=== PATIENT | male | born 1945 | race Caucasian/White ===

== ENCOUNTER 2021-03-08 17:53 | Inpatient (IN) ==
--- NOTE | 2021-03-08 18:20 | Emergency Department Note ---
Impression & Plan Hyponatremia, Alcoholic intoxication, Falling, Unsteady ED Provider Note Provider: Jeovany Zuluaga MD DATE OF SERVICE: 03/08/2021 CHIEF COMPLAINT: Balance issues HISTORY OF PRESENT ILLNESS: Patient is a 75-year-old gentleman presenting via ambulance from home today after falling from his truck to the ground. Reports over the past several months only 3-4 has been having balance issues. States that he does not feel dizzy or have any chest pain or palpitations. Denies shortness of breath or fever. Denies any new numbness or focal weakness. Patient states that he feels okay at the moment but when he gets to stand or move around he loses his balance. Denies any visual changes or feeling like things are moving. Patient states he has had a couple beers today. Patient states he does not really like the doctor and has not been evaluated recently for his complaints or for general medical preventative health reasons. Patient states he has no wounds or injuries from today or denies pain. Patient states he did not strike his head today. Patient does reports that he suffered a brush burn scratch along his right forearm while mowing several weeks ago. Patient's later arrives and confirms that over the past several months the patient's had a decline in his balance in the time she states she is noted some tremors and speech being a little bit off. She states he occasionally has some alcohol but is a very heavy smoker. REVIEW OF SYSTEMS: A total of 10 review of systems was obtained and negative except as stated above in the HPI. PAST MEDICAL HISTORY: As noted above MEDICATIONS: Denies daily home medications SOCIAL HISTORY: Lives at home with , smoker, regular alcohol PHYSICAL EXAM: GENERAL: alert and oriented in no acute distress on stretcher with faint smell of alcohol present Head: normocephalic and atraumatic EYES: No injection, discharge or icterus. PERRL NECK: Trachea midline. Supple. ENT: Mucous membranes pink and moist. LUNGS: Airway patent. No retractions. Breath sounds clear with good air entry bilaterally. HEART: Regular mildly tachycardic rate and rhythm. No chest wall tenderness ABDOMEN: Soft and non-tender, without guarding or rebound. SKIN: Acyanotic, warm, dry EXTREMITIES: Without swelling, tenderness or deformity except for an approximately 3 x 5 cm healing abrasion on the right forearm as well as a few small healed abrasions on the left hand and left wrist. Has a small healing skin tear on the left elbow. NEUROLOGICAL: No focal deficits. No aphasia. No facial droop with a very minimal slurred speech. Normal strength and tone in the extremities. Sensation to gross touch normal. Some slight tremor noted in the hands. EKs for and sinus tachycardia. No PVC or PAC. No acute ST segment elevation or depression. QTC 451. CONTINUOUS CARDIAC MONITORING: was ordered and showed a heart rate of 100s bpm in sinus tachycardia GCS 15. Patient's laboratory studies and imaging reviewed. Differential includes Benign positional vertigo, dehydration, hypovolemia, anemia, tumor, infection, hypoglycemia, electrolyte abnormalities, cardiac sources, intracerebral event, toxicologic, neurologic, as well as other pathologies. IMPRESSION/MEDICAL DECISION MAKING: Patient presents complaining of several months of unsteadiness and balance issues. He denies any fever or hearing issues or visual changes. Patient is hypertensive here. CT of his complete exclude acute intracranial bleed. Not having significant focal deficits concerning for stroke at this point. Basic labs were obtained although again does not report significant infectious symptoms. EKG was obtained as well as cardiac monitoring for possible arrhythmia. Thyroid function was checked. Patient states he does not like doctors and wonder if he has some component of uncontrolled hypertension given the elevated blood pressure here today. Letter without significant anemia or leukocytosis. Platelet count is normal. Blood work does show significant hyponatremia of 124 today may explain some of his symptoms. Serum osmole and urine awesome's were added on. Patient evidently urgently had to urinate and before his could get staff to assist him he got up to the end of the bed he urinated himself and fell to the ground leading in his buttock. No seizure activity or loss of conscious reported. Staff assisted him back to bed. Do not see any obvious evidence of significant trauma from this. Did complete CT scans after this. Alcohol level is significantly evaded to 24 today. Question if this is component of his symptoms and also prompting some of his hyponatremia. CT imaging of the head and cervical spine per radiology show no acute abnormalities or signs of stroke. Last drink was around 2:30 PM but does not appear to be in jodi withdrawal at this time. Denies a history of significant withdrawal. Will need to be monitored for this. Given his significant hyponatremia today believe he needs further inpatient monitoring and he and his are in agreement. Give a small amount IV fluid. Thiamine and folate ordered. I do not believe acute Warnicke's encephalopathy is occurring. DIAGNOSIS: Unsteady, hyponatremia, alcohol intoxication, falling, hypertension DISPOSITION: Hospitalist will evaluate Patient was agreeable with this plan. Past Med/Surg History Social History Smoking Status: Current every day smoker Tobacco Type: Cigarettes Preferred Language: Iraqi Feels Safe at Home: Yes Assistive Devices: Glasses Allergies Allergies Allergy/AdvReac Type Severity Reaction Status Date / Time No Known Allergies Allergy Verified 03/08/21 18:52 Home Meds Home Medications Medication Instructions Recorded Confirmed No Known Home Medications 03/08/21 03/08/21 Results & Data (ED) Vital Signs Vital Signs - 24 hr 03/08/21 18:02 03/08/21 18:03 03/08/21 18:04 Temperature 36.8 C Temperature Source Oral Pulse Rate 107 H 111 H 111 H Pulse Rate from SpO2 Sensor 107 H Pulse Rhythm Regular Pulse Strength Normal Respiratory Rate 23 20 Respiratory Effort / Characteristics Non-Labored Respiratory Depth Normal Respiratory Pattern Regular Blood Pressure 195/119 H 195/119 H Blood Pressure Mean 144 144 Blood Pressure Position Lying Pulse Oximetry 96 97 96 Oxygen Delivery Method Room Air Room Air Sepsis Recent Fever Within 48 Hours No Sepsis New/Unexplained Change in Mental Status N/A Sepsis Action Taken by Nursing No Action Required 03/08/21 18:36 03/08/21 19:01 03/08/21 19:18 Temperature Temperature Source Pulse Rate 105 H 105 H 103 H Pulse Rate from SpO2 Sensor 105 H 105 H Pulse Rhythm Pulse Strength Respiratory Rate 18 22 20 Respiratory Effort / Characteristics Respiratory Depth Respiratory Pattern Blood Pressure 180/88 H Blood Pressure Mean 118 Blood Pressure Position Pulse Oximetry 97 98 Oxygen Delivery Method Sepsis Recent Fever Within 48 Hours Sepsis New/Unexplained Change in Mental Status Sepsis Action Taken by Nursing 03/08/21 19:20 03/08/21 19:30 03/08/21 20:00 Temperature Temperature Source Pulse Rate 104 H 106 H 107 H Pulse Rate from SpO2 Sensor 104 H 105 H 108 H Pulse Rhythm Pulse Strength Respiratory Rate 18 17 15 Respiratory Effort / Characteristics Respiratory Depth Respiratory Pattern Blood Pressure 163/107 H Blood Pressure Mean 125 Blood Pressure Position Pulse Oximetry 97 98 98 Oxygen Delivery Method Sepsis Recent Fever Within 48 Hours Sepsis New/Unexplained Change in Mental Status Sepsis Action Taken by Nursing 03/08/21 20:32 03/08/21 20:40 03/08/21 20:50 Temperature Temperature Source Pulse Rate 111 H 102 H 104 H Pulse Rate from SpO2 Sensor 102 H 104 H Pulse Rhythm Pulse Strength Respiratory Rate 31 H 16 23 Respiratory Effort / Characteristics Respiratory Depth Respiratory Pattern Blood Pressure Blood Pressure Mean Blood Pressure Position Pulse Oximetry 99 95 Oxygen Delivery Method Sepsis Recent Fever Within 48 Hours Sepsis New/Unexplained Change in Mental Status Sepsis Action Taken by Nursing 03/08/21 21:00 03/08/21 21:31 Temperature Temperature Source Pulse Rate 102 H Pulse Rate from SpO2 Sensor Pulse Rhythm Pulse Strength Respiratory Rate 29 H Respiratory Effort / Characteristics Respiratory Depth Respiratory Pattern Blood Pressure 153/89 H 133/104 H Blood Pressure Mean 110 113 Blood Pressure Position Pulse Oximetry Oxygen Delivery Method Sepsis Recent Fever Within 48 Hours Sepsis New/Unexplained Change in Mental Status Sepsis Action Taken by Nursing Laboratory Data Result diagrams: 03/08/21 18:31 03/08/21 22:51 Lab Results 03/08/21 03/08/21 03/08/21 Range/Units 18:31 18:31 18:31 WBC 6.22 (4.8-10.8) K/uL RBC 4.60 L (4.7-6.1) M/uL Hgb 15.7 (14.0-18.0) g/dL Hct 42.6 (42-52) % MCV 92.6 (80-100) fL MCH 34.1 H (25-34) pg MCHC 36.9 H (32-36) g/dL RDW Std Deviation 42.3 (36.4-46.3) fL RDW Coeff of Marjan 12.5 (11.5-14.5) % Plt Count 240 (130-400) K/uL MPV 9.3 (7.4-10.4) fL Immature Gran % (Auto) 0.2 % Neut % (Auto) 69.4 % Lymph % (Auto) 18.2 % Tarrant % (Auto) 10.9 % Eos % (Auto) 0.3 % Baso % (Auto) 1.0 % Neut # (Auto) 4.32 (1.4-6.5) K/uL Lymph # (Auto) 1.13 L (1.2-3.4) K/uL Tarrant # (Auto) 0.68 H (0.11-0.59) K/uL Eos # (Auto) 0.02 (0-0.5) K/uL Baso # (Auto) 0.06 (0-0.2) K/uL Immature Gran # (Auto) 0.01 (0.00-0.02) K/uL Sodium 124 L (136-145) mmol/L Potassium 4.2 (3.5-5.1) mmol/L Chloride 90 L (98-107) mmol/L Carbon Dioxide 23 (21-32) mmol/L Anion Gap 10.0 (3-11) BUN 6 L (7-18) mg/dl Creatinine 0.60 (0.6-1.4) mg/dl Est Cr Clr Drug Dosing 97.5 ml/min Est GFR ( Amer) 114.8 ml/min Est GFR (Non-Af Amer) 99.1 ml/min BUN/Creatinine Ratio 10.1 (10-20) Glucose 78 (70-99) mg/dl Osmolality (280-300) mOsm/kg Calcium 9.1 (8.5-10.1) mg/dl Magnesium 1.5 L (1.8-2.4) mg/dl Total Bilirubin 0.9 (0.2-1) mg/dl AST 39 H (15-37) U/L ALT 53 (12-78) U/L Alkaline Phosphatase 71 (45-117) U/L Troponin I < 0.015 (0-0.045) ng/ml Total Protein 7.9 (6.4-8.2) gm/dl Albumin 4.1 (3.4-5.0) gm/dl Globulin 3.8 (2.5-4.0) gm/dl Albumin/Globulin Ratio 1.1 (0.9-2) TSH 2.180 (0.300-4.500) uIu/ml Ethyl Alcohol mg/dL 224.2 H (0-3) mg/dl COVID-19 Eval Order SARS-CoV-2 (PCR) (Negative) 03/08/21 03/08/21 03/08/21 Range/Units 18:31 20:00 20:00 WBC (4.8-10.8) K/uL RBC (4.7-6.1) M/uL Hgb (14.0-18.0) g/dL Hct (42-52) % MCV (80-100) fL MCH (25-34) pg MCHC (32-36) g/dL RDW Std Deviation (36.4-46.3) fL RDW Coeff of Marjan (11.5-14.5) % Plt Count (130-400) K/uL MPV (7.4-10.4) fL Immature Gran % (Auto) % Neut % (Auto) % Lymph % (Auto) % Tarrant % (Auto) % Eos % (Auto) % Baso % (Auto) % Neut # (Auto) (1.4-6.5) K/uL Lymph # (Auto) (1.2-3.4) K/uL Tarrant # (Auto) (0.11-0.59) K/uL Eos # (Auto) (0-0.5) K/uL Baso # (Auto) (0-0.2) K/uL Immature Gran # (Auto) (0.00-0.02) K/uL Sodium (136-145) mmol/L Potassium (3.5-5.1) mmol/L Chloride (98-107) mmol/L Carbon Dioxide (21-32) mmol/L Anion Gap (3-11) BUN (7-18) mg/dl Creatinine (0.6-1.4) mg/dl Est Cr Clr Drug Dosing ml/min Est GFR ( Amer) ml/min Est GFR (Non-Af Amer) ml/min BUN/Creatinine Ratio (10-20) Glucose (70-99) mg/dl Osmolality 314 H (280-300) mOsm/kg Calcium (8.5-10.1) mg/dl Magnesium (1.8-2.4) mg/dl Total Bilirubin (0.2-1) mg/dl AST (15-37) U/L ALT (12-78) U/L Alkaline Phosphatase (45-117) U/L Troponin I (0-0.045) ng/ml Total Protein (6.4-8.2) gm/dl Albumin (3.4-5.0) gm/dl Globulin (2.5-4.0) gm/dl Albumin/Globulin Ratio (0.9-2) TSH (0.300-4.500) uIu/ml Ethyl Alcohol mg/dL (0-3) mg/dl COVID-19 Eval Order Covid19 at [facility] SARS-CoV-2 (PCR) NEGATIVE (Negative) Administered Medications Discontinued Medications Clonidine HCl (Clonidine Hcl 0.1 Mg Tab) 0.1 mg PO NOW ONE Stop: 03/08/21 20:05 Last Admin: 03/08/21 20:56 Dose: 0.1 mg Documented by: [id number] Folic Acid (Folic Acid 1 Mg Tab) 1 mg PO ONCE ONE Stop: 03/08/21 20:03 Last Admin: 03/08/21 22:03 Dose: 1 mg Documented by: [id number] Gabapentin (Gabapentin 600 Mg Tab) 1,200 mg PO NOW STA Stop: 03/08/21 20:39 Last Admin: 03/08/21 20:55 Dose: 1,200 mg Documented by: [id number] Gabapentin (Gabapentin 1200mg Alcohol Withdrawal Load) 1 ea PO NOW STA; Haily col Stop: 03/08/21 21:53 Last Admin: 03/09/21 00:27 Dose: Not Given Documented by: [id number] Sodium Chloride (Nss) 250 mls @ 999 mls/hr IV .Q16M ONE Stop: 03/08/21 19:39 Last Infusion: 03/08/21 20:16 Dose: 999 mls/hr Documented by: [id number] Admin: 03/08/21 20:00 Dose: 999 mls/hr Documented by: [id number] Multivitamins 10 ml/ Thiamine HCl 100 mg/ Folic Acid 1 mg/Sodium Chloride 1,011.2 mls @ 1,011.2 mls/hr IV .Q1H ONE Stop: 03/08/21 21:01 Last Infusion: 03/08/21 22:38 Dose: 1,011.2 mls/hr Documented by: [id number] Admin: 03/08/21 21:38 Dose: 1,011.2 mls/hr Documented by: [id number] Thiamine HCl 100 mg/ Syringe 10 mls @ 2 mls/min IV NOW STA Stop: 03/08/21 20:08 Last Admin: 03/08/21 21:00 Dose: 2 mls/min Documented by: [id number] Lorazepam (Ativan) 0.5 mg in 1 mls @ 1 mls/min IV NOW STA Stop: 03/08/21 20:39 Last Admin: 03/08/21 20:56 Dose: 1 mls/min Documented by: [id number] Magnesium Sulfate/Dextrose (Magnesium Sulfate / D5w) 1 gm in 100 mls @ 50 mls/ hr IV Q2H [place] Stop: 03/09/21 00:59 Last Admin: 03/09/21 00:57 Dose: 50 mls/hr Documented by: [id number] Infusion: 03/08/21 23:54 Dose: 50 mls/hr Documented by: [id number] Admin: 03/08/21 21:54 Dose: 50 mls/hr Documented by: [id number] Thiamine HCl (Thiamine Hcl 100 Mg Tab) 100 mg PO ONCE ONE Stop: 03/08/21 20:03 Last Admin: 03/08/21 21:13 Dose: Not Given Documented by: [id number] Imaging Data Radiologist's Impression: Chest X-Ray 03/08/21 18:04 SINGLE VIEW CHEST CLINICAL HISTORY: Loss of balance. Disequilibrium. FINDINGS: An AP, portable, upright chest radiograph is obtained. No prior studies are available for comparison at the time of dictation. The cardiomediastinal silhouette is unremarkable. There is mild bibasilar atelec tasis. The lungs and pleural spaces are otherwise clear. No pneumothorax is seen. The skeletal structures are osteopenic. The bony thorax is grossly intact. IMPRESSION: No active disease in the chest. ACT 112: Negative or not required by law. Electronically signed by: Saleem Koo M.D. 03/08/2021 6:[address] 03/08/21 18:04 CT SCAN OF THE BRAIN WITHOUT IV CONTRAST CLINICAL HISTORY: Disequilibrium. Loss of balance. COMPARISON STUDY: No priors. TECHNIQUE: Unenhanced axial CT scan of the brain is performed from the vertex to the skull base. A dose lowering technique was utilized adhering to the principles of ALARA. FINDINGS: Brain parenchyma: There are age-related involutional changes noting mild subcortical and periventricular microangiopathic change. There is no hemorrhage, mass effect, or evidence of acute territorial ischemia by CT criteria. A chronic lacunar infarct is noted in the right aspect of the naveen. Huston-white matter differentiation is preserved. No extra-axial fluid collection is seen. Ventricles, sulci, cisterns: Prominent secondary to involutional change. Intracranial vasculature: There is atherosclerotic calcification of the cavernous carotid arteries. Calvarium: Unremarkable. Sinuses and mastoids: There is mild mucosal thickening within the maxillary antra. Thickening and sclerosis of the sinus barton indicates chronicity. Mild mucosal thickening is also seen within the frontal and ethmoid sinuses. The mastoid air cells are well pneumatized. Orbits: The bony orbits are grossly intact. IMPRESSION: There is no hemorrhage, mass effect, or evidence of acute te rritorial ischemia by CT criteria. ACT 112: Negative or not required by law. Electronically signed by: Saleem Koo M.D. 03/08/2021 7:[address] 03/08/21 18:44 CT SCAN OF THE CERVICAL SPINE CLINICAL HISTORY: Fall. COMPARISON STUDY: No priors. TECHNIQUE: CT scan of the cervical spine is performed from the skull base to the upper thoracic spine. Images are reviewed in the axial, sagittal, and coronal planes. IV contrast was not administered for this examination. A dose lowering technique was utilized adhering to the principles of ALARA. CT DOSE: 1035.09 mGy.cm FINDINGS: Skeletal structures: The skeletal structures are osteopenic. There is no evidence of fracture or subluxation involving the cervical spine. Vertebral body height and alignment are maintained. Anterior osteophytes are seen throughout. The odontoid process and lateral masses are intact. The atlantoaxial articulation is preserved. The spinous processes appear intact. A large hemangi myke is noted in the body of C6. There is mild multilevel cervical spondylosis. Uncovertebral and facet arthropathy are seen at several levels. Intervertebral discs: There is mild disc space narrowing, greatest at C3-C4. Central canal: Grossly patent. Soft tissues: The prevertebral and paraspinous soft tissues are within normal limits. There is atherosclerotic calcification of the carotid bulbs. Calvarium: The visualized calvarium at the skull base appears intact. Brain parenchyma: Partially visualized brain parenchyma at the skull base is within normal limits noting age-related involutional change. Sinuses and mastoids: There is mild mucosal thickening within the maxillary antra in the right sphenoid sinus. There is thickening and sclerosis of the maxillary sinus barton. The mastoid air cells are well pneumatized. Lung apices: Emphysematous change is noted at the apices. IMPRESSION: There is no evidence of fracture or subluxation involving the cervical spine ACT 112: Negative or not required by law. Electronically signed by: Saleem Koo M.D. 03/08/2021 7:43 PM Discharge Plan Visit Data Chief Complaint: Alcohol Intoxication ED Provider: Jeovany Zuluaga Discharge Problem: Hyponatremia, Alcoholic intoxication, Falling, Unsteady Patient Disposition: Admitted As Inpatient Discharge Instructions Interventions: ED Discharge Assessment Last Done: 03/08/21 23:40 Discharge Problem: Alcoholic intoxication Qualifiers: Complication of substance-induced condition: uncomplicated Qualified Code(s): F10.920 - Alcohol use, unspecified with intoxication, uncomplicated
--- NOTE | 2021-03-08 18:33 | XRay Report ---
SINGLE VIEW CHEST CLINICAL HISTORY: Loss of balance. Disequilibrium. FINDINGS: An AP, portable, upright chest radiograph is obtained. No prior studies are available for c omparison at the time of dictation. The cardiomediastinal silhouette is unremarkable. There is mild bibasilar atelectasis. The lungs and pleural spaces are otherwise clear. No pneumothorax is seen. The skeletal structures are osteopenic. The bony thorax is grossly intact. IMPRESSION: No active disease in the chest. ACT 112: Negative or not required by law. Electronically signed by: Saleem Koo M.D. 03/08/2021 6:31 PM
[2021-03-08 18:41] LABS: Basophils # (auto) 0.06 K/uL (0-0.2); Eosinophils # (auto) 0.02 K/uL (0-0.5); Eosinophils % (auto) 0.3 %; Hematocrit (blood only) 42.6 % (42-52); Hemoglobin 15.7 g/dL (14.0-18.0); Immature Granulocytes # (auto) 0.01 K/uL (0.00-0.02); Immature Granulocytes % (auto) 0.2 %; Lymphocytes # (auto) 1.13 K/uL (1.2-3.4); Lymphocytes % (auto) 18.2 %; Mean Corpuscular Hemoglobin 34.1 pg (25-34); Mean Corpuscular Hgb Conc 36.9 g/dL (32-36); Mean Corpuscular Volume 92.6 fL (80-100); Mean Platelet Volume 9.3 fL (7.4-10.4); Monocytes # (auto) 0.68 K/uL (0.11-0.59); Monocytes % (auto) 10.9 %; Neutrophils # (auto) 4.32 K/uL (1.4-6.5); Neutrophils % (auto) 69.4 %; Platelet Count 240 K/uL (130-400); RDW Coefficient of Variation 12.5 % (11.5-14.5); RDW Standard Deviation 42.3 fL (36.4-46.3); White Blood Count 6.22 K/uL (4.8-10.8)
[2021-03-08 19:03] LABS: Albumin Level 4.1 gm/dl (3.4-5.0); BUN Creatinine Ratio 10.1 (10-20); Blood Urea Nitrogen 6 mg/dl (7-18); Calcium 9.1 mg/dl (8.5-10.1); Carbon Dioxide 23 mmol/L (21-32); Chloride 90 mmol/L (98-107); Creatinine Clr Calc Pharmacy 97.5 ml/min; Est GFR (African American) 114.8 ml/min; Est GFR (Non-African American) 99.1 ml/min; Glucose 78 mg/dl (70-99); Potassium 4.2 mmol/L (3.5-5.1); Sodium 124 mmol/L (136-145)
[2021-03-08 19:14] LABS: Alanine Aminotransferase 53 U/L (12-78); Albumin Globulin Ratio 1.1 (0.9-2); Alkaline Phosphatase 71 U/L (45-117); Aspartate Aminotransferase 39 U/L (15-37); Bilirubin,Total 0.9 mg/dl (0.2-1); Globulin 3.8 gm/dl (2.5-4.0); Total Protein 7.9 gm/dl (6.4-8.2); Troponin I < 0.015 ng/ml (0-0.045)
[2021-03-08] MEDS ORDERED: SODIUM CHLORIDE 0.9% 250 ML IV ONE (19:24)
--- NOTE | 2021-03-08 19:25 | CT Scan Report ---
CT SCAN OF THE BRAIN WITHOUT IV CONTRAST CLINICAL HISTORY: Disequilibrium. Loss of balance. COMPARISON STUDY: No priors. TECHNIQUE: Unenhanced axial CT scan of the brain is performed from the vertex to the skull base. A do se lowering technique was utilized adhering to the principles of ALARA. FINDINGS: Brain parenchyma: There are age-related involutional changes noting mild subcortical and periventric ular microangiopathic change. There is no hemorrhage, mass effect, or evidence of acute territorial i schemia by CT criteria. A chronic lacunar infarct is noted in the right aspect of the naveen. Huston-whit e matter differentiation is preserved. No extra-axial fluid collection is seen. Ventricles, sulci, cisterns: Prominent secondary to involutional change. Intracranial vasculature: There is atherosclerotic calcification of the cavernous carotid arteries. Calvarium: Unremarkable. Sinuses and mastoids: There is mild mucosal thickening within the maxillary antra. Thickening and scl erosis of the sinus barton indicates chronicity. Mild mucosal thickening is also seen within the front al and ethmoid sinuses. The mastoid air cells are well pneumatized. Orbits: The bony orbits are grossly intact. IMPRESSION: There is no hemorrhage, mass effect, or evidence of acute territorial ischemia by CT crit tahira. ACT 112: Negative or not required by law. Electronically signed by: Saleem Koo M.D. 03/08/2021 7:24 PM
--- NOTE | 2021-03-08 19:44 | CT Scan Report ---
CT SCAN OF THE CERVICAL SPINE CLINICAL HISTORY: Fall. COMPARISON STUDY: No priors. TECHNIQUE: CT scan of the cervical spine is performed from the skull base to the upper thoracic spine . Images are reviewed in the axial, sagittal, and coronal planes. IV contrast was not administered fo r this examination. A dose lowering technique was utilized adhering to the principles of ALARA. CT DOSE: 1035.09 mGy.cm FINDINGS: Skeletal structures: The skeletal structures are osteopenic. There is no evidence of fracture or subl uxation involving the cervical spine. Vertebral body height and alignment are maintained. Anterior os teophytes are seen throughout. The odontoid process and lateral masses are intact. The atlantoaxial a rticulation is preserved. The spinous processes appear intact. A large hemangioma is noted in the bod y of C6. There is mild multilevel cervical spondylosis. Uncovertebral and facet arthropathy are seen at several levels. Intervertebral discs: There is mild disc space narrowing, greatest at C3-C4. Central canal: Grossly patent. Soft tissues: The prevertebral and paraspinous soft tissues are within normal limits. There is athero sclerotic calcification of the carotid bulbs. Calvarium: The visualized calvarium at the skull base appears intact. Brain parenchyma: Partially visualized brain parenchyma at the skull base is within normal limits not ing age-related involutional change. Sinuses and mastoids: There is mild mucosal thickening within the maxillary antra in the right spheno id sinus. There is thickening and sclerosis of the maxillary sinus barton. The mastoid air cells are w ell pneumatized. Lung apices: Emphysematous change is noted at the apices. IMPRESSION: There is no evidence of fracture or subluxation involving the cervical spine ACT 112: Negative or not required by law. Electronically signed by: Saleem Koo M.D. 03/08/2021 7:43 PM
[2021-03-08] MEDS ORDERED: FOLIC ACID 1 MG TAB PO ONE (20:02)
[2021-03-08] MEDS ORDERED: MULTI-VITAMIN INFUSION 10 ML, THIAMINE HCL 100 MG, FOLIC ACID 1 MG in SODIUM CHLORIDE 0... IV ONE (20:02)
[2021-03-08] MEDS ORDERED: THIAMINE HCL 100 MG TAB PO ONE (20:02)
[2021-03-08] MEDS ORDERED: cloNIDine HCL 0.1 MG TAB PO ONE (20:04)
[2021-03-08] MEDS ORDERED: THIAMINE HCL 100 MG in SYRINGE 9 ML IV STA (20:04)
[2021-03-08 20:14] LABS: Magnesium 1.5 mg/dl (1.8-2.4)
[2021-03-08] MEDS ORDERED: GABAPENTIN 600 MG TAB PO STA (20:38)
[2021-03-08] MEDS ORDERED: LORazepam 0.5 MG/1 ML VIAL IV STA (20:38)
--- NOTE | 2021-03-08 21:39 | History & Physical Report ---
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 Lovenox subcu Full code Patient requesting updates from providers. Ms. Desiree Lion, contact #[phone]. Text document was generated using Therio voice recognition software. It may contain grammatical or spelling errors. Kindly contact undersigned for clarification of any documentation item in question. History of Present Illness Chief Complaint: Falling, unsteadiness, balance issues Primary Care Provider: NO PCP History obtained from patient, family, and records. Medical history significant for RUE acanthoma, ongoing tobacco/alcohol abuse. Patient has had worsening gait instability/balance issues/slurred speech the last few months as per . Admits to alcohol abuse. Increase tremors at home. Falls at home from gait instability as per . Patient denies headache, chest pain, S OB. No prior history of alcohol withdrawal seizures. Patient brought to the ER for evaluation. 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 unable to verbalize due to condition upon arrival Stick Puller Required: No Beliefs That Will Affect Care: None marital status: Current Living Situation: Spouse Feels Safe at Home: Yes Assistive Devices: Glasses Assistive Devices Comment: Pt. arrived on unit with glasses Review of Systems Review of Systems: As per HPI, all 10 systems reviewed, all other ROS negative Physical Exam Physical Exam: GENERAL: uncomfortable, restless, tremulous, somewhat dysarthric, no respiratory distress SKIN: Normal color, warm HEENT: [place] palpebral conjunctivae, no ptosis, lid asymmetry (unknown duration), dry buccal mucosa NECK : Supple, no tenderness CHEST : CTA, no tenderness HEART : Tachycardic, no obvious murmurs ABDOMEN: Some distention, nontender EXTREMITIES : No LE swelling/tenderness, no other conspicuous deformities noted NEUROLOGIC : Coherent, lip asymmetry of unknown duration, mild dysarthria, tremulous, no other gross focality Results & Data Results & Data ([facility]) Vital Signs (Past 12 Hours) Vital Signs Temp Pulse Resp BP Pulse Ox 03/08/21 19:01 105 H 22 98 03/08/21 18:36 105 H 18 180/88 H 97 03/08/21 18:04 36.8 C 111 H 20 195/119 H 96 03/08/21 18:03 111 H 97 03/08/21 18:02 107 H 23 195/119 H 96 Laboratory Results Laboratory Results WBC 6.22 K/uL (4.8-10.8) 03/08/21 18:31 RBC 4.60 M/uL (4.7-6.1) L 03/08/21 18:31 Hgb 15.7 g/dL (14.0-18.0) 03/08/21 18:31 Hct 42.6 % (42-52) 03/08/21 18:31 MCV 92.6 fL (80-100) 03/08/21 18:31 MCH 34.1 pg (25-34) H 03/08/21 18:31 MCHC 36.9 g/dL (32-36) H 03/08/21 18:31 RDW Std Deviation 42.3 fL (36.4-46.3) 03/08/21 18:31 RDW Coeff of Marjan 12.5 % (11.5-14.5) 03/08/21 18:31 Plt Count 240 K/uL (130-400) 03/08/21 18:31 MPV 9.3 fL (7.4-10.4) 03/08/21 18:31 Immature Gran % (Auto) 0.2 % 03/08/21 18:31 Neut % (Auto) 69.4 % 03/08/21 18:31 Lymph % (Auto) 18.2 % 03/08/21 18:31 [place] % (Auto) 10.9 % 03/08/21 18:31 Eos % (Auto) 0.3 % 03/08/21 18:31 Baso % (Auto) 1.0 % 03/08/21 18:31 Neut # (Auto) 4.32 K/uL (1.4-6.5) 03/08/21 18:31 Lymph # (Auto) 1.13 K/uL (1.2-3.4) L 03/08/21 18:31 [place] # (Auto) 0.68 K/uL (0.11-0.59) H 03/08/21 18:31 Eos # (Auto) 0.02 K/uL (0-0.5) 03/08/21 18:31 Baso # (Auto) 0.06 K/uL (0-0.2) 03/08/21 18:31 Immature Gran # (Auto) 0.01 K/uL (0.00-0.02) 03/08/21 18:31 Sodium 124 mmol/L (136-145) L 03/08/21 18:31 Potassium 4.2 mmol/L (3.5-5.1) 03/08/21 18:31 Chloride 90 mmol/L (98-107) L 03/08/21 18:31 Carbon Dioxide 23 mmol/L (21-32) 03/08/21 18:31 Anion Gap 10.0 (3-11) 03/08/21 18:31 BUN 6 mg/dl (7-18) L 03/08/21 18:31 Creatinine 0.60 mg/dl (0.6-1.4) 03/08/21 18: Est Cr Clr Drug Dosing 97.5 ml/min 03/08/21 18:31 Est GFR ( Amer) 114.8 ml/min 03/08/21 18:31 Est GFR (Non-Af Amer) 99.1 ml/min 03/08/21 18:31 BUN/Creatinine Ratio 10.1 (10-20) 03/08/21 18:31 Glucose 78 mg/dl (70-99) 03/08/21 18:31 Osmolality 314 mOsm/kg (280-300) H 03/08/21 18:31 Calcium 9.1 mg/dl (8.5-10.1) 03/08/21 18:31 Magnesium 1.5 mg/dl (1.8-2.4) L 03/08/21 18:31 Total Bilirubin 0.9 mg/dl (0.2-1) 03/08/21 18:31 AST 39 U/L (15-37) H 03/08/21 18:31 ALT 53 U/L (12-78) 03/08/21 18:31 Alkaline Phosphatase 71 U/L (45-117) 03/08/21 18:31 Troponin I < 0.015 ng/ml (0-0.045) 03/08/21 18:31 Total Protein 7.9 gm/dl (6.4-8.2) 03/08/21 18:31 Albumin 4.1 gm/dl (3.4-5.0) 03/08/21 18:31 Globulin 3.8 gm/dl (2.5-4.0) 03/08/21 18:31 Albumin/Globulin Ratio 1.1 (0.9-2) 03/08/21 18:31 TSH 2.180 uIu/ml (0.300-4.500) 03/08/21 18:31 Ethyl Alcohol mg/dL 224.2 mg/dl (0-3) H 03/08/21 18:31 COVID-19 Eval Order Covid19 at [facility] 03/08/21 20:00 Impressions Chest X-Ray 03/08/21 18:04 SINGLE VIEW CHEST CLINICAL HISTORY: Loss of balance. Disequilibrium. FINDINGS: An AP, portable, upright chest radiograph is obtained. No prior studies are available for comparison at the time of dictation. The cardiomediastinal silhouette is unremarkable. There is mild bibasilar atelectasis. The lungs and pleural spaces are otherwise clear. No pneumothorax is seen. The skeletal structures are osteopenic. The bony thorax is grossly intact. IMPRESSION: No active disease in the chest. ACT 112: Negative or not required by law. Electronically signed by: Saleem Koo M.D. 03/08/2021 6:[address] 03/08/21 18:04 CT SCAN OF THE BRAIN WITHOUT IV CONTRAST CLINICAL HISTORY: Disequilibrium. Loss of balance. COMPARISON STUDY: No priors. TECHNIQUE: Unenhanced axial CT scan of the brain is performed from the vertex to the skull base. A dose lowering technique was utilized adhering to the principles of ALARA. FINDINGS: Brain parenchyma: There are age-related involutional changes noting mild subcortical and periventricular microangiopathic change. There is no hemorrhage, mass effect, or evidence of acute territorial ischemia by CT criteria. A chronic lacunar infarct is noted in the right aspect of the naveen. [place]-white matter differentiation is preserved. No extra-axial fluid collection is seen. Ventricles, sulci, cisterns: Prominent secondary to involutional change. Intracranial vasculature: There is atherosclerotic calcification of the cavernous carotid arteries. Calvarium: Unremarkable. Sinuses and mastoids: There is mild mucosal thickening within the maxillary antra. Thickening and sclerosis of the sinus barton indicates chronicity. Mild mucosal thickening is also seen within the frontal and ethmoid sinuses. The mastoid air cells are well pneumatized. Orbits: The bony orbits are grossly intact. IMPRESSION: There is no hemorrhage, mass effect, or evidence of acute territorial ischemia by CT criteria. ACT 112: Negative or not required by law. Electronically signed by: Saleem Koo M.D. 03/08/2021 7:[address] 03/08/21 18:44 CT SCAN OF THE CERVICAL SPINE CLINICAL HISTORY: Fall. COMPARISON STUDY: No priors. TECHNIQUE: CT scan of the cervical spine is performed from the skull base to the upper thoracic spine. Images are reviewed in the axial, sagittal, and coronal planes. IV contrast was not administered for this examination. A dose lowering technique was utilized adhering to the principles of ALARA. CT DOSE: 1035.09 mGy.cm FINDINGS: Skeletal structures: The skeletal structures are osteopenic. There is no evidence of fracture or subluxation involving the cervical spine. Vertebral body height and alignment are maintained. Anterior osteophytes are seen throughout. The odontoid process and lateral masses are intact. The atlantoaxial articulation is preserved. The spinous processes appear intact. A large hemangioma is noted in the body of C6. There is mild multilevel cervical spondylosis. Uncovertebral and facet arthropathy are seen at several levels. Intervertebral discs: There is mild disc space narrowing, greatest at C3-C4. Central canal: Grossly patent. Soft tissues: The prevertebral and paraspinous soft tissues are within normal limits. There is atherosclerotic calcification of the carotid bulbs. Calvarium: The visualized calvarium at the skull base appears intact. Brain parenchyma: Partially visualized brain parenchyma at the skull base is within normal limits noting age-related involutional change. Sinuses and mastoids: There is mild mucosal thickening within the maxillary antra in the right sphenoid sinus. There is thickening and sclerosis of the maxillary sinus barton. The mastoid air cells are well pneumatized. Lung apices: Emphysematous change is noted at the apices. IMPRESSION: There is no evidence of fracture or subluxation involving the cervical spine ACT 112: Negative or not required by law. Electronically signed by: Saleem Koo M.D. 03/08/2021 7:43 PM Diagnostic Findings EKG as per my interpretation rate 105, sinus tachycardia, normal axis, no ischemia
[2021-03-08] MEDS ORDERED: GABAPENTIN 1200MG ALCOHOL WITHDRAWAL LOAD PO STA (21:52)
[2021-03-08] MEDS: MAGNESIUM SULFATE / D5W 1 GM/100 ML BAG IV SCH (21:54)
[2021-03-08 23:17] LABS: Prothrombin Time 10.4 Seconds (9.0-12.0)
[2021-03-09] MEDS ORDERED: LORazepam 0.25 MG/0.5 ML VIAL IV PRN (00:17)
[2021-03-09] MEDS ORDERED: LORazepam 2 MG/4 ML VIAL IV PRN (00:17)
[2021-03-09] MEDS ORDERED: ACETAMINOPHEN 325 MG TAB PO PRN (00:17)
[2021-03-09] MEDS ORDERED: LORazepam 3 MG/6 ML VIAL IV PRN (00:17)
[2021-03-09] MEDS ORDERED: ATIVAN IV ALCOHOL WITHDRAWL IV PRN (00:17)
[2021-03-09] MEDS ORDERED: PROMETHAZINE HCL 12.5 MG in SODIUM CHLORIDE 0.9% 50 ML IV PRN (00:17)
[2021-03-09] MEDS ORDERED: oxyCODONE HCL IR 5 MG TAB (IMMEDIATE RELEASE) PO PRN (00:17)
[2021-03-09] MEDS ORDERED: LORazepam 1 MG/2 ML VIAL IV PRN ×2 (00:17)
[2021-03-09 00:32] LABS: Appearance Urine Clear (Clear); Bilirubin Urine Negative (Negative); Blood Urine Negative (Negative); Color Urine Yellow; Glucose Urine UA Negative (Negative); Ketones Urine Negative (Negative); Leukocyte Esterase Urine Negative (Negative); Nitrite Urine Negative (Negative); Protein Urine Negative (Negative); Specific Gravity Urine 1.002 (1.000-1.030); Urobilinogen Urine Negative (Negative)
[2021-03-09] MEDS: MAGNESIUM SULFATE / D5W 1 GM/100 ML BAG IV SCH (00:57)
[2021-03-09] MEDS: GABAPENTIN 600 MG TAB PO SCH ×3 (04:15→18:24)
[2021-03-09 05:52] LABS: Basophils # (auto) 0.04 K/uL (0-0.2); Basophils % (auto) 0.6 %; Eosinophils # (auto) 0.08 K/uL (0-0.5); Eosinophils % (auto) 1.3 %; Hematocrit (blood only) 36.7 % (42-52); Hemoglobin 13.1 g/dL (14.0-18.0); Immature Granulocytes # (auto) 0.01 K/uL (0.00-0.02); Immature Granulocytes % (auto) 0.2 %; Lymphocytes # (auto) 1.79 K/uL (1.2-3.4); Lymphocytes % (auto) 28.3 %; Mean Corpuscular Hemoglobin 32.8 pg (25-34); Mean Corpuscular Hgb Conc 35.7 g/dL (32-36); Mean Platelet Volume 9.9 fL (7.4-10.4); Monocytes # (auto) 1.04 K/uL (0.11-0.59); Monocytes % (auto) 16.4 %; Neutrophils # (auto) 3.37 K/uL (1.4-6.5); Neutrophils % (auto) 53.2 %; Platelet Count 210 K/uL (130-400); RDW Coefficient of Variation 12.6 % (11.5-14.5); RDW Standard Deviation 42.6 fL (36.4-46.3); Red Blood Count 3.99 M/uL (4.7-6.1); White Blood Count 6.33 K/uL (4.8-10.8)
[2021-03-09 06:24] LABS: Albumin Level 3.2 gm/dl (3.4-5.0); Calcium 8.2 mg/dl (8.5-10.1); Creatinine Clr Calc Pharmacy 143.2 ml/min; Est GFR (African American) 135.6 ml/min; Magnesium 2.3 mg/dl (1.8-2.4); Potassium 3.9 mmol/L (3.5-5.1)
[2021-03-09 06:29] LABS: Albumin Globulin Ratio 1.1 (0.9-2); Bilirubin,Total 0.9 mg/dl (0.2-1); Globulin 2.8 gm/dl (2.5-4.0)
[2021-03-09] MEDS ORDERED: DEXTROSE 5% 1,000 ML IV ONE (07:36)
[2021-03-09] MEDS: FOLIC ACID 1 MG TAB PO SCH (08:39)
[2021-03-09] MEDS: ENOXAPARIN INJ 30 MG/0.3 ML SYR SQ SCH (08:39)
[2021-03-09] MEDS: THIAMINE HCL 100 MG TAB PO SCH (08:39)
[2021-03-09] MEDS: MULTIVITAMIN TAB PO SCH (08:39)
--- NOTE | 2021-03-09 12:21 | Hospitalist Progress Note ---
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 He is awake, alert and oriented x3. Hemodynamically doing fine. We will continue with the CIWA protocol. Clonidine as needed. CT head is negative. MRI is pending. Hyponatremia is resolved. Will discontinue IV fluids. Continue to work with PT/OT. DVT prophylaxis. Lovenox subcu Full code Patient requesting updates from providers. Ms. Desiree Lion, contact #[phone]. Admission and Anticipated Discharge Date Admission Date: March 08, 2021 Subjective Doing okay this morning. Patient is awake, alert and oriented x3. Currently denies any chest pain, shortness of breath, headache, dizziness, nausea or any vomiting. Rest of the review of system is negative. Review of Systems Review of Systems: All systems reviewed & are unremarkable except as noted in HPI & below Physical Exam Physical Exam: General: A&Ox3 HENT: NCAT, MMM, EOMI Eyes: PERRLA Neck: Supple, normal range of motion CVS: normal rate and rhythm Resp: b/l good breath sounds Abdomen: Soft, ND/NT, +BS Extremities: No c/c/e Neuro: face symmetric, no focal deficit, bilateral resting hands tremor noted Skin: no rashes/lesions/errythema MSK: no joint swelling/erythema Results & Data Results & Data ([facility]) Vital Signs (Past 12 Hours) Vital Signs Temp Pulse Pulse Resp BP Pulse Ox 03/09/21 11:13 36.8 C 79 18 108/66 93 03/09/21 07:46 36.5 C 71 18 132/74 92 03/09/21 07:31 73 03/09/21 03:30 36.5 C 78 20 132/76 92
--- NOTE | 2021-03-09 13:56 | Magnetic Resonance Report ---
MR brain wo con HISTORY: 75 years-old Male lip asymmetry acute head injury status post fall. Acute strokelike sympto ms COMPARISON: Head CT 03/08/2021 CT maxillofacial 08/09/2007. TECHNIQUE: Multiplanar multisequence MRI of the brain was obtained without the use of IV contrast FINDINGS: No restricted diffusion. No pathologic blooming artifact. Study is mildly motion degraded. No acute i ntracranial hemorrhage, midline shift, abnormal extra axial collection, or intracranial mass. Age-rel ated involutional changes with ventriculomegaly, progressed from 2007. Moderate T2/FLAIR hyperintensi ties throughout the white matter are suggestive of chronic microvascular ischemic disease. Cerebral v enous sinuses and major arterial flow voids are patent. Skull, orbits and soft tissues are unremarkab le. Mild mucosal thickening of the paranasal sinuses. IMPRESSION: 1. No acute intracranial abnormality, specifically there is no evidence of acute or subacute infarct. 2. Age-related involutional changes with ventriculomegaly, likely on an ex vacuo basis. Normal pressu re hydrocephalus could appear similarly in the appropriate clinical setting. 3. Chronic microvascular ischemic disease. ACT 112: Negative or not required by law. The above report was generated using voice recognition software. It may contain grammatical, syntax o r spelling errors. Electronically signed by: Octavio Sterling M.D. 03/09/2021 1:55 PM
[2021-03-10] MEDS: GABAPENTIN 600 MG TAB PO SCH ×2 (02:07→11:05)
[2021-03-10] MEDS: ENOXAPARIN INJ 30 MG/0.3 ML SYR SQ SCH (09:45)
[2021-03-10] MEDS: MULTIVITAMIN TAB PO SCH (09:48)
[2021-03-10] MEDS: THIAMINE HCL 100 MG TAB PO SCH (09:48)
[2021-03-10] MEDS: FOLIC ACID 1 MG TAB PO SCH (09:48)
[2021-03-10] MEDS ORDERED: amLODIPine BESYLATE 5 MG TAB PO ONE (10:15)
[2021-03-10 10:49] LABS: BUN Creatinine Ratio 12.8 (10-20); Calcium 8.6 mg/dl (8.5-10.1); Creatinine Clr Calc Pharmacy 97.7 ml/min; Est GFR (African American) 116.4 ml/min; Est GFR (Non-African American) 100.4 ml/min; Potassium 4.2 mmol/L (3.5-5.1)
--- NOTE | 2021-03-10 20:16 | Discharge Summary ---
Date of Service March 10, 2021 Admission HPI Per Admitting Provider History obtained from patient, family, and records. Medical history significant for RUE acanthoma, ongoing tobacco/alcohol abuse. Patient has had worsening gait instability/balance issues/slurred speech the last few months as per . Admits to alcohol abuse. Increase tremors at home. Falls at home from gait instability as per . Patient denies headache, chest pain, S OB. No prior history of alcohol withdrawal seizures. Patient brought to the ER for evaluation. 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 Admission Exam Per Admitting Provider GENERAL: uncomfortable, restless, tremulous, somewhat dysarthric, no respiratory distress SKIN: Normal color, warm HEENT: [place] palpebral conjunctivae, no ptosis, lid asymmetry (unknown duration), dry buccal mucosa NECK : Supple, no tenderness CHEST : CTA, no tenderness HEART : Tachycardic, no obvious murmurs ABDOMEN: Some distention, nontender EXTREMITIES : No LE swelling/tenderness, no other conspicuous deformities noted NEUROLOGIC : Coherent, lip asymmetry of unknown duration, mild dysarthria, tremulous, no other gross focality Principal Diagnosis Alcohol withdrawal Hypertensive urgency Hyponatremia Discharge Exam Constitutional + well hydrated; no acute distress Elderly man Eyes PERRL, conjunctivae normal, anicteric sclerae ENMT external ear and nose normal, oropharynx normal Respiratory normal respiratory effort, lungs clear to auscultation Cardiovascular Rate/Rhythm: regular rate and regular rhythm S1-S2 No pedal edema Gastrointestinal (Abdomen) normal bowel sounds, soft, nontender, no hepatosplenomegaly Musculoskeletal no cyanosis or clubbing, extremities motor strength 5/5 Neurologic PERRL, EOMI, accommodation nl, no face palsy, no dysarthria Psychiatric A+Ox3, euthymic affect Genitourinary no CVA tenderness Discharge Data Allergies Allergy/AdvReac Type Severity Reaction Status Date / Time No Known Allergies Allergy Verified 03/08/21 18:52 Consultations 03/08/21 19:56 ED Decision to Admit Stat Ordered Studies 03/08/21 18:04 CT head/brain wo con Stat Brain parenchyma: There are age-related involutional changes noting mild subcortical and periventricular microangiopathic change. There is no hemorrhage, mass effect, or evidence of acute territorial ischemia by CT criteria. A chronic lacunar infarct is noted in the right aspect of the naveen. [place]-white matter differentiation is preserved. No extra-axial fluid collection is seen. Ventricles, sulci, cisterns: Prominent secondary to involutional change. Intracranial vasculature: There is atherosclerotic calcification of the cavernous carotid arteries. Calvarium: Unremarkable. Sinuses and mastoids: There is mild mucosal thickening within the maxillary antra. Thickening and sclerosis of the sinus barton indicates chronicity. Mild mucosal thickening is also seen within the frontal and ethmoid sinuses. The mastoid air cells are well pneumatized. Orbits: The bony orbits are grossly intact. IMPRESSION: There is no hemorrhage, mass effect, or evidence of acute territorial ischemia by CT criteria. 03/08/21 18:44 CT cervical spine wo con Stat Skeletal structures: The skeletal structures are osteopenic. There is no evidence of fracture or subluxation involving the cervical spine. Vertebral body height and alignment are maintained. Anterior osteophytes are seen throughout. The odontoid process and lateral masses are intact. The atlantoaxial articulation is preserved. The spinous processes appear intact. A large hemangioma is noted in the body of C6. There is mild multilevel cervical spondylosis. Uncovertebral and facet arthropathy are seen at several levels. Intervertebral discs: There is mild disc space narrowing, greatest at C3-C4. Central canal: Grossly patent. Soft tissues: The prevertebral and paraspinous soft tissues are within normal limits. There is atherosclerotic calcification of the carotid bulbs. Calvarium: The visualized calvarium at the skull base appears intact. Brain parenchyma: Partially visualized brain parenchyma at the skull base is within normal limits noting age-related involutional change. Sinuses and mastoids: There is mild mucosal thickening within the maxillary antra in the right sphenoid sinus. There is thickening and sclerosis of the maxillary sinus barton. The mastoid air cells are well pneumatized. Lung apices: Emphysematous change is noted at the apices. IMPRESSION: There is no evidence of fracture or subluxation involving the cervical spine 03/09/21 00:17 MR brain wo con Routine No restricted diffusion. No pathologic blooming artifact. Study is mildly motion degraded. No acute intracranial hemorrhage, midline shift, abnormal extra axial collection, or intracranial mass. Age-related involutional changes with ventriculomegaly, progressed from 2007. Moderate T2/FLAIR hyperintensities throughout the white matter are suggestive of chronic microvascular ischemic disease. Cerebral venous sinuses and major arterial flow voids are patent. Skull, orbits and soft tissues are unremarkable. Mild mucosal thickening of the paranasal sinuses. IMPRESSION: 1. No acute intracranial abnormality, specifically there is no evidence of acute or subacute infarct. 2. Age-related involutional changes with ventriculomegaly, likely on an ex vacuo basis. Normal pressure hydrocephalus could appear similarly in the appropriate clinical setting. 3. Chronic microvascular ischemic disease. Hospital Course (1) Alcohol withdrawal: Alcohol level was 224.2 mg/dl on admission. Patient was managed for alcohol withdrawal per [facility] protocol Patient slurred speech resolved. CT head and MRI brain did not show any acute infarct. HTN urgency on admission - resolved Blood pressure was 195/119 on admission. Part of this could be related to alcohol withdrawal. However, patient reports that he has been told he is hypertensive but not on any medication. Blood pressure improved with management of alcohol withdrawal. Started on amlodipine 5 mg daily for blood pressure management Hyponatremia secondary to alcohol Improving. Sodium was 124 on admission. Improved to 133 today. Patient counseled extensively on need for alcohol cessation Gait instability likely secondary to alcoholic neuropathy Patient was evaluated by physical therapist. Recommended to use cane with ambulation and support as well. Recommended home physical therapy which patient declined. Called and updated on plans. Patient is to follow-up with PCP Total Time Total Time Spent Total Time Spent (In Minutes): 50 Total Time Includes: Examination of the Patient, Discharge Planning, Medication Reconciliation and Other Discharge Plan Discharge Items Patient Disposition: Home - Home Health Services Reason For Visit: Unsteadiness, balance issues Discharge Diagnosis: Alcohol withdrawal Hyponatremia Hypertension Activity: Per Instructions section Activity Comment: Ambulate using cane and per PT recommendations Non-emergency contact: Primary Care Provider Call non-emergency contact if: you have any medication questions and your symptoms worsen Follow-up/Referrals: PCP,NO [Primary Care Provider] - Diet: Heart Healthy Fluids: 1800ml (7 cups) Addtl Attending Provider Instructions: Mr Lion You were brought to the hospital due to unsteadiness and balance issues. You were evaluated and found to have significantly elevated alcohol level. You were managed for this. You were also noted to have hypertension which you acknowledged you have been told in the past. You were started on blood pressure medication for this. It is very important that you quit drinking as we discussed. Please take the gabapentin as prescribed. You are also being discharged on folic acid and thiamine. Your sodium level is low. It is very important you quit drinking alcohol and follow up with your Primary Doctor who will continue to monitor this and manage as needed. It is very important that you follow up with Primary Doctor. It was a pleasure taking care of you. Pending Studies at Discharge: No Stand-Alone Forms: My [facility], Smoking Cessation Medications and DC Order Prescriptions: New gabapentin 600 mg Tablet 600 mg PO Q12H Qty: 3 RF: 0 thiamine HCl (vitamin B1) [Vitamin B-1] 100 mg Tablet 100 mg PO QAM Qty: 30 RF: 0 amlodipine [Norvasc] 5 mg Tablet 5 mg PO QAM Qty: 30 RF: 0 folic acid 1 mg Tablet 1 mg PO QAM Qty: 30 RF: 0 Discharge Orders: Discharge Order (Routine); Ordered 03/10/21 Ordered By: Lori Jarrett Admission Data Admit Date/Time: 03/08/21 21:47 Attending Provider: Lori Jarrett I. Admit Provider: Law Garsia Primary Care Provider: PCP,NO Other Providers: Law Garsia ; Christian Ventura Other Interventions: Discharge Summary Assessment (RN) Last Done: 03/10/21 13:00
[2021-03-10] MEDS ORDERED: GABAPENTIN 600 MG TAB PO SCH (23:00)
--- NOTE | 2021-03-11 05:45 | Electrocardiogram Report ---
Test Reason : Blood Pressure : / mmHG Vent. Rate : 107 BPM Atrial Rate : 107 BPM P-R Int : 208 ms QRS Dur : 080 ms QT Int : 338 ms P-R-T Axes : 069 066 090 degrees QTc Int : 451 ms Poor data quality, interpretation may be adversely affected Sinus tachycardia with 1st degree A-V block When compared with ECG of 16-AUG-2007 12:58, ND interval has increased Confirmed by Ernesto Mantilla ([id number]) on 03/11/2021 5:44:29 AM Referred By: REFERRED SELF Confirmed By:Ernesto Mantilla
[2021-03-11] MEDS ORDERED: amLODIPine BESYLATE 5 MG TAB PO SCH (09:00)
[2021-03-12] MEDS ORDERED: GABAPENTIN 600 MG TAB PO SCH (11:00)
== END 2021-03-10 14:37 | disposition home or self-care (01) | DRG 897 ==
LOC: ED 17:53 → 2N 21:47 → SUATTDRO 21:47 → 2N 23:40

== ENCOUNTER 2023-08-12 12:22 | Inpatient (IN) ==
--- OUTSIDE RECORDS SUMMARY | 2023-08-12 12:26 | External Medical Summary | Summary of Care ---
Author Name Unknown Organization [facility] Address [address] [place] [address] Phone [phone] Care Team Providers Care Application Services Manager Name Role Phone Jaime MAYS MD, Cole Terrell Primary Care Provider [phone] Reason for Visit * Reason Onset Date Comments Advice 07/20/2023 Encounter Details Date Type Department Care Team (Late st Contact Info) Description 07/20/2023 Telephone Neurology [facility] [address] [place] [address] Services, Scheduling [address] [place] [address] Advice Allergies Active Allergy Reactions Criticality Noted Date Comments Amlodipine Rash 09/01/2021 documented as of this encounter (statuses as of 07/24/2023) Medications Medication Sig Dispensed Refills Start Date End Date Status Carvedilol 6.25 MG Oral Tablet (Coreg) Take 1 Tablet by mouth in the morning and 1 Tablet before bedtime. with food. 90 Tablet 11 08/19/2022 Active Cyanocobalamin 1000 MCG Oral Tablet (Cyanocobalamin) Take 1 Tablet by mouth in the morning. 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 documented as of this encounter (statuses as of 07/24/2023) Immunizations Name Administration Dates Next Due COVID-19 mRNA, LNP-s, No Pre serve, 2-Dose Series (Moderna) 10/09/2020 COVID-19, mRNA, LNP-s, PF, B ooster, 100mcg/0.5mg (Moderna) 09/11/2020 Pneumococcal Conjugate Vaccine, 20-valent (Prevn ar20) 02/14/2022 documented as of this encounter Social History Tobacco Use Types Packs/Day Years Used Date Smoking Tobacco: Every Day Cigarettes 0.5 35 Smokeless Tobacco: Never Alcohol Use Standard Drinks/Week Comments Yes 0 (1 standard drink = 0.6 oz pur e alcohol) on occassion PHQ-2 Answer Date Recorded PHQ Adult Total Score 5 06/21/2022 Hunger Vital Sign Answer Date Recorded Within the past 12 months, y ou worried that your food would run out before you got the money to buy more. Never true 06/21/20 22 Within the past 12 months, t he food you bought just didn't last and you didn't have money to get more. Never true 06/21/2022 Sex and Gender Information Value Date Recorded Sex Assigned at Male 06/21/2022 10:09 AM EST Gender Identity Male 06/21/2022 10:09 AM EST Sexual Orientation Straight 06/21/2022 10 :09 AM EST Job Start Date Occupation Industry Not on file Not on file Not on file documented as of this encounter Miscellaneous Notes * Telephone Encounter - Malka Henry OSA - 07/24/2023 1:55 PM EST Sent letter to call and get EMG an swallow test scheduled * Addendum Note - Cole Jay MD - 07/21/2023 8:32 AM ESTAddended by: COLE JAY on: 07/21/2023 08:32 AM Modules accepted: Orders * Addendum Note - Marilyn Reynaga, MED ASSIST - 07/20/2023 1:27 PM EST Addended by: MARILYN REYNAGA on: 07/20/2023 01:27 PM Modules accepted: Orders * Telephone Encounter - Marilyn Reynaga MED ASSIST - 07/20/2023 1:24 PM EST Marilyn baxter does not have a diagnosis yet needs the video swallowing to be done and we need a ck andthe emg but certainly we could call [facility] and see if they would take him his pcp may actually have to do this so please put a ck order in and be sure we got the correct code for the video swallowstudy and it will be done and you veneer trimmer use the diagnosis of progressive gait diosturbance with dysphagia dn dysarthria and 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 PCP- please see Dr Jay's above documentation. * Telephone Encounter - Charo Tomlinson OSA - 07/20/2023 9:21 AM EST Pt calling in to see if Dr. Jay would know of any in patient rehab's for the pt She states that he has had a bought of diarrhea and is eating and drinking the best he can to fix this and fix himself. Pt is determined to get better Plz contact pt and advise [phone] Thank you documented in this encounter Plan of Treatment Upcoming Encounters Date Type Department Care Team (Late st Contact Info) Description 08/22/2023 1:00 PM EST NeuroDiagnostic Study Neurophysiology [facility] [place] [address] [place] [address] Cherrie Marino MD 200 [facility] [place] [address] 08/24/2023 9:40 AM EST Office Visit Family Practice [facility] [address] [facility] [place] [address] Cole Sandoval III, MD [address] [facility] [place] [address] 10/23/2023 8:40 AM EDT Office Visit Neurology [facility] [address] [facility] [place] [address] Cole Jay MD [address] [facility] [place] [address] 10/26/2023 3:00 PM EDT Office Visit Neurology [facility] [address] [facility] [place] [address] Thiago Banda MD [address] [place] [address] Scheduled Orders Name Type Priority Associated Diagnoses Orde r Schedule CK Lab Routine Gait abnormality Dysphasia Expected: 07/28/2023, Expires: 07/21/2024 Health Maintenance Due Date Last Done Comments Hepatitis C Screening 1963 DTaP,Tdap,and Td Vaccines (1 - Tdap) 1965 Zoster Vaccines (1 of 2) 1996 COVID-19 Vaccine (4 - 2022-2 4 season) 2023 10/09/2020, 10/03/2020, 09/11/2020 Influenza Vaccine (FLU shot) (#1) 2023 Depression Screening 06/21/2023 06/21/2022 Pneumococcal Vaccine: 65+ Years Completed 02/14/2022 GARDASIL-HPV IMMUNIZATION SERIES Aged Out No longer eligible b ased on patient's age to complete this topic Hepatitis B Aged Out No longer eligi ble based on patient's age to complete this topic MENINGOCOCCAL (MENACTRA/MENVEO) Aged Out No longer eligible b ased on patient's age to complete this topic documented as of this encounter Medical Devices Not on filedocumented as of this encounter Visit Diagnoses Diagnosis Gait abnormality- Primary Abnormality of gait Dysphasia Other speech disturbance documented in this encounter Care Teams Application Services Manager Relationship Specialty Start Date End Date Cole Sandoval III, MD [address] [place] [address] PCP - General Family Medicine 04/15/22 documented as of this encounter
--- OUTSIDE RECORDS SUMMARY | 2023-08-12 12:27 | External Medical Summary | Summary of Care ---
Author Name Unknown Organization [facility] Address [address] [place] [address] Phone [phone] Care Team Providers Care Supervisor Functional Testing Name Role Phone Jaime MAYS MD, Guero Terrell Primary Care Provider [phone] Reason for Referral * Evaluate & Treat - Unlimited Visits (Within 30 days (routine)) - Pending Review Specialty Diagnoses / Procedures Referred By Tori horowitz Referred To Contact Physical Therapy / Physical Medicine And Rehab Diagnoses Dysphasia Balance problems Guero Elizalde MD [address] [place] [address] Referral ID Status Reason Start Date Expiration Date Visits Requested Visits Authorized [id number] Pending Review Specialty Services Required 3 [phone] Question Answer Referral Priority Within 30 days (routine) Where should this appointment be scheduled? Irasema Comments Accelerating gait deterioration for several months with more insidious progression over several years prior * Evaluate & Treat - Unlimited Visits (Within 30 days (routine)) - Pending Review Specialty Diagnoses / Procedures Referred By Tori horowitz Referred To Contact Neurology Diagnoses Dysphasia Balance problems Guero Elizalde MD [address] [place] [address] Thiago Banda MD [address] [place] [address] Referral ID Status Reason Start Date Expiration Date Visits Requested Visits Authorized [id number] Pending Review Specialty Services Required 3 [phone] Question Answer Referral Priority Within 30 days (routine) [facility] CAD NEUROLOGY REFERRAL QUESTIONS Movement Does the patient's condition allow them to wait to be seen by a specialist or should they be seen by first available provider? Or is this a follow up with established provider? Specialist Where should this appointment be scheduled? Irasema Comments Several years of progressive gait disturbance and apraxia with mri showing atrophy and hydrocephalus also dysarthria but little urinary loss and minimal memory issues and poor hearing please assess for nph issue suspect mixed vascular and degenerative issue Reason for Visit * Reason Comments Return Neuro * Evaluate & Treat - Unlimited Visits (Within 10 days (routine)) - Closed Specialty Diagnoses / Procedures Referred By Contac t Referred To Contact Neurology Diagnoses Dysphasia Guero Sandoval III, MD [address] [facility] [place] [address] Referral ID Status Reason Start Date Expiration Date V isits Requested Visits Authorized [id number] Closed Specialty Services Required 08/19/[phone] Encounter Details Date Type Department Care Team (Late st Contact Info) Description 07/03/2023 9:20 AM EST Office Visit Neurology [facility] [place] [facility] [place] [address] Guero Elizalde MD [address] [facility] [place] [address] Dysphasia*; Balance problems Allergies Active Allergy Reactions Criticality Noted Date Comments Amlodipine Rash 09/01/2021 documented as of this encounter (statuses as of 07/03/2023) Medications Medication Sig Dispensed Refills Start Date [...] as needed 60 g 2 04/06/2023 Active Hospital, Clinic, or Other Facility Administered Medication Ordered Dose Route Frequency Start Date End Date Status vitamin b-12 (Cyanocobalamin) inj 1,000 mcgIndications:Vitamin B 12 deficiency 1000 mcg IM [id number] 03/14/2023 07/03/2023 Active documented as of this encounter (statuses as of 07/03/2023) Active Problems Problem Noted Date Diagnosed Date Hx of actinic keratosis 02/04/2016 Personal history of malignant neoplasm of skin 0 04/20/2011 Overview: 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 documented as of this encounter (statuses as of 07/03/2023) Immunizations Name Administration Dates Next Due COVID-19 [...] on file documented as of this encounter Last Filed Vital Signs Vital Sign Reading Time Taken Comments Blood Pressure 124/66 07/03/2023 9:17 AM EST Pulse 82 07/03/2023 9:17 AM EST Temperature 36 C (96.8 F) 07/03/2023 9:17 AM EST Respiratory Rate 18 07/03/2023 9:17 AM EST Oxygen Saturation - - Inhaled Oxygen Concentration - - Weight 50.2 kg (110 lb 11.2 oz) 07/03/2023 9:17 AM EST Height - - Body Mass Index 19.18 02/17/2023 9:02 AM EDT documented in this encounter Progress Notes * Guero Elizalde MD - 07/03/2023 9:55 AM EST CLINIC NOTES Neurology [facility] [place] [address] [facility] [place] [address] Talon Lion [id number] 1945 NEUROLOGY OUTPATIENT NOTE 07/03/2023 HISTORY: Talon is 78 years old and was last seen here in Neurology by Cherrie JOHN about 3 months ago and presented with dysarthria dysphagia and a gait disturbance which had been developing over several years but with the acceleration over the past 6 months and now an even more increasedacceleration over the past several months since last being seen He is a cigarette smoker a former consumer of ethanol and is currently being followed by Dr. Jack part of family practice he does take some B12 and antihypertensives in his convinced that the antihypertensives has somehow caused all of his problems He is also very hearing impaired but prior to several months ago was independent a tinnitus own physician's appointments but now has become increasingly dependent on his has had more falls starting to use a cane. He is not been referred to physical therapy or speech therapy An MRI was done that shows some white matter changes but more impressively a lot of volume loss andwhat appears to be hydrocephalus. Radiology course is mentioning the possibility of normal pressurehydrocephalus and in that clinical context the patient does have a broad-based somewhat magnetic gait but little or no bladder dysfunction and is cognitive santizo do not seem to be that impaired beyond his hearing loss and dysarthria and dysphagia would be an unusual manifestation His denies any acute vascular events although she wonders if he has not had a series of mini strokes to explain his problem Social History Socioeconomic History Marital status: Spouse name: Not on file Number of children: Not on file Years of education: Not on file Highest education level: Not on file Occupational History Not on file Tobacco Use Smoking status: Every Day Packs/day: 0.50 Years: 35.00 Additional pack years: 0.00 Total pack years: 17.50 Types: Cigarettes Smokeless tobacco: Never Vaping Use Vaping Use: Never used Substance and Sexual Activity Alcohol use: Yes Comment: on occassion Drug use: Never Sexual activity: Not Currently Other Topics Concern Not on file Social History Narrative Not on file Social Determinants of Health Financial Resource Strain: Not on file Food Insecurity: No Food Insecurity (06/21/2022) Hunger Vital Sign Worried About Running Out of Food in the Last Year: Never true Ran Out of Food in the Last Year: Never true Transportation Needs: Not on file Physical Activity: Not on file Stress: Not on file Social Connections: Not on file Intimate Partner Violence: Not on file Housing Stability: Not on file Family History Problem Relation Age of Onset Cervical Cancer Mother Other (balance) Father Esophageal cancer Brother Current Outpatient Medications Medication Sig Dispense Refill Carvedilol 6.25 MG Oral Tablet (Coreg) Take 1 Tablet by mouth in the morning and 1 Tablet before bedtime. with food. 90 Tablet 11 Cyanocobalamin 1000 MCG Oral Tablet (Cyanocobalamin) Take 1 Tablet by mouth in the morning. 100 Tablet 3 Fluocinonide 0.05 % External Cream Apply to itchy rash on upper body nightly as needed 60 g 2 Current Facility-Administered Medications Medication Dose Route Frequency Provider Last Rate Last Admin vitamin b-12 (Cyanocobalamin) inj 1,000 mcg 1,000 mcg Intramuscular Q4 Weeks Guero Sandoval III, MD 1,000 mcg at 05/08/23 1102 Review of patient's allergies indicates: Allergen Reactions Amlodipine Rash REVIEW OF SYSTEMS: With the exception of historical items included in the history of present illness above, a 12-point systems review was normal. PHYSICAL EXAM: BP 124/66 | Pulse 82 | Temp 36 C (96.8 F) (Tympanic) | Resp 18 | Wt 50.2 kg (110lb 11.2 oz) | BMI 19.18 kg/m | BSA 1.5 m He is awake oriented moderately dysarthric has normal eye movements no supranuclear gaze disturbance has a slightly simian posture has difficulty arising from a seated position requires a cane for gait and has a very broad- based apractic type gait with hyporeflexia no abnormal involuntary movements, downgoing toes, reasonably good strength, not that much atrophy allowing for his age and nutritional status and grossly intact sensation with the exception of some vibratory loss and I think is age-appropriate LABORATORY: I am going to obtain an anti acetylcholine receptor antibody titer IMAGING: Imaging studies are described above ASSESSMENT AND PLAN: Progressive gait disturbance dysarthria and dysphagia in elderly man was vascular risk factors, a remote history of excessive ethanol use and active smoking and with the imaging study that shows an impressive degree of ventricular dilatation that I think is out of proportion todegree of cortical atrophy but with some white matter disease This may well be a vascular process but it seems to be accelerating lately and I am going to ask our movement disorder specialist Dr. Coleman to see if he thinks evaluation for normal pressure hydrocephalus might be justified realizing full well that there other atypical features clinically He is also going to need speech therapy and physical therapy We will review the acetylcholine receptor antibody titer see what the results of speech therapy areand might consider an EMG for lower motor neuron disease We will have him return after the above evaluations are complete I spent a total of 20-29 minutes (exact time 25 mins) on the date of service in preparation, delivery, and documentation of the care provided to Talon Lion excluding any time spent in the performance of separately billed services. The above note was generated utilizing voice recognition technology may have spelling errors punctuation errors pronoun usage errors and syntax errors Guero Elizalde MD documented in this encounter Nursing Notes * Hoa Jimenez MED ASSIST - 07/03/2023 9:16 AM EST Chief Complaint Patient presents with Return Neuro documented in this encounter Plan of Treatment Upcoming Encounters Date Type Department Care Team (Late st Contact Info) Description 07/03/2023 10:20 AM EST Laboratory [facility] [address] [place] [id number] [facility] [address] [place] [address] Arrived 07/07/2023 11:00 AM EST Telemedicine Dermatology [facility] [address] [facility] [address] Diane Arroyo MD [address] [facility] [place] [address] 08/24/2023 9:40 AM EST Office Visit Family Practice [facility] [address] [facility] [place] [address] Guero Sandoval III, MD [address] [place] [address] [place] [address] 09/26/2023 2:20 PM EST Office Visit Neurology [facility] [address] [facility] [place] [address] Guero Elizalde MD [address] [place] [address] [place] [address] 10/26/2023 3:00 PM EDT Office Visit Neurology [facility] [address] [facility] [place] [address] Thiago Banda MD [address] [place] [address] Pending Results Name Type Priority Associated Diagnoses Date /Time ACETYLCHOLINE RECEPTOR BINDING ANTIBODY Lab Routine Dysphasia Balance problems 07/03/2023 9:59 AM EST Scheduled Referrals Name Type Priority Associated Diagnoses Orde r Schedule NEUROLOGY REFERRAL OP Referral Within 30 days (routine) Dysphasia Balance problems Ordered: 07/03/2023 PHYSICAL THERAPY REFERRAL OP Referral Within 30 days (routine) Dysphasia Balance problems Ordered: 07/03/2023 Health Maintenance Due Date Last Done Comments [...] as of this encounter Visit Diagnoses Diagnosis Dysphasia- Primary Other speech disturbance Balance problems Other symptoms involving nervous and musculoskeletal systems documented in this encounter Care Teams Supervisor Functional Testing Relationship Specialty Start Date End Date Guero Sandoval III, MD [address] [place] [address] PCP - General Family Medicine 04/15/22 documented as of this encounter"
--- OUTSIDE RECORDS SUMMARY | 2023-08-12 12:27 | External Medical Summary | Summary of Care ---
Author Name Unknown Organization [facility] Address [address] [place] [address] Phone [phone] Care Team Providers Care Stereotyper Name Role Phone Jaime MAYS MD, Guero Terrell Primary Care Provider [phone] Encounter Details Date Type Department Care Team Description 03/09/2023 Telephone Family Practice [facility] [place] 200 [facility] [place] [id number] [facility]oval III, MD [facility] [address] Allergies Active Allergy Reactions Severity Noted Date Comments Amlodipine Rash 09/01/2021 documented as of this encounter (statuses as of 03/10/2023) Medications Medication Sig Dispensed Refills Start Date End Date Status Carvedilol 6.25 MG Oral Tablet (Coreg) Take 1 Tablet by mouth in the morning and 1 Tablet before bedtime. with food. 90 Tablet 11 08/19/2022 Active Cyanocobalamin 1000 MCG Oral Tablet (Cyanocobalamin) Take 1 Tablet by mouth in the morning. 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 documented as of this encounter (statuses as of 03/10/2023) Immunizations Name Administration Dates Next Due COVID-19 mRNA, LNP-s, No Pre serve, 2-Dose Series (Moderna) 10/09/2020 Covid-19 Mrna, Lnp-s, No Preserve, Booster (Mode rna) 09/11/2020 Pneumococcal Conjugate Vaccine, 20-valent (Prevn ar20) 02/14/2022 documented as of this encounter Social History Tobacco Use Types Packs/Day Years Used Date Smoking Tobacco: Every Day Cigarettes 0.5 35 Smokeless Tobacco: Never Alcohol Use Standard Drinks/Week Comments Yes 0 (1 standard drink = 0.6 oz pur e alcohol) on occassion Food Insecurity Answer Date Recorded Within the past 12 months, y ou worried that your food would run out before you got money to buy more. Never true 06/21/2022 Within the past 12 months, t he food you bought just didn't last and you didn't have money to get more. Never true 06/21/2022 Sex Assigned at Date Recorded Male 06/21/2022 10:09 AM EST Job Start Date Occupation Industry Not on file Not on file Not on file documented as of this encounter Miscellaneous Notes * Telephone Encounter - NABOR Laurent - 03/10/2023 9:23 AM EDT Pt is scheduled * Telephone Encounter - Lizzie White LPN - 03/09/2023 2:59 PM EDT Please call and assist patient in scheduling a nurse visit in 4 weeks for a b12 shot. * Telephone Encounter - Guero Sandoval III, MD - 03/09/2023 1:49 PM EDT Begin B12 injections and oral sent to pharmacy documented in this encounter Plan of Treatment Upcoming Encounters Date Type Specialty Care Team Description 03/29/2023 Imaging Radiology 04/06/2023 Office Visit Dermatology Diane Arroyo MD [address] [place] [facility] [place] [address] 04/07/2023 Nurse Only Ancillary Lizeth, Nurse Jairo [address] [facility] [place] [address] 06/14/2023 Office Visit Neurology Cherrie Pisano PA-C [address] [facility] [place] [address] 08/24/2023 Office Visit Family Medicine Guero Sandoval III, MD [address] [facility] [place] [address] Health Maintenance Due Date Last Done Comments Hepatitis C Screening 1963 DTaP,Tdap,and Td Vaccines (1 - Tdap) 1965 Zoster Vaccines (1 of 2) 1996 COVID-19 Vaccine (3 - Modern a series) 12/04/2020 10/09/2020, 10/03/2020, 09/11/2020 Influenza Vaccine (FLU shot) (#1) 2023 Depression Screening, Annual for Pts 12 and Over 06/21/2023 06/21/2022 Pneumococcal Vaccine: 65+ Years Completed [...] as of this encounter Visit Diagnoses Diagnosis Vitamin B 12 deficiency- Primary Other B-complex deficiencies documented in this encounter Care Teams Stereotyper Relationship Specialty Start Date End Date Guero Sandoval III, MD 200 [facility] [place] [address] PCP - General Family Medicine 04/15/22 documented as of this encounter
--- OUTSIDE RECORDS SUMMARY | 2023-08-12 12:27 | External Medical Summary | Summary of Care ---
Author Name Unknown Organization [facility] Address [address] [place] [address] Phone [phone] Care Team Providers Care Retail Sales Lead Name Role Phone Jaime MAYS MD, Guero Terrell Primary Care Provider [phone] Reason for Visit * Reason Onset Date Comments Health Maintenance 06/05/2023 Encounter Details Date Type Department Care Team (Late st Contact Info) Description 06/05/2023 Telephone Family Practice [facility] [address] [facility] [address] Guero Sandoval III, MD [address] [place] [address] Health Maintenance Allergies Active Allergy Reactions Criticality Noted Date Comments Amlodipine Rash 09/01/2021 documented as of this encounter (statuses as of 06/05/2023) Medications Medication Sig Dispensed Refills Start Date [...] mcgIndications:Vitamin B 12 deficiency 1000 mcg IM [id number] 03/14/2023 07/03/2023 Active documented as of this encounter (statuses as of 06/05/2023) Active Problems Problem Noted Date Diagnosed Date Hx of actinic keratosis 02/04/2016 Personal history of malignant neoplasm of skin 0 04/20/2011 Overview: 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 documented as of this encounter (statuses as of 06/05/2023) Immunizations Name Administration Dates Next Due COVID-19 [...] encounter Miscellaneous Notes * Telephone Encounter - Allison MendezGUERO - 06/05/2023 8:57 AM EDT Care Gaps Comprehensive Care Outreach Last Office/Telemedicine Visit: 02/17/2023 (in office), Visit date not found (telemedicine) Next Office Visit: 08/24/2023 Hemoglobin AIC Results: No results found for: "HEMOGLOBIN A1C" Reviewed Health Maintenance below: Health Maintenance Topic Date Due Hepatitis C Screening Never done DTaP,Tdap,and Td Vaccines (1 - Tdap) Never done Zoster Vaccines (1 of 2) Never done Influenza Vaccine (FLU shot) (1) Never done Care Gap Outreach Action Taken: Outreach not indicated documented in this encounter Plan of Treatment Upcoming Encounters Date Type Department Care Team (Late st Contact Info) Description 06/09/2023 11:45 AM EDT Office Visit Dermatology [address] [place] [address] Diane Arroyo MD [address] [place] [address] [place] [address] 08/24/2023 9:40 AM EST Office Visit Family Practice [facility] [address] [facility] [place] [address] Guero Sandoval III, MD [address] [place] [address] [place] [address] 09/25/2023 10:40 AM EST Office Visit Neurology [facility] [address] [facility] [place] [address] Cherrie Pisano PA-C [address] [place] [address] [place] [address] Health Maintenance Due Date Last Done Comments [...] Not on filedocumented as of this encounter Care Teams Retail Sales Lead Relationship Specialty Start Date End Date Guero Sandoval III, MD [address] [facility] [place] [address] PCP - General Family Medicine 04/15/22 documented as of this encounter
--- OUTSIDE RECORDS SUMMARY | 2023-08-12 12:27 | External Medical Summary ---
Author Name Unknown Address Unknown Organization : Laboratory Report Ordering Provider Test Date Status JONI FUENTES 03/08/2023 13:22:41 Final Observation Date Value Abnormality Reference (Units ) Status Thiamine [Moles/volume] in Blood 03/08/2023 13:22:41 78 78-185 (nmol/L) Final Vitamin supplementation with in 24 hours prior to
blood draw may affect the accuracy of the results.
This test was developed and its analytical performance
characteristics have been determined by [employer]
[place] It has
not been cleared or approved by the U.S. Food and Drug
Administration. This assay has been validated pursuant
to the CLIA regulations and is used for clinical
purposes.

Test Performed at:
[facility]
[address] [facility] [place] [address]
Doc Salmon M.D., Ph.D.,Director of Laboratories Performing Location
--- OUTSIDE RECORDS SUMMARY | 2023-08-12 12:27 | External Medical Summary | Summary of Care ---
Author Name Unknown Organization [facility] Address [address] [place] [address] Phone [phone] Care Team Providers Care Tubing Mill Setter Name Role Phone Jaime MAYS MD, Cole Terrell Primary Care Provider [phone] Reason for Visit * Reason Onset Date Comments Advice 07/20/2023 Encounter Details Date Type Department Care Team (Late st Contact Info) Description 07/20/2023 Telephone Neurology [facility] [address] [place] [address] Services, Scheduling [address] [place] [address] Advice Allergies Active Allergy Reactions Criticality Noted Date Comments Amlodipine Rash 09/01/2021 documented as of this encounter (statuses as of 07/21/2023) Medications Medication Sig Dispensed Refills Start Date [...] as of this encounter (statuses as of 07/21/2023) Active Problems Problem Noted Date Diagnosed Date Hx of actinic keratosis 02/04/2016 Personal history of malignant neoplasm of skin 0 04/20/2011 Overview: 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 documented as of this encounter (statuses as of 07/21/2023) Immunizations Name Administration Dates Next Due COVID-19 [...] as of this encounter Miscellaneous Notes * Addendum Note - Cole Jay MD - 07/21/2023 8:32 AM ESTAddended by: COLE JAY on: 07/21/2023 08:32 AM Modules accepted: Orders * Addendum Note - Marilyn Reynaga, MED ASSIST - 07/20/2023 1:27 PM EST Addended by: MARILYN REYNAGA on: 07/20/2023 01:27 PM Modules accepted: Orders * Telephone Encounter - Tony Marilyn Clarke, MED ASSIST - 07/20/2023 1:24 PM EST [...] and it will be done and you belly packer use the diagnosis of progressive gait diosturbance [...] get better Plz contact pt and advise [phone] Thank you documented in this encounter Plan of Treatment Upcoming Encounters Date Type Department Care Team (Late st Contact Info) Description 08/22/2023 1:00 PM EST [facility] [place] [address] [place] [address] Cherrie Marino MD [address] [place] [address] [address] 08/24/2023 9:40 AM EST Office [facility] [place] [address] [place] [address] [address] Cole Sandoval III, MD 200 [facility] [place] [address] 10/23/2023 8:40 AM EDT Office Visit Neurology [facility] [address] [facility] [place] [address] Cole Jay MD [address] [facility] [place] [address] 10/26/2023 3:00 PM EDT Office Visit Neurology [facility] [place] [address] [facility] [place] [address] Thiago Banda MD [address] [place] [address] Scheduled Orders Name Type Priority Associated Diagnoses Orde r Schedule CK Lab Routine Gait abnormality Dysphasia Expected: 07/28/2023, Expires: 07/21/2024 Health Maintenance Due Date Last Done Comments Hepatitis C Screening 1963 DTaP,Tdap,and Td Vaccines (1 - Tdap) 1965 Zoster Vaccines (1 of 2) 1996 COVID-19 Vaccine ( - 2022-2 4 season) 2023 10/09/2020, 10/03/2020, [...] disturbance documented in this encounter Care Teams Tubing Mill Setter Relationship Specialty Start Date End Date Cole Sandoval III, MD [address] [facility] [place] [address] PCP - General Family Medicine 04/15/22 documented as of this encounter
--- OUTSIDE RECORDS SUMMARY | 2023-08-12 12:27 | External Medical Summary | Summary of Care ---
Author Name Unknown Organization [facility] Address [address] [place] [address] Phone [phone] Care Team Providers Care Relay Shop Tester Name Role Phone Jaime MAYS MD, Guero Terrell Primary Care Provider [phone] Reason for Visit * Reason Comments Outpatient Testing Encounter Details Date Type Department Care Team (Late st Contact Info) Description 07/03/2023 10:20 AM EST Laboratory Laboratory [facility] [address] [place] [id number] [facility] [address] [place] [address] Arrived Allergies Active Allergy Reactions Criticality Noted Date [...] mcgIndications:Vitamin B 12 deficiency 1000 mcg IM [id number] 03/14/2023 07/03/2023 Active documented as of this [...] on file documented as of this encounter Plan of Treatment Upcoming Encounters Date Type Department Care Team (Late st Contact Info) Description 07/07/2023 11:00 AM EST Telemedicine Dermatology [facility] [place] [address] [place] [address] Diane Arroyo MD [address] [place] [address] 08/24/2023 9:40 AM EST Office Visit Family Practice [facility] [address] [place] [address] Guero Sandoval III, MD [address] [place] [address] [place] [address] 09/26/2023 2:20 PM EST Office Visit Neurology [facility] [address] [place] [address] Guero Elizalde MD [address] [place] [address] [place] [address] 10/26/2023 3:00 PM EDT Office Visit Neurology [facility] [address] [place] [address] Thiago Banda MD [address] [place], [place] [id number] Health Maintenance Due Date Last Done Comments [...] filedocumented as of this encounter Care Teams Relay Shop Tester Relationship Specialty Start Date End Date Guero Sandoval III, MD [address] [place] [address] PCP - General Family Medicine 04/15/22 documented as of this encounter
--- OUTSIDE RECORDS SUMMARY | 2023-08-12 12:27 | External Medical Summary | Summary of Care ---
Author Name Unknown Organization [facility] Address [address] [place] [address] Phone [phone] Care Team Providers Care Customer Solutions Representative Name Role Phone Jaime MAYS MD, Guero Terrell Primary Care Provider [phone] Reason for Visit * Reason Onset Date Comments Advice 07/13/2023 Encounter Details Date Type Department Care Team (Late st Contact Info) Description 07/13/2023 Telephone [facility], [place] [address] [facility] 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 documented as of this encounter (statuses as of 07/14/2023) Immunizations Name Administration Dates Next Due COVID-19 [...] encounter Miscellaneous Notes * Telephone Encounter - Hoa Jimenez, MED ASSIST - 07/14/2023 10:47 AM EST VALERIY Varela is requesting new referral with updated CPT codes. Pended order * Telephone Encounter - Charo Tomlinson NABOR - 07/13/2023 8:28 AM EST Suad from [facility] calling to tell Dr. Elizalde that she faxed a completed evaluation to Dr. Elizalde and that they left a note to request a video swallow on the cover of the fax they sent. They do need the diagnosis code fixed on his speech therapy referral to these provided codes: R47.02 and R13.12 Plz reach out to Suad from Speech Therapy in [facility] if you have any questions [phone] Plz fax over the new referral when done Thank you documented in this encounter Plan of Treatment Upcoming Encounters Date Type Department Care Team (Late st Contact Info) Description 08/24/2023 9:40 AM EST Office Visit Family Practice [facility] [address] [facility] [place] [address] Guero Sandoval III, MD [address] [facility] [place] [address] 09/26/2023 2:20 PM EST Office Visit Neurology [address] [place] [address] Guero Elizalde MD [address] [place] [address] [place] [address] 10/26/2023 3:00 PM EDT Office Visit Neurology [facility] [address] [facility] [place] [address] Thiago Banda MD [address] [place] [address] Health Maintenance Due Date Last Done Comments [...] Diagnoses Diagnosis Dysphasia- Primary Other speech disturbance Dysphagia, oropharyngeal phase documented in this encounter Care Teams Customer Solutions Representative Relationship Specialty Start Date End Date Guero Sandoval III, MD 200 [facility] [place] [address] PCP - General Family Medicine 04/15/22 documented as of this encounter
--- OUTSIDE RECORDS SUMMARY | 2023-08-12 12:27 | External Medical Summary ---
Author Name Unknown Address Unknown Organization : Laboratory Report Ordering Provider Test Date Status PIERRE GALVAN 07/03/2023 09:59:55 Final Observation Date Value Abnormality Reference (Units ) Status ACETYLCHOLINE REC BIND AB 07/03/2023 09:59:55 <0.30 (nmol/L) Final Reference Ranges for Acetylc holine Receptor
Binding Antibody:
Negative: < or =0.30 nmol/L
Equivocal: 0.31-0.49 nmol/L
Positive: > or =0.50 nmol/L
Test performed by [facility]
[address] [facility] [place] [address]

Cytologist: Ninfa Scott MD,PHD,YUE
Test Reported by [facility],
[employer],
[address] [place], [place]
Doc Salmon M.D., Ph.D., Director of Laboratories
, [facility] [id number] Performing Location
--- OUTSIDE RECORDS SUMMARY | 2023-08-12 12:27 | External Medical Summary | Summary of Care ---
Author Name Unknown Organization [facility] Address [address] [place] [address] Phone [phone] Care Team Providers Care Dado Operator Name Role Phone Jaime MAYS MD, Guero Terrell Primary Care Provider [phone] Reason for Visit * Reason Onset Date Comments Advice 07/20/2023 Encounter Details Date Type Department Care Team (Late st Contact Info) Description 07/20/2023 Telephone Neurology [facility] [address] [place] [address] Services, Scheduling [address] [place] [address] Advice Allergies Active Allergy Reactions Criticality Noted Date Comments Amlodipine Rash 09/01/2021 documented as of this encounter (statuses as of 07/20/2023) Medications Medication Sig Dispensed Refills Start Date [...] as of this encounter (statuses as of 07/20/2023) Active Problems Problem Noted Date Diagnosed Date Hx of actinic keratosis 02/04/2016 Personal history of malignant neoplasm of skin 0 04/20/2011 Overview: 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 PCP- please see Dr Elizalde's above documentation. * Telephone Encounter - Charo Tomlinson OSA - 07/20/2023 9:21 AM EST Pt calling in to see if Dr. Elizalde would know of any in patient rehab's for the pt She states that he has had a bought of diarrhea and is eating and drinking the best he can to fix this and fix himself. Pt is determined to get better Plz contact pt and advise [phone] Thank you documented in this encounter Plan of Treatment Upcoming Encounters Date Type Department Care Team (Late st Contact Info) Description 08/22/2023 1:00 PM EST NeuroDiagnostic Study Neurophysiology [facility] [address] [place] [address] Cherrie Marino MD 200 [facility] [place] [address] 08/24/2023 9:40 AM EST Office Visit Family Practice [facility] [place] [address] [place] [address] Guero Sandoval III, MD [facility] [place] [address] [address] 10/23/2023 8:40 AM EDT Office Visit Neurology [facility] [place] [address] [place] [address] [address] Guero Elizalde MD 200 [facility] [place] [address] 10/26/2023 3:00 PM EDT Office Visit Neurology [facility] [place] [address] [facility] [place] [address] Thiago Banda MD [address] [place] [address] Health Maintenance Due Date Last Done Comments [...] disturbance documented in this encounter Care Teams Dado Operator Relationship Specialty Start Date End Date Guero Sandoval III, MD 200 [facility] [place] [address] PCP - General Family Medicine 04/15/22 documented as of this encounter
--- OUTSIDE RECORDS SUMMARY | 2023-08-12 12:27 | External Medical Summary | Summary of Care ---
Author Name Unknown Organization [facility] Address [address] [place] [address] Phone [phone] Care Team Providers Care Auto Design Detailer Name Role Phone Jaime MAYS MD, Guero Terrell Primary Care Provider [phone] Reason for Visit * Reason Comments Medication Administration Encounter Details Date Type Department Care Team Description 04/07/2023 Nurse Only Ancillary [facility] [place]eth [place] [address] [place] [address] [place], Nurse Fam [facility] [address] [place] [phone] Medication Administration Allergies Active Allergy Reactions Severity Noted Date Comments Amlodipine Rash 09/01/2021 documented as of this encounter (statuses as of 04/07/2023) Medications Medication Sig Dispensed Refills Start Date [...] mcgIndications:Vitamin B 12 deficiency 1000 mcg IM [id number] 03/14/2023 07/03/2023 Active documented as of this encounter (statuses as of 04/07/2023) Active Problems Problem Noted Date Hx of actinic keratosis 02/04/2016 Personal history of malignant neoplasm o f skin 04/20/2011 Overview: 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 documented as of this encounter (statuses as of 04/07/2023) Immunizations Name Administration Dates Next Due COVID-19 [...] on file documented as of this encounter Progress Notes * Chatnel Oh LPN - 04/07/2023 11:18 AM EDT Pre-Administration Time Out Procedure Performed: Yes Patient Identified (Ask Name/Date of ): Yes Does the patient have a fever greater than 101 degrees today? No Patient allergic to latex? No Has the patient ever fainted after receiving an injection? No VFC Stock: No Injection(s) verified: Yes, Injection Name: B12 Verified Side and Site: Yes Verified Shot(s) with Parent(s)/Patient: Yes documented in this encounter Plan of Treatment Upcoming Encounters Date Type Specialty Care Team Description 05/08/2023 Nurse Only Ancillary Nurse Jairo [facility] [address] [facility] [place] [address] 06/09/2023 Office Visit Dermatology Diane Arroyo MD 200 [facility] [place] [address] 06/14/2023 Office Visit Neurology Cherrie Pisano PA-C 200 [facility] [place] [address] 08/24/2023 Office Visit Family Medicine HamiltonGuero menezes III, MD 200 [facility] [place] [address] Health Maintenance Due Date Last Done Comments [...] as of this encounter Visit Diagnoses Diagnosis B12 deficiency [E53.8 (ICD-10-CM)]- Primary Other B-complex deficiencies documented in this encounter Administered Medications Active Administered Medications - up to 3 most recent administrations Medication Order MAR Action Action Date Dose Rate Site vitamin b-12 (Cyanocobalamin) inj 1,000 mcg 1,000 mcg, Intramuscular, [id number], First dose on Mon03/14/23 at 0000, Last dose on Mon06/06/23 at 0000, For 4 doses Given 04/07/2023 11:07 AM EDT 1,000 mcg Deltoid Left Upper documented in this encounter Care Teams Auto Design Detailer Relationship Specialty Start Date End Date Hamilton III, Guero Terrell MD [address] [place] [phone] PCP - General Family Medicine 04/15/22 documented as of this encounter
--- OUTSIDE RECORDS SUMMARY | 2023-08-12 12:27 | External Medical Summary | Summary of Care ---
Author Name Unknown Organization [facility] Address [address] [place] [address] Phone [phone] Care Team Providers Care Mortgage Banker Name Role Phone Jaime MASY MD, Guero Terrell Primary Care Provider [phone] Reason for Visit * Reason Onset Date Comments Advice 07/13/2023 Encounter Details Date Type Department Care Team (Late st Contact Info) Description 07/13/2023 Telephone Access Center, [place] [address] [facility] [address] *DO NOT REMOVE THIS DEPARTMENT* [place], [place] [id number] Services, Scheduling [address] [place] [address] Advice Allergies Active Allergy Reactions Criticality Noted Date Comments Amlodipine Rash 09/01/2021 documented as of this encounter (statuses as of 07/19/2023) Medications Medication Sig Dispensed Refills Start Date [...] as of this encounter (statuses as of 07/19/2023) Active Problems Problem Noted Date Diagnosed Date Hx of actinic keratosis 02/04/2016 Personal history of malignant neoplasm of skin 0 04/20/2011 Overview: 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 documented as of this encounter (statuses as of 07/19/2023) Immunizations Name Administration Dates Next Due COVID-19 [...] Telephone Encounter - Malka Henry OSA - 07/19/2023 8:56 AM EST My error we are good * Telephone Encounter - Guero Elizalde MD - 07/18/2023 11:16 AM EST Flako I thought I had signed then and an order is in but Hoa was handling this for me so perhapsI missed signing something I can check today when I come back with the emgs Guero * Telephone Encounter - Malka Henry OSA - 07/18/2023 10:[address] Elizalde did you place new order with both Diagnosis codes? * Telephone Encounter - Hoa Jimenez, MED ASSIST - 07/14/2023 10:47 AM EST VALERIY Varela is requesting new referral with updated CPT codes. Pended order * Telephone Encounter - Charo Tomlinson OSA - 07/13/2023 8:28 AM EST Suad from [facility] calling to tell Dr. Elizalde that she faxed a completed evaluation to Dr. Elizalde and that they left a note to request a video swallow on the cover of the fax they sent. They do need the diagnosis code fixed on his speech therapy referral to these provided codes: R47.02 and R13.12 Plz reach out to Suad from Speech Therapy in [facility] if you have any questions [phone] Plz fax over the new referral when done Thank you documented in this encounter Plan of Treatment Upcoming Encounters Date Type Department Care Team (Late st Contact Info) Description 08/22/2023 1:00 PM EST NeuroDiagnostic Study Neurophysiology [facility] [address] [place] [address] Cherrie Marino MD [address] [facility] [place] [address] 08/24/2023 9:40 AM EST Office Visit Family Practice [facility] [address] [facility] [address] [place] [address] Guero Sandoval III, MD [address] [facility] [address] [facility] [address] 09/26/2023 2:20 PM EST Office Visit Neurology [facility] [place] [address] [facility] [place] [address] Guero Elizalde MD [address] [place] [address] [place] [address] 10/26/2023 3:00 PM EDT Office Visit Neurology [facility] [place] [address] [facility] [address] [place] [address] Thiago Banda MD [address] [place] [address] Health Maintenance Due Date Last [...] phase documented in this encounter Care Teams Mortgage Banker Relationship Specialty Start Date End Date Guero Sandoval III, MD [address] [facility] [place] [address] PCP - General Family Medicine 04/15/22 documented as of this encounter
--- OUTSIDE RECORDS SUMMARY | 2023-08-12 12:27 | External Medical Summary ---
Author Name Unknown Address Unknown Organization K01:[facility] [place] [address] [place] [address] Laboratory Report Ordering Provider Test Date Status JONI FUENTES 03/08/2023 13:22:41 Final Observation Date Value Abnormality Reference (Units ) Status Folic Acid 03/08/2023 13:22:41 13.0 >4.5 (ng/ mL) Final Performing Location [facility] - [address] [place] [address]
--- OUTSIDE RECORDS SUMMARY | 2023-08-12 12:27 | External Medical Summary | Summary of Care ---
Author Name Unknown Organization [facility] Address [address] [place] [address] Phone [phone] Care Team Providers Care Auction Clerk Name Role Phone Jaime MAYS MD, Guero Terrell Primary Care Provider [phone] Reason for Visit * Reason Comments Follow Up Patient here for F/U dermatitis Encounter Details Date Type Department Care Team (Late st Contact Info) Description 06/09/2023 11:45 AM EDT Office Visit Dermatology [facility] [address] [facility] [place] [address] Diane Arroyo MD 200 [place] [address] Dermatitis*; AK (actinic keratosis) Allergies Active Allergy Reactions Criticality Noted Date Comments Amlodipine Rash 09/01/2021 documented as of this encounter (statuses as of 06/09/2023) Medications Medication Sig Dispensed Refills Start Date [...] mcgIndications:Vitamin B 12 deficiency 1000 mcg IM [id number] 03/14/2023 07/03/2023 Active Triamcinolone Acetonide (Kenalog) 40 MG/ML inj 40 mgIndications:Dermatitis 40 mg IM ONCE 06/09/2023 06/09/2023 Ended documented as of this encounter (statuses as of 06/09/2023) Active Problems Problem Noted Date Diagnosed Date Hx of actinic keratosis 02/04/2016 Personal history of malignant neoplasm of skin 0 04/20/2011 Overview: 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 documented as of this encounter (statuses as of 06/09/2023) Immunizations Name Administration Dates Next Due COVID-19 [...] as of this encounter Progress Notes * Diane Arroyo MD - 06/09/2023 11:49 AM EDT SUBJECTIVE: History of Present Illness: Talon Lion is a 78 year old male seen today for follow up of rashes. Date Last Appointment: 04/06/2023 (in office), 10/28/2022 (telemedicine) Pt has declined full skin checks, upper body checks in the last year. Rash - occasionally still itchy on arms/hands, worsening in the past week or so. Bx 12/2021 atypical lymphoid infiltrate, DDx MF, drug T cell receptor gene rearrangement negative (Clinically since then, rash appears as nummular dermatitis in limited areas vs diffuse eruptions last year). Off of ARB, on carvedilol now Hx NMSC, AK, Efudex, declines gown Pt smokes REVIEW OF SYSTEMS: SKIN: No other new or changing moles. HEME/LYMPH: No new or enlarging lumps or bumps. Still has speech issues, worsening with time, see prior notes, follows with neuro MEDICA TIONS: Current Outpatient Medications Medication Sig Dispense Refill [...] 1,000 mcg 1,000 mcg Intramuscular Q4 Weeks Jaime MAYS, Guero Terrell MD 1,000 mcg at 05/08/23 1102 ALLERG IES: Amlodipine OBJECTIVE: GEN: LUE tremor, garbled speech, alert, no distress, appears oriented, pleasant, and cooperative. SKIN: Detailed exam of hair, face including lids and lips, neck, and bilateral upper ext. (arm, hand, fingers) completed and are normal except: 1. Dorsal hands - keratotic firm pink papules 2. Arms, by hx trunk and legs (defers gown) - few scaly pink thin plaques, some are excoriated ASSESS MENT/PLAN: 1. HAKs - After obtaining verbal informed consent and confirming lesions x 4 with patient, it was removed by curettage destruction. The wound was bandaged. Post op care discussed. 2. Polymorphic rashes - unclear etiology IMK helpful every 2-3 months, even at low dosages, pt *very much wants to have 1 more IMK before the end of the year to help with pruritus, defers bx, uses lidex cream as needed, emollients and mild soaps otherwise, oral antihistamines as needed. *IMK 30 mg today, pt aware of SEs *prefer bx again before any systemic steroids beyond today *will message neurology again about seeing pt sooner for worsening speech Discussed sun protection with patient including proper use of sunscreens and protective clothing. [place] explained. Follow-up: I will call pt 1 month There were no barriers tolearning and no other pain was related to today's visit. The patient and/or person accompanying patient demonstrates understanding of the visit and treatment. Diane Arroyo MD 06/09/2023 11:49 AM documented in this encounter Nursing Notes * Abby Nova MED ASSIST - 06/09/2023 11:43 AM EDT Chief Complaint Patient presents with Follow Up Patient here for F/U dermatitis 04/06/2023 documented in this encounter Plan of Treatment Upcoming Encounters Date Type Department Care Team (Late st Contact Info) Description 07/07/2023 11:00 AM EST Telemedicine Dermatology [facility] [place] [address] [place] [address] Diane Arroyo MD [address] [place] [address] 08/24/2023 9:40 AM EST Office Visit Family Practice [facility] [place] [address] [place] [address] [address] Guero Sandoval III, MD 200 [facility] [place] [address] 09/25/2023 10:40 AM EST Office Visit Neurology [facility] [employer] [address] [place] [address] [address] Cherrie Pisano PA-C [address] [facility] [place] [address] Health Maintenance Due Date Last Done Comments [...] as of this encounter Visit Diagnoses Diagnosis Dermatitis- Primary Contact dermatitis and other eczema, due to unspecified cause AK (actinic keratosis) Actinic keratosis documented in this encounter Administered Medications Inactive Administered Medications - up to 3 most recent administrations Medication Order MAR Action Action Date Dose Rate Site Triamcinolone Acetonide (Kenalog) 40 MG/ML inj 40 mg 40 mg, Intramuscular, ONCE, On Mon06/09/23 at 1245, For 1 dose Given 06/09/2023 12:28 PM EDT 40 mg Deltoid Left Upper documented in this encounter Care Teams Auction Clerk Relationship Specialty Start Date End Date Guero Sandoval III, MD [address] [facility] [place] [address] PCP - General Family Medicine 04/15/22 documented as of this encounter
--- OUTSIDE RECORDS SUMMARY | 2023-08-12 12:27 | External Medical Summary | Summary of Care ---
Author Name Unknown Organization [facility] Address [address] [place] [address] Phone [phone] Care Team Providers Care Earth Science Technical Officer Name Role Phone Jaime MAYS MD, Guero Terrell Primary Care Provider [phone] Reason for Referral * Precert (Within 10 days (routine)) - Pending Review Specialty Diagnoses / Procedures Referred By Tori horowitz Referred To Contact Radiology Diagnoses Dysphasia Procedures MRI BRAIN WITHOUT CONTRAST Cherrie Pisano PA-C [address] [facility] [place] [address] Referral ID Status Reason Start Date Expiration Date V isits Requested Visits Authorized [id number] Pending Review 03/15/2023 999 999 Reason for Visit * Reason Comments NEW PATIENT dysphagia * Evaluate & Treat - Unlimited Visits (Within 10 days (routine)) - Closed Specialty Diagnoses / Procedures Referred By Tori horowitz Referred To Contact Neurology Diagnoses Dysphasia Guero Sandoval III, MD [address] [place] [address] [address] Referral ID Status Reason Start Date Expiration Date V isits Requested Visits Authorized [id number] Closed Specialty Services Required 08/19/2022 999 999 Encounter Details Date Type Department Care Team Description 03/08/2023 Office Visit Neurology [facility] [address] [place] [address] [address] Cherrie Pisano PA-C [address] [facility] [place] [address] Dysphasia*; Balance problems; Gait abnormality Allergies Active Allergy Reactions Severity Noted Date Comments Amlodipine Rash 09/01/2021 documented as of this encounter (statuses as of 03/08/2023) Medications Medication Sig Dispensed Refills Start Date End Date Status Carvedilol 6.25 MG Oral Tablet (Coreg) Take 1 Tablet by mouth in the morning and 1 Tablet before bedtime. with food. 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 documented as of this encounter (statuses as of 03/08/2023) Immunizations Name Administration Dates Next Due COVID-19 [...] Sign Reading Time Taken Comments Blood Pressure 122/72 03/08/2023 12:37 PM EDT Pulse 92 03/08/2023 12:37 PM EDT Temperature 37.1 C (98.7 F) 03/08/2023 12:37 PM E DT Respiratory Rate 16 03/08/2023 12:37 PM EDT Oxygen Saturation - - Inhaled Oxygen Concentration - - Weight 55.9 kg (123 lb 4.8 oz) 03/08/2023 12:37 PM EDT Height - - Body Mass Index 21.36 02/17/2023 9:02 AM EDT documented in this encounter Nursing Notes * KIMBERLY Brunson - 03/08/2023 12:37 PM EDT Chief Complaint Patient presents with NEW PATIENT dysphagia documented in this encounter Plan of Treatment Upcoming Encounters Date Type Specialty Care Team Description 03/29/2023 Imaging Radiology 04/06/2023 Office Visit Dermatology Diane Arroyo MD [address] [facility] [place] [address] 06/14/2023 Office Visit Neurology Cherrie Pisano PA-C [address] [facility] [place] [address] 08/24/2023 Office Visit Family Medicine Guero Sandoval III, MD [address] [facility] [place] [address] Pending Results Name Type Priority Associated Diagnoses Date /Time VITAMIN B12 Lab Routine Dysphasia 03/08/2023 1:22 PM EDT FOLIC ACID Lab Routine Dysphasia 03/08/2023 1:22 PM EDT VITAMIN B1 (THIAMINE), BLOOD, LC/MS/MS Lab Routine Dysphasia 03/08/2023 1:22 PM EDT Scheduled Orders Name Type Priority Associated Diagnoses Orde r Schedule MRI BRAIN WITHOUT CONTRAST Medical Imaging Routine Dysphasia Expected: 03/15/2023, Expires: 04/08/2024 VITAMIN B1 (THIAMINE), BLOOD, LC/MS/MS Lab Routine Dysphasia Expected: 03/15/2023, Expires: 03/08/2024 Health Maintenance Due Date Last Done Comments [...] Other symptoms involving nervous and musculoskeletal systems Gait abnormality Abnormality of gait documented in this encounter Care Teams Earth Science Technical Officer Relationship Specialty Start Date End Date Guero Sandoval III, MD [address] [place] [address], [place] [address] PCP - General Family Medicine 04/15/22 documented as of this encounter
--- OUTSIDE RECORDS SUMMARY | 2023-08-12 12:27 | External Medical Summary | Summary of Care ---
Author Name Unknown Organization [facility] Address [address] [place] [address] Phone [phone] Care Team Providers Care Jukebox Checker Name Role Phone Jaime MAYS MD, Guero Terrell Primary Care Provider [phone] Reason for Visit * Reason Comments Follow Up Here for 3-4 mo f/u dermatitis. No new concerns. Encounter Details Date Type Department Care Team Description 04/06/2023 Office Visit Dermatology [facility] [place] [address] [place] [address] Diane Arroyo MD 200 [place] [address] Dermatitis*; Hx of actinic keratosis; Hx of nonmelanoma skin cancer; AK (actinic keratosis) Allergies Active Allergy Reactions Severity Noted Date Comments Amlodipine Rash 09/01/2021 documented as of this encounter (statuses as of 04/17/2023) Medications Medication Sig Dispensed Refills Start Date [...] mcgIndications:Vitamin B 12 deficiency 1000 mcg IM [id number] 03/14/2023 07/03/2023 Active Triamcinolone Acetonide (Kenalog) 10 MG/ML inj 10 mgIndications:Dermatitis 10 mg IJ ONCE 04/06/2023 04/06/2023 Ended documented as of this encounter (statuses as of 04/17/2023) Active Problems Problem Noted Date Hx of actinic keratosis 02/04/2016 Personal history of malignant neoplasm o f skin 04/20/2011 Overview: 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 documented as of this encounter (statuses as of 04/17/2023) Immunizations Name Administration Dates Next Due COVID-19 [...] Progress Notes * Diane Arroyo MD - 04/06/2023 1:57 PM EDT SUBJECTIVE: History of Present Illness: Talon Lion is a 77 year old male seen today for follow up of several issues. Date Last Appointment: 12/01/2022 (in office), 10/28/2022 (telemedicine) Declines gown. Dorsal hands still have scaly areas, would like cryo Body still itchy intermittently, fluocinonide cream and IMK helpful in past with several months pruritus improvement, last injection 11/2022 (40 mg) Bx 12/2021 atypical lymphoid infiltrate, DDx MF, drug T cell receptor gene rearrangement negative (Clinically since then, rash appears as nummular dermatitis in limited areas vs diffuse eruptions last year) Off of ARB, on carvedilol now Hx SCC L alar rim 05/2017, BCC L forehead 05/2009, R lateral eyelid 07/2009; L neck SCC 07/2009 Hx AK Hx Efudex use, brisk reactions in past Pt smokes REVIEW OF SYSTEMS: SKIN: No other new or changing moles. HEME/LYMPH: No new or enlarging lumps or bumps. Worsening dysphagia and slow and unsteady gait - neurology workup ongoing MEDICA TIONS: Current Outpatient Medications Medication Sig Dispense Refill Carvedilol 6.25 MG Oral Tablet (Coreg) Take 1 Tablet by mouth in the morning and 1 Tablet before bedtime. with food. 90 Tablet 11 Cyanocobalamin 1000 MCG Oral Tablet (Cyanocobalamin) Take 1 Tablet by mouth in the morning. 100 Tablet 3 Current Facility-Administered Medications Medication Dose Route Frequency Provider Last Rate Last Admin vitamin b-12 (Cyanocobalamin) inj 1,000 mcg 1,000 mcg Intramuscular Q4 Weeks Guero Sandoval III, MD ALLERG IES: Amlodipine OBJECTIVE: GEN: Healthy, alert, no distress, appears oriented, pleasant, and cooperative. SKIN: Detailed exam of face including lids and lips, neck, and bilateral upper ext. (arm, hand, fingers) completed and are normal except: 1. Dorsal hands - keratotic pink papules 2. UEs and neck have scaly pink patches, vague today ASSESS MENT/PLAN: 1. AKs - Cryosurgery explained to the patient, verbal consent obtained, patient, site and procedureverified, time-out called, and then cryotherapy was performed with Liquid Nitrogen via cryo spray unit to 2 lesions. Location noted in physical exam. Post op course explained. 2. Polymorphic rashes, unclear etiology, IMK helpful, will re-administer today but at lower dosage 30 mg, pt aware of SEs Emollients, mild soaps, Fluocinonide cream nightly as needed, gave samples of Aveeno itch balm *Will message neurology about pt's worsening speech and gait. Follow-up: 2 months There were no barriers tolearning and no other pain was related to today's visit. The patient and/or person accompanying patient demonstrates understanding of the visit and treatment. Diane Arroyo MD 04/06/2023 1:57 PM documented in this encounter Nursing Notes * Corina Saldivar LPN - 04/06/2023 1:55 PM EDT Patient identified by name and date of . Do you have any concerns about pain management for today's visit? No Living Will or Advance Directive for Health Care as noted on problem list. Multichanneler is a way you can talk to your provider online through e-mail. Would you like to sign up? I can activate it for you? DECLINES Chief Complaint Patient presents with Follow Up Here for 3-4 mo f/u dermatitis. No new concerns. documented in this encounter Plan of Treatment Upcoming Encounters Date Type Specialty Care Team Description 05/08/2023 Nurse Only Ancillary Nurse Jairo Stanley [facility] [address] [place] [address] 06/09/2023 Office Visit Dermatology Diane Arroyo MD [address] [facility] [place] [address] 06/14/2023 Office Visit Neurology Cherrie Pisano PA-C [address] [place] [address] 08/24/2023 Office Visit Family Medicine Guero Sandoval III, MD [address] [place] [address] Health Maintenance Due Date Last Done Comments [...] and other eczema, due to unspecified cause Hx of actinic keratosis Personal history of diseases of skin and subcutaneous tissue Hx of nonmelanoma skin cancer Personal history of other malignant neoplasm of skin AK (actinic keratosis) Actinic keratosis documented in this encounter Administered Medications Inactive Administered Medications - up to 3 most recent administrations Medication Order MAR Action Action Date Dose Rate Site Triamcinolone Acetonide (Kenalog) 10 MG/ML inj 10 mg 10 mg, Injection, ONCE, On Shaun[place] 04/06/23 at 1445, For 1 dose Given 04/06/2023 2:16 PM EDT 10 mg Deltoid Left Upper documented in this encounter Care Teams Jukebox Checker Relationship Specialty Start Date End Date Guero Sandoval III, MD [address] [place] [address] PCP - General Family Medicine 04/15/22 documented as of this encounter
--- OUTSIDE RECORDS SUMMARY | 2023-08-12 12:27 | External Medical Summary | Summary of Care ---
Author Name Unknown Organization [facility] Address [address] [place] [address] Phone [phone] Care Team Providers Care Marketing Analyst Name Role Phone Jaime MAYS MD, Guero Terrell Primary Care Provider [phone] Reason for Visit * Reason Comments Follow Up Here for 3-4 mo f/u dermatitis. No new concerns. Encounter Details Date Type Department Care Team Description 04/06/2023 Office Visit Dermatology [facility] [place] [address] [place] [address] Diane Arroyo MD [address] [place] [address] Dermatitis*; Hx of actinic keratosis; Hx of nonmelanoma skin cancer; AK (actinic keratosis) Allergies Active Allergy Reactions Severity Noted Date Comments Amlodipine Rash 09/01/2021 documented as of this encounter (statuses as of 04/06/2023) Medications Medication Sig Dispensed Refills Start Date [...] mcgIndications:Vitamin B 12 deficiency 1000 mcg IM [id number] 03/14/2023 07/03/2023 Active Triamcinolone Acetonide (Kenalog) 10 MG/ML inj 10 mgIndications:Dermatitis 10 mg IJ ONCE 04/06/2023 04/06/2023 Ended documented as of this encounter (statuses as of 04/06/2023) Active Problems Problem Noted Date Hx of actinic keratosis 02/04/2016 Personal history of malignant neoplasm o f skin 04/20/2011 Overview: 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 documented as of this encounter (statuses as of 04/06/2023) Immunizations Name Administration Dates Next Due COVID-19 [...] Health Care as noted on problem list. healthfincher is a way you can talk to your provider online through e-mail. Would you like to sign up? I can activate it for you? DECLINES Chief Complaint Patient presents with Follow Up Here for 3-4 mo f/u dermatitis. No new concerns. documented in this encounter Plan of Treatment Upcoming Encounters Date Type Specialty Care Team Description 04/07/2023 Nurse Only Ancillary Nurse Jairo Stanley [address] [place] [address] 06/09/2023 Office Visit Dermatology Diane Arroyo MD [address] [place] [address] 06/14/2023 Office Visit Neurology Cherrie Pisano PA-C [address] [place] [address] [address] 08/24/2023 Office Visit Family Medicine Jaime DAVON, Guero Terrell MD [address] [place] [address] Health Maintenance Due Date Last Done Comments [...] Upper documented in this encounter Care Teams Marketing Analyst Relationship Specialty Start Date End Date Guero Sandoval III, MD [address] [place] [address] PCP - General Family Medicine 04/15/22 documented as of this encounter
--- OUTSIDE RECORDS SUMMARY | 2023-08-12 12:27 | External Medical Summary | Summary of Care ---
Author Name Unknown Organization [facility] Address [address] [place] [address] Phone [phone] Care Team Providers Care Forestry Foreman Name Role Phone Jaime MAYS MD, Guero Terrell Primary Care Provider [phone] Reason for Visit * Reason Comments Outpatient Testing Encounter Details Date Type Department Care Team Description 03/08/2023 Laboratory Laboratory [facility] [place] [address] [place] [address] [place], [facility]en[facility] [address] [place] [id number] Dysphasia Allergies Active Allergy Reactions Severity Noted Date [...] Office Visit Dermatology Diane Arroyo MD 200 [facility] [place] [address] 06/14/2023 Office Visit Neurology Cherrie Pisano PA-C 200 [facility] [place] [address] 08/24/2023 Office Visit Family Medicine Jaime IIIGuero MD 200 [facility] [place] [address] Pending Results Name Type Priority Associated Diagnoses Date /Time VITAMIN B1 (THIAMINE), BLOOD, LC/MS/MS Lab Routine Dysphasia 03/08/2023 1:22 PM EDT Health Maintenance Due Date Last Done Comments [...] as of this encounter Visit Diagnoses Diagnosis Dysphasia Other speech disturbance documented in this encounter Care Teams Forestry Foreman Relationship Specialty Start Date End Date Guero Sandoval III, MD 200 [place] [address] PCP - General Family Medicine 04/15/22 documented as of this encounter
--- OUTSIDE RECORDS SUMMARY | 2023-08-12 12:27 | External Medical Summary | Summary of Care ---
Author Name Unknown Organization [facility] Address [address] [place] [address] Phone [phone] Care Team Providers Care Equipment Washer Name Role Phone Jaime MAYS MD, Guero Terrell Primary Care Provider [phone] Reason for Visit * Reason Onset Date Comments Advice 07/20/2023 Encounter Details Date Type Department Care Team (Late st Contact Info) Description 07/20/2023 Telephone Neurology [facility] [address] [place] [address] Services, Scheduling [address] [place] [address] Advice Allergies Active Allergy Reactions Criticality Noted [...] encounter Miscellaneous Notes * Telephone Encounter - Charo Tomlinson OSA [...] get better Plz contact pt and advise [phone] Thank you documented in this encounter Plan of Treatment Upcoming Encounters Date Type Department Care Team (Late st Contact Info) Description 08/22/2023 1:00 PM EST NeuroDiagnostic Study Neurophysiology [facility] 200 [facility] [place] [address] Cherrie Marino MD 200 [facility] [place] [address] 08/24/2023 9:40 AM EST Office Visit Family Practice [facility] 200 [facility] [place] [address] Guero Sandoval III, MD 200 [facility] [place] [address] 10/23/2023 8:40 AM EDT Office Visit Neurology [facility] 200 [facility] [place] [place] [address] Guero Elizalde MD 200 [facility] [place] [place] [address] 10/26/2023 3:00 PM EDT Office Visit Neurology [facility] 200 [facility] [place] [place] [address] Thiago Banda MD [address] [place] [address] Health Maintenance Due Date Last [...] filedocumented as of this encounter Care Teams Equipment Washer Relationship Specialty Start Date End Date Guero Sandoval III, MD [address] [place] [address] PCP - General Family Medicine 04/15/22 documented as of this encounter
--- OUTSIDE RECORDS SUMMARY | 2023-08-12 12:27 | External Medical Summary | Summary of Care ---
Author Name Unknown Organization [facility] Address [address] [place] [address] Phone [phone] Care Team Providers Care Lead Accountant Name Role Phone Jaime MAYS MD, Cole Terrell Primary Care Provider [phone] Reason for Visit * Reason Comments Follow Up Encounter Details Date Type Department Care Team (Late st Contact Info) Description 07/07/2023 11:00 AM EST Telemedicine Dermatology [facility] 200 [facility] [place] [address] Diane Arroyo MD 200 [place] [address] Dermatitis* Allergies Active Allergy Reactions Criticality Noted Date Comments Amlodipine Rash 09/01/2021 documented as of this encounter (statuses as of 07/10/2023) Medications Medication Sig Dispensed Refills Start Date [...] as of this encounter (statuses as of 07/10/2023) Active Problems Problem Noted Date Diagnosed Date Hx of actinic keratosis 02/04/2016 Personal history of malignant neoplasm of skin 0 04/20/2011 Overview: 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 documented as of this encounter (statuses as of 07/10/2023) Immunizations Name Administration Dates Next Due COVID-19 [...] Progress Notes * Diane Arroyo MD - 07/07/2023 10:46 AM EST After connecting to the patient via phone, the patient verified their identity with their date of and verbally consented to evaluation and management of their condition through telemedicine. This visit was performed through Telemedicine during the COVID-19 Health Crisis during a state of National Emergency. The patient is aware that we will bill their insurance for this visit following Medicare guidelines, but they may be responsible for some or all of the visit charges if their insurancedeems this "non-covered". If pt was a minor, N/A was present. Patient location: HOME. I was in a hospital or clinic location. After connecting through Envoimoinscher,patient was verified with two unique identifiers. 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 Methods to assure confidentiality were taken. Patient acknowledged consent and understanding of pr ivacy and security of the Telemedicine visit. The patient agreed to participate. This is an established patient evaluated in my specialty within the past three years yes Visit Disposition: Routine follow-up Total call duration was 13 minutes. SUBJECTIVE: History of Present Illness: Talon Lion is a 78 year old male seen today for follow up of itchy rash. Date Last Appointment: 06/09/2023 (in office), 10/28/2022 (telemedicine). Spoke with pt's for most of the call, brief conversation with pt (neuro as below) - pt not particularly itchy lately - low dosage IM Kenalog last visit, helpful, occasional use of OTC emollientsand anti-itch topicals. Bx 12/2021 atypical lymphoid infiltrate, DDx MF, drug T cell receptor gene rearrangement negative (Clinically since then, rash appears as nummular dermatitis in limited areas vs diffuse eruptions last year). Off of ARB, on carvedilol now. Rapidly worsening speech issues, pt following with neurology. REVIEW OF SYSTEMS: SKIN: No other new or changing moles. HEME/LYMPH: No new or enlarging lumps or bumps. MEDICA TIONS: Current Outpatient Medications Medication Sig [...] body nightly as needed 60 g 2 No current facility-administered medications for this visit. ALLERG IES: Amlodipine OBJECTIVE: GEN: Healthy, alert, no distress, appears oriented, pleasant, and cooperative. SKIN: no rashes today per pt and ASSESS MENT/PLAN: 1. Polymorphic rashes - unclear etiology, currently stable/improved. *defers bx, still has lidex cream as needed for new scaly plaques, emollients and mild soaps otherwise, oral antihistamines as needed. Follow-up: pt/ would prefer to call when current neurologic issues stabilize There were no barriers tolearning and no other pain was related to today's visit. The patient and/or person accompanying patient demonstrates understanding of the visit and treatment. Diane Arroyo MD 07/07/2023 10:46 AM Ref: SELF[[id number]] NO STREET ADDRESS AVAILABLE None (office) None (fax) PCP: COLE ALCALA III [address] [place], [place] [address] [address] [phone] documented in this encounter Plan of Treatment Upcoming Encounters Date Type Department Care Team (Late st Contact Info) Description 08/24/2023 9:40 AM EST Office Visit Family Practice [facility] [address] [place] [address] Cole Alcala III, MD [address] [place], [place] [address] [facility] [address] 09/26/2023 2:20 PM EST Office Visit Neurology [facility] [address] [place] [address] Cole Elizalde MD [address] [place], [place] [address] [address] 10/26/2023 3:00 PM EDT Office Visit Neurology [facility] [address] [place] [address] Thiago Banda MD [address] [place] [address] Health Maintenance Due Date Last Done Comments Hepatitis C Screening 1963 DTaP,Tdap,and Td Vaccines (1 - Tdap) 1965 Zoster Vaccines (1 of 2) 1996 COVID-19 Vaccine (2022-2 4 season) 2023 10/09/2020, 10/03/2020, 09/11/2020 Influenza [...] and other eczema, due to unspecified cause documented in this encounter Care Teams Lead Accountant Relationship Specialty Start Date End Date Cole Alcala III, MD 200 [facility] [place] [address] PCP - General Family Medicine 04/15/22 documented as of this encounter
--- OUTSIDE RECORDS SUMMARY | 2023-08-12 12:27 | External Medical Summary | Summary of Care ---
Author Name Unknown Organization [facility] Address [address] [place] [address] Phone [phone] Care Team Providers Care Residential Substance Abuse Counselor Name Role Phone Jaime MAYS MD, Guero Terrell Primary Care Provider [phone] Reason for Visit * Reason Comments Medication Administration Encounter Details Date Type Department Care Team Description 05/08/2023 Nurse Only Ancillary [facility] [place] [address] [place] [address] [place], Nurse [facility] [address] [place] [id number] Medication Administration (/) Allergies Active Allergy Reactions Severity Noted Date Comments Amlodipine Rash 09/01/2021 documented as of this encounter (statuses as of 05/08/2023) Medications Medication Sig Dispensed Refills Start Date [...] mcgIndications:Vitamin B 12 deficiency 1000 mcg IM [id number] 03/14/2023 07/03/2023 Active documented as of this encounter (statuses as of 05/08/2023) Active Problems Problem Noted Date Hx of actinic keratosis 02/04/2016 Personal history of malignant neoplasm o f skin 04/20/2011 Overview: 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 documented as of this encounter (statuses as of 05/08/2023) Immunizations Name Administration Dates Next Due COVID-19 [...] as of this encounter Progress Notes * Ysabel Shirley, GUERO - 05/08/2023 11:04 AM EDT Patient was identified by full name and date of . Administered per orders. Injection given without difficulty. The patient tolerated this well and left the clinic in stable condition. Pre-Administration Time Out Procedure Performed: Yes Patient Identified (Ask Name/Date of ): Yes Does the patient have a fever greater than 101 degrees today? No Patient allergic to latex? No Has the patient ever fainted after receiving an injection? No VFC Stock: No Injection(s) verified: Yes, Injection Name: Vitamin B12 Verified Side and Site: Yes Verified Shot(s) with Parent(s)/Patient: Yes documented in this encounter Plan of Treatment Upcoming Encounters Date Type Specialty Care Team Description 06/09/2023 Office Visit Dermatology Diane Arroyo MD 200 [facility] [place] [address] 07/18/2023 Office Visit Neurology Cherrie Pisano PA-C 200 [facility] [place] [address] 08/24/2023 Office Visit Family Medicine Guero Sandoval III, MD 200 [facility] [place] [address] Health Maintenance Due Date Last Done Comments [...] of this encounter Visit Diagnoses Diagnosis B12 deficiency- Primary Other B-complex deficiencies documented in this encounter Administered Medications Active Administered Medications - up to 3 most recent administrations Medication Order MAR Action Action Date Dose Rate Site vitamin b-12 (Cyanocobalamin) inj 1,000 mcg 1,000 mcg, Intramuscular, [id number], First dose on Mon03/14/23 at 0000, Last dose on Mon06/06/23 at 0000, For 4 doses Given 05/08/2023 11:02 AM EDT 1,000 mcg Deltoid Left Lower Given 04/07/2023 11:07 AM EDT 1,000 mcg D eltoid Left Upper documented in this encounter Care Teams Residential Substance Abuse Counselor Relationship Specialty Start Date End Date Jaime MAYS, Guero Terrell MD [address] [place] [address], [place] [address] PCP - General Family Medicine 04/15/22 documented as of this encounter
--- OUTSIDE RECORDS SUMMARY | 2023-08-12 12:27 | External Medical Summary | Summary of Care ---
Author Name Unknown Organization [facility] Address [address] [place] [address] Phone [phone] Care Team Providers Care Cnc Machine Setter Name Role Phone Jaime MAYS MD, Guero Terrell Primary Care Provider [phone] Reason for Visit * Reason Onset Date Comments Advice 07/13/2023 Encounter Details Date Type Department Care Team (Late st Contact Info) Description 07/13/2023 Telephone Access Center[facility] [place] [address] [facility] *DO NOT REMOVE THIS DEPARTMENT* [place], [place] [id number] Services, Scheduling [address] [place] [address] Advice Allergies Active Allergy Reactions Criticality Noted Date Comments Amlodipine Rash 09/01/2021 documented as of this encounter (statuses as of 07/18/2023) Medications Medication Sig Dispensed Refills Start Date [...] as of this encounter (statuses as of 07/18/2023) Active Problems Problem Noted Date Diagnosed Date Hx of actinic keratosis 02/04/2016 Personal history of malignant neoplasm of skin 0 04/20/2011 Overview: 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 documented as of this encounter (statuses as of 07/18/2023) Immunizations Name Administration Dates Next Due COVID-19 [...] - 07/13/2023 8:28 AM EST Suad from [facility] calling to tell Dr. Elizalde that she faxed a completed evaluation to Dr. Elizalde and that they left a note to request a video swallow on the cover of the fax they sent. They do need the diagnosis code fixed on his speech therapy referral to these provided codes: R47.02 and R13.12 Plz reach out to Suad from Speech Therapy in [facility] if you have any questions [phone] Plz fax over the new referral when done Thank you documented in this encounter Plan of Treatment Upcoming Encounters Date Type Department Care Team (Late st Contact Info) Description 08/22/2023 1:00 PM EST NeuroDiagnostic Study Neurophysiology [facility] [address] [place] [address] [address] Cherrie Marino MD [address] [place] [address] [address] 08/24/2023 9:40 AM EST Office Visit Family Practice [facility] [place] [address] [place] [address] [address] [address] Guero Sandoval III, MD [address] [place] [address] [address] 09/26/2023 2:20 PM EST Office Visit Neurology [facility] [place] [address] [place] [address] [address] Guero Elizalde MD [address] [place] [address] [address] 10/26/2023 3:00 PM EDT Office Visit Neurology [facility] [place] [address] [place] [address] [address] Thiago Banda MD [address] [place] [address] Health Maintenance Due Date Last Done Comments [...] phase documented in this encounter Care Teams Cnc Machine Setter Relationship Specialty Start Date End Date Guero Sandoval III, MD 200 [place] [address] PCP - General Family Medicine 04/15/22 documented as of this encounter
--- OUTSIDE RECORDS SUMMARY | 2023-08-12 12:27 | External Medical Summary | Summary of Care ---
Author Name Unknown Organization [facility] Address [address] [place] [address] Phone [phone] Care Team Providers Care Supervisor Sawing And Assembly Name Role Phone Jaime MAYS MD, Guero Terrell Primary Care Provider [phone] Reason for Visit * Reason Onset Date Comments Order Request 07/13/2023 Encounter Details Date Type Department Care Team (Late st Contact Info) Description 07/13/2023 Telephone Neurology [facility] 200 [facility] [place] [address] Guero Elizalde MD 200 [place] [address] Order Request Allergies Active Allergy Reactions Criticality Noted Date [...] Miscellaneous Notes * Telephone Encounter - Hoa Jimenez MED ASSIST - 07/14/2023 8:24 AM EST Lmom to scheduled swallow study and EMG. Please assist on scheduling when call is returned * Telephone Encounter - Hoa Jimenez MED ASSIST - 07/13/2023 8:24 AM EST Received report from speech therapy. Note on the reports: [employer] is asking you to order a video fluoroscopic swallowing study to assess safest level of intake as he's demonstrating s/s of aspiration with thin liquids and has poor chewing. Dr Elizalde, the report is on your desk and an order is pended. documented in this encounter Plan of Treatment Upcoming Encounters Date Type Department Care Team (Late st Contact Info) Description 08/24/2023 9:40 AM EST Office Visit Family Practice [facility] 200 [facility] [place] [address] Guero Sandoval III, MD [address] [place] [address] [place] [address] 09/26/2023 2:20 PM EST Office Visit Neurology [address] [place] [address] Guero Elizalde MD [address] [place] [address] [place] [address] 10/26/2023 3:00 PM EDT Office Visit Neurology [facility] 200 [facility] [place] [address] Thiago Banda MD [address] [place] [address] Scheduled Orders Name Type Priority Associated Diagnoses Orde r Schedule FLUORO SWALLOWING FUNCTION W VIDEO CINE Medical Imaging Routine Dysphasia Ordered: 07/14/2023 Health Maintenance Due Date Last Done Comments [...] Diagnoses Diagnosis Dysphasia- Primary Other speech disturbance Gait abnormality Abnormality of gait documented in this encounter Care Teams Supervisor Sawing And Assembly Relationship Specialty Start Date End Date Guero Sandoval III, MD 200 [facility] [place] [address] PCP - General Family Medicine 04/15/22 documented as of this encounter
--- OUTSIDE RECORDS SUMMARY | 2023-08-12 12:27 | External Medical Summary | Summary of Care ---
Author Name Unknown Organization [facility] Address [address] [place] [address] Phone [phone] Care Team Providers Care Sales Consultant Name Role Phone Jaime MAYS MD, Guero Terrell Primary Care Provider [phone] Reason for Visit * Reason Onset Date Comments Fax 07/19/2023 Encounter Details Date Type Department Care Team (Late st Contact Info) Description 07/19/2023 Telephone Family Practice [facility] 200 [facility] [place] [address] Guero Sandoval III, MD 200 [place] [address] Fax Allergies Active Allergy Reactions Criticality Noted Date [...] encounter Miscellaneous Notes * Telephone Encounter - Tracey Sewell OSA - 07/20/2023 10:23 AM EST Spoke with nursing and they stated that they did not receive the forms until yesterday, Called pt and informed pt that no clinics in [facility] had anything malena for today... Pt stated that they would call [facility] and see what they can do and then call back for the appt with in 30 days * Telephone Encounter - Chantel Oh LPN - 07/19/2023 4:49 PM EST Patient has not been seen since February, clearance cannot be provided without an office visit. Please call to schedule pre-op clearance within 30 days of his procedure with any available provider. * Telephone Encounter - Rhonda Valero OSA - 07/19/2023 4:05 PM EST Received a call asking if fax was received by office. Name/Company sending fax: [facility] [employer] What fax is pertaining to: Medical Clearance Date(s) they sent request: 07/10/23 Verified fax number they are sending to is correct (Y or N): Y Callback Number for the clinic to call to verified if fax was received: [phone] documented in this encounter Plan of Treatment Upcoming Encounters Date Type Department Care Team (Late st Contact Info) Description 08/22/2023 1:00 PM EST NeuroDiagnostic Study Neurophysiology [facility] [address] [place] [address] Cherrie Marino MD 200 [facility] [address] [place] [address] 08/24/2023 9:40 AM EST Office Visit Family Practice [facility] [address] [place] [address] Guero Sandoval III, MD [address] [place] [address] 10/23/2023 8:40 AM EDT Office Visit Neurology [facility] 200 [facility] [place] [place] [address] Guero Elizalde MD 200 [facility] [place] [place] [address] 10/26/2023 3:00 PM EDT Office Visit Neurology [facility] 200 [facility] [place] [address] Thiago Banda MD [address] [place] [address] Health Maintenance Due Date Last Done Comments [...] filedocumented as of this encounter Care Teams Sales Consultant Relationship Specialty Start Date End Date Guero Sandoval III, MD 200 [facility] [place] [address] PCP - General Family Medicine 04/15/22 documented as of this encounter
--- OUTSIDE RECORDS SUMMARY | 2023-08-12 12:27 | External Medical Summary | Summary of Care ---
Author Name Unknown Organization [facility] Address [address] [place] [address] Phone [phone] Care Team Providers Care Hoisting Machine Operator Name Role Phone Jaime MAYS MD, Guero Terrell Primary Care Provider [phone] Reason for Visit * Reason Onset Date Comments Appointment 03/25/2023 Encounter Details Date Type Department Care Team Description 03/25/2023 Telephone Radiology [address] [place] [address] Francy Dickinson TECH Appointment Allergies Active Allergy Reactions Severity Noted Date Comments Amlodipine Rash 09/01/2021 documented as of this encounter (statuses as of 03/25/2023) Medications Medication Sig Dispensed Refills Start Date [...] mcgIndications:Vitamin B 12 deficiency 1000 mcg IM [id number] 03/14/2023 07/03/2023 Active documented as of this encounter (statuses as of 03/25/2023) Active Problems Problem Noted Date Hx of actinic keratosis 02/04/2016 Personal history of malignant neoplasm o f skin 04/20/2011 Overview: 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 documented as of this encounter (statuses as of 03/25/2023) Immunizations Name Administration Dates Next Due COVID-19 [...] encounter Miscellaneous Notes * Telephone Encounter - NEETA Orozco - 03/25/2023 12:18 PM EDT Name: Talon Lion Do you have any of the following: Pacemaker, stents, heart valves, aneurysm clips? No Have you ever worked with metal or have you ever gotten metal in your eyes? No Have you had a colonoscopy in the last 30 days? No On dialysis? No Do you have any dermals or body piercing's? No or ? Do you wear an insulin pump or diabetic monitor?no NEETA Orozco documented in this encounter Plan of Treatment Upcoming Encounters Date Type Specialty Care Team Description 03/29/2023 Imaging Radiology 04/06/2023 Office Visit Dermatology Diane Arroyo MD 200 [place] [address] 04/07/2023 Nurse Only Ancillary Nurse Jairo Stanley [address] 200 [facility] [place] [address] 06/14/2023 Office Visit Neurology Cherrie Pisano PA-C 200 [facility] [place] [address] 08/24/2023 Office Visit Family Medicine Guero Sandoval III, MD 200 [place] [address] Health Maintenance Due Date Last Done Comments [...] filedocumented as of this encounter Care Teams Hoisting Machine Operator Relationship Specialty Start Date End Date Guero Sandoval III, MD 200 [facility] [place] [address] PCP - General Family Medicine 04/15/22 documented as of this encounter
--- OUTSIDE RECORDS SUMMARY | 2023-08-12 12:27 | External Medical Summary | Summary of Care ---
Author Name Unknown Organization [facility] Address [address] [place] [address] Phone [phone] Care Team Providers Care Tanning Drum Operator Name Role Phone Jaime MAYS MD, Guero Terrell Primary Care Provider [phone] Reason for Visit * Reason Onset Date Comments Advice 07/20/2023 Encounter Details Date Type Department Care Team (Late st Contact Info) Description 07/20/2023 Telephone Neurology [facility] [address] [place] [address] Services, Scheduling [address] [place] [address] Advice Allergies Active Allergy Reactions Criticality Noted [...] and it will be done and you driver/guide use the diagnosis of progressive gait diosturbance [...] get better Plz contact pt and advise [phone] Thank you documented in this encounter Plan of Treatment Upcoming Encounters Date Type Department Care Team (Late st Contact Info) Description 08/22/2023 1:00 PM EST NeuroDiagnostic Study Neurophysiology [facility] [address] [place] [address] Cherrie Marino MD 200 [facility] [place] [address] 08/24/2023 9:40 AM EST Office Visit Family Practice [facility] [place] [address] [place] [address] [address] Guero Sandoval III, MD [facility] [address] [place] [address] [address] 10/23/2023 8:40 AM EDT Office Visit Neurology [facility] [place] [address] [place] [address] [address] Guero Elizalde MD 200 [facility] [place] [address] 10/26/2023 3:00 PM EDT Office Visit Neurology [facility] [place] 200 [facility] [place] [address] Thiago Banda MD [address] [place] [address] Health Maintenance Due Date Last Done Comments [...] disturbance documented in this encounter Care Teams Tanning Drum Operator Relationship Specialty Start Date End Date Guero Sandoval III, MD 200 [facility] [place] [address] PCP - General Family Medicine 04/15/22 documented as of this encounter
--- OUTSIDE RECORDS SUMMARY | 2023-08-12 12:27 | External Medical Summary | Summary of Care ---
Author Name Unknown Organization [facility] Address [address] [place] [address] Phone [phone] Care Team Providers Care Sawing And Assembly Supervisor Name Role Phone Jaime MAYS MD, Guero Terrell Primary Care Provider [phone] Reason for Visit * Reason Onset Date Comments Appointment 06/09/2023 Encounter Details Date Type Department Care Team (Late st Contact Info) Description 06/09/2023 Telephone Dermatology [facility] 200 [facility] [place] [address] Diane Arroyo MD 200 [place] [address] Appointment Allergies Active Allergy Reactions Criticality Noted Date [...] mcgIndications:Vitamin B 12 deficiency 1000 mcg IM [id number] 03/14/2023 07/03/2023 Active documented as of this [...] Telephone Encounter - Malka Henry OSA - 06/09/2023 3:12 PM EDT LMOM Pt scheduled sooner * Telephone Encounter - Karen Romo OSA - 06/09/2023 2:49 PM EDT Images from the original note were not included. Diane Arroyo MD [facility] Dermatology Scheduling Pool/Class Could you please forward to neuro scheduling that pt would like to be on cancellation list for worsening difficulties with speech? Appt isn't until Sep documented in this encounter Plan of Treatment Upcoming Encounters Date Type Department Care Team (Late st Contact Info) Description 07/03/2023 9:20 AM EST Office Visit Neurology [facility] [address] [place] [address] Guero Elizalde MD 200 [facility] [place] [address] 07/07/2023 11:00 AM EST Telemedicine Dermatology [facility] [address] [place] [address] Diane Arroyo MD [address] [facility] [address] [place] [address] 08/24/2023 9:40 AM EST Office Visit Family Practice [facility] [place] [address] [facility] [place] [address] Guero Sandoval III, MD 200 [facility] [place] [address] 09/25/2023 10:40 AM EST Office Visit Neurology [facility] [place] [address] [place] [address] [address] Cherrie Pisano PA-C [address] [place] [address] Health Maintenance Due Date Last Done Comments [...] filedocumented as of this encounter Care Teams Sawing And Assembly Supervisor Relationship Specialty Start Date End Date Guero Sandoval III, MD 200 [place] [address] PCP - General Family Medicine 04/15/22 documented as of this encounter
--- OUTSIDE RECORDS SUMMARY | 2023-08-12 12:27 | External Medical Summary | Summary of Care ---
Author Name Unknown Organization [facility] Address [address] [place] [address] Phone [phone] Care Team Providers Care Director Packaging Name Role Phone Jaime MAYS MD, Guero Terrell Primary Care Provider [phone] Reason for Visit * Reason Onset Date Comments Advice 07/13/2023 Encounter Details Date Type Department Care Team (Late st Contact Info) Description 07/13/2023 Telephone [facility] [place] [address] [facility] *DO NOT REMOVE THIS DEPARTMENT* [place], [place] [id number] Services, Scheduling [address] [place] [address] Advice Allergies Active Allergy Reactions Criticality Noted [...] encounter Miscellaneous Notes * Telephone Encounter - Guero Elizalde MD - 07/18/2023 11:16 AM EST Flako I thought I had signed then and an order is in but Hao was handling this for me so perhapsI [...] - 07/13/2023 8:28 AM EST Suad from [facility] calling to tell Dr. Elizalde that she faxed a completed evaluation to Dr. Elizalde and that they left a note to request a video swallow on the cover of the fax they sent. They do need the diagnosis code fixed on his speech therapy referral to these provided codes: R47.02 and R13.12 Plz reach out to Suad from Speech Therapy in [facility] if you have any questions [phone] Plz fax over the new referral when done Thank you documented in this encounter Plan of Treatment Upcoming Encounters Date Type Department Care Team (Late st Contact Info) Description 08/22/2023 1:00 PM EST NeuroDiagnostic Study Neurophysiology [address] [place] [address] Cherrie Marino MD 200 [facility] [place], [place] [address] 08/24/2023 9:40 AM EST Office Visit Family Practice [facility] 200 [facility] [place] [address] Guero Sandoval III, MD 200 [facility] [place] [address] 09/26/2023 2:20 PM EST Office Visit Neurology [facility] 200 [facility] [place] [address] Guero Elizalde MD 200 [facility] [place] [address] 10/26/2023 3:00 PM EDT Office Visit Neurology [facility] [place] 200 [facility] [place] [address] Thiago Banda MD [address] [place], [place] [id number] Health Maintenance Due Date Last Done Comments [...] phase documented in this encounter Care Teams Director Packaging Relationship Specialty Start Date End Date Guero Sandoval III, MD 200 [facility] [place] [address] PCP - General Family Medicine 04/15/22 documented as of this encounter
--- OUTSIDE RECORDS SUMMARY | 2023-08-12 12:27 | External Medical Summary | Summary of Care ---
Author Name Unknown Organization [facility] Address [address] [place] [address] Phone [phone] Care Team Providers Care Disability Specialist Name Role Phone Jaime MAYS MD, Guero Terrell Primary Care Provider [phone] Reason for Visit * Reason Onset Date Comments Order Request 07/13/2023 Encounter Details Date Type Department Care Team (Late st Contact Info) Description 07/13/[address] [facility] 200 [facility] [place] [address] Guero Elizalde MD 200 [place] [address] Order Request Allergies Active Allergy Reactions Criticality [...] from speech therapy. Note on the reports: CUSTOMER CONTACT SPECIALIST is asking you to order a video [...] 9:40 AM EST Office Visit Family Practice [facility] 200 [facility] [place] [address] Guero Sandoval III, MD [address] [place] [address] [place] [address] 09/26/2023 2:20 PM EST Office Visit Neurology [address] [place] [address] Guero Elizalde MD [address] [place] [address] [place] [address] 10/26/2023 3:00 PM EDT Office Visit Neurology [facility] 200 [facility] [place] [address] Thiago Banda MD [address] [place] [address] Scheduled Orders Name Type Priority [...] gait documented in this encounter Care Teams Disability Specialist Relationship Specialty Start Date End Date Guero Sandoval III, MD 200 [facility] [place] [address] PCP - General Family Medicine 04/15/22 documented as of this encounter
--- OUTSIDE RECORDS SUMMARY | 2023-08-12 12:28 | External Medical Summary | Summary of Care ---
Author Name Unknown Organization [facility] Address [address] [place] [address] Phone [phone] Care Team Providers Care Craft Worker Name Role Phone Jaime MAYS MD, Guero Terrell Primary Care Provider [phone] Reason for Visit * Reason Comments Outpatient Testing Encounter Details Date Type Department Care Team Description 02/17/2023 Laboratory Laboratory [facility] [place] [address] [place] [address] [place], Lab [address] [place] [id number] HTN, goal below 140/90 Allergies Active Allergy Reactions Severity Noted Date Comments Amlodipine Rash 09/01/2021 documented as of this encounter (statuses as of 02/17/2023) Medications Medication Sig Dispensed Refills Start Date End Date Status Carvedilol 6.25 MG Oral Tablet (Coreg) Take 1 Tablet by mouth in the morning and 1 Tablet before bedtime. with food. 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 documented as of this encounter (statuses as of 02/17/2023) Immunizations Name Administration Dates Next Due COVID-19 [...] Encounters Date Type Specialty Care Team Description 03/08/2023 Office Visit Neurology Cherrie Pisano PA-C 200 [place] [place] [address] 04/06/2023 Office Visit Dermatology Diane Arroyo MD 200 [facility] [place] [address] 08/24/2023 Office Visit Family Medicine Jaime Guero MAYS MD 200 [facility] [place], [place] [address] Pending Results Name Type Priority Associated Diagnoses Date /Time COMPREHENSIVE METABOLIC PANEL Lab Routine HTN, goal below 140/90 02/17/2023 9:26 AM EDT LIPID PANEL WITH DIRECT LDL IF TG IS HIGH Lab Routine HTN, goal below 140/90 02/17/2023 9:26 AM EDT TSH WITH FREE T4 IF INDICATED Lab Routine HTN, goal below 140/90 02/17/2023 9:26 AM EDT Health Maintenance Due Date Last Done [...] as of this encounter Visit Diagnoses Diagnosis HTN, goal below 140/90 Unspecified essential hypertension documented in this encounter Care Teams Craft Worker Relationship Specialty Start Date End Date Guero Sandoval III, MD 200 [facility] [place] [address] PCP - General Family Medicine 04/15/22 documented as of this encounter
--- OUTSIDE RECORDS SUMMARY | 2023-08-12 12:28 | External Medical Summary ---
Author Name Unknown Address Unknown Organization [id number] [address] [place] [address] Laboratory Report Ordering Provider Test Date Status COLECARI III 02/17/2023 09:26:36 Final Observation Date Value Abnormality Reference (Units ) Status BUN 02/17/2023 09:26:36 8 6-20 (mg/dL) Final Creatinine 02/17/2023 09:26:36 0.7 0.6-1.2 (mg/dL) Final Glomerular filtration rate/1.73 sq M.predicted [Volume Rate/Area] in Serum, Plasma or Blood by Creatinine-based formula (CKD-EPI) 02/17/2023 09:26:36 >90 >=60 (mL/min) Final eGFR is calculated based on the CKD-EPI 2020 equation SODIUM 02/17/2023 09:26:36 132 Below low normal 135 -146 (mmol/L) Final Potassium 02/17/2023 09:26:36 5.1 3.5-5.1 (m mol/L) Final Cl 02/17/2023 09:26:36 94 Below low normal 98- 107 (mmol/L) Final CO2 02/17/2023 09:26:36 27 22-32 (mmo l/L) Final Anion gap 02/17/2023 09:26:36 11 7-15 (mmol /L) Final Glucose 02/17/2023 09:26:36 112 70-120 (mg /dL) Final Albumin 02/17/2023 09:26:36 4.5 3.8-5.0 (g /dL) Final AST (Aspartate aminotransferase) 02/17/2023 09:26:36 21 10-50 (U/L) Fin al Alk Phos 02/17/2023 09:26:36 82 35-130 (U/ L) Final Bilirubin, Total 02/17/2023 09:26:36 1.2 <=1 .2 (mg/dL) Final Calcium 02/17/2023 09:26:36 10.0 8.4-10.2 ( mg/dL) Final Protein 02/17/2023 09:26:36 7.0 6.0-8.3 (g /dL) Final ALT (Alanine aminotransferase) 02/17/2023 09:26:36 17 10-50 (U/L) Omar moran Performing Location [facility] [address] [place] [address]
--- OUTSIDE RECORDS SUMMARY | 2023-08-12 12:28 | External Medical Summary ---
Author Name Unknown Address Unknown Organization K01:[facility] [place] [facility] [place] [address] [place] [address] Laboratory Report Ordering Provider Test Date Status CARI GALVAN III 02/17/2023 09:26:36 Final Observation Date Value Abnormality Reference (Units ) Status TSH 02/17/2023 09:26:36 1.85 0.27-4.20 (uIU/mL) Final Performing Location [facility] - [address] [place] [address]
--- OUTSIDE RECORDS SUMMARY | 2023-08-12 12:28 | External Medical Summary | Summary of Care ---
Author Name Unknown Organization [facility] Address [address] [place] [address] Phone [phone] Care Team Providers Care Switching Operator Name Role Phone Jaime MAYS MD, Guero Terrell Primary Care Provider [phone] Reason for Visit * Reason Comments Follow Up 3 month blood pressu re follow up Encounter Details Date Type Department Care Team Description 02/17/2023 Office Visit Family Practice [facility] [address] [facility] [place] [address] Guero Sandoval III, MD [address] [facility] [place] [address] HTN, goal below 140/90* Allergies Active Allergy Reactions Severity Noted Date Comments Amlodipine Rash 09/01/2021 documented as of this encounter (statuses as of 02/21/2023) Medications Medication Sig Dispensed Refills Start Date End Date Status Carvedilol 6.25 MG Oral Tablet (Coreg) Take 1 Tablet by mouth in the morning and 1 Tablet before bedtime. with food. 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 documented as of this encounter (statuses as of 02/21/2023) Immunizations Name Administration Dates Next Due COVID-19 mRNA, LNP-s, No Pre serve, 2-Dose Series (Moderna) 10/09/2020 Covid-19 Mrna, Lnp-s, No Preserve, Booster (Mode rna) 09/11/2020 Pneumococcal Conjugate Vaccine, 20-valent (Prevn ar20) 02/14/2022 documented as of this encounter Social History Tobacco Use Types Packs/Day Years Used Date Smoking Tobacco: Every Day Cigarettes 0.5 35 Smokeless Tobacco: Never Tobacco Cessation:Ready to Q uit: Not Asked; Counseling Given: Not Answered Alcohol Use Standard Drinks/Week Comments Yes 0 [...] Sign Reading Time Taken Comments Blood Pressure 112/78 02/17/2023 9:02 AM EDT Pulse 86 02/17/2023 9:02 AM EDT Temperature 36.4 C (97.6 F) 02/17/2023 9:02 AM ED T Respiratory Rate 16 02/17/2023 9:02 AM EDT Oxygen Saturation 96% 02/17/2023 9:02 AM EDT Inhaled Oxygen Concentration - - Weight 55.8 kg (123 lb) 02/17/2023 9:02 AM EDT Height 161.8 cm (5' 3.7") 02/17/2023 9:02 AM EDT Body Mass Index 21.31 02/17/2023 9:02 AM EDT documented in this encounter Progress Notes * Guero Sandoval III, MD - 02/17/2023 9:17 AM EDT Subjective: Talon Lion is a 77 year old male. Chief Complaint Patient presents with Follow Up 3 month blood pressure follow up HPI: Follow-up hypertension had a fall last night going to the bathroom did not turn the light on tripped on something was not lightheaded or dizzy no loss of consciousness no other falls to report denies chest pain shortness is breath no bleeding urine or bowels no lumps or swelling in the groin area PMH: Patient Active Problem List Diagnosis Code ADVANCE DIRECTIVE INFORMATION Personal history of malignant neoplasm of skin Z85.828 Hx of actinic keratosis Z87.2 Current Outpatient Medications Medication Sig Dispense Refill Carvedilol 6.25 MG Oral Tablet (Coreg) Take 1 Tablet by mouth in the morning and 1 Tablet before bedtime. with food. 90 Tablet 11 No current facility-administered medications for this visit. Review of patient's allergies indicates: Allergen Reactions Amlodipine Rash No past medical history on file. No past surgical history on file. Objective: The patient is a 77 year old male BP 112/78 (BP Site: Left Arm, BP Position: Sitting, BP Cuff Size: Regular) | Pulse 86 | Temp 36.4 C (97.6 F) (Tympanic) | Resp 16 | Ht 1.618 m (5' 3.7") | Wt 55.8 kg (123 lb) | SpO2 96% | BMI 21.31 kg/m | BSA 1.58 m General: alert, healthy and no distress Eye Exam: PERRLA, extraocular movements intact, conjunctiva are pink and non- injected, sclera clear Oropharynx: no exudate, no erythema, lips, buccal mucosa, and tongue normal and mucous membranes are moist Heart: regular rate & rhythm, no murmur and no gallops Lungs: lungs clear to auscultation, no rhonchi rales rubs wheezes Extremities: no edema, no clubbing, no cyanosis ASSESSMENT: I10 HTN, goal below 140/90 (primary encounter diagnosis) PLAN: Continue present meds check lab work has neurology appointment 3 weeks Follow up in 6 month(s). Guero Sandoval III, MD documented in this encounter Nursing Notes * Hali Geiger, MED ASSIST - 02/17/2023 8:55 AM EDT Talon Lion presents for 3 month recheck. Medications & HM reviewed. He states that his balance is off. He experiences dizziness. He did fall last night because he losthis balance. He states that he doesn't have any injuries because of the fall. He denies chest pain, shortness of breath, chest pain, blurred, headache or nose bleed. documented in this encounter Plan of Treatment Upcoming Encounters Date Type Specialty Care Team Description 03/08/2023 Office Visit Neurology Cherrie Pisano PA-C [address] [place] [address] 04/06/2023 Office Visit Dermatology Diane Arroyo MD [address] [place] [address] 08/24/2023 Office Visit [facility] [place] [address] [facility] [place] [facility] [address] Health Maintenance Due Date Last Done Comments [...] Not on filedocumented as of this encounter Results * TSH WITH FREE T4 IF INDICATED (02/17/2023 9:26 AM EDT) TSH 1.85 0.27 - 4.20 uIU/mL 02/17/2023 7:38 PM EDT [facility] Blood Venous blood specimen / Unknown Venipuncture / Unknown 02/17/2023 9:26 AM EDT 02/17/2023 9:26 AM EDT Guero Sandoval III, MD LAB BLOOD ORDERABLE S [facility] [address] [place] [address] * LIPID PANEL WITH DIRECT LDL IF TG IS HIGH (02/17/2023 9:26 AM EDT) Pathologist [facility] Triglycerides 99 <=174 mg/dL 02/17/2023 5:44 PM EDT [facility] Comment: Triglyceride Reference Ranges (mg/dL): <150 Acceptable 150-174 Borderline high 175-499 High >=500 Very high Cholesterol 159 <200 mg/dL 02/17/2023 5:44 PM EDT [facility] Comment: Total Cholesterol Reference Ranges (mg/dL): <200 Desirable 200-239 Borderline high >=240 High HDL Cholesterol 87 >39 mg/dL 5:44 PM EDT [facility] Comment: HDL Cholesterol Reference Ranges (mg/dL): >=60 High (Desirable) <50 Low (Undesirable) For Females <40 Low (Undesirable) For Males Non-HDL Cholesterol 72 <=159 mg/dL 02/17/2023 5:44 PM EDT [facility] Comment: Non-HDL Cholesterol Reference Range (mg/dL): <100 Target level for high risk ASCVD patient <130 Optimal for general population 130-159 Near optimal for general population 160-189 Borderline High 190-219 High >=220 Very High LDL Cholesterol 52 <=129 mg/dL 02/17/2023 5:44 PM EDT [facility] Comment: LDL Cholesterol Reference Ranges (mg/dL): <70 Target level for high risk ASCVD patient <100 Optimal for general population 100-129 Near optimal for general population 130-159 Borderline high 160-189 High >=190 Very high Blood Venous blood specimen / Unknown Venipuncture / Unknown 02/17/2023 9:26 AM EDT 02/17/2023 9:26 AM EDT Guero Sandoval III, MD LAB BLOOD ORDERABLE S [facility] [address] [place] [address] * (ABNORMAL) COMPREHENSIVE METABOLIC PANEL (02/17/2023 9:26 AM EDT) BUN 8 6 - 20 mg/dL 02/17/2023 10:36 AM EDT [facility] 56 Creatinine 0.7 0.6 - 1.2 mg/dL 02/17/2023 10:36 AM EDT [address] Estimated Glomerular Filtration Rate >90 >=60 mL/min 02/17/2023 10:36 AM EDT [facility] 56 Comment:eGFR is calculated b ased on the CKD-EPI 2020 equation Sodium 132(L) 135 - 146 mmol/L 02/17/2023 10:36 AM EDT [facility] 56 Potassium 5.1 3.5 - 5.1 mmol/L 02/17/2023 10:36 AM EDT [facility] 56 Chloride 94(L) 98 - 107 mmol/L 02/17/2023 10:36 AM EDT [facility] 56 CO2 27 22 - 32 mmol/L 02/17/2023 10:36 AM EDT [facility] 56 Anion Gap 11 7 - 15 mmol/L 02/17/2023 10:36 AM EDT [facility] 56 Glucose 112 70 - 120 mg/dL 02/17/2023 10:36 AM EDT [facility] 56 Albumin 4.5 3.8 - 5.0 g/dL 02/17/2023 10:36 AM EDT [facility] 56- AST 21 10 - 50 U/L 02/17/2023 10:36 AM EDT [facility] 56 Alkaline Phosphatase 82 35 - 130 U/L 02/17/2023 10:36 AM EDT [facility] 56 Bilirubin, Total 1.2 <=1.2 mg/dL 02/17/2023 10:36 AM EDT [facility] 56 Calcium 10.0 8.4 - 10.2 mg/dL 02/17/2023 10:36 AM EDT [facility] 56 Protein 7.0 6.0 - 8.3 g/dL 02/17/2023 10:36 AM EDT [facility] 56 ALT 17 10 - 50 U/L 02/17/2023 10:36 AM EDT [facility] 56 Blood Venous blood specimen / Unknown Venipuncture / Unknown 02/17/2023 9:26 AM EDT 02/17/2023 9:26 AM EDT Guero Sandoval III, MD LAB BLOOD ORDERABLE S Performing Organization Address City/State/[facility] Co de Phone Number [facility] [address] [facility] [address] documented in this encounter Visit Diagnoses Diagnosis HTN, goal below 140/90- Primary Unspecified essential hypertension documented in this encounter Care Teams Switching Operator Relationship Specialty Start Date End Date Guero Sandoval III, MD [address] [facility] [address] PCP - General Family Medicine 04/15/22 documented as of this encounter
--- OUTSIDE RECORDS SUMMARY | 2023-08-12 12:28 | External Medical Summary ---
Author Name Unknown Address Unknown Organization [id number]:[facility] [address] [facility] [place] [address] Laboratory Report Ordering Provider Test Date Status COLECARI III 02/17/2023 09:26:36 Final Observation Date Value Abnormality Reference (Units ) Status Triglyceride 02/17/2023 09:26:36 99 <=174 ( mg/dL) Final Triglyceride Reference Range s (mg/dL):
<150 Acceptable
150-174 Borderline high
175-499 High
>=500 Very high Cholesterol 02/17/2023 09:26:36 159 <200 (mg /dL) Final Total Cholesterol Reference Ranges (mg/dL):
<200 Desirable
200-239 Borderline high
>=240 High HDL 02/17/2023 09:26:36 87 >39 (mg/dL ) Final HDL Cholesterol Reference Ra nges (mg/dL):
>=60 High (Desirable)
<50 Low (Undesirable) For Females
<40 Low (Undesirable) For Males NON-HDL CHOLESTEROL 02/17/2023 09:26:36 72 <=159 (mg/dL) Final Non-HDL Cholesterol Referenc e Range (mg/dL):
<100 Target level for high risk ASCVD patient
<130 Optimal for general population
130-159 Near optimal for general population
160-189 Borderline High
190-219 High
>=220 Very High LDL, (calculated) 02/17/2023 09:26:36 52 <= 129 (mg/dL) Final LDL Cholesterol Reference Ra nges (mg/dL):
<70 Target level for high risk ASCVD patient
<100 Optimal for general population
100-129 Near optimal for general population
130-159 Borderline high
160-189 High
>=190 Very high Performing Location [facility] [place] [facility] [address] [facility] [address]
[2023-08-12] MEDS ORDERED: DIPHTHERIA/TETANUS/PERTUSSIS Vaccine (Tdap, Age 7+yrs) 0.5mL SYR/VL IM ONE ×2 (12:30→15:45)
[2023-08-12] MEDS ORDERED: MULTI-VITAMIN INFUSION 10 ML, THIAMINE HCL 100 MG, FOLIC ACID 1 MG in SODIUM CHLORIDE 0... IV ONE (12:30)
--- NOTE | 2023-08-12 12:36 | Emergency Department Note ---
Impression & Plan Weakness on left side of face, Weakness of left hand, Ambulatory dysfunction, Recurrent falls, Laceration of hand, left, Generalized weakness ED Provider Note Name: AUDELIA VELEZ Age: 78 Sex: Male Arrives Via: Ambulance Informant: Patient, EMS, ED Provider: Mario Coon MD Chief Complaint: Weakness Impression: As per impressions above Medical Decision Makin-year-old gentleman with history of alcoholism and hypertension arrives for evaluation of worsening weakness. Initially report was that he has just been gradually weakening over the last few months and patient states that the left facial droop had been since 2 months ago. On arrival she does state patient has been dealing with left-sided weakness for several months. Starting about a week ago though he developed worsening left facial droop and significantly worsening weakness. He had been refusing to come to the hospital until now. On evaluation patient has left facial droop and generalized weakness. No overt specific focal weakness of legs but he does have weakness of the left hand. He does have a large laceration of the left hand which is really just a skin tear that is not really amenable to sutures or glue. Given location Steri-Strips would be difficult. This was dressed by nursing with good result. A CT of the head and cervical spine was obtained which was unremarkable. X-ray of the chest was obtained unremarkable. X-ray of the hand shows no fracture. There is some difficulty in coordinating getting laboratory testing done. In the meantime he was given some IV fluids as a banana bag and his history of alcoholism. Temperature is normal he does not have hypoxia, tachycardia, hypotension. I do not feel he is currently septic. Urinalysis is fortunately unremarkable as well. Regardless if new stroke or this is been going on for several months he is by far too weak to go home with . He is denying being intoxicated he is not having any current withdrawal findings. Labs look okay. Patient will come in for further management Triage/Nursing Notes reviewed by Me Differential:Infection, dehydration, metabolic abnormality, hypo/hyperglycemia, electrolyte disturbance, anemia, hypoxia, cardiac sources, intracerebral event, toxicologic, neurologic, as well as other pathologies. Vital Signs: reviewed and remarkable for mild HTN Interventions: banana bag 1L IV, adacel IM (pt unsure when last tetanus) Labs:ED labs Reviewed by me and remarkable for no significant abnormalities Imaging: CT of the head without contrast as per my informal interpretation there is no intracranial hemorrhage or mass effect appreciated. Confirmed by radiologist. CT of the cervical spine no fracture or dislocation per my informal interpretation. Imaging confirmed by radiologist. 1 view chest x-ray. As per my interpretation. No infiltrate, pneumothorax, effusion appreciated. X-ray of the left hand as per my interpretation. 3 view. No fracture or dislocation appreciated. EKG:As per my interpretation. Indication weakness. Normal sinus rhythm at 72 bpm QTc of 446. There is no ectopy nor ischemia appreciated. Cardiac/Tele Monitoring: Cardiac Monitoring: An Order was placed for continuous cardiac monitoring. The monitor shows a rate of 70 with a normal sinus rhythm. Consults:Hospitalist (Irasema) will bring in for further management. Plan: Disposition:Hospitalization. Condition: Good History of Present Illness: 78-year-old gentleman arrives for evaluation of weakness and falls. Patient is a reported alcoholic with chronic weakness and frequent falls at home. Apparently fell again today and stated to EMS that she can no longer care for him. Patient is too weak to walk. Patient reports he started developing left facial weakness about 2 months ago. He states he has not seen anyone about it. He also notes his weakness has been getting worse so he got himself a cane. Patient denies drinking alcohol today. He admits that he drinks regularly. Patient notes some pain in his right hand. Denies any current headache or neck pain. Denies any hip or shoulder pain. Has not been having chest pain shortness of breath nausea, vomiting, urinary symptoms, diarrhea, swelling or other concerning signs or symptoms. Of note patient is a somewhat poor historian and seems to say no to most things despite questionable answers. Past Medical History: Alcoholism, hypertension Home Medications: Per chart amlodipine, folic acid, gabapentin, thiamine Allergies: No reported drug allergies Vitals:Blood Pressure: 175/91, Pulse 75, RR 20, T 36.4C, O2 98% on RA Physical Exam: GENERAL: Patient is unwell appearing and in mild distress. Patient is cachectic and mildly confused. RESPIRATORY: No dyspnea. Clear to auscultation and equal bilaterally. CARDIOVASCULAR: Regular rate and rhythm.No murmur appreciated. GASTROINTESTINAL: Abdomen soft, non-tender, no peritonitis. EXTREMITIES: Normal motion all extremities, no cyanosis, no edema. NEUROLOGIC: Patient is mildly confused. Answering most questions and looking around the room. He is quite tremulous. He has no specific weakness of the right hand questionable 4-5 strength in the left hand no states it hurts to the left hand injury. He is 5 out of 5 strength in his legs but he is ataxic all 4 extremities. Patient has a significant left lower facial droop but does have sparing of the left upper face. Mildly slurred speech. Seems to be hard of hearing. SKIN: Mild mottling of extremities questionable age related. He has a large skin tear over the top of the left hand with mild venous oozing. PSYCH: Appropriate GCS: 15 ED Course: Times/Reassessments: Patient is stable breathing comfortably and agreeable to hospitalization. Mario Coon MD Past Med/Surg History Social History Smoking Status: Current every day smoker Tobacco Type: Cigarettes Second Hand Exposure: Yes; Hx Alcohol Use: Yes Alcohol type: beer Preferred Language: Taiwanese Communication Ability: Effective Communication Ability Comment: Pt. unable to verbalize due to condition upon arrival Rn Post Partum Required: No Beliefs That Will Affect Care: None marital status: Current Living Situation: Spouse Feels Safe at Home: Yes Assistive Devices: Glasses Allergies Allergies Allergy/AdvReac Type Severity Reaction Status Date / Time No Known Allergies Allergy Verified 03/08/21 18:52 Home Meds Previous Rx's Medication Instructions Recorded amlodipine 5 mg tablet (Norvasc) 5 mg PO QAM #30 tabs 03/10/21 folic acid 1 mg tablet 1 mg PO QAM #30 tabs 03/10/21 gabapentin 600 mg tablet 600 mg PO Q12H #3 tabs 03/10/21 thiamine HCl (vitamin B1) 100 mg 100 mg PO QAM #30 tabs 03/10/21 tablet (Vitamin B-1) Results & Data (ED) Vital Signs Vital Signs - 24 hr 08/12/23 12:37 Temperature 36.4 C L Temperature Source Oral Pulse Rate 75 Respiratory Rate 20 Blood Pressure 175/91 H Blood Pressure Mean 119 Pulse Oximetry 98 Oxygen Delivery Method Room Air Sepsis Recent Fever Within 48 Hours No Sepsis New/Unexplained Change in Mental Status No Sepsis Action Taken by Nursing No Action Required Laboratory Data 08/12/23 14:25 08/12/23 14:25 Lab Results 08/12/23 08/12/23 Range/Units 14:25 Unknown WBC 6.56 (4.8-10.8) K/ul RBC 3.89 L (4.70-6.10) M/uL Hgb 12.4 L (14.0-18.0) g/dl Hct 36.0 L (42.0-52.0) % MCV 92.5 (80.0-100.0) fL MCH 31.9 (25.0-34.0) pg MCHC 34.4 (32.0-36.0) g/dL RDW Std Deviation 46.6 H (36.4-46.3) fL RDW Coeff of Marjan 13.7 (11.5-14.5) % Plt Count 257 (130-400) K/uL MPV 10.6 (9.4-12.4) fL Immature Gran % (Auto) 0.5 % Neut % (Auto) 65.9 % Lymph % (Auto) 20.9 % [place] % (Auto) 11.1 % Eos % (Auto) 0.8 % Baso % (Auto) 0.8 % Neut # (Auto) 4.33 (1.40-6.50) K/uL Lymph # (Auto) 1.37 (1.20-3.40) K/uL [place] # (Auto) 0.73 H (0.11-0.59) K/uL Eos # (Auto) 0.05 (0.00-0.50) K/uL Baso # (Auto) 0.05 (0.00-0.20) K/uL Immature Gran # (Auto) 0.03 (0.01-0.20) K/uL Sodium 140 (136-145) mmol/L Potassium 3.9 (3.5-5.1) mmol/L Chloride 108 H (98-107) mmol/L Carbon Dioxide 26 (21-32) mmol/L Anion Gap 6 (3-11) BUN 7 (6-23) mg/dl Creatinine 0.51 L (0.6-1.4) mg/dl Est Cr Clr Drug Dosing 103.3 ml/min Est GFR ( Amer) 120.2 ml/min Est GFR (Non-Af Amer) 103.7 ml/min BUN/Creatinine Ratio 13.7 (10-20) Glucose 95 (70-99(Fasting)) mg/dl Lactate 1.0 (0.4-2.0) mmol/L Calcium 8.8 (8.6-10.3) mg/dl Magnesium 1.6 L (1.7-2.4) mg/dl Total Bilirubin 0.8 (0.2-1.0) mg/dl Direct Bilirubin 0.1 (0-0.2) mg/dl AST 17 (13-39) U/L ALT 10 (7-52) U/L Alkaline Phosphatase 69 (34-104) U/L Ammonia 21.0 (18-72) umol/L Total Creatine Kinase 162 (30-223) U/L Troponin I High Sens 7.3 (0-20) pg/ml Total Protein 6.1 (6.0-8.3) gm/dl Albumin 3.4 (3.4-5.0) gm/dl Lipase 7 L (11-82) U/L Urine Color Yellow Urine Appearance Clear (Clear) Urine pH 7.0 (4.5-7.5) Ur Specific [place] 1.009 (1.000-1.030) Urine Protein Negative (Negative) Urine Glucose (UA) Negative (Negative) Urine Ketones Negative (Negative) Urine Blood Negative (Negative) Urine Nitrite Negative (Negative) Urine Bilirubin Negative (Negative) Urine Urobilinogen Negative (Negative) Ur Leukocyte Esterase Negative (Negative) Ethyl Alcohol mg/dL < 10.0 (<10.0) mg/dl SARS-CoV-2 (PCR) NEGATIVE (Negative) Influenza Type A (PCR) Negative (Neg) Influenza Type B (PCR) Negative (Neg) RSV (RT-PCR) Negative (Neg) Administered Medications Discontinued Medications Multivitamins 10 ml/ Thiamine HCl 100 mg/ Folic Acid 1 mg/Sodium Chloride 1,011.2 mls @ 500 mls/hr IV .Q2H2M ONE Stop: 08/12/23 14:31 Last Admin: 08/12/23 13:54 Dose: 500 mls/hr Documented By: NRB Imaging Data Radiologist's Impression: Cervical Spine CT 08/12/23 12:30 CT OF THE CERVICAL SPINE WITHOUT CONTRAST CLINICAL HISTORY: fall, head injury, confusion COMPARISON STUDY: Cervical spine CT March 08, 2021. TECHNIQUE: Helical axial images of the cervical spine were obtained without IV contrast. Sagittal and coronal reconstructions were viewed. Automated exposure control was utilized for the study. A dose lowering technique was utilized adhering to the principles of ALARA. FINDINGS: Alignment of the cervical spine is anatomic. Vertebral body heights are maintained. No acute cervical spine fracture or subluxation is present. There is no prevertebral edema. Facet joints are intact. There is moderate multilevel facet arthrosis and mild to moderate multilevel degenerative disc disease within the cervical spine. There is slight concavity of the superior endplates of T1 and T2. This was not previously evident on prior CT. Emphysema is noted within the visualized lung apices. IMPRESSION: 1. No acute cervical spine fracture or subluxation. 2. Slight concavity of the superior endplates of T1 and T2, likely new since CT of March 08, 2021. These represent age indeterminate but probably chronic mild compression deformities. ACT 112: Negative or not required by law. Electronically signed by: Andrés Orozco M.D. 08/12/2023 1:32 PM Chest X-Ray 08/12/23 12:30 XR chest 1V portable CLINICAL HISTORY: fall, weakness COMPARISON STUDY: Chest radiograph March 08, 2021. FINDINGS: Lung volumes are mildly diminished. This is unchanged. No pneumothorax or pleural effusion is present. Cardiomediastinal silhouette is normal. No airspace opacities are present. IMPRESSION: No acute cardiopulmonary findings. No change in appearance of the chest. ACT 112: Negative or not required by law. Electronically signed by: Andrés Orozco M.D. 08/12/2023 12:53 PM Hand X-Ray 08/12/23 12:30 XR hand LT min 3V routine CLINICAL HISTORY: left hand injury COMPARISON: None FINDINGS: A bandage on the left hand is noted. There is no acute fracture. Carpal bones are intact. Distal left radius and ulna are intact. No osseous lesions are identified. IMPRESSION: No fracture or dislocation within the left hand. ACT 112: Negative or not required by law. Electronically signed by: Andrés Orozco M.D. 08/12/2023 12:[address] 08/12/23 12:30 CT OF THE HEAD WITHOUT CONTRAST CLINICAL HISTORY: fall COMPARISON STUDY: Head CT March 08, 2021. MRI brain March 09, 2021. CT DOSE: 1110.16 mGy.cm TECHNIQUE: Helical axial images of the head were obtained without IV contrast. Automated exposure control was utilized for the study. A dose lowering technique was utilized adhering to the principles of ALARA. FINDINGS: No acute intracranial hemorrhage, midline shift or mass effect is present. Ventricular dilatation is unchanged since prior head CT and MRI. White matter hypodensities are similar to prior exam and favor small vessel disease. The basal cisterns are patent. No extra-axial collections are present. There are no findings to suggest acute dural sinus thrombosis or acute territorial infarct. IMPRESSION: 1. No acute intracranial findings. No change in appearance of the brain. Stable ventricular dilatation. 2. No calvarial fractures. ACT 112: Negative or not required by law. Electronically signed by: Andrés Orozco M.D. 08/12/2023 1:18 PM Discharge Plan Visit Data Chief Complaint: Fall Stated Complaint: FALL, LAC TO HAND ED Provider: Mario Coon Discharge Problem: Weakness on left side of face, Weakness of left hand, Ambulatory dysfunction, Recurrent falls, Laceration of hand, left, Generalized weakness Forms Stand Alone Forms: [employer] Prescriptions Prescriptions: No Action gabapentin 600 mg Tablet 600 mg PO Q12H Qty: 3 0RF thiamine HCl (vitamin B1) [Vitamin B-1] 100 mg Tablet 100 mg PO QAM Qty: 30 0RF amlodipine [Norvasc] 5 mg Tablet 5 mg PO QAM Qty: 30 0RF folic acid 1 mg Tablet 1 mg PO QAM Qty: 30 0RF Referrals Referrals: PCP,NO [Physician] - Discharge Problem: Laceration of hand, left Qualifiers: Encounter type: initial encounter Foreign body presence: without foreign body Q ualified Code(s): S61.412A - Laceration without foreign body of left hand, initial encounter
--- NOTE | 2023-08-12 12:55 | XRay Report ---
XR chest 1V portable CLINICAL HISTORY: fall, weakness COMPARISON STUDY: Chest radiograph March 08, 2021. FINDINGS: Lung volumes are mildly diminished. This is unchanged. No pneumothorax or pleural effusion is present. Cardiomediastinal silhouette is normal. No airspace opacities are present. IMPRESSION: No acute cardiopulmonary findings. No change in appearance of the chest. ACT 112: Negative or not required by law. Electronically signed by: Andrés Orozco M.D. 08/12/2023 12:53 PM
--- NOTE | 2023-08-12 12:56 | XRay Report ---
XR hand LT min 3V routine CLINICAL HISTORY: left hand injury COMPARISON: None FINDINGS: A bandage on the left hand is noted. There is no acute fracture. Carpal bones are intact. Distal left radius and ulna are intact. No osseous lesions are identified. IMPRESSION: No fracture or dislocation within the left hand. ACT 112: Negative or not required by law. Electronically signed by: Andrés Orozco M.D. 08/12/2023 12:55 PM
--- NOTE | 2023-08-12 13:20 | CT Scan Report ---
CT OF THE HEAD WITHOUT CONTRAST CLINICAL HISTORY: fall COMPARISON STUDY: Head CT March 08, 2021. MRI brain March 09, 2021. CT DOSE: 1110.16 mGy.cm TECHNIQUE: Helical axial images of the head were obtained without IV contrast. Automated exposure con trol was utilized for the study. A dose lowering technique was utilized adhering to the principles o f ALARA. FINDINGS: No acute intracranial hemorrhage, midline shift or mass effect is present. Ventricular dila tation is unchanged since prior head CT and MRI. White matter hypodensities are similar to prior exam and favor small vessel disease. The basal cisterns are patent. No extra-axial collections are presen t. There are no findings to suggest acute dural sinus thrombosis or acute territorial infarct. IMPRESSION: 1. No acute intracranial findings. No change in appearance of the brain. Stable ventricular dilatatio n. 2. No calvarial fractures. ACT 112: Negative or not required by law. Electronically signed by: Andrés Orozco M.D. 08/12/2023 1:18 PM
--- NOTE | 2023-08-12 13:34 | CT Scan Report ---
CT OF THE CERVICAL SPINE WITHOUT CONTRAST CLINICAL HISTORY: fall, head injury, confusion COMPARISON STUDY: Cervical spine CT March 08, 2021. TECHNIQUE: Helical axial images of the cervical spine were obtained without IV contrast. Sagittal a nd coronal reconstructions were viewed. Automated exposure control was utilized for the study. A do se lowering technique was utilized adhering to the principles of ALARA. FINDINGS: Alignment of the cervical spine is anatomic. Vertebral body heights are maintained. No acut e cervical spine fracture or subluxation is present. There is no prevertebral edema. Facet joints are intact. There is moderate multilevel facet arthrosis and mild to moderate multilevel degenerative d isc disease within the cervical spine. There is slight concavity of the superior endplates of T1 and T2. This was not previously evident on prior CT. Emphysema is noted within the visualized lung apices . IMPRESSION: 1. No acute cervical spine fracture or subluxation. 2. Slight concavity of the superior endplates of T1 and T2, likely new since CT of March 08, 2021. Th jermaine represent age indeterminate but probably chronic mild compression deformities. ACT 112: Negative or not required by law. Electronically signed by: Andrés Orozco M.D. 08/12/2023 1:32 PM
[2023-08-12 14:32] LABS: Appearance Urine Clear (Clear); Bilirubin Urine Negative (Negative); Blood Urine Negative (Negative); Color Urine Yellow; Glucose Urine UA Negative (Negative); Ketones Urine Negative (Negative); Leukocyte Esterase Urine Negative (Negative); Nitrite Urine Negative (Negative); Protein Urine Negative (Negative); Specific Gravity Urine 1.009 (1.000-1.030); Urobilinogen Urine Negative (Negative)
[2023-08-12 14:39] LABS: Basophils # (auto) 0.05 K/uL (0.00-0.20); Basophils % (auto) 0.8 %; Eosinophils # (auto) 0.05 K/uL (0.00-0.50); Eosinophils % (auto) 0.8 %; Hemoglobin 12.4 g/dl (14.0-18.0); Immature Granulocytes # (auto) 0.03 K/uL (0.01-0.20); Immature Granulocytes % (auto) 0.5 %; Lymphocytes # (auto) 1.37 K/uL (1.20-3.40); Lymphocytes % (auto) 20.9 %; Mean Corpuscular Hemoglobin 31.9 pg (25.0-34.0); Mean Corpuscular Hgb Conc 34.4 g/dL (32.0-36.0); Mean Corpuscular Volume 92.5 fL (80.0-100.0); Mean Platelet Volume 10.6 fL (9.4-12.4); Monocytes # (auto) 0.73 K/uL (0.11-0.59); Monocytes % (auto) 11.1 %; Neutrophils # (auto) 4.33 K/uL (1.40-6.50); Neutrophils % (auto) 65.9 %; Platelet Count 257 K/uL (130-400); RDW Coefficient of Variation 13.7 % (11.5-14.5); RDW Standard Deviation 46.6 fL (36.4-46.3); Red Blood Count 3.89 M/uL (4.70-6.10); White Blood Count 6.56 K/ul (4.8-10.8)
[2023-08-12 14:55] LABS: Albumin Level 3.4 gm/dl (3.4-5.0); BUN Creatinine Ratio 13.7 (10-20); Bilirubin Direct 0.1 mg/dl (0-0.2); Bilirubin,Total 0.8 mg/dl (0.2-1.0); Calcium 8.8 mg/dl (8.6-10.3); Creatinine Clr Calc Pharmacy 103.3 ml/min; Est GFR (African American) 120.2 ml/min; Est GFR (Non-African American) 103.7 ml/min; Magnesium 1.6 mg/dl (1.7-2.4); Potassium 3.9 mmol/L (3.5-5.1); Total Protein 6.1 gm/dl (6.0-8.3)
[2023-08-12 14:57] LABS: Influenza A virus by PCR Negative (Neg); Influenza B virus by PCR Negative (Neg); RSV by PCR Negative (Neg); SARS CoV2 RNA(COVID-19) Ceph NEGATIVE (Negative)
[2023-08-12 15:01] LABS: Troponin I High Sensitivity 7.3 pg/ml (0-20)
[2023-08-12 15:07] LABS: INR 1.1 (0.9-1.1); Prothrombin Time 11.7 Seconds (9.0-12.0)
--- NOTE | 2023-08-12 15:24 | History & Physical Report ---
Date of Service August 12, 2023 Assessment & Plan (1) Recurrent falls: (2) Ambulatory dysfunction: (3) Gait disturbance: (4) Dysarthria: Plan: Patient is 78-year-old male with PMH hypertension, tobacco use, alcohol use presented to ER with complaint of progressive weakness and recurrent falls. Following with neurology outpatient with EMG, swallow study not completed yet. Multiple falls over the past 3 days. Unwitnessed fall today causing left hand skin tear. Patient denies dizziness, chest pain, shortness of breath prior to falls. Mild hypomagnesemia, otherwise no significant electrolyte abnormality CT head: No acute intracranial findings. No change in appearance of the brain. Stable ventricular dilatation. No calvarial fractures. CT C-spine: No acute cervical spine fracture or subluxation. Slight concavity of the superior endplates of T1 and T2, likely new since CT of March 08, 2021. These represent age indeterminate but probably chronic mild compression deformities. Chest x-ray: No acute cardiopulmonary findings. No change in appearance of the chest. Left hand x-ray: No fracture or dislocation within the left hand. Left ankle x-ray: No fractures within the left ankle. R/O CVA. Suspect underlying neurological problem as has symptoms progressive Tele to monitor for arrhythmias Patient refuses MRI brain currently. Wants to see if neurology suggests MRI and will then reconsider it. If MRI positive for CVA will plan to order echo with bubble study Aspiration precautions Speech consult PT/OT consult Neurology consult Abnormal Lumbar spine xray: Lumbar spine x-ray: Slight concavity of the superior endplates of T12, L1 and L2. Although technically age indeterminate, the findings favor old mild compression deformities. No definite acute fractures. Mild multilevel degenerative disc disease and moderate facet arthrosis within the lumbar spine. 3.4 cm sclerotic focus within the left femoral head. This raises the possibility of avascular necrosis. Suspect compression fractures are old given patient reporting low back pain for months Patient denied left hip pain. Possible asymptomatic avascular necrosis. May need further imaging with MRI or ortho consult. At this time pt denies MRI (5) Hypomagnesemia: Plan: Magnesium: 1.6 Replace and monitor (6) Skin tear of hand without complication: Plan: Dressing applied in ER Tetanus booster in ER (7) HTN (hypertension): Plan: Hypertensive in ER. BP: 175/91. Denies any symptoms. Continue carvedilol Monitor BP. May need to consider adding additional agent. Patient states not wanting other BP meds as he feels BP meds caused his dysarthria and gait disturbance. (8) Tobacco use: Plan: Nicotine patch Does not wish to quit (9) Alcohol use: Plan: Prior moderate to heavy alcohol use Reported had cut down and was drinking approximately 4 beers daily and further cut back over past couple of months. states patient has not been drinking recently ETOH level <10 in ER today Monitor for alcohol withdrawal DVT Prophylaxis Lovenox SQ Full Code as per discussion with pt and pt's Follows with Dr Sandoval for routine care Pt was seen and care coordinated with Dr Serna. See addendum History of Present Illness Chief Complaint: weakness, falls Primary Care Provider: Guero Sandoval MD Patient is 78-year-old male with PMH hypertension, tobacco use, alcohol use presented to ER with complaint of weakness and recurrent falls. History obtained from patient, patient's as well as outpatient chart review. Patient's states that for the months patient has had problems with his balance and problems getting his words out. She reports he had followed up with neurology and are currently undergoing workup. She states past several months has been worsening symptoms however past week has noticed increased gait instability. Reports left side is noticeably weaker than right side. Patient just obtained a walker. States patient has had a fall the last 3 days. She has been having difficulty getting patient up and has often required assistance to get patient up off floor. States the fall 3 days ago patient had noted swelling to left ankle however patient was denying any pain. Patient's states left ankle swelling has decreased. reports she left the house to get some supplies today and when she came back patient was found to have fallen and had a laceration to left hand. Patient denies feeling dizzy, short of breath or chest pain prior to falls. was unable to get patient up off floor today. States today patient finally agreed for EMS transport to hospital. Patient currently reporting low back pain sitting in ER bed. Patient's states that he has been complaining of low back pain for several months. Per outpatient chart review patient has been following outpatient neurology, Dr. Elizalde. According to outpatient notes patient has been having issues with dysarthria, dysphagia and gait disturbance which has been progressive for couple of years however has seemed to worsen prompting neurology visit in 03/2023 and has had progressive decline over the last couple of months. Patient has been referred to speech t herapy and physical therapy. Reports patient sometimes has choking. Video swallow study and EMG were ordered however has not been completed yet. reports patient prior heavy drinker, but states hasn't been drinking much over past several months. Previously reported to consume 4-5 beers daily. Patient states drank a beer yesterday but reports patient did not consume ETOH yesterday. reports patient is hard of hearing. She reports seems to have worsening memory troubles. Patient with intermittent cough. Reports patient with weight loss over past several months also. Has been using incontinence briefs recently for urinary incontinence and inability to get to toilet in time. Denies fever/chills, diaphoresis, N/V/D/C, JOYCE, dizziness, syncope, vision changes, neck pain, CP, SOB, orthopnea, palpitations,sore throat, otalgia, rhinorrhea, abdominal pain, paresthesias, extremity edema, rashes, dysuria, hematuria. MRI brain 03/29/2023: 1. No acute intracranial abnormality detected including no evidence of acute infarct. 0 2. Moderate cerebral volume loss with ventricular enlargement with no evidence of an obstructive lesion. Correlate clinically to exclude features of normal pressure hydrocephalus. 3. There are mildly extensive scattered foci of T2 hyperintensity in the cerebral and central pontine white matter bilaterally, without restricted diffusion, a nonspecific finding. This pattern may reflect chronic small vessel ischemic change, although inflammatory/autoimmune demyelination, and toxic, embolic and vasospastic etiologies are also in the differential diagnosis Allergies Allergy/AdvReac Type Severity Reaction Status Date / Time amlodipine AdvReac Rash Verified 08/12/23 15:08 Home Medications Medication Instructions Recorded Confirmed Type carvedilol 6.25 mg tablet 6.25 mg PO BID 08/12/23 08/12/23 History cyanocobalamin (vitamin B-12) 1,000 mcg PO DAILY 08/12/23 08/12/23 History 1,000 mcg tablet (Vitamin B-12) fluocinonide 0.05 % topical cream 1 applic topical QPM PRN Rash 08/12/23 08/12/23 History multivitamin 1 tab PO DAILY 08/12/23 08/12/23 History Past Med/Surg History Medical History (Updated 08/12/23 @ 17:16 by Essie Martinez PA-C) Dysarthria Gait disturbance Tobacco use HTN (hypertension) Surgical History No pertinent past surgical history Family History Other Cancer Social History (Updated 08/12/23 @ 17:03 by Essie Martinez PA-C) Smoking Status: Current every day smoker Tobacco Type: Cigarettes Cigarettes Per Day: 1 ppd; Second Hand Exposure: Yes; Hx Alcohol Use: Yes Alcohol type: beer Preferred Language: Swedish Communication Ability: Effective Communication Ability Comment: Pt. unable to verbalize due to condition upon arrival Body Mechanic Required: No Beliefs That Will Affect Care: None marital status: Current Living Situation: Spouse Feels Safe at Home: Yes Assistive Devices: Glasses Review of Systems Review of Systems: All systems reviewed & are unremarkable except as noted in HPI & below Physical Exam Physical Exam: General: no acute distress, thin appearing elderly male Head: normocephalic, atraumatic Eyes: PERRL, EOM's intact, conjunctiva non-injected, anicteric ENT: normal inspection external ears, nose, mucous membranes mildly dry Neck: supple, trachea midline Lungs: clear, no respiratory distress, no wheezing/rhonchi/rales CV: RRR, no murmur, no pretibial edema Abd: normal BS, soft, non-tender Back: no ecchymosis or erythema noted, no spinous process tenderness to palpation, +reported tenderness entire lower back with sitting in ER bed Ext: no cyanosis, no calf tenderness; Left ankle +mild edema mostly on medial aspect, no ecchymosis or erythema, non-tender to palpation, flexion and extension intact Neuro: A&O x 3, +irritable, curses at his spouse. +dysarthria, limited facial testing completed secondary to patients cooperation, +hard of hearing, shoulder shrug intact, tongue is midline, no fasciculations. Generalized weakness with increased weakness of left upper and left lower extremity Skin: warm, dry, Left hand with large skin tear Results & Data Results & Data Vital Signs (Past 12 Hours) Vital Signs Temp Pulse Resp BP Pulse Ox O2 Del Method 08/12/23 12:37 36.4 C L 75 20 175/91 H 98 Room Air Laboratory Results Short CBC 08/12/23 Range/Units 14:25 WBC 6.56 (4.8-10.8) K/ul Hgb 12.4 L (14.0-18.0) g/dl Hct 36.0 L (42.0-52.0) % Plt Count 257 (130-400) K/uL BMP 08/12/23 14:25 Sodium 140 Potassium 3.9 Chloride 108 H Carbon Dioxide 26 BUN 7 Creatinine 0.51 L Glucose 95 Calcium 8.8 Cardiac Enzymes 08/12/23 Range/Units 14:25 Total Creatine Kinase 162 (30-223) U/L Liver Function 08/12/23 Range/Units 14:25 Total Bilirubin 0.8 (0.2-1.0) mg/dl Direct Bilirubin 0.1 (0-0.2) mg/dl AST 17 (13-39) U/L ALT 10 (7-52) U/L Alkaline Phosphatase 69 (34-104) U/L Albumin 3.4 (3.4-5.0) gm/dl Urine 08/12/23 Range/Units Unknown Urine Color Yellow Urine Appearance Clear (Clear) Urine pH 7.0 (4.5-7.5) Ur Specific Palm 1.009 (1.000-1.030) Urine Protein Negative (Negative) Urine Glucose (UA) Negative (Negative) Diagnostic Findings Cervical Spine CT 08/12/23 12:30 CT OF THE CERVICAL SPINE WITHOUT CONTRAST CLINICAL HISTORY: fall, head injury, confusion COMPARISON STUDY: Cervical spine CT March 08, 2021. TECHNIQUE: Helical axial images of the cervical spine were obtained without IV contrast. Sagittal and coronal reconstructions were viewed. Automated exposure control was utilized for the study. A dose lowering technique was utilized adhering to the principles of ALARA. FINDINGS: Alignment of the cervical spine is anatomic. Vertebral body heights are maintained. No acute cervical spine fracture or subluxation is present. There is no prevertebral edema. Facet joints are intact. There is moderate multilevel facet arthrosis and mild to moderate multilevel degenerative disc disease within the cervical spine. There is slight concavity of the superior endplates of T1 and T2. This was not previously evident on prior CT. Emphysema is noted within the visualized lung apices. IMPRESSION: 1. No acute cervical spine fracture or subluxation. 2. Slight concavity of the superior endplates of T1 and T2, likely new since CT of March 08, 2021. These represent age indeterminate but probably chronic mild compression deformities. ACT 112: Negative or not required by law. Electronically signed by: Andrés Orozco M.D. 08/12/2023 1:32 PM Chest X-Ray 08/12/23 12:30 XR chest 1V portable CLINICAL HISTORY: fall, weakness COMPARISON STUDY: Chest radiograph March 08, 2021. FINDINGS: Lung volumes are mildly diminished. This is unchanged. No pneumothorax or pleural effusion is present. Cardiomediastinal silhouette is normal. No airspace opacities are present. IMPRESSION: No acute cardiopulmonary findings. No change in appearance of the chest. ACT 112: Negative or not required by law. Electronically signed by: Andrés Orozco M.D. 08/12/2023 12:53 PM Hand X-Ray 08/12/23 12:30 XR hand LT min 3V routine CLINICAL HISTORY: left hand injury COMPARISON: None FINDINGS: A bandage on the left hand is noted. There is no acute fracture. Carpal bones are intact. Distal left radius and ulna are intact. No osseous lesions are identified. IMPRESSION: No fracture or dislocation within the left hand. ACT 112: Negative or not required by law. Electronically signed by: Andrés Orozco M.D. 08/12/2023 12:[address] 08/12/23 12:30 CT OF THE HEAD WITHOUT CONTRAST CLINICAL HISTORY: fall COMPARISON STUDY: Head CT March 08, 2021. MRI brain March 09, 2021. CT DOSE: 1110.16 mGy.cm TECHNIQUE: Helical axial images of the head were obtained without IV contrast. Automated exposure control was utilized for the study. A dose lowering technique was utilized adhering to the principles of ALARA. FINDINGS: No acute intracranial hemorrhage, midline shift or mass effect is present. Ventricular dilatation is unchanged since prior head CT and MRI. White matter hypodensities are similar to prior exam and favor small vessel disease. The basal cisterns are patent. No extra-axial collections are present. There are no findings to suggest acute dural sinus thrombosis or acute territorial infarct. IMPRESSION: 1. No acute intracranial findings. No change in appearance of the brain. Stable ventricular dilatation. 2. No calvarial fractures. ACT 112: Negative or not required by law. Electronically signed by: Andrés Orozco M.D. 08/12/2023 1:18 PM Ankle X-Ray 08/12/23 16:26 XR ankle LT min 3V routine CLINICAL HISTORY: fall, left ankle swelling COMPARISON: None FINDINGS: Alignment of the left ankle is anatomic. There is no fracture. Talar dome is intact. Small plantar calcaneal spur is present. There is ankle soft tissue swelling. IMPRESSION: No fractures within the left ankle. ACT 112: Negative or not required by law. Electronically signed by: Andrés Orozco M.D. 08/12/2023 5:05 PM Lumbar Spine X-Ray 08/12/23 16:26 XR lumbar spine 2-3V CLINICAL HISTORY: Low back pain. COMPARISON STUDY: No previous studies for comparison. FINDINGS: There is slight concavity of the superior endplates of T12, L1 and L2. The findings are probably chronic. No definite acute fractures are present. Moderate multilevel facet arthrosis. Mild multilevel disc space narrowing and osteophytosis is present. Sacroiliac joints are intact. Bowel gas pattern is normal. 3.4 cm sclerotic focus within the left femoral head is present. IMPRESSION: 1. Slight concavity of the superior endplates of T12, L1 and L2. Although technically age indeterminate, the findings favor old mild compression deformities. No definite acute fractures. 2. Mild multilevel degenerative disc disease and moderate facet arthrosis within the lumbar spine. 3. 3.4 cm sclerotic focus within the left femoral head. This raises the possibility of avascular necrosis. ACT 112: Negative or not required by law. Electronically signed by: Andrés Orozco M.D. 08/12/2023 5:04 PM Supervising Physician Co-Signing Physician Notes Pt seen and examined by myself, Carol Serna MD on the day of service. Care was coordinated with Essie Martinez PA-C [id number] with progressive weakness and increasing falls. New facial droop. Noted on exam. Was yelling at his . Stroke workup including MRI brain (pt refusing), Neurology consult. Question of Wernicke's encephalopathy (pt with unsteady gait, new incontinence, ?confusion/confabulation) AM thiamine PT/OT Otherwise as above.
[2023-08-12] MEDS ORDERED: MAGNESIUM SULFATE / D5W 1 GM/100 ML BAG IV STA (16:31)
--- NOTE | 2023-08-12 17:06 | XRay Report ---
XR lumbar spine 2-3V CLINICAL HISTORY: Low back pain. COMPARISON STUDY: No previous studies for comparison. FINDINGS: There is slight concavity of the superior endplates of T12, L1 and L2. The findings are pro bably chronic. No definite acute fractures are present. Moderate multilevel facet arthrosis. Mild mul tilevel disc space narrowing and osteophytosis is present. Sacroiliac joints are intact. Bowel gas pa ttern is normal. 3.4 cm sclerotic focus within the left femoral head is present. IMPRESSION: 1. Slight concavity of the superior endplates of T12, L1 and L2. Although technically age indetermina te, the findings favor old mild compression deformities. No definite acute fractures. 2. Mild multilevel degenerative disc disease and moderate facet arthrosis within the lumbar spine. 3. 3.4 cm sclerotic focus within the left femoral head. This raises the possibility of avascular necr osis. ACT 112: Negative or not required by law. Electronically signed by: Andrés Orozco M.D. 08/12/2023 5:04 PM
--- NOTE | 2023-08-12 17:06 | XRay Report ---
XR ankle LT min 3V routine CLINICAL HISTORY: fall, left ankle swelling COMPARISON: None FINDINGS: Alignment of the left ankle is anatomic. There is no fracture. Talar dome is intact. Small plantar calcaneal spur is present. There is ankle soft tissue swelling. IMPRESSION: No fractures within the left ankle. ACT 112: Negative or not required by law. Electronically signed by: Andrés Orozco M.D. 08/12/2023 5:05 PM
[2023-08-12] MEDS ORDERED: PHARMACIST DISCHARGE MED REC CONSULT PRN (17:13)
[2023-08-12] MEDS ORDERED: POLYETHYLENE (MIRALAX) 17 GM PACK PO PRN (17:13)
[2023-08-12] MEDS ORDERED: ONDANSETRON INJ 2 MG/ML 2 ML VIAL IV PRN (17:13)
[2023-08-12] MEDS ORDERED: ACETAMINOPHEN 325 MG TAB PO PRN (17:13)
[2023-08-12] MEDS ORDERED: LORazepam 1 MG TAB PO PRN (17:16)
[2023-08-12] MEDS: ENOXAPARIN INJ 40 MG/0.4 ML SYR SQ SCH (21:09)
[2023-08-12] MEDS: carvediloL 6.25 MG TAB PO SCH (21:48)
[2023-08-13] MEDS ORDERED: SODIUM CHLORIDE 0.9% 1,000 ML IV SCH (01:30)
[2023-08-13 03:42] LABS: Hematocrit (blood only) 30.9 % (42.0-52.0); Hemoglobin 10.8 g/dl (14.0-18.0); Mean Corpuscular Hemoglobin 32.1 pg (25.0-34.0); Mean Platelet Volume 10.3 fL (9.4-12.4); Platelet Count 220 K/uL (130-400); RDW Coefficient of Variation 13.5 % (11.5-14.5); RDW Standard Deviation 45.9 fL (36.4-46.3); Red Blood Count 3.36 M/uL (4.70-6.10); White Blood Count 6.59 K/ul (4.8-10.8)
[2023-08-13 03:59] LABS: BUN Creatinine Ratio 14.6 (10-20); Calcium 8.1 mg/dl (8.6-10.3); Chol HDL Ratio 2.3 (0-5); Creatinine Clr Calc Pharmacy 109.7 ml/min; Est GFR (African American) 123.2 ml/min; Est GFR (Non-African American) 106.3 ml/min; Magnesium 1.7 mg/dl (1.7-2.4); Potassium 3.5 mmol/L (3.5-5.1)
--- NOTE | 2023-08-13 07:27 | Hospitalist Progress Note ---
Date of Service August 13, 2023 Assessment & Plan (1) Recurrent falls: (2) Ambulatory dysfunction: (3) Gait disturbance: (4) Dysarthria: Plan: Mr Lion is a 78-year-old male with PMH hypertension, tobacco use, alcohol use presented to ER with complaint of progressive weakness and recurrent falls. Following with neurology outpatient with EMG, swallow study not completed yet. Multiple falls over the past [address] Elizalde for progressive weakness, dysphagia, and dysarthria. Follow up is arranged for patient to meet with Dr. Elizalde. Patient is not agreeable for further PT/OT evaluation, imaging, or other work up at this time. Patient wants to return home. Discussion with was had about discharge--she was tearful and cannot take him home at this time. Patient refuses services, but may be worthwhile discussing with Case management what home health services may be available to aid caregiver given increasing dependence patient has on . #Generalized weakness, concern for motor neuron disorder -CT without acute bleed, refused MRI -Continue tele to monitor for arrhythmias Aspiration precautions Speech consult -Recommended soft bite sized diet with thin liquids, straws ok -ASP precautions -Mouth care -Plan for VSS in am PT/OT consult ordered, obtain if able Neurology consult: recommend continued OP follow up, nothing to add #HTN Continue home coreg #Tobacco Use -Nicotine patch #Abnormal Lumbar spine xray: Lumbar spine x-ray: Slight concavity of the superior endplates of T12, L1 and L2. Although technically age indeterminate, the findings favor old mild compression deformities. No definite acute fractures. Mild multilevel degenerative disc disease and moderate facet arthrosis within the lumbar spine. 3.4 cm sclerotic focus within the left femoral head. This raises the possibility of avascular necrosis. Suspect compression fractures are old given patient reporting low back pain for months Patient denied left hip pain. Possible asymptomatic avascular necrosis. May need further imaging with MRI or ortho consult. At this time pt denies MRI -Patient declines further imaging at this time #Left knuckle skin tear -Wound care nurse DVT danae Full code Dispo, maybe tomorrow if patient can wait after VSS test (5) Hypomagnesemia: Plan: Magnesium: 1.6 Replace and monitor (6) Skin tear of hand without complication: Plan: Dressing applied in ER Tetanus booster in ER (7) HTN (hypertension): Plan: Hypertensive in ER. BP: 175/91. Denies any symptoms. Continue carvedilol Monitor BP. May need to consider adding additional agent. Patient states not wanting other BP meds as he feels BP meds caused his dysarthria and gait disturbance. (8) Tobacco use: Plan: Nicotine patch Does not wish to quit (9) Alcohol use: Plan: Prior moderate to heavy alcohol use Reported had cut down and was drinking approximately 4 beers daily and further cut back over past couple of months. states patient has not been drinking recently ETOH level <10 in ER today Monitor for alcohol withdrawal DVT Prophylaxis Lovenox SQ Full Code as per discussion with pt and pt's Follows with Dr Sandoval for routine care Pt was seen and care coordinated with Dr Serna. See addendum Admission and Anticipated Discharge Date Admission Date: August 12, 2023 Subjective Patient very agitated on exam. Reports symptoms are ongoing and does not want an MRI. He notes that the drool and the speech is frustrating. He states the falls are just happening and he cannot explain what he is experiencing as far as his symptoms out side of "it is worse" Physical Exam Constitutional: agitated, but sitting upright, dysarthric Respiratory: normal respiratory effort, lungs clear to auscultation Cardiovascular: RRR, no murmur, no edema Skin: left knuckle skin tear with gauze in place, laceration on left elbow Neurologic: Moving all extremities equally right side of lip with hanging qualiity, but no overt facial droop Difficult to understand 2/2 dysarthria Results & Data Results & Data Vital Signs (Past 12 Hours) Vital Signs Temp Pulse Pulse Resp BP Pulse Ox O2 Del Method 08/13/23 03:07 36.6 C 66 16 116/65 94 Room Air 08/12/23 23:46 70 08/12/23 23:40 Room Air 08/12/23 23:28 36.7 C 71 20 125/69 95 Room Air 08/12/23 21:09 90 17 127/65 93 Room Air 08/12/23 20:00 84 18 94 Room Air Laboratory Results Short CBC 08/13/23 Range/Units 03:27 WBC 6.59 (4.8-10.8) K/ul Hgb 10.8 L (14.0-18.0) g/dl Hct 30.9 L (42.0-52.0) % Plt Count 220 (130-400) K/uL BMP 08/13/23 03:27 Sodium 138 Potassium 3.5 Chloride 109 H Carbon Dioxide 24 BUN 7 Creatinine 0.48 L Glucose 84 Calcium 8.1 L Medications Administered Home Medications Medication Instructions Recorded Confirmed Last Taken carvedilol 6.25 mg tablet 6.25 mg PO BID 08/12/23 08/12/23 Unknown cyanocobalamin (vitamin B-12) 1,000 mcg PO DAILY 08/12/23 08/12/23 Unknown 1,000 mcg tablet (Vitamin B-12) fluocinonide 0.05 % topical cream 1 applic topical QPM PRN Rash 08/12/23 08/12/23 Unknown multivitamin 1 tab PO DAILY 08/12/23 08/12/23 Unknown Active Medications Generic Name Dose Route Start Last Admin Trade Name Freq PRN Reason Stop Dose Admin Carvedilol 6.25 mg 08/12/23 21:00 08/13/23 09:01 Carvedilol 6.25 Mg Tab PO 09/11/23 20:59 6.25 mg BID [facility] Administration Cyanocobalamin 1,000 mcg 08/13/23 09:00 08/13/23 09:02 Cyanocobalamin (B-12) 500 Mcg Tablet PO 09/12/23 08:59 1,000 mcg DAILY [facility] Administration Enoxaparin Sodium 40 mg 08/12/23 17:30 08/13/23 16:33 Enoxaparin Inj 40 Mg/0.4 Ml Syr SQ 09/11/23 17:29 Not Given Q24H [facility] Miscellaneous 1 each 08/13/23 08:59 08/13/23 09:07 Remove Nicoderm Patch N/A 09/12/23 08:58 Not Given [id number] [facility] Nicotine 21 mg 08/13/23 09:00 08/13/23 09:07 Nicotine 21 Mg/24 Hr Tdsy TD 09/12/23 08:59 Not Given QAM [facility]
[2023-08-13] MEDS: carvediloL 6.25 MG TAB PO SCH ×2 (09:01→20:12)
[2023-08-13] MEDS: CYANOCOBALAMIN (B-12) 500 MCG TABLET PO SCH (09:02)
[2023-08-13] MEDS: NICOTINE 21 MG/24 HR TDSY TD SCH (09:07)
--- NOTE | 2023-08-13 09:53 | Neurology Consultation ---
Date of Consultation August 13, 2023 Assessment & Plan (1) Generalized weakness: Chronic progressive dysarthria, gait instability and weakness L>R with frequent falls is not consistent with stroke. Recommend he continue his outpatient workup. I am specifically concerned for motor neuron disease which should be detected on EMG as recommended by Dr. Elizalde. No further inpatient workup though he would certainly benefit from therapy evaluations. Please contact us with any further questions. Telehealth Consultation Telehealth Information Telehealth Information: I performed this visit using a real-time telehealth connection between my location and the patients location ([facility]). After connecting through interactive tele-video, patient was identified by name and date of and/or wristband check.Patient (or authorized healthcare account service representative) was informed that this was a telemedicine visit and it was being conducted confidentially over secure lines. My office door was closed and no one else was present in the room with me.Patient (or authorized healthcare account service representative) provided consent to proceed with the visit, expressed an understanding of privacy and security of the telemedicine visit, and gave permission to have a hospital account service representative in the room in order to assist with the visit and to conduct portions of the visit, as needed. I informed the patient (or authorized healthcare account service representative) that I reviewed their record and presented the opportunity for them to ask any questions regarding the visit today. The patient agreed to participate. History of Present Illness Reason for Consultation: Frequent falls and dysarthria Requesting Physician: Dr. Serna Attending Physician: Carol Serna MD History of Present Illness Talon Lion is a 78 yo M presenting with frequent falls and dysarthria. He is being followed as an outpatient by Dr. Elizalde with plan for a follow-up visit in 2 weeks. Notes indicate his left side is weaker than his R and has been asymmetric for months leading to falls and a skin tear on his L hand. He denies any difficulty swallowing or any specific change that occurred recently. This has been a gradual decline in strength and function. Otherwise patient would like to return home and is not interested in additional testing at this time. Allergies Allergy/AdvReac Type Severity Reaction Status Date / Time amlodipine AdvReac Rash Verified 08/12/23 15:08 Home Medications Medication Instructions Recorded Confirmed Type carvedilol 6.25 mg tablet 6.25 mg PO BID 08/12/23 08/12/23 History cyanocobalamin (vitamin B-12) 1,000 mcg PO DAILY 08/12/23 08/12/23 History 1,000 mcg tablet (Vitamin B-12) fluocinonide 0.05 % topical cream 1 applic topical QPM PRN Rash 08/12/23 08/12/23 History multivitamin 1 tab PO DAILY 08/12/23 08/12/23 History Patient History Medical History (Updated 08/12/23 @ 17:16 by Essie Martinez PA-C) Dysarthria Gait disturbance Tobacco use HTN (hypertension) Surgical History No pertinent past surgical history Family History Other Cancer Social History (Updated 08/12/23 @ 17:03 by Essie Martinez PA-C) Smoking Status: Current every day smoker Tobacco Type: Cigarettes Cigarettes Per Day: 1 ppd; Second Hand Exposure: Yes; Hx Alcohol Use: Yes Alcohol type: beer Preferred Language: Swedish Communication Ability: Effective Communication Ability Comment: Pt. unable to verbalize due to condition upon arrival Skin Pass Operator Required: No Beliefs That Will Affect Care: None marital status: Current Living Situation: Spouse Feels Safe at Home: Yes Assistive Devices: Glasses Review of Systems +weakness and dysarthria Physical Exam Neurological Examination: Mental Status: Awake and alert. Oriented to person, place, and time. Fluent. Comprehension intact. Dysathria with a spastic pattern. Cranial Nerves: II: Reads NIHSS cards, pupils 3/3 to 2/2, stevenson grossly intact. III/IV/: Versions intact without nystagmus, no gaze preference. V: Facial sensation symmetric to light touch VII: Facial expression symmetric VIII: Hearing intact to voice Motor: Strength was symmetric and antigravity throughout. Unable to open/close L hand due to skin tears. There were no abnormal movements. Coordination: No dysmetria on FNF Reflexes: Unable to assess over telemedicine Results & Data Vital Signs (Past 12 Hours) Vital Signs Temp Pulse Pulse Resp BP Pulse Ox O2 Del Method 08/13/23 08:58 72 20 143/91 H 96 Nasal Cannula 08/13/23 07:55 67 08/13/23 03:07 36.6 C 66 16 116/65 94 Room Air 08/12/23 23:46 70 08/12/23 23:40 Room Air 08/12/23 23:28 36.7 C 71 20 125/69 95 Room Air O2 Flow Rate 08/13/23 08:58 2 08/13/23 07:55 08/13/23 03:07 08/12/23 23:46 08/12/23 23:40 08/12/23 23:28 Laboratory Results Abnormal lab results 08/12/23 08/13/23 Range/Units 14:25 03:27 RBC 3.89 L 3.36 L (4.70-6.10) M/uL Hgb 12.4 L 10.8 L (14.0-18.0) g/dl Hct 36.0 L 30.9 L (42.0-52.0) % RDW Std Deviation 46.6 H (36.4-46.3) fL Rankin # (Auto) 0.73 H (0.11-0.59) K/uL Chloride 108 H 109 H (98-107) mmol/L Creatinine 0.51 L 0.48 L (0.6-1.4) mg/dl Calcium 8.1 L (8.6-10.3) mg/dl Magnesium 1.6 L (1.7-2.4) mg/dl Lipase 7 L (11-82) U/L
[2023-08-13] MEDS: ENOXAPARIN INJ 40 MG/0.4 ML SYR SQ SCH (16:33)
--- NOTE | 2023-08-13 22:41 | Electrocardiogram Report ---
Test Reason : Blood Pressure : / mmHG Vent. Rate : 072 BPM Atrial Rate : 072 BPM P-R Int : 176 ms QRS Dur : 072 ms QT Int : 408 ms P-R-T Axes : 057 046 086 degrees QTc Int : 446 ms Normal sinus rhythm Normal ECG When compared with ECG of 08-MAR-2021 18:27, MT interval has decreased Vent. rate has decreased BY 35 BPM Confirmed by Ernesto Mantilla ([id number]) on 08/13/2023 10:40:56 PM Referred By: Guero Sandoval Confirmed By:Ernesto Mantilla
[2023-08-14 06:21] LABS: Hematocrit (blood only) 32.5 % (42.0-52.0); Hemoglobin 11.3 g/dl (14.0-18.0); Mean Corpuscular Hemoglobin 31.8 pg (25.0-34.0); Mean Corpuscular Hgb Conc 34.8 g/dL (32.0-36.0); Mean Corpuscular Volume 91.5 fL (80.0-100.0); Mean Platelet Volume 10.8 fL (9.4-12.4); Platelet Count 240 K/uL (130-400); RDW Coefficient of Variation 13.5 % (11.5-14.5); RDW Standard Deviation 45.9 fL (36.4-46.3); Red Blood Count 3.55 M/uL (4.70-6.10); White Blood Count 6.57 K/ul (4.8-10.8)
[2023-08-14 06:34] LABS: BUN Creatinine Ratio 11.3 (10-20); Calcium 8.5 mg/dl (8.6-10.3); Creatinine Clr Calc Pharmacy 98.9 ml/min; Est GFR (African American) 118.3 ml/min; Est GFR (Non-African American) 102.1 ml/min; Magnesium 1.5 mg/dl (1.7-2.4); Phosphorus 2.9 mg/dl (2.5-4.9); Potassium 3.8 mmol/L (3.5-5.1)
[2023-08-14] MEDS: NICOTINE 21 MG/24 HR TDSY TD SCH ×2 (07:24→15:34)
[2023-08-14] MEDS: CYANOCOBALAMIN (B-12) 500 MCG TABLET PO SCH (07:25)
[2023-08-14] MEDS: carvediloL 6.25 MG TAB PO SCH (07:25)
[2023-08-14 08:00] LABS: Estimated Average Glucose 114 mg/dl; Hemoglobin A1C 5.6 % (4.5-5.6)
[2023-08-14] MEDS: MAGNESIUM SULFATE / D5W 1 GM/100 ML BAG IV SCH ×2 (10:05→12:06)
--- NOTE | 2023-08-14 10:25 | Fluoroscopy Report ---
FL video swallow HISTORY: r/o aspiration TECHNIQUE: Video fluoroscopic evaluation of swallowing was performed in the AP and lateral projection s by the speech pathology staff. The patient is fed nectar-thick and thin liquid barium, a barium coa zaki wafer, and barium pudding. FLUOROSCOPY TIME: 2 minutes and 14 seconds. A cine loop submitted. Ka,r: 11.9 mGy COMPARISON STUDY: None. FINDINGS: There is normal hyoid excursion and epiglottic deflection. Multiple episodes of a small mai unt of silent aspiration seen throughout the examination. IMPRESSION: 1. Multiple episodes of silent aspiration seen throughout the examination. 2. Please see the speech pathologist report for detailed findings and recommendations. ACT 112: Negative or not required by law. Electronically signed by: Doc Kent M.D. 08/14/2023 10:23 AM
--- NOTE | 2023-08-14 15:29 | Hospitalist Progress Note ---
Date of Service August 14, 2023 Assessment & Plan (1) Recurrent falls: (2) Ambulatory dysfunction: (3) Gait disturbance: (4) Dysarthria: (5) Hypomagnesemia: (6) Skin tear of hand without complication: Plan: Dressing applied in ER Tetanus booster in ER (7) HTN (hypertension): (8) Tobacco use: (9) Alcohol use: Plan atient is 78-year-old male with PMH hypertension, tobacco use, alcohol use presented to ER with complaint of progressive weakness and recurrent falls. Following with neurology outpatient with EMG, swallow study not completed yet. Multiple falls over the past 3 days. Unwitnessed fall today causing left hand skin tear. Patient denies dizziness, chest pain, shortness of breath prior to falls. Mild hypomagnesemia, otherwise no significant electrolyte abnormality CT head: No acute intracranial findings. No change in appearance of the brain. Stable ventricular dilatation. No calvarial fractures. CT C-spine: No acute cervical spine fracture or subluxation. Slight concavity of the superior endplates of T1 and T2, likely new since CT of March 08, 2021. These represent age indeterminate but probably chronic mild compression deformities. Chest x-ray: No acute cardiopulmonary findings. No change in appearance of the chest. Left hand x-ray: No fracture or dislocation within the left hand. Left ankle x-ray: No fractures within the left ankle. R/O CVA. Suspect underlying neurological problem as has symptoms progressive Tele to monitor for arrhythmias Patient refuses MRI brain currently. Wants to see if neurology suggests MRI and will then reconsider it. If MRI positive for CVA will plan to order echo with bubble study Aspiration precautions Speech consult PT/OT consult Neurology consult Abnormal Lumbar spine xray: Lumbar spine x-ray: Slight concavity of the superior endplates of T12, L1 and L2. Although technically age indeterminate, the findings favor old mild compression deformities. No definite acute fractures. Mild multilevel degenerative disc disease and moderate facet arthrosis within the lumbar spine. 3.4 cm sclerotic focus within the left femoral head. This raises the possibility of avascular necrosis. Suspect compression fractures are old given patient reporting low back pain for months Patient denied left hip pain. Possible asymptomatic avascular necrosis. May need further imaging with MRI or ortho consult. At this time pt denies MRI (5) Hypomagnesemia: Plan: Magnesium: 1.6 Replace and monitor (6) Skin tear of hand without complication: Plan: Dressing applied in ER Tetanus booster in ER (7) HTN (hypertension): Plan: Hypertensive in ER. BP: 175/91. Denies any symptoms. Continue carvedilol Monitor BP. May need to consider adding additional agent. Patient states not wanting other BP meds as he feels BP meds caused his dysarthria and gait disturbance. (8) Tobacco use: Plan: Nicotine patch Does not wish to quit (9) Alcohol use: Plan: Prior moderate to heavy alcohol use Reported had cut down and was drinking approximately 4 beers daily and further cut back over past couple of months. states patient has not been drinking recently ETOH level <10 in ER today Monitor for alcohol withdrawal DVT Prophylaxis Lovenox SQ Admission and Anticipated Discharge Date Admission Date: August 12, 2023 Subjective Pt seen in the AM. Was bleeding out of the IV site in his right arm. Was putting on his coat, has been asking about leaving. AAOx2. Review of Systems Review of Systems: All systems reviewed & are unremarkable except as noted in Subjective Physical Exam Physical Exam: General: Alert, orientedx2. Skin: Bleeding out of right arm, area where IV was placed Psych: Appropriate mood and affect Neuro: difficulty with movement HEENT: NC/AT Chest: Nontender to palpation. CV: RRR Resp: Breath sounds clear bilaterally, no increased effort of breathing. Abdomen: Soft, nontender, nondistended. No guarding. No organomegaly appreciated. Extremities: No edema in lower extremities bilaterally. Results & Data Results & Data Vital Signs (Past 12 Hours) Vital Signs Temp Pulse Resp BP Pulse Ox O2 Del Method 08/14/23 11:20 36.4 C L 66 16 127/83 97 Room Air 08/14/23 08:00 Room Air 08/14/23 07:34 36.5 C 72 16 129/84 97 Room Air
--- NOTE | 2023-08-14 15:53 | Discharge Summary ---
Discharge Summary Date of Service August 14, 2023 Notes For Next Care Provider Please ensure further followup with pt's Neurologist Dr Elizalde for continued evaluation/workup of progressive weakness. Neurology during hospitalization recommending EMG to rule out motor neuron disease. Medication Changes From Visit None Admission HPI Per Admitting Provider Patient is 78-year-old male with PMH hypertension, tobacco use, alcohol use presented to ER with complaint of weakness and recurrent falls. History obtained from patient, patient's as well as outpatient chart review. Patient's states that for the months patient has had problems with his balance and problems getting his words out. She reports he had followed up with neurology and are currently undergoing workup. She states past several months has been worsening symptoms however past week has noticed increased gait instability. Reports left side is noticeably weaker than right side. Patient just obtained a walker. States patient has had a fall the last 3 days. She has been having difficulty getting patient up and has often required assistance to get patient up off floor. States the fall 3 days ago patient had noted swelling to left ankle however patient was denying any pain. Patient's states left ankle swelling has decreased. reports she left the house to get some supplies today and when she came back patient was found to have fallen and had a laceration to left hand. Patient denies feeling dizzy, short of breath or chest pain prior to falls. was unable to get patient up off floor today. States today patient finally agreed for EMS transport to hospital. Patient currently reporting low back pain sitting in ER bed. Patient's states that he has been complaining of low back pain for several months. Per outpatient chart review patient has been following outpatient neurology, Dr. Elizalde. According to outpatient notes patient has been having issues with dysarthria, dysphagia and gait disturbance which has been progressive for couple of years however has seemed to worsen prompting neurology visit in 03/2023 and has had progressive decline over the last couple of months. Patient has been referred to speech therapy and physical therapy. Reports patient sometimes has choking. Video swallow study and EMG were ordered however has not been completed yet. reports patient prior heavy drinker, but states hasn't been drinking much over past several months. Previously reported to consume 4-5 beers daily. Patient states drank a beer yesterday but reports patient did not consume ETOH yesterday. reports patient is hard of hearing. She reports seems to have worsening memory troubles. Patient with intermittent cough. Reports patient with weight loss over past several months also. Has been using incontinence briefs recently for urinary incontinence and inability to get to toilet in time. Denies fever/chills, diaphoresis, N/V/D/C, JOYCE, dizziness, syncope, vision changes, neck pain, CP, SOB, orthopnea, palpitations,sore throat, otalgia, rhinorrhea, abdominal pain, paresthesias, extremity edema, rashes, dysuria, hematuria. MRI brain 03/29/2023: 1. No acute intracranial abnormality detected including no evidence of acute infarct. 0 2. Moderate cerebral volume loss with ventricular enlargement with no evidence of an obstructive lesion. Correlate clinically to exclude features of normal pressure hydrocephalus. 3. There are mildly extensive scattered foci of T2 hyperintensity in the cerebral and central pontine white matter bilaterally, without restricted diffusion, a nonspecific finding. This pattern may reflect chronic small vessel ischemic change, although inflammatory/autoimmune demyelination, and toxic, embolic and vasospastic etiologies are also in the differential diagnosis Admission Exam Per Admitting Provider General: no acute distress, thin appearing elderly male Head: normocephalic, atraumatic Eyes: PERRL, EOM's intact, conjunctiva non-injected, anicteric ENT: normal inspection external ears, nose, mucous membranes mildly dry Neck: supple, trachea midline Lungs: clear, no respiratory distress, no wheezing/rhonchi/rales CV: RRR, no murmur, no pretibial edema Abd: normal BS, soft, non-tender Back: no ecchymosis or erythema noted, no spinous process tenderness to palpation, +reported tenderness entire lower back with sitting in ER bed Ext: no cyanosis, no calf tenderness; Left ankle +mild edema mostly on medial aspect, no ecchymosis or erythema, non-tender to palpation, flexion and extension intact Neuro: A&O x 3, +irritable, curses at his spouse. +dysarthria, limited facial testing completed secondary to patients cooperation, +hard of hearing, shoulder shrug intact, tongue is midline, no fasciculations. Generalized weakness with increased weakness of left upper and left lower extremity Skin: warm, dry, Left hand with large skin tear Principal Dx & Hospital Course #1 = Principal Diagnosis (1) Recurrent falls: (2) Ambulatory dysfunction: (3) Gait disturbance: (4) Dysarthria: (5) Hypomagnesemia: (6) Skin tear of hand without complication: Dressing applied in ER Tetanus booster in ER (7) HTN (hypertension): (8) Tobacco use: (9) Alcohol use: Plan Patient is 78-year-old male with PMH hypertension, tobacco and alcohol use presented to the ER with complaint of progressive weakness and recurrent falls. Following with neurology outpatient with EMG, swallow study not completed yet. Multiple falls over the 3 days before admission. Unwitnessed fall on day of admission causing left hand skin tear. Patient denied dizziness, chest pain, shortness of breath prior to falls. Mild hypomagnesemia, otherwise no significant electrolyte abnormality CT head: No acute intracranial findings. No change in appearance of the brain. Stable ventricular dilatation. No calvarial fractures. CT C-spine: No acute cervical spine fracture or subluxation. Slight concavity of the superior endplates of T1 and T2, likely new since CT of March 08, 2021. These represent age indeterminate but probably chronic mild compression deformities. Chest x-ray: No acute cardiopulmonary findings. No change in appearance of the chest. Left hand x-ray: No fracture or dislocation within the left hand. Left ankle x-ray: No fractures within the left ankle. CVA ruled out -Pt refused brain MRI -Neurology consulted- recommended continuing workup with outpatient Neurologist Dr Elizalde. Neurologist concerned about motor neuron disease, recommending outpatient EMG. -Pt seen by speech, concern for silent aspiration. Discharge instructions given. -PT/OT recommending inpatient rehab. Pt choosing to go home with home health services for PT/Nursing/Speech Abnormal Lumbar spine xray Lumbar spine x-ray: Slight concavity of the superior endplates of T12, L1 and L2. Although technically age indeterminate, the findings favor old mild compression deformities. No definite acute fractures. Mild multilevel degenerative disc disease and moderate facet arthrosis within the lumbar spine. 3.4 cm sclerotic focus within the left femoral head. This raises the possibility of avascular necrosis. Suspect compression fractures are old given patient reporting low back pain for months Patient denied left hip pain. Asymptomatic avascular necrosis. Pt declining further workup or evaluation for avascular necrosis. Hypomagnesemia Replete as needed Skin tear of hand without complication Dressing applied in ER Tetanus booster in ER HTN (hypertension) Hypertensive in ER. BP: 175/91. Denies any symptoms. Continue carvedilol Monitor BP. May need to consider adding additional agent. Patient states he does not want other BP meds as he feels BP meds caused his dysarthria and gait disturbance. Tobacco use Nicotine patch Does not wish to quit Alcohol use Prior moderate to heavy alcohol use Reported that he had cut down and was drinking approximately 4 beers daily and further cut back over past couple of months. states patient has not been drinking recently ETOH level <10 in ER Monitor for alcohol withdrawal Discharge Exam General: Alert, orientedx2. Skin: Bleeding out of right arm, area where IV was placed Psych: Appropriate mood and affect Neuro: difficulty with movement HEENT: NC/AT Chest: Nontender to palpation. CV: RRR Resp: Breath sounds clear bilaterally, no increased effort of breathing. Abdomen: Soft, nontender, nondistended. No guarding. No organomegaly appreciated. Extremities: No edema in lower extremities bilaterally. Updated Medication List Medication Instructions Recorded Confirmed Type carvedilol 6.25 mg tablet 6.25 mg PO BID 08/12/23 08/12/23 History cyanocobalamin (vitamin B-12) 1,000 mcg PO DAILY 08/12/23 08/12/23 History 1,000 mcg tablet (Vitamin B-12) fluocinonide 0.05 % topical cream 1 applic topical QPM PRN Rash 08/12/23 08/12/23 History multivitamin 1 tab PO DAILY 08/12/23 08/12/23 History Hospital Stay Data Consultations 08/12/23 15:06 ED Decision to Admit Stat 08/12/23 17:13 Consult Neurology Routine Diagnostic Imagining Performed 08/12/23 12:30 CT cervical spine wo con Stat CT head/brain wo con Stat 08/14/23 11:15 FL video swallow Routine Cervical Spine CT 08/12/23 12:30 CT OF THE CERVICAL SPINE WITHOUT CONTRAST CLINICAL HISTORY: fall, head injury, confusion COMPARISON STUDY: Cervical spine CT March 08, 2021. TECHNIQUE: Helical axial images of the cervical spine were obtained without IV contrast. Sagittal and coronal reconstructions were viewed. Automated exposure control was utilized for the study. A dose lowering technique was utilized adhering to the principles of ALARA. FINDINGS: Alignment of the cervical spine is anatomic. Vertebral body heights are maintained. No acute cervical spine fracture or subluxation is present. There is no prevertebral edema. Facet joints are intact. There is moderate multilevel facet arthrosis and mild to moderate multilevel degenerative disc disease within the cervical spine. There is slight concavity of the superior endplates of T1 and T2. This was not previously evident on prior CT. Emphysema is noted within the visualized lung apices. IMPRESSION: 1. No acute cervical spine fracture or subluxation. 2. Slight concavity of the superior endplates of T1 and T2, likely new since CT of March 08, 2021. These represent age indeterminate but probably chronic mild compression deformities. ACT 112: Negative or not required by law. Electronically signed by: Andrés Orozco M.D. 08/12/2023 1:32 PM Chest X-Ray 08/12/23 12:30 XR chest 1V portable CLINICAL HISTORY: fall, weakness COMPARISON STUDY: Chest radiograph March 08, 2021. FINDINGS: Lung volumes are mildly diminished. This is unchanged. No pneumothorax or pleural effusion is present. Cardiomediastinal silhouette is normal. No airspace opacities are present. IMPRESSION: No acute cardiopulmonary findings. No change in appearance of the chest. ACT 112: Negative or not required by law. Electronically signed by: Andrés Orozco M.D. 08/12/2023 12:53 PM Hand X-Ray 08/12/23 12:30 XR hand LT min 3V routine CLINICAL HISTORY: left hand injury COMPARISON: None FINDINGS: A bandage on the left hand is noted. There is no acute fracture. Carpal bones are intact. Distal left radius and ulna are intact. No osseous lesions are identified. IMPRESSION: No fracture or dislocation within the left hand. ACT 112: Negative or not required by law. Electronically signed by: Andrés Orozco M.D. 08/12/2023 12:[address] 08/12/23 12:30 CT OF THE HEAD WITHOUT CONTRAST CLINICAL HISTORY: fall COMPARISON STUDY: Head CT March 08, 2021. MRI brain March 09, 2021. CT DOSE: 1110.16 mGy.cm TECHNIQUE: Helical axial images of the head were obtained without IV contrast. Automated exposure control was utilized for the study. A dose lowering technique was utilized adhering to the principles of ALARA. FINDINGS: No acute intracranial hemorrhage, midline shift or mass effect is present. Ventricular dilatation is unchanged since prior head CT and MRI. White matter hypodensities are similar to prior exam and favor small vessel disease. The basal cisterns are patent. No extra-axial collections are present. There are no findings to suggest acute dural sinus thrombosis or acute territorial infarct. IMPRESSION: 1. No acute intracranial findings. No change in appearance of the brain. Stable ventricular dilatation. 2. No calvarial fractures. ACT 112: Negative or not required by law. Electronically signed by: Andrés Orozco M.D. 08/12/2023 1:18 PM Ankle X-Ray 08/12/23 16:26 XR ankle LT min 3V routine CLINICAL HISTORY: fall, left ankle swelling COMPARISON: None FINDINGS: Alignment of the left ankle is anatomic. There is no fracture. Talar dome is intact. Small plantar calcaneal spur is present. There is ankle soft tissue swelling. IMPRESSION: No fractures within the left ankle. ACT 112: Negative or not required by law. Electronically signed by: Andrés Orozco M.D. 08/12/2023 5:05 PM Lumbar Spine X-Ray 08/12/23 16:26 XR lumbar spine 2-3V CLINICAL HISTORY: Low back pain. COMPARISON STUDY: No previous studies for comparison. FINDINGS: There is slight concavity of the superior endplates of T12, L1 and L2. The findings are probably chronic. No definite acute fractures are present. Moderate multilevel facet arthrosis. Mild multilevel disc space narrowing and osteophytosis is present. Sacroiliac joints are intact. Bowel gas pattern is normal. 3.4 cm sclerotic focus within the left femoral head is present. IMPRESSION: 1. Slight concavity of the superior endplates of T12, L1 and L2. Although technically age indeterminate, the findings favor old mild compression deformities. No definite acute fractures. 2. Mild multilevel degenerative disc disease and moderate facet arthrosis within the lumbar spine. 3. 3.4 cm sclerotic focus within the left femoral head. This raises the possibility of avascular necrosis. ACT 112: Negative or not required by law. Electronically signed by: Andrés Orozco M.D. 08/12/2023 5:04 PM Videofluoroscopic Swallow 08/14/23 11:15 FL video swallow HISTORY: r/o aspiration TECHNIQUE: Video fluoroscopic evaluation of swallowing was performed in the AP and lateral projections by the speech pathology staff. The patient is fed nectar-thick and thin liquid barium, a barium coated wafer, and barium pudding. FLUOROSCOPY TIME: 2 minutes and 14 seconds. A cine loop submitted. Ka,r: 11.9 mGy COMPARISON STUDY: None. FINDINGS: There is normal hyoid excursion and epiglottic deflection. Multiple episodes of a small amount of silent aspiration seen throughout the examination. IMPRESSION: 1. Multiple episodes of silent aspiration seen throughout the examination. 2. Please see the speech pathologist report for detailed findings and recommendations. ACT 112: Negative or not required by law. Electronically signed by: Doc Kent M.D. 08/14/2023 10:23 AM Pending Results Patient Have Any Pending Studies at Discharge: No Discharge Instructions Given to Patient (Per Discharging Provider) Mr. Lion, You were admitted with concerning progressing weakness and falls at home. You were seen by neurology and they recommend that you continue to follow up with your Neurologist as an outpatient, Dr Elizalde for the further testing needed (an EMG). You were also seen by speech therapy and they will give discharge instructions as well. You are being discharged with home health services. They will contact you to start services. Should your symptoms worsen, please do not hesitate to come back to the emergency room. It was a pleasure taking care of you while you were here. Total Time Total Time Spent Total Time Spent (In Minutes): > 30 minutes
== END 2023-08-14 17:30 | disposition home health service (06) | DRG 93 ==
LOC: ED 12:22 → EDINP 15:46 → SUATTDRO 15:46 → 2N 08-13 17:14

== ENCOUNTER 2024-01-12 16:13 | Inpatient (IN) ==
[2024-01-12] MEDS: MoRPHine SULFATE 2 MG/ML CARP IV STA (17:10)
[2024-01-12] MEDS: MoRPHine SULFATE 4 MG/ML 1 ML CARP\\VIAL IV STA (17:16)
[2024-01-12 17:26] LABS: Basophils % (auto) 0.9 %; Eosinophils # (auto) 0.41 K/uL (0.00-0.50); Eosinophils % (auto) 3.8 %; Hematocrit (blood only) 42.9 % (42.0-52.0); Hemoglobin 14.5 g/dl (14.0-18.0); Immature Granulocytes # (auto) 0.05 K/uL (0.01-0.20); Immature Granulocytes % (auto) 0.5 %; Lymphocytes # (auto) 2.36 K/uL (1.20-3.40); Lymphocytes % (auto) 21.7 %; Mean Corpuscular Hemoglobin 30.3 pg (25.0-34.0); Mean Corpuscular Hgb Conc 33.8 g/dL (32.0-36.0); Mean Corpuscular Volume 89.6 fL (80.0-100.0); Mean Platelet Volume 10.4 fL (9.4-12.4); Monocytes # (auto) 0.94 K/uL (0.11-0.59); Monocytes % (auto) 8.6 %; Neutrophils # (auto) 7.03 K/uL (1.40-6.50); Neutrophils % (auto) 64.5 %; Platelet Count 245 K/uL (130-400); RDW Coefficient of Variation 13.5 % (11.5-14.5); RDW Standard Deviation 44.1 fL (36.4-46.3); Red Blood Count 4.79 M/uL (4.70-6.10); White Blood Count 10.89 K/ul (4.8-10.8)
[2024-01-12 17:43] LABS: Albumin Globulin Ratio 1.3 (0.9-2); Albumin Level 3.9 gm/dl (3.4-5.0); BUN Creatinine Ratio 13.2 (10-20); Bilirubin,Total 0.6 mg/dl (0.2-1.0); Calcium 8.8 mg/dl (8.6-10.3); Creatinine Clr Calc Pharmacy 63.2 ml/min; Est GFR (African American) 106.8 ml/min; Est GFR (Non-African American) 92.1 ml/min; Globulin 2.9 gm/dl (2.5-4.0); Potassium 4.2 mmol/L (3.5-5.1); Total Protein 6.8 gm/dl (6.0-8.3)
--- NOTE | 2024-01-12 17:44 | XRay Report ---
XR pelvis 1-2V routine, XR femur RT 2V routine, XR knee RT 3V CLINICAL HISTORY: Hip trauma, fracture suspected, no prior imaging COMPARISON STUDY: None. FINDINGS: There is a mildly displaced intertrochanteric fracture within the proximal right femur. No dislocation of the femoral head. No fractures within the pelvis or left hip. Patchy sclerosis within the left femoral head favors avascular necrosis. No evidence for articular collapse. No fracture or d islocation within the right knee. No significant right knee effusion. Vascular calcifications are not ed. IMPRESSION: 1. A mildly displaced right femoral intertrochanteric fracture. 2. No fractures within the pelvis or left hip. 3. 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 4. No fracture or dislocation within the right knee. ACT 112: Negative or not required by law. Electronically signed by: Doc Kent M.D. 01/12/2024 5:43 PM
--- NOTE | 2024-01-12 17:45 | XRay Report ---
XR chest 1V portable HISTORY: fall COMPARISON: Chest 08/12/2023. FINDINGS: No pneumothorax. No pleural effusions. Mild interstitial thickening, unchanged. This is lik manda chronic. No focal lung consolidations to suggest a pneumonia. No evidence for pulmonary edema. Th e cardiac silhouette is normal in size. There is a right humeral neck/head fracture. IMPRESSION: 1. A right humeral neck/head fracture. 2. Otherwise, no acute process within the chest ACT 112: Negative or not required by law. Electronically signed by: Doc Kent M.D. 01/12/2024 5:44 PM
--- NOTE | 2024-01-12 17:46 | XRay Report ---
XR shoulder RT min 2V routine CLINICAL HISTORY: Shoulder trauma, no prior imaging COMPARISON STUDY: None. FINDINGS: There is a slightly distracted fracture within the right humeral neck/head. No dislocation. The right clavicle is intact. Soft tissue swelling within the right shoulder. IMPRESSION: Acute right humeral head/neck fracture. No dislocation. ACT 112: Negative or not required by law. Electronically signed by: Doc Kent M.D. 01/12/2024 5:45 PM
--- NOTE | 2024-01-12 18:12 | CT Scan Report ---
HEAD CT NONCONTRAST CT DOSE: 625.8 mGy.cm HISTORY: fall, [facility] TECHNIQUE: Multiaxial CT images of the head were performed without the use of intravenous contrast. A utomated exposure control was utilized for this study. A dose lowering technique was utilized adheri ng to the principles of ALARA. Comparison: Head CT 08/12/2023. Findings: Small retention cyst within the left maxillary sinus. The mastoid air cells are clear. The calvarium and skull base are intact. There is no mass, hematoma, midline shift, or acute infarct. Sta ble ventricular enlargement. Mild microvascular ischemic changes again noted. Impression: No significant change compared to the prior study. No acute intracranial abnormality. ACT 112: Negative or not required by law. Electronically signed by: Doc Kent M.D. 01/12/2024 6:10 PM
[2024-01-12] MEDS: SODIUM CHLORIDE 0.9% 1,000 ML IV SCH ×2 (19:07→21:59)
[2024-01-12] MEDS: ONDANSETRON INJ 2 MG/ML 2 ML VIAL IV STA (19:12)
[2024-01-12] MEDS: MoRPHine SULFATE 2 MG/ML CARP IV PRN (19:12)
[2024-01-12] MEDS: ACETAMINOPHEN 1,000 MG/100 ML VIAL IV STA (19:12)
[2024-01-12 19:13] LABS: Magnesium 1.6 mg/dl (1.7-2.4); Phosphorus 3.2 mg/dl (2.5-4.9)
--- NOTE | 2024-01-12 19:58 | Orthopedic Consultation ---
Date of Consultation January 12, 2024 Assessment & Plan (1) Alcohol use: (2) Recurrent falls: (3) Intertrochanteric fracture of right hip: Findings discussed. He has a minimally displaced impacted right humeral head/neck fracture without dislocation. Recommend treatment with sling and swath. Will not be able to move the arm for 4 to 6 weeks and not be able to bear weight. Will likely need acute care rehab versus extended care facility. Right hip intertrochanteric fracture. I do not see any evidence of prior surgical intervention so not completely sure what was done there. Avascular necrosis of the left hip on x-ray. Recommend surgical stabilization and realignment of the right hip and he and his agreed to proceed. We talked about risk benefits rehab recovery treatment options. Informed consent was obtained. Mechanical devices for DVT prophylaxis. No chemoprophylaxis preoperatively. N.p.o. after midnight. Plan for a long mahnaz nail on the right side. (4) Closed fracture of right proximal humerus: History of Present Illness History of Present Illness Patient is 78 years old. Was hit on his backside by a door fell and injured right shoulder and hip earlier today. He has a history of multiple falls. He was admitted back in August for falls. He has a remote history of a right hip area surgery as a child. Otherwise no shoulder or hip problems. Allergies Allergy/AdvReac Type Severity Reaction Status Date / Time amlodipine AdvReac Rash Verified 08/12/23 15:08 Home Medications Medication Instructions Recorded Confirmed Type carvedilol 6.25 mg tablet 6.25 mg PO BID 08/12/23 01/12/24 History cyanocobalamin (vitamin B-12) 1,000 mcg PO DAILY 08/12/23 01/12/24 History 1,000 mcg tablet (Vitamin B-12) fluocinonide 0.05 % topical cream 1 applic topical QPM PRN Rash 08/12/23 01/12/24 History multivitamin 1 tab PO DAILY 08/12/23 01/12/24 History Patient History Surgical History No pertinent past surgical history Family History Other Cancer Social History (Updated 08/12/23 @ 17:03 by LINUS De La Cruz Smoking Status: Former smoker Tobacco Type: Cigarettes Cigarettes Per Day: 1 ppd; Second Hand Exposure: Yes; Hx Alcohol Use: Yes Alcohol type: beer Preferred Language: American Communication Ability: Impaired Communication Ability Comment: Pt. unable to verbalize due to condition upon arrival Internet Designer Required: No Beliefs That Will Affect Care: None marital status: Current Living Situation: Spouse Feels Safe at Home: Yes Assistive Devices: Cane, Stair Lift and Walker Review of Systems Review of Systems: He has some sort of fluid in his brain that the described. He has had this drained. Sounds like this in part is responsible for his difficulty with speech. Has a history of alcoholism and tobacco abuse. Reports he drinks 2 beers daily due to difficulty swallowing. He denies diabetes. He has he has treated high blood pressure. No heart attacks or strokes. No bleeding diathesis blood clots embolisms staph MRSA infection allergy to antibiotics metal or nickel. Physical Exam Physical Exam: Awake and alert. Expressive aphasia but responds appropriately. Difficult to understand. Complains of pain at right shoulder and right hip. Left arm and left leg move without difficulty. Abrasion right knee. DP and PT pulses 1+ with 5 to 5- out of 5 strength ankle and toe plantarflexion dorsiflexion inversion and eversion. Right hip tender to palpation. There is a anterolateral scar which goes over the anterolateral upper thigh up onto the iliac crest. Nothing over the lateral hip. The right hip is tender. Shortened externally rotated painful with any movement. The remainder of the right lower extremity is nontender to palpation. The right shoulder is bruised and swollen. Sensation is intact throughout the arm but he cannot move the right shoulder at all. He can flex and extend the elbow against resistance. Median radial and ulnar musculocutaneous motor and sensory functions are intact skin is closed shoulder tender the remainder of the arm clavicle scapula nontender. Arm is not swollen radial pulses 1+. Results & Data Vital Signs (Past 12 Hours) Vital Signs Temp Pulse Resp BP Pulse Ox O2 Del Method 01/12/24 16:31 79 01/12/24 16:21 36.7 C 76 19 194/70 H 93 Room Air Laboratory Results Laboratory Results WBC 10.89 K/ul (4.8-10.8) H 01/12/24 16:30 RBC 4.79 M/uL (4.70-6.10) 01/12/24 16:30 Hgb 14.5 g/dl (14.0-18.0) 01/12/24 16:30 Hct 42.9 % (42.0-52.0) 01/12/24 16:30 MCV 89.6 fL (80.0-100.0) 01/12/24 16:30 MCH 30.3 pg (25.0-34.0) 01/12/24 16:30 MCHC 33.8 g/dL (32.0-36.0) 01/12/24 16:30 RDW Std Deviation 44.1 fL (36.4-46.3) 01/12/24 16:30 RDW Coeff of Marjan 13.5 % (11.5-14.5) 01/12/24 16:30 Plt Count 245 K/uL (130-400) 01/12/24 16:30 MPV 10.4 fL (9.4-12.4) 01/12/24 16:30 Immature Gran % (Auto) 0.5 % 01/12/24 16:30 Neut % (Auto) 64.5 % 01/12/24 16:30 Lymph % (Auto) 21.7 % 01/12/24 16:30 Winston % (Auto) 8.6 % 01/12/24 16:30 Eos % (Auto) 3.8 % 01/12/24 16:30 Baso % (Auto) 0.9 % 01/12/24 16:30 Neut # (Auto) 7.03 K/uL (1.40-6.50) H 01/12/24 16:30 Lymph # (Auto) 2.36 K/uL (1.20-3.40) 01/12/24 16:30 Winston # (Auto) 0.94 K/uL (0.11-0.59) H 01/12/24 16:30 Eos # (Auto) 0.41 K/uL (0.00-0.50) 01/12/24 16:30 Baso # (Auto) 0.10 K/uL (0.00-0.20) 01/12/24 16:30 Immature Gran # (Auto) 0.05 K/uL (0.01-0.20) 01/12/24 16:30 Sodium 133 mmol/L (136-145) L 01/12/24 16:30 Potassium 4.2 mmol/L (3.5-5.1) 01/12/24 16:30 Chloride 101 mmol/L (98-107) 01/12/24 16:30 Carbon Dioxide 25 mmol/L (21-32) 01/12/24 16:30 Anion Gap 7 (3-11) 01/12/24 16:30 BUN 9 mg/dl (6-23) 01/12/24 16:30 Creatinine 0.68 mg/dl (0.6-1.4) 01/12/24 16:30 Est Cr Clr Drug Dosing 63.2 ml/min 01/12/24 16:30 Est GFR ( Amer) 106.8 ml/min 01/12/24 16:30 Est GFR (Non-Af Amer) 92.1 ml/min 01/12/24 16:30 BUN/Creatinine Ratio 13.2 (10-20) 01/12/24 16:30 Glucose 117 mg/dl (70-99(Fasting)) H 01/12/24 16:30 Calcium 8.8 mg/dl (8.6-10.3) 01/12/24 16:30 Phosphorus 3.2 mg/dl (2.5-4.9) 01/12/24 16:30 Magnesium 1.6 mg/dl (1.7-2.4) L 01/12/24 16:30 Total Bilirubin 0.6 mg/dl (0.2-1.0) 01/12/24 16:30 AST 15 U/L (13-39) 01/12/24 16:30 ALT 11 U/L (7-52) 01/12/24 16:30 Alkaline Phosphatase 68 U/L (34-104) 01/12/24 16:30 Total Protein 6.8 gm/dl (6.0-8.3) 01/12/24 16:30 Albumin 3.9 gm/dl (3.4-5.0) 01/12/24 16:30 Globulin 2.9 gm/dl (2.5-4.0) 01/12/24 16:30 Albumin/Globulin Ratio 1.3 (0.9-2) 01/12/24 16:30 Ethyl Alcohol mg/dL 70.3 mg/dl (<10.0) H 01/12/24 17:44 Impressions Femur X-Ray 01/12/24 16:58 XR pelvis 1-2V routine, XR femur RT 2V routine, XR knee RT 3V CLINICAL HISTORY: Hip trauma, fracture suspected, no prior imaging COMPARISON STUDY: None. FINDINGS: There is a mildly displaced intertrochanteric fracture within the proximal right femur. No dislocation of the femoral head. No fractures within the pelvis or left hip. Patchy sclerosis within the left femoral head favors avascular necrosis. No evidence for articular collapse. No fracture or dislocation within the right knee. No significant right knee effusion. Vascular calcifications are noted. IMPRESSION: 1. A mildly displaced right femoral intertrochanteric fracture. 2. No fractures within the pelvis or left hip. 3. 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 4. No fracture or dislocation within the right knee. ACT 112: Negative or not required by law. Electronically signed by: Doc Kent M.D. 01/12/2024 5:43 PM Knee X-Ray 01/12/24 16:58 XR pelvis 1-2V routine, XR femur RT 2V routine, XR knee RT 3V CLINICAL HISTORY: Hip trauma, fracture suspected, no prior imaging COMPARISON STUDY: None. FINDINGS: There is a mildly displaced intertrochanteric fracture within the proximal right femur. No dislocation of the femoral head. No fractures within the pelvis or left hip. Patchy sclerosis within the left femoral head favors avascular necrosis. No evidence for articular collapse. No fracture or dislocation within the right knee. No significant right knee effusion. Vascular calcifications are noted. IMPRESSION: 1. A mildly displaced right femoral intertrochanteric fracture. 2. No fractures within the pelvis or left hip. 3. 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 4. No fracture or dislocation within the right knee. ACT 112: Negative or not required by law. Electronically signed by: Doc Kent M.D. 01/12/2024 5:43 PM Pelvis X-Ray 01/12/24 16:58 XR pelvis 1-2V routine, XR femur RT 2V routine, XR knee RT 3V CLINICAL HISTORY: Hip trauma, fracture suspected, no prior imaging COMPARISON STUDY: None. FINDINGS: There is a mildly displaced intertrochanteric fracture within the proximal right femur. No dislocation of the femoral head. No fractures within the pelvis or left hip. Patchy sclerosis within the left femoral head favors avascular necrosis. No evidence for articular collapse. No fracture or dislocation within the right knee. No significant right knee effusion. Vascular calcifications are noted. IMPRESSION: 1. A mildly displaced right femoral intertrochanteric fracture. 2. No fractures within the pelvis or left hip. 3. 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 4. No fracture or dislocation within the right knee. ACT 112: Negative or not required by law. Electronically signed by: Doc Kent M.D. 01/12/2024 5:43 PM Shoulder X-Ray 01/12/24 16:58 XR shoulder RT min 2V routine CLINICAL HISTORY: Shoulder trauma, no prior imaging COMPARISON STUDY: None. FINDINGS: There is a slightly distracted fracture within the right humeral neck/head. No dislocation. The right clavicle is intact. Soft tissue swelling within the right shoulder. IMPRESSION: Acute right humeral head/neck fracture. No dislocation. ACT 112: Negative or not required by law. Electronically signed by: Doc Kent M.D. 01/12/2024 5:[address] 01/12/24 17:[address] DOSE: 625.8 mGy.cm HISTORY: fall, [facility] TECHNIQUE: Multiaxial CT images of the head were performed without the use of intravenous contrast. Automated exposure control was utilized for this study. A dose lowering technique was utilized adhering to the principles of ALARA. Comparison: Head CT 08/12/2023. Findings: Small retention cyst within the left maxillary sinus. The mastoid air cells are clear. The calvarium and skull base are intact. There is no mass, hematoma, midline shift, or acute infarct. Stable ventricular enlargement. Mild microvascular ischemic changes again noted. Impression: No significant change compared to the prior study. No acute intracranial abnormality. ACT 112: Negative or not required by law. Electronically signed by: Doc Kent M.D. 01/12/2024 6:10 PM Chest X-Ray 01/12/24 17:32 XR chest 1V portable HISTORY: fall COMPARISON: Chest 08/12/2023. FINDINGS: No pneumothorax. No pleural effusions. Mild interstitial thickening, unchanged. This is likely chronic. No focal lung consolidations to suggest a pneumonia. No evidence for pulmonary edema. The cardiac silhouette is normal in size. There is a right humeral neck/head fracture. IMPRESSION: 1. A right humeral neck/head fracture. 2. Otherwise, no acute process within the chest ACT 112: Negative or not required by law. Electronically signed by: Doc Kent M.D. 01/12/2024 5:44 PM
--- NOTE | 2024-01-12 20:35 | History & Physical Report ---
Date of Service January 12, 2024 Assessment & Plan (1) Intertrochanteric fracture of right hip: Plan: 78-year-old male with past med history significant for hypertension, alcohol use, tobacco use, ongoing dysarthria, dysphagia, imbalance and urinary incontinence with possible NPH diagnosis, recently had lumbar puncture which did not help much of his symptoms and neurosurgery offered [employer] shunt placement but patient currently declined as lumbar puncture didn't helped and had hx of falls comes today because of fall and imaging studies showing right humerus and right femur fracture. Patient has some dysarthria and somewhat difficulty to understand. is also very hard of hearing and somewhat difficult to get history. Patient states he was getting out of his building and door hit him and he lost his balance and fell down. And the ambulance came in and and he could not put weight on his right leg and was brought in here. Denies any dizziness or chest pain prior to fall. Did not hit his head. No loss of consciousness as per patient. He has some runny nose and some congestion and cough. He denies any fevers. He is on soft diet as per his . He some difficulty swallowing. Ambulates with a cane. States vision is okay. No earache. Has some runny nose. And some sore throat. Denies fevers. No chest pain. No shortness of breath. No nausea. No abdominal pain. States currently his bowels and bladder moving okay. States he is drinks 5 beers daily but his states he drinks 2 beers daily. His alcohol was 70 in ER. Patient was in the hospital in August for recurrent falls and ambulatory dysfunction. Seen by speech at that time and that time he was on soft bite-size diet. Recommend to alternate solids and liquids and oral hygiene And to follow as outpatient. fall history of falls intertrochanteric fracture of right hip right humerus fracture plan for surgery for fracture labs okay, chest x-ray okay EKG ok ambulatory dysfunction patient should be at acceptable risk to proceed with the surgery n.p.o., IV fluids, IV pain meds as needed Ortho on board hypertension on Coreg will monitor alcoholism alcohol withdrawal protocol gabapentin and Ativan as needed banana bag IV thiamine IV folic acid close monitor tobacco abuse needs counseling possible NPH as some dysarthria, dysphagia, renal incontinence and ambulate dysfunction PT OT when stable follow-up with PCP and neurology hypomagnesia replaced follow labs Hypocalcemia will check vitamin D levels calcium and vit d supplements added. DVT prophylaxis SCDs if possible further anticoagulation as per orthopedics after procedure disposition med/telemetry Full code Addendum: Patient was desaturating and requiring oxygen. CTA chest showing possible aspiration pneumonitis. Starting on zosyn. Pulmonary consult. Speech consult in am. History of Present Illness Chief Complaint: Fall and right humerus and right femur fracture. Alcoholism Primary Care Provider: Guero Sandoval MD 78-year-old male with past med history significant for hypertension, alcohol use, tobacco use, ongoing dysarthria, dysphagia, imbalance and urinary incontinence with possible NPH diagnosis, recently had lumbar puncture which did not help much of his symptoms and neurosurgery offered SURFACE [employer]ER shunt placement but patient currently declined as lumbar puncture didn't helped and had hx of falls comes today because of fall and imaging studies showing right humerus and right femur fracture. Patient has some dysarthria and somewhat difficulty to understand. is also very hard of hearing and somewhat difficult to get history. Patient states he was getting out of his building and door hit him and he lost his balance and fell down. And the ambulance came in and and he could not put weight on his right leg and was brought in here. Denies any dizziness or chest pain prior to fall. Did not hit his head. No loss of consciousness as per patient. He has some runny nose and some congestion and cough. He denies any fevers. He is on soft diet as per his . He some difficulty swallowing. Ambulates with a cane. States vision is okay. No earache. Has some runny nose. And some sore throat. Denies fevers. No chest pain. No shortness of breath. No nausea. No abdominal pain. States currently his bowels and bladder moving okay. States he is drinks 5 beers daily but his states he drinks 2 beers daily. His alcohol was 70 in ER. Patient was in the hospital in August for recurrent falls and ambulatory dysfunction. Seen by speech at that time and that time he was on soft bite-size diet. Recommend to alternate solids and liquids and oral hygiene And to follow as outpatient. past medical history. As mentioned above Past surgical history. No surgical history on file. Family history. Cancer in the family social history. Smokes 1 pack cigarettes daily. Drinks 5 beers daily. . Allergies Allergy/AdvReac Type Severity Reaction Status Date / Time amlodipine AdvReac Rash Verified 08/12/23 15:08 Home Medications Medication Instructions Recorded Confirmed Type carvedilol 6.25 mg tablet 6.25 mg PO BID 08/12/23 01/12/24 History cyanocobalamin (vitamin B-12) 1,000 mcg PO DAILY 08/12/23 01/12/24 History 1,000 mcg tablet (Vitamin B-12) fluocinonide 0.05 % topical cream 1 applic topical QPM PRN Rash 08/12/23 01/12/24 History multivitamin 1 tab PO DAILY 08/12/23 01/12/24 History Past Med/Surg History Problem List (Updated 01/12/24 @ 19:56 by Edgar Lawson MD) Closed fracture of right proximal humerus Intertrochanteric fracture of right hip Alcohol use Skin tear of hand without complication Hypomagnesemia Dysarthria Gait disturbance Tobacco use HTN (hypertension) Generalized weakness (Acute) Laceration of hand, left (Acute) Recurrent falls (Acute) Ambulatory dysfunction (Acute) Weakness of left hand (Acute) Weakness on left side of face (Acute) Alcohol withdrawal Hyponatremia (Acute) Alcoholic intoxication (Acute) Falling (Acute) Unsteady (Acute) Surgical History No pertinent past surgical history Family History Other Cancer Social History (Updated 08/12/23 @ 17:03 by Essie Martinez PA-C) Smoking Status: Current every day smoker Tobacco Type: Cigarettes Cigarettes Per Day: 1 ppd; Second Hand Exposure: Yes; Hx Alcohol Use: Yes Alcohol type: beer Preferred Language: Hungarian Communication Ability: Impaired Communication Ability Comment: Pt. unable to verbalize due to condition upon arrival [employer] Required: No Beliefs That Will Affect Care: None marital status: Current Living Situation: Spouse Other Information That Helps Us Care for You: No Feels Safe at Home: Yes Safety Concerns: Feels Safe At This Time Assistive Devices: Glasses Review of Systems Review of Systems: All systems reviewed & are unremarkable except as noted in HPI & below Physical Exam Physical Exam: General- Not in acute distress Head- atraumatic Eyes- PERRL. ENT- oropharynx clear Neck- supple, no JVD. Lungs- clear to auscultation no wheezing or crackles. Heart- regular rhythm; no murmur, no gallop. Abdomen- normal bowel sounds, soft, nontender, no distension. Extremities- no pretibial edema, no erythema seen. bruise seen on right shoulder region. Right lower extremity is shortened and externally rotated. Neuro- alert, oriented ; PERRL, no facial palsy; dysarthria present; obeys simple commands Results & Data Results & Data Vital Signs (Past 12 Hours) Vital Signs Temp Pulse Resp BP Pulse Ox O2 Del Method 01/12/24 16:31 79 01/12/24 16:21 36.7 C 76 19 194/70 H 93 Room Air Diagnostic Findings Laboratory Results WBC 10.89 K/ul (4.8-10.8) H 01/12/24 16:30 RBC 4.79 M/uL (4.70-6.10) 01/12/24 16:30 Hgb 14.5 g/dl (14.0-18.0) 01/12/24 16:30 Hct 42.9 % (42.0-52.0) 01/12/24 16:30 MCV 89.6 fL (80.0-100.0) 01/12/24 16:30 MCH 30.3 pg (25.0-34.0) 01/12/24 16:30 MCHC 33.8 g/dL (32.0-36.0) 01/12/24 16:30 RDW Std Deviation 44.1 fL (36.4-46.3) 01/12/24 16:30 RDW Coeff of Marjan 13.5 % (11.5-14.5) 01/12/24 16:30 Plt Count 245 K/uL (130-400) 01/12/24 16:30 MPV 10.4 fL (9.4-12.4) 01/12/24 16:30 Immature Gran % (Auto) 0.5 % 01/12/24 16:30 Neut % (Auto) 64.5 % 01/12/24 16:30 Lymph % (Auto) 21.7 % 01/12/24 16:30 [place] % (Auto) 8.6 % 01/12/24 16:30 Eos % (Auto) 3.8 % 01/12/24 16:30 Baso % (Auto) 0.9 % 01/12/24 16:30 Neut # (Auto) 7.03 K/uL (1.40-6.50) H 01/12/24 16:30 Lymph # (Auto) 2.36 K/uL (1.20-3.40) 01/12/24 16:30 Madison # (Auto) 0.94 K/uL (0.11-0.59) H 01/12/24 16:30 Eos # (Auto) 0.41 K/uL (0.00-0.50) 01/12/24 16:30 Baso # (Auto) 0.10 K/uL (0.00-0.20) 01/12/24 16:30 Immature Gran # (Auto) 0.05 K/uL (0.01-0.20) 01/12/24 16:30 Sodium 133 mmol/L (136-145) L 01/12/24 16:30 Potassium 4.2 mmol/L (3.5-5.1) 01/12/24 16:30 Chloride 101 mmol/L (98-107) 01/12/24 16:30 Carbon Dioxide 25 mmol/L (21-32) 01/12/24 16:30 Anion Gap 7 (3-11) 01/12/24 16:30 BUN 9 mg/dl (6-23) 01/12/24 16:30 Creatinine 0.68 mg/dl (0.6-1.4) 01/12/24 16:30 Est Cr Clr Drug Dosing 63.2 ml/min 01/12/24 16:30 Est GFR ( Amer) 106.8 ml/min 01/12/24 16:30 Est GFR (Non-Af Amer) 92.1 ml/min 01/12/24 16:30 BUN/Creatinine Ratio 13.2 (10-20) 01/12/24 16:30 Glucose 117 mg/dl (70-99(Fasting)) H 01/12/24 16:30 Calcium 8.8 mg/dl (8.6-10.3) 01/12/24 16:30 Phosphorus 3.2 mg/dl (2.5-4.9) 01/12/24 16:30 Magnesium 1.6 mg/dl (1.7-2.4) L 01/12/24 16:30 Total Bilirubin 0.6 mg/dl (0.2-1.0) 01/12/24 16:30 AST 15 U/L (13-39) 01/12/24 16:30 ALT 11 U/L (7-52) 01/12/24 16:30 Alkaline Phosphatase 68 U/L (34-104) 01/12/24 16:30 Total Protein 6.8 gm/dl (6.0-8.3) 01/12/24 16:30 Albumin 3.9 gm/dl (3.4-5.0) 01/12/24 16:30 Globulin 2.9 gm/dl (2.5-4.0) 01/12/24 16:30 Albumin/Globulin Ratio 1.3 (0.9-2) 01/12/24 16:30 Ethyl Alcohol mg/dL 70.3 mg/dl (<10.0) H 01/12/24 17:44 Impressions Femur X-Ray 01/12/24 16:58 XR pelvis 1-2V routine, XR femur RT 2V routine, XR knee RT 3V CLINICAL HISTORY: Hip trauma, fracture suspected, no prior imaging COMPARISON STUDY: None. FINDINGS: There is a mildly displaced intertrochanteric fracture within the proximal right femur. No dislocation of the femoral head. No fractures within the pelvis or left hip. Patchy sclerosis within the left femoral head favors avascular necrosis. No evidence for articular collapse. No fracture or dislocation within the right knee. No significant right knee effusion. Vascular calcifications are noted. IMPRESSION: 1. A mildly displaced right femoral intertrochanteric fracture. 2. No fractures within the pelvis or left hip. 3. 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 4. No fracture or dislocation within the right knee. ACT 112: Negative or not required by law. Electronically signed by: Doc Kent M.D. 01/12/2024 5:43 PM Knee X-Ray 01/12/24 16:58 XR pelvis 1-2V routine, XR femur RT 2V routine, XR knee RT 3V CLINICAL HISTORY: Hip trauma, fracture suspected, no prior imaging COMPARISON STUDY: None. FINDINGS: There is a mildly displaced intertrochanteric fracture within the proximal right femur. No dislocation of the femoral head. No fractures within the pelvis or left hip. Patchy sclerosis within the left femoral head favors avascular necrosis. No evidence for articular collapse. No fracture or dislocation within the right knee. No significant right knee effusion. Vascular calcifications are noted. IMPRESSION: 1. A mildly displaced right femoral intertrochanteric fracture. 2. No fractures within the pelvis or left hip. 3. 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 4. No fracture or dislocation within the right knee. ACT 112: Negative or not required by law. Electronically signed by: Doc Kent M.D. 01/12/2024 5:43 PM Pelvis X-Ray 01/12/24 16:58 XR pelvis 1-2V routine, XR femur RT 2V routine, XR knee RT 3V CLINICAL HISTORY: Hip trauma, fracture suspected, no prior imaging COMPARISON STUDY: None. FINDINGS: There is a mildly displaced intertrochanteric fracture within the proximal right femur. No dislocation of the femoral head. No fractures within the pelvis or left hip. Patchy sclerosis within the left femoral head favors avascular necrosis. No evidence for articular collapse. No fracture or dislocation within the right knee. No significant right knee effusion. Vascular calcifications are noted. IMPRESSION: 1. A mildly displaced right femoral intertrochanteric fracture. 2. No fractures within the pelvis or left hip. 3. 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 4. No fracture or dislocation within the right knee. ACT 112: Negative or not required by law. Electronically signed by: Doc Kent M.D. 01/12/2024 5:43 PM Shoulder X-Ray 01/12/24 16:58 XR shoulder RT min 2V routine CLINICAL HISTORY: Shoulder trauma, no prior imaging COMPARISON STUDY: None. FINDINGS: There is a slightly distracted fracture within the right humeral neck/head. No dislocation. The right clavicle is intact. Soft tissue swelling within the right shoulder. IMPRESSION: Acute right humeral head/neck fracture. No dislocation. ACT 112: Negative or not required by law. Electronically signed by: Doc Kent M.D. 01/12/2024 5:[address] 01/12/24 17:[address] DOSE: 625.8 mGy.cm HISTORY: fall, [facility] TECHNIQUE: Multiaxial CT images of the head were performed without the use of intravenous contrast. Automated exposure control was utilized for this study. A dose lowering technique was utilized adhering to the principles of ALARA. Comparison: Head CT 08/12/2023. Findings: Small retention cyst within the left maxillary sinus. The mastoid air cells are clear. The calvarium and skull base are intact. There is no mass, hematoma, midline shift, or acute infarct. Stable ventricular enlargement. Mild microvascular ischemic changes again noted. Impression: No significant change compared to the prior study. No acute intracranial abnormality. ACT 112: Negative or not required by law. Electronically signed by: Doc Kent M.D. 01/12/2024 6:10 PM Chest X-Ray 01/12/24 17:32 XR chest 1V portable HISTORY: fall COMPARISON: Chest 08/12/2023. FINDINGS: No pneumothorax. No pleural effusions. Mild interstitial thickening, unchanged. This is likely chronic. No focal lung consolidations to suggest a pneumonia. No evidence for pulmonary edema. The cardiac silhouette is normal in size. There is a right humeral neck/head fracture. IMPRESSION: 1. A right humeral neck/head fracture. 2. Otherwise, no acute process within the chest ACT 112: Negative or not required by law. Electronically signed by: Doc Kent M.D. 01/12/2024 5:44 PM ECG Additional Comments: EKG. NSR with rate 0f 74. Non specific t wave abnormality. No significant change found. Code Status & VTE Plan VTE Prophylaxis Plan VTE Prophylaxis will be ordered: Yes
[2024-01-12 21:00] LABS: INR 1.1 (0.9-1.1); Prothrombin Time 11.4 Seconds (9.0-12.0)
[2024-01-12] MEDS ORDERED: GABAPENTIN 800MG ALCOHOL WITHDRAWAL LOAD PO STA (21:05)
[2024-01-12] MEDS ORDERED: LORazepam 3 MG in SYRINGE 1.5 ML IV PRN (21:05)
[2024-01-12] MEDS ORDERED: POLYETHYLENE (MIRALAX) 17 GM PACK PO PRN (21:05)
[2024-01-12] MEDS ORDERED: NITROGLYCERIN SL 0.4 MG/TAB TAB SL PRN (21:05)
[2024-01-12] MEDS ORDERED: Ativan IV Alcohol Withdrawal--Active Protocol IV PRN (21:05)
[2024-01-12] MEDS ORDERED: BETAMETHASONE DIP AUG (DIPROLENE) 0.05% CR 15 GM TUBE EXT PRN (21:19)
[2024-01-12] MEDS: HYDROmorphone INJ 0.5 MG/0.5 ML SYR IV PRN (21:24)
[2024-01-12] MEDS: carvediloL 6.25 MG TAB PO SCH (21:48)
[2024-01-12] MEDS: MAGNESIUM SULFATE / D5W 1 GM/100 ML BAG IV SCH (21:50)
[2024-01-12] MEDS: GABAPENTIN 400 MG CAP PO ONE (21:50)
[2024-01-12] MEDS: MULTI-VITAMIN INFUSION 10 ML, THIAMINE HCL 100 MG, FOLIC ACID 1 MG in SODIUM CHLORIDE 0... IV ONE (21:50)
--- NOTE | 2024-01-13 00:26 | Emergency Department Note ---
Impression & Plan Closed fracture of right hip, Closed fracture of head of right humerus ED Provider Note CHIEF COMPLAINT: Fall, right shoulder pain HISTORY OF PRESENT ILLNESS: This 78-year-old male patient with past medical history of alcohol dependency, hyponatremia recurrent falls, hypertension, dysarthria patient presents to the emergency department after a fall. Patient's states he was walking towards his truck, lost his balance and fell to the ground. The ambulance was called and attempted to take the patient back into the house however he was not able to bear weight on his right leg. Patient denied hitting his head. Patient denies any blood thinners. REVIEW OF SYSTEMS: A review of systems was performed with positives and pertinent negatives listed in the history of present illness. 10 systems were reviewed and are otherwise negative. ALLERGIES: see below MEDICATIONS: see below PMH: see below SOCIAL HISTORY: see below DDx: Hip fracture, dislocation, contusion, right shoulder dislocation, fracture, intracranial hemorrhage, alcohol intoxication among others. PHYSICAL EXAM: Vital signs reviewed. General: Chronically ill-appearing 78-year-old male, in no significant distress. Thin and frail. HEENT: No scleral icterus, PERRLA, neck supple. Atraumatic. Cardiovascular: Regular rate and rhythm, no extra sounds. Pulmonary: Clear to auscultation bilaterally, normal work of breathing. Abdomen: Soft, nontender, nondistended, positive bowel sounds. Musculoskeletal: Atraumatic, no peripheral edema. Nontender to palpation over the cervical, thoracic and lumbar spines. There is ecchymosis and swelling noted to the right shoulder, pain to palpation and any movement. Patient is unable to range the right hip actively, there is limited flexion with passive range. Neurologic: Patient awake alert and answers most questions appropriately, does seem to be slightly confused. Dysarthria affects exam. Skin: Warm, dry, no rash EMERGENCY DEPARTMENT COURSE/MDM: This patient was evaluated and appeared to be in some discomfort. IV access was obtained and laboratory work was drawn. The patient was medicated with IV morphine and Zofran for his discomfort. X-rays were performed and reveal evidence of an intertrochanteric fracture of the right femur. Humeral head fracture is noted. Head CT was performed and reveals no evidence of acute intracranial hemorrhage. Laboratory work reveals a blood alcohol of 70, sodium is 133. Patient did receive IV hydration and additional pain medication. I discussed the case with orthopedics, Dr. Lawson, who has agreed to evaluate the patient in consultation. The hospitalist service has been consulted for admission. Patient and were informed of the findings and plan and agreed. MONITORING: An order for cardiac monitoring was placed and the patient is noted to be in a normal sinus rhythm at 80 beats per minute. RADIOLOGY: Chest x-ray to my interpretation reveals no evidence of focal lung consolidation or failure. Head CT to my interpretation reveals no evidence of acute intracranial hemorrhage. Please refer to radiology's over read. Right knee x-ray to my interpretation reveals no evidence of acute fracture. Defer to radiology. Pelvis x-ray to my interpretation reveals no evidence of acute fracture. Defer to radiology. Right femur x-ray per radiology reveals evidence of a right intertrochanteric fracture. Defer to radiology otherwise. Right shoulder x-ray to my interpretation reveals a right humeral head fracture. Defer to radiology. DISPOSITION: Admission Past Med/Surg History Problem List (Updated 01/16/24 @ 07:20 by Virginia Elmore MD) Closed fracture of head of right humerus (Acute) Closed fracture of right hip (Acute) Vitamin D deficiency Current smoker Acute respiratory failure with hypoxia Abnormal chest CT COPD with emphysema Skin tear of hand without complication Hypomagnesemia Gait disturbance Generalized weakness (Acute) Laceration of hand, left (Acute) Recurrent falls (Acute) Ambulatory dysfunction (Acute) Alcohol withdrawal Hyponatremia (Acute) Alcoholic intoxication (Acute) Falling (Acute) Unsteady (Acute) Medical History (Updated 01/16/24 @ 07:20 by Virginia Elmore MD) Closed fracture of right proximal humerus Intertrochanteric fracture of right hip Alcohol use Dysarthria Tobacco use HTN (hypertension) Weakness of left hand Weakness on left side of face Surgical History No pertinent past surgical history Family History Other Cancer Social History (Updated 08/12/23 @ 17:03 by Essie Martinez PA-C) Smoking Status: Current every day smoker Tobacco Type: Cigarettes Cigarettes Per Day: 1 ppd; Second Hand Exposure: Yes; Hx Alcohol Use: Yes Alcohol type: beer Preferred Language: Haitian Communication Ability: Impaired Communication Ability Comment: Pt. unable to verbalize due to condition upon arrival Insurance Compliance Analyst Required: No Beliefs That Will Affect Care: None marital status: Current Living Situation: Spouse Feels Safe at Home: Yes Assistive Devices: Cane, Stair Lift and Walker Allergies Allergies Allergy/AdvReac Type Severity Reaction Status Date / Time amlodipine AdvReac Rash Verified 08/12/23 15:08 Home Meds Home Medications Medication Instructions Recorded Confirmed carvedilol 6.25 mg tablet 6.25 mg PO BID 08/12/23 01/12/24 cyanocobalamin (vitamin B-12) 1,000 mcg PO DAILY 08/12/23 01/12/24 1,000 mcg tablet (Vitamin B-12) fluocinonide 0.05 % topical cream 1 applic topical QPM PRN Rash 08/12/23 01/12/24 multivitamin 1 tab PO DAILY 08/12/23 01/12/24 Results & Data (ED) Vital Signs Vital Signs - 24 hr 01/12/24 16:21 01/12/24 16:31 01/12/24 20:00 Temperature 36.7 C Temperature Source Oral Pulse Rate 76 79 74 Respiratory Rate 19 Blood Pressure 194/70 H Blood Pressure Mean 111 Pulse Oximetry 93 Oxygen Delivery Method Room Air Sepsis Recent Fever Within 48 Hours No Sepsis New/Unexplained Change in Mental Status No Sepsis Action Taken by Nursing No Action Required Home Medications Current Medication List: was personally reviewed by me Laboratory Data Attestation: I reviewed the patient's lab results. 01/15/24 03:15 01/15/24 03:15 Lab Results 01/12/24 01/12/24 Range/Units 16:30 17:44 WBC 10.89 H (4.8-10.8) K/ul RBC 4.79 (4.70-6.10) M/uL Hgb 14.5 (14.0-18.0) g/dl Hct 42.9 (42.0-52.0) % MCV 89.6 (80.0-100.0) fL MCH 30.3 (25.0-34.0) pg MCHC 33.8 (32.0-36.0) g/dL RDW Std Deviation 44.1 (36.4-46.3) fL RDW Coeff of Marjan 13.5 (11.5-14.5) % Plt Count 245 (130-400) K/uL MPV 10.4 (9.4-12.4) fL Immature Gran % (Auto) 0.5 % Neut % (Auto) 64.5 % Lymph % (Auto) 21.7 % [place] % (Auto) 8.6 % Eos % (Auto) 3.8 % Baso % (Auto) 0.9 % Neut # (Auto) 7.03 H (1.40-6.50) K/uL Lymph # (Auto) 2.36 (1.20-3.40) K/uL [place] # (Auto) 0.94 H (0.11-0.59) K/uL Eos # (Auto) 0.41 (0.00-0.50) K/uL Baso # (Auto) 0.10 (0.00-0.20) K/uL Immature Gran # (Auto) 0.05 (0.01-0.20) K/uL Sodium 133 L (136-145) mmol/L Potassium 4.2 (3.5-5.1) mmol/L Chloride 101 (98-107) mmol/L Carbon Dioxide 25 (21-32) mmol/L Anion Gap 7 (3-11) BUN 9 (6-23) mg/dl Creatinine 0.68 (0.6-1.4) mg/dl Est Cr Clr Drug Dosing 63.2 ml/min Est GFR ( Amer) 106.8 ml/min Est GFR (Non-Af Amer) 92.1 ml/min BUN/Creatinine Ratio 13.2 (10-20) Glucose 117 H (70-99(Fasting)) mg/dl Calcium 8.8 (8.6-10.3) mg/dl Phosphorus 3.2 (2.5-4.9) mg/dl Magnesium 1.6 L (1.7-2.4) mg/dl Total Bilirubin 0.6 (0.2-1.0) mg/dl AST 15 (13-39) U/L ALT 11 (7-52) U/L Alkaline Phosphatase 68 (34-104) U/L Total Protein 6.8 (6.0-8.3) gm/dl Albumin 3.9 (3.4-5.0) gm/dl Globulin 2.9 (2.5-4.0) gm/dl Albumin/Globulin Ratio 1.3 (0.9-2) Ethyl Alcohol mg/dL 70.3 H (<10.0) mg/dl Administered Medications Apixaban (Apixaban 2.5 Mg Tab) 2.5 mg PO BID NORTH Stop: 02/13/24 09:59 Last Admin: 01/15/24 21:20 Dose: Not Given Documented By: [facility] Admin: 01/15/24 08:26 Dose: 2.5 mg Documented By: Admin: 01/14/24 21:09 Dose: 2.5 mg Documented By: [facility] Admin: 01/14/24 09:59 Dose: 2.5 mg Documented By: MORALES Budesonide (Budesonide 0.25 Mg/2 Ml Vial (Pulmicort)) 0.25 mg NEB BIDR NORTH Stop: 02/12/24 18:59 Last Admin: 01/15/24 19:32 Dose: 0.25 mg Documented By: Admin: 01/15/24 07:28 Dose: 0.25 mg Documented By: Admin: 01/14/24 20:02 Dose: 0.25 mg Documented By: Admin: 01/14/24 07:15 Dose: Not Given Documented By: Admin: 01/13/24 19:59 Dose: 0.25 mg Documented By: NIKKI Calcium/Vitamin D (Calcium 600mg + Vit D 400 Iu Tab) 1 tab PO BID [facility] Stop: 02/12/24 08:59 Last Admin: 01/15/24 19:46 Dose: Not Given Documented By: [facility] Admin: 01/15/24 08:29 Dose: Not Given Documented By: Admin: 01/14/24 21:09 Dose: 1 tab Documented By: [facility] Admin: 01/14/24 09:58 Dose: 1 tab Documented By: Admin: 01/13/24 22:15 Dose: 1 tab Documented By: Admin: 01/13/24 16:40 Dose: Not Given Documented By: MORALES Carvedilol (Carvedilol 6.25 Mg Tab) 6.25 mg PO BID [facility] Stop: 02/11/24 21:04 Last Admin: 01/14/24 08:08 Dose: Not Given Documented By: Admin: 01/13/24 22:15 Dose: 6.25 mg Documented By: Admin: 01/13/24 16:40 Dose: Not Given Documented By: Admin: 01/12/24 21:48 Dose: 6.25 mg Documented By: RADHA Cyanocobalamin (Cyanocobalamin (B-12) 500 Mcg Tablet) 1,000 mcg PO DAILY NORTH Stop: 02/12/24 08:59 Last Admin: 01/15/24 08:29 Dose: Not Given Documented By: Admin: 01/14/24 08:09 Dose: 1,000 mcg Documented By: Admin: 01/13/24 16:40 Dose: Not Given Documented By: MORALES Formoterol Fumarate (Formoterol 20 Mcg/2 Ml Vial) 20 mcg INH BIDR NORTH Stop: 02/12/24 18:59 Last Admin: 01/15/24 19:29 Dose: 20 mcg Documented By: Admin: 01/15/24 07:28 Dose: 20 mcg Documented By: Admin: 01/14/24 20:02 Dose: 20 mcg Documented By: Admin: 01/14/24 07:15 Dose: Not Given Documented By: Admin: 01/13/24 19:59 Dose: 20 mcg Documented By: NIKKI Hydromorphone HCl (Hydromorphone Inj 0.5 Mg/0.5 Ml Syr) 0.5 mg IV Q4H PRN PRN Reason: Severe Pain (Scale 7, 8, 9,10) Stop: 01/26/24 21:04 Last Admin: 01/15/24 01:38 Dose: 0.5 mg Documented By: Admin: 01/13/24 03:56 Dose: 0.5 mg Documented By: Admin: 01/12/24 21:24 Dose: 0.5 mg Documented By: RADHA Thiamine HCl 100 mg/ Syringe 10 mls @ 2 mls/min IV QAM NORTH Stop: 02/12/24 08:59 Last Admin: 01/15/24 09:04 Dose: 2 mls/min Documented By: Admin: 01/14/24 08:08 Dose: 2 mls/min Documented By: Admin: 01/13/24 08:21 Dose: 2 mls/min Documented By: DON Folic Acid 1 mg/ Syringe 10 mls @ 5 mls/min IV QAM NORTH Stop: 02/12/24 08:59 Last Admin: 01/15/24 09:04 Dose: 5 mls/min Documented By: Admin: 01/14/24 08:08 Dose: 5 mls/min Documented By: Admin: 01/13/24 08:21 Dose: 5 mls/min Documented By: DON Lorazepam 2 mg/ Syringe 2 mls @ 2 mls/min IV UD PRN; Protocol PRN Reason: EtOH Withdrawal AWSS Score 8,9 Stop: 02/11/24 21:04 Last Admin: 01/15/24 08:27 Dose: 2 mls/min Documented By: ANGELINE Piperacillin Sod/Tazobactam (Sod 4.5 gm/ Dextrose) 100 mls @ 25 mls/hr IV Q8H NORTH; Protocol Stop: 01/20/24 07:44 Last Admin: 01/16/24 05:56 Dose: 25 mls/hr Documented By: Infusion: 01/16/24 01:46 Dose: Infused Documented By: Admin: 01/15/24 21:46 Dose: 25 mls/hr Documented By: Infusion: 01/15/24 20:21 Dose: Infused Documented By: Admin: 01/15/24 16:21 Dose: 25 mls/hr Documented By: Infusion: 01/15/24 10:25 Dose: Infused Documented By: Admin: 01/15/24 06:20 Dose: 25 mls/hr Documented By: Infusion: 01/15/24 03:12 Dose: Infused Documented By: Admin: 01/14/24 23:12 Dose: 25 mls/hr Documented By: Infusion: 01/14/24 17:57 Dose: Infused Documented By: Admin: 01/14/24 13:52 Dose: 25 mls/hr Documented By: Infusion: 01/14/24 09:37 Dose: Infused Documented By: Admin: 01/14/24 05:30 Dose: 25 mls/hr Documented By: Infusion: 01/14/24 03:13 Dose: Infused Documented By: Admin: 01/13/24 22:59 Dose: 25 mls/hr Documented By: Infusion: 01/13/24 21:30 Dose: Infused Documented By: Infusion: 01/13/24 18:30 Dose: 25 mls/hr Documented By: Infusion: 01/13/24 17:40 Dose: 0 mls/hr Documented By: Admin: 01/13/24 16:33 Dose: 25 mls/hr Documented By: MORALES Levalbuterol HCl (Levalbuterol 1.25 Mg/3 Ml Neb) 1.25 mg NEB Q4H PRN PRN Reason: Shortness Of Breath Or Wheezing Stop: 02/14/24 01:55 Last Admin: 01/15/24 02:26 Dose: 1.25 mg Documented By: DIANNE Multivitamins (Multivitamin Tab) 1 tab PO DAILY NORTH Stop: 02/12/24 08:59 Last Admin: 01/15/24 08:29 Dose: Not Given Documented By: Admin: 01/14/24 08:08 Dose: 1 tab Documented By: Admin: 01/13/24 16:41 Dose: Not Given Documented By: MORALES Sodium Chloride (Sodium Chlor 7% 4 Ml Neb) 4 ml NEB BIDR NORTH Stop: 02/12/24 18:59 Last Admin: 01/15/24 19:29 Dose: 4 ml Documented By: Admin: 01/15/24 07:28 Dose: 4 ml Documented By: Admin: 01/14/24 20:02 Dose: 4 ml Documented By: Admin: 01/14/24 07:15 Dose: Not Given Documented By: Admin: 01/13/24 20:00 Dose: 4 ml Documented By: NIKKI Vitamin D (Cholecalciferol 125 Mcg (5,000 Units) Tab) 125 mcg PO QAM NORTH Stop: 02/13/24 08:59 Last Admin: 01/15/24 08:29 Dose: Not Given Documented By: Admin: 01/14/24 09:58 Dose: 125 mcg Documented By: MORALES Discontinued Medications Bupivacaine HCl (Bupivacaine 0.5 % 5 Mg/1 Ml Mpf 30ml Vial) 30 ml INJ ONCE ONE Stop: 01/13/24 11:17 Last Admin: 01/13/24 11:00 Dose: 30 ml Documented By: BEAN Cefazolin Sodium (Cefazolin 2,000 Mg/15 Ml Iv Push) Confirm Administered Dose 2,000 mg IV .STK-MED ONE Stop: 01/13/24 08:59 Last Admin: 01/13/24 10:53 Dose: Not Given Documented By: ELLA Cefazolin Sodium (Cefazolin 2,000 Mg/15 Ml Iv Push) Confirm Administered Dose 2,000 mg IV .STK-MED ONE Stop: 01/13/24 09:00 Last Admin: 01/13/24 10:52 Dose: Not Given Documented By: ELLA Enoxaparin Sodium (Enoxaparin Inj 40 Mg/0.4 Ml Syr) 40 mg SQ QAM NORTH Stop: 02/13/24 08:59 Last Admin: 01/14/24 09:39 Dose: Not Given Documented By: MORALES Fentanyl Citrate (Fentanyl Citrate Pf 100 Mcg/2 Ml Vial) 25 mcg IV Q5M PRN PRN Reason: PACU Use Only-Pain Stop: 01/13/24 19:36 Last Admin: 01/13/24 12:05 Dose: 25 mcg Documented By: Admin: 01/13/24 12:00 Dose: 25 mcg Documented By: Admin: 01/13/24 11:45 Dose: 25 mcg Documented By: Admin: 01/13/24 11:40 Dose: 25 mcg Documented By: SHAQUILLE Fentanyl Citrate (Fentanyl Citrate Pf 100 Mcg/2 Ml Vial) Confirm Administered Dose 100 mcg .ROUTE .STK-MED ONE Stop: 01/13/24 11:38 Last Admin: 01/13/24 16:17 Dose: Not Given Documented By: MORALES Furosemide (Furosemide Inj 20 Mg/2 Ml Vial) 20 mg IV ONE ONE Stop: 01/13/24 22:46 Last Admin: 01/13/24 23:15 Dose: 20 mg Documented By: NKECHI Furosemide (Furosemide Inj 20 Mg/2 Ml Vial) 20 mg IV ONE ONE Stop: 01/14/24 13:24 Last Admin: 01/14/24 13:53 Dose: 20 mg Documented By: MORALES Furosemide (Furosemide Inj 20 Mg/2 Ml Vial) 20 mg IV ONE ONE Stop: 01/15/24 06:12 Last Admin: 01/15/24 06:32 Dose: Not Given Documented By: MACKENZIE Furosemide (Furosemide Inj 20 Mg/2 Ml Vial) 20 mg IV ONE ONE Stop: 01/15/24 06:15 Last Admin: 01/15/24 06:23 Dose: 20 mg Documented By: MACKENZIE Furosemide (Furosemide 40 Mg/4 Ml Vial) 40 mg IV ONE ONE Stop: 01/15/24 09:17 Last Admin: 01/15/24 09:49 Dose: 40 mg Documented By: ANGELINE Gabapentin (Gabapentin 400 Mg Cap) 800 mg PO NOW ONE Stop: 01/12/24 21:06 Last Admin: 01/12/24 21:50 Dose: 800 mg Documented By: RADHA Gabapentin (Gabapentin 400 Mg Cap) 400 mg PO Q6H NORTH Stop: 01/13/24 12:01 Last Admin: 01/13/24 16:41 Dose: Not Given Documented By: Admin: 01/13/24 06:23 Dose: 400 mg Documented By: TIMOTEO Gabapentin (Gabapentin 400 Mg Cap) 400 mg PO Q8H NORTH Stop: 01/14/24 14:01 Last Admin: 01/14/24 14:33 Dose: 400 mg Documented By: Admin: 01/14/24 05:23 Dose: 400 mg Documented By: Admin: 01/13/24 22:14 Dose: 400 mg Documented By: NKECHI Gabapentin (Gabapentin 400 Mg Cap) 400 mg PO Q12H [facility]TH Stop: 01/15/24 12:01 Last Admin: 01/15/24 12:10 Dose: Not Given Documented By: Admin: 01/15/24 00:12 Dose: Not Given Documented By: MACKENZIE Heparin Sodium (Porcine) (Heparin Sod 5,000 Unit/0.5 Ml Vial) 5,000 units SQ NOW STA Stop: 01/15/24 21:17 Last Admin: 01/15/24 21:46 Dose: 5,000 units Documented By: MACKENZIE Hydromorphone HCl (Hydromorphone Inj 0.5 Mg/0.5 Ml Syr) 0.5 mg IV NOW STA Stop: 01/13/24 00:55 Last Admin: 01/13/24 01:16 Dose: 0.5 mg Documented By: TIMOTEO Acetaminophen (Ofirmev) 1,000 mg in 100 mls @ 400 mls/hr IV NOW STA Stop: 01/12/24 18:55 Last Infusion: 01/12/24 19:54 Dose: Infused Documented By: Admin: 01/12/24 19:12 Dose: 400 mls/hr Documented By: DEVI Sodium Chloride (Nss) 1,000 mls @ 125 mls/hr IV .Q8H NORTH Stop: 02/11/24 18:44 Last Infusion: 01/12/24 21:58 Dose: Infused Documented By: Admin: 01/12/24 19:07 Dose: 125 mls/hr Documented By: DEVI Sodium Chloride (Nss) 1,000 mls @ 100 mls/hr IV .Q10H NORTH Stop: 02/11/24 21:04 Last Infusion: 01/13/24 17:42 Dose: Infused Documented By: Admin: 01/13/24 16:18 Dose: 100 mls/hr Documented By: Infusion: 01/13/24 16:18 Dose: Infused Documented By: Admin: 01/13/24 06:23 Dose: 100 mls/hr Documented By: Infusion: 01/13/24 06:23 Dose: Infused Documented By: Admin: 01/12/24 21:59 Dose: 100 mls/hr Documented By: RADHA Acetaminophen (Ofirmev) 1,000 mg in 100 mls @ 400 mls/hr IV Q8H PRN PRN Reason: Pain or Fever Stop: 01/15/24 21:04 Last Infusion: 01/15/24 20:05 Dose: Infused Documented By: Admin: 01/15/24 19:50 Dose: 400 mls/hr Documented By: Infusion: 01/14/24 21:27 Dose: Infused Documented By: Admin: 01/14/24 21:12 Dose: 400 mls/hr Documented By: Infusion: 01/14/24 16:18 Dose: Infused Documented By: Admin: 01/14/24 15:55 Dose: 400 mls/hr Documented By: MORALES Multivitamins 10 ml/ Thiamine HCl 100 mg/ Folic Acid 1 mg/Sodium Chloride 1,011.2 mls @ 500 mls/hr IV .Q2H2M ONE Stop: 01/12/24 23:06 Last Infusion: 01/13/24 00:00 Dose: Infused Documented By: Admin: 01/12/24 21:50 Dose: 500 mls/hr Documented By: RADHA Magnesium Sulfate/Dextrose (Magnesium Sulfate / D5w) 1 gm in 100 mls @ 50 mls/hr IV Q2H [facility]TH Stop: 01/13/24 01:04 Last Infusion: 01/13/24 02:25 Dose: Infused Documented By: Admin: 01/13/24 00:05 Dose: 50 mls/hr Documented By: Infusion: 01/12/24 23:52 Dose: Infused Documented By: Admin: 01/12/24 21:50 Dose: 50 mls/hr Documented By: RADHA Piperacillin Sod/Tazobactam Sod (Zosyn) 4.5 gm in 100 mls @ 200 mls/hr IV NOW STA Stop: 01/13/24 08:35 Last Infusion: 01/13/24 16:05 Dose: Infused Documented By: Admin: 01/13/24 08:30 Dose: 200 mls/hr Documented By: DON Cefazolin Sodium (Ancef 2000mg) 2,000 mg in 15 mls @ 3.75 mls/min IV ONCE ONE; Protocol Stop: 01/13/24 10:57 Last Admin: 01/13/24 09:19 Dose: 3.75 mls/min Documented By: CATERINA Tranexamic Acid (Tranexamic Acid / 0.7% Nacl) 1,000 mg in 100 mls @ 600 mls/hr IV Q6H NORTH Stop: 01/13/24 17:39 Last Infusion: 01/13/24 17:58 Dose: Infused Documented By: Admin: 01/13/24 17:40 Dose: 600 mls/hr Documented By: MORALES Cefazolin Sodium (Ancef 1000mg) 1,000 mg in 7.5 mls @ 2.5 mls/min IV Q8H NORTH; Protocol Stop: 01/14/24 01:32 Last Admin: 01/14/24 01:48 Dose: 2.5 mls/min Documented By: Admin: 01/13/24 19:06 Dose: 2.5 mls/min Documented By: MORALES Dextrose/Sodium Chloride (D5w And Nss) 1,000 mls @ 50 mls/hr IV .Q20H NORTH Stop: 02/12/24 17:29 Last Infusion: 01/14/24 15:07 Dose: Infused Documented By: Infusion: 01/14/24 08:08 Dose: 50 mls/hr Documented By: Admin: 01/14/24 05:20 Dose: 75 mls/hr Documented By: Infusion: 01/14/24 05:20 Dose: Infused Documented By: Infusion: 01/13/24 22:51 Dose: 75 mls/hr Documented By: Admin: 01/13/24 17:52 Dose: 100 mls/hr Documented By: MORALES Magnesium Sulfate/Dextrose (Magnesium Sulfate / D5w) 1 gm in 100 mls @ 50 mls/hr IV Q2H NORTH Stop: 01/15/24 08:44 Last Infusion: 01/15/24 09:44 Dose: Infused Documented By: Admin: 01/15/24 07:26 Dose: 50 mls/hr Documented By: Infusion: 01/15/24 07:21 Dose: Infused Documented By: KTAzar Admin: 01/15/24 05:18 Dose: 50 mls/hr Documented By: MACKENZIE Potassium Phosphate 30 mmol/ (Sodium Chloride) 510 mls @ 100 mls/hr IV ONE ONE Stop: 01/15/24 10:05 Last Infusion: 01/15/24 11:33 Dose: Infused Documented By: Admin: 01/15/24 06:20 Dose: 100 mls/hr Documented By: MACKENZIE Ioversol (Optiray 320 125ml) 118 ml IV ONCE ONE Stop: 01/13/24 06:50 Last Admin: 01/13/24 06:50 Dose: 118 ml Documented By: ABBEY Morphine Sulfate (Morphine Sulfate 4 Mg/Ml 1 Ml Carp\Vial) 4 mg IV NOW STA Stop: 01/12/24 17:03 Last Admin: 01/12/24 17:16 Dose: Not Given Documented By: RADHA Morphine Sulfate (Morphine Sulfate 2 Mg/Ml Carp) 2 mg IV NOW STA Stop: 01/12/24 17:09 Last Admin: 01/12/24 17:10 Dose: 2 mg Documented By: RADHA Morphine Sulfate (Morphine Sulfate 2 Mg/Ml Carp) 2 mg IV Q1H PRN PRN Reason: Pain Stop: 01/26/24 18:40 Last Admin: 01/12/24 19:12 Dose: 2 mg Documented By: DEVI Ondansetron HCl (Ondansetron Inj 2 Mg/Ml 2 Ml Vial) 4 mg IV NOW STA Stop: 01/12/24 17:06 Last Admin: 01/12/24 19:12 Dose: 4 mg Documented By: DEVI Tranexamic Acid (Tranexamic Acid / 0.7% Nacl 1000mg/100ml Bag) Confirm Administered Dose 1,000 mg IV .[place]iel [place] ONE Stop: 01/13/24 09:02 Last Admin: 01/13/24 16:17 Dose: Not Given Documented By: MORALES Imaging Data Radiologist's Impression: Femur X-Ray 01/12/24 16:58 XR pelvis 1-2V routine, XR femur RT 2V routine, XR knee RT 3V CLINICAL HISTORY: Hip trauma, fracture suspected, no prior imaging COMPARISON STUDY: None. FINDINGS: There is a mildly displaced intertrochanteric fracture within the proximal right femur. No dislocation of the femoral head. No fractures within the pelvis or left hip. Patchy sclerosis within the left femoral head favors avascular necrosis. No evidence for articular collapse. No fracture or dislocation within the right knee. No significant right knee effusion. Vascular calcifications are noted. IMPRESSION: 1. A mildly displaced right femoral intertrochanteric fracture. 2. No fractures within the pelvis or left hip. 3. 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 4. No fracture or dislocation within the right knee. ACT 112: Negative or not required by law. Electronically signed by: Doc Kent M.D. 01/12/2024 5:43 PM Knee X-Ray 01/12/24 16:58 XR pelvis 1-2V routine, XR femur RT 2V routine, XR knee RT 3V CLINICAL HISTORY: Hip trauma, fracture suspected, no prior imaging COMPARISON STUDY: None. FINDINGS: There is a mildly displaced intertrochanteric fracture within the proximal right femur. No dislocation of the femoral head. No fractures within the pelvis or left hip. Patchy sclerosis within the left femoral head favors avascular necrosis. No evidence for articular collapse. No fracture or dislocation within the right knee. No significant right knee effusion. Vascular calcifications are noted. IMPRESSION: 1. A mildly displaced right femoral intertrochanteric fracture. 2. No fractures within the pelvis or left hip. 3. 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 4. No fracture or dislocation within the right knee. ACT 112: Negative or not required by law. Electronically signed by: Doc Kent M.D. 01/12/2024 5:43 PM Pelvis X-Ray 01/12/24 16:58 XR pelvis 1-2V routine, XR femur RT 2V routine, XR knee RT 3V CLINICAL HISTORY: Hip trauma, fracture suspected, no prior imaging COMPARISON STUDY: None. FINDINGS: There is a mildly displaced intertrochanteric fracture within the proximal right femur. No dislocation of the femoral head. No fractures within the pelvis or left hip. Patchy sclerosis within the left femoral head favors avascular necrosis. No evidence for articular collapse. No fracture or dislocation within the right knee. No significant right knee effusion. Vascular calcifications are noted. IMPRESSION: 1. A mildly displaced right femoral intertrochanteric fracture. 2. No fractures within the pelvis or left hip. 3. 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 4. No fracture or dislocation within the right knee. ACT 112: Negative or not required by law. Electronically signed by: Doc eKnt M.D. 01/12/2024 5:43 PM Shoulder X-Ray 01/12/24 16:58 XR shoulder RT min 2V routine CLINICAL HISTORY: Shoulder trauma, no prior imaging COMPARISON STUDY: None. FINDINGS: There is a slightly distracted fracture within the right humeral neck/head. No dislocation. The right clavicle is intact. Soft tissue swelling within the right shoulder. IMPRESSION: Acute right humeral head/neck fracture. No dislocation. ACT 112: Negative or not required by law. Electronically signed by: Doc Knet M.D. 01/12/2024 5:45 PM Head CT 01/12/24 17:[address] DOSE: 625.8 mGy.cm HISTORY: fall, [facility] TECHNIQUE: Multiaxial CT images of the head were performed without the use of intravenous contrast. Automated exposure control was utilized for this study. A dose lowering technique was utilized adhering to the principles of ALARA. Comparison: Head CT 08/12/2023. Findings: Small retention cyst within the left maxillary sinus. The mastoid air cells are clear. The calvarium and skull base are intact. There is no mass, hematoma, midline shift, or acute infarct. Stable ventricular enlargement. Mild microvascular ischemic changes again noted. Impression: No significant change compared to the prior study. No acute intracranial abnormality. ACT 112: Negative or not required by law. Electronically signed by: Doc Kent M.D. 01/12/2024 6:10 PM Chest X-Ray 01/12/24 17:32 XR chest 1V portable HISTORY: fall COMPARISON: Chest 08/12/2023. FINDINGS: No pneumothorax. No pleural effusions. Mild interstitial thickening, unchanged. This is likely chronic. No focal lung consolidations to suggest a pneumonia. No evidence for pulmonary edema. The cardiac silhouette is normal in size. There is a right humeral neck/head fracture. IMPRESSION: 1. A right humeral neck/head fracture. 2. Otherwise, no acute process within the chest ACT 112: Negative or not required by law. Electronically signed by: Doc Kent M.D. 01/12/2024 5:44 PM Discharge Plan Visit Data Chief Complaint: Fall Stated Complaint: FALL ED Provider: Virginia Elmore Discharge Problem: Closed fracture of right hip, Closed fracture of head of right humerus Patient Disposition: Admitted As Inpatient Discharge Instructions Interventions: ED Discharge Assessment Last Done: 01/12/24 21:06 Discharge Problem: Closed fracture of right hip Qualifiers: Encounter type: initial encounter Qualified Code(s): S72.001A - Fracture of unspecified part of neck of right femur, initial encounter for closed fracture Closed fracture of head of right humerus Qualifiers: Encounter type: initial encounter Qualified Code(s): S42.291A - Other displaced fracture of upper end of right humerus, initial encounter for closed fracture
[2024-01-13] MEDS: HYDROmorphone INJ 0.5 MG/0.5 ML SYR IV STA (01:16)
[2024-01-13 04:23] LABS: Basophils # (auto) 0.05 K/uL (0.00-0.20); Basophils % (auto) 0.4 %; Hematocrit (blood only) 34.8 % (42.0-52.0); Hemoglobin 12.1 g/dl (14.0-18.0); Immature Granulocytes # (auto) 0.04 K/uL (0.01-0.20); Immature Granulocytes % (auto) 0.3 %; Lymphocytes % (auto) 11.5 %; Mean Corpuscular Hemoglobin 30.9 pg (25.0-34.0); Mean Corpuscular Hgb Conc 34.8 g/dL (32.0-36.0); Mean Platelet Volume 10.4 fL (9.4-12.4); Monocytes # (auto) 1.09 K/uL (0.11-0.59); Neutrophils # (auto) 9.56 K/uL (1.40-6.50); Neutrophils % (auto) 78.8 %; Platelet Count 192 K/uL (130-400); RDW Coefficient of Variation 13.3 % (11.5-14.5); RDW Standard Deviation 43.3 fL (36.4-46.3); Red Blood Count 3.91 M/uL (4.70-6.10); White Blood Count 12.14 K/ul (4.8-10.8)
[2024-01-13 04:36] LABS: BUN Creatinine Ratio 16.4 (10-20); Calcium 7.9 mg/dl (8.6-10.3); Creatinine Clr Calc Pharmacy 78.1 ml/min; Est GFR (African American) 116.5 ml/min; Est GFR (Non-African American) 100.5 ml/min; Magnesium 1.9 mg/dl (1.7-2.4); Phosphorus 3.5 mg/dl (2.5-4.9); Potassium 4.7 mmol/L (3.5-5.1)
[2024-01-13 05:59] LABS: Folate (Folic Acid),Ser orPlas > 22.30 ng/ml (>5.38)
[2024-01-13 06:00] LABS: Vitamin B12 677 pg/ml (180-914)
[2024-01-13] MEDS: GABAPENTIN 400 MG CAP PO SCH ×2 (06:23→22:14)
[2024-01-13] MEDS: OPTIRAY 320 125ml IV ONE (06:50)
--- NOTE | 2024-01-13 07:11 | CT Scan Report ---
CT ANGIOGRAM OF THE CHEST CLINICAL HISTORY: Falls. Dyspnea. COMPARISON STUDY: Chest x-ray dated 01/12/2024. TECHNIQUE: Following the IV administration of 118 cc of Optiray 320, CT angiogram of the chest was pe rformed from the upper abdomen to the thoracic inlet utilizing the pulmonary embolus protocol. Images are reviewed in the axial, sagittal, and coronal planes. 3-D MIPS images are created and assessed. I V contrast was administered without complication. A dose lowering technique was utilized adhering to the principles of ALARA. The examination is degraded by motion artifact, as well as by streak artifa ct from the arms which could not be elevated above the chest. CT DOSE: 482.42 mGy.cm FINDINGS: Thyroid: Imaged portions of the thyroid gland are normal in size and attenuation. Thoracic aorta: There is atherosclerotic calcification of the thoracic aorta, which is normal in javon kimmie and demonstrates bovine variant arch anatomy. No dissection is seen. Pulmonary vasculature: The pulmonary trunk is normal in caliber. There are no filling defects identif ied in main, lobar, or segmental pulmonary branches to suggest pulmonary embolus. Heart: The heart is mildly enlarged and without pericardial effusion. There are coronary artery calci fications. Lungs and pleural spaces: Evaluation of the lung parenchyma is degraded by motion artifact. Emphysema tous changes observed. The trachea is clear. Fluid/debris is seen within the lower lobe airways bilat erally. There are small pleural effusions with dependent consolidation. Mediastinum: Subcentimeter mediastinal lymph nodes are not pathologically enlarged by size criteria. Natalie: Clear. Axillae: There is no axillary lymphadenopathy. Upper abdomen: There is trace perisplenic ascites. Partially visualized upper abdominal viscera is ot herwise within normal limits. Skeletal structures: The skeletal structures are osteopenic. Degenerative change and hyperkyphosis is noted in the thoracic spine. There is a moderate age-indeterminate superior endplate compression def ormity of T2. No lytic or blastic bony lesions are seen. There is a comminuted fracture of the right humeral head and neck with significant surrounding soft tissue edema/hemorrhage in the right shoulder /anterior chest wall. IMPRESSION: 1. There is no evidence of pulmonary embolus in the main, lobar, or segmental pulmonary arteries. 2. Cardiomegaly and emphysema. 3. There are small pleural effusions with dependent consolidation. This could represent atelectasis v ersus pneumonia/aspiration pneumonitis and clinical correlation will be required. 4. Fluid/debris fills the lower lobe airways bilaterally. Correlate clinically for evidence of aspira tion. 5. Comminuted fracture of the right humeral head/neck with surrounding edema/hemorrhage. 6. Additional findings as above. ACT 112: Negative or not required by law. Electronically signed by: Saleem Koo M.D. 01/13/2024 7:08 AM
[2024-01-13] MEDS ORDERED: DEXAMETHASONE SOD INJ 4 MG/ML VIAL ONE (07:24)
[2024-01-13] MEDS ORDERED: ONDANSETRON INJ 2 MG/ML 2 ML VIAL ONE (07:24)
[2024-01-13] MEDS ORDERED: LIDOCAINE 2% 2 ML VIAL/AMP(20MG/ML) INFIL ONE (07:24)
[2024-01-13] MEDS ORDERED: ROCURONIUM BROMIDE 10 MG/ML 5 ML VIAL IV ONE (07:24)
[2024-01-13] MEDS ORDERED: PROPOFOL IV EMULSION 10 MG/ML 20 ML VIAL IV ONE (07:24)
[2024-01-13] MEDS ORDERED: fentaNYL citrate PF 100 MCG/2 ML VIAL ONE (07:24)
--- NOTE | 2024-01-13 08:15 | Anesthesiology Consultation ---
Date of Service January 13, 2024 Assessment & Plan Chart Review Chart Review: Acceptable Risk for Surgery and Patient NOT seen in Pre Admission Testing Consults Requested none History Surgery Operation Date: 01/13/24 08:30 Proposed Procedures p Intramedullary Vince Femur(Right) - Edgar Lawson MD Height/Weight Height: 5 ft 2 in Weight: 49.1 kg Allergies Allergy/AdvReac Type Severity Reaction Status Date / Time amlodipine AdvReac Rash Verified 08/12/23 15:08 Medications Home Medications Medication Instructions Recorded Confirmed Last Taken carvedilol 6.25 mg tablet 6.25 mg PO BID 08/12/23 01/12/24 Unknown cyanocobalamin (vitamin B-12) 1,000 mcg PO DAILY 08/12/23 01/12/24 Unknown 1,000 mcg tablet (Vitamin B-12) fluocinonide 0.05 % topical cream 1 applic topical QPM PRN Rash 08/12/23 01/12/24 Unknown multivitamin 1 tab PO DAILY 08/12/23 01/12/24 Unknown Active Medications Generic Name Dose Route Start Last Admin Trade Name Marekq PRN Reason Stop Dose Admin Carvedilol 6.25 mg 01/12/24 21:05 01/12/24 21:48 Carvedilol 6.25 Mg Tab PO 02/11/24 21:04 6.25 mg BID NORTH Administration Gabapentin 400 mg 01/13/24 06:00 01/13/24 06:23 Gabapentin 400 Mg Cap PO 01/13/24 12:01 400 mg Q6H NORTH Administration Hydromorphone HCl 0.5 mg 01/12/24 21:05 01/13/24 03:56 Hydromorphone Inj 0.5 Mg/0.5 Ml Syr IV 01/26/24 21:04 0.5 mg Q4H PRN Administration Severe Pain (Scale 7, 8, 9,10) Sodium Chloride 1,000 mls @ 100 mls/hr 01/12/24 21:05 01/13/24 06:23 Nss IV 02/11/24 21:04 100 mls/hr .Q10H NORTH Administration Past Medical History Medical History (Updated 01/13/24 @ 08:13 by Saleem Nash MD) Closed fracture of right proximal humerus Intertrochanteric fracture of right hip Alcohol use Dysarthria Tobacco use HTN (hypertension) Weakness of left hand Weakness on left side of face Past Family History Family History Other Cancer Past Surgical History Surgical History No pertinent past surgical history Social History Smoking Status: Current every day smoker tobacco type: cigarettes Smoking cigarettes per day: 1 ppd Hx Alcohol Use: Yes Alcohol type: beer alcohol intake frequency: 3 or more drinks per day Physical Exam Vital Signs Last Vital Signs Temp 36.6 C 01/13/24 03:48 Pulse 77 01/13/24 07:08 Resp 12 01/13/24 03:48 BP 147/112 H 01/13/24 03:48 Pulse Ox 99 01/13/24 03:48 O2 Del Method Non-rebreather 01/13/24 04:19 O2 Flow Rate 2 01/13/24 04:19 Testing Laboratory Results 01/13/24 04:06 01/13/24 04:06 PT 11.4 Seconds (9.0-12.0) 01/12/24 20:21 INR 1.1 (0.9-1.1) 01/12/24 20:21 Blood Type A Positive 01/12/24 20:21 Antibody Screen NEGATIVE 01/12/24 20:21
[2024-01-13] MEDS: FOLIC ACID 1 MG in SYRINGE 9.8 ML IV SCH (08:21)
[2024-01-13] MEDS: THIAMINE HCL 100 MG in SYRINGE 9 ML IV SCH (08:21)
[2024-01-13] MEDS: PIPERACILLIN/TAZOBACTAM 4.5 GM/100 ML BAG IV STA (08:30)
--- NOTE | 2024-01-13 08:37 | Hospitalist Progress Note ---
Date of Service January 13, 2024 Assessment & Plan (1) Intertrochanteric fracture of right hip: Plan: 78-year-old male with past med history significant for hypertension, alcohol use, tobacco use, ongoing dysarthria, dysphagia, imbalance and urinary incontinence with possible NPH diagnosis, recently had lumbar puncture which did not help much of his symptoms and neurosurgery offered WASHER MACHINE shunt placement but patient currently declined as lumbar puncture didn't helped and had hx of falls comes to ER because of fall and imaging studies showing right humerus and right femur fracture. Patient has some dysarthria and somewhat difficulty to understand. Patient was in the hospital in August for recurrent falls and ambulatory dysfunction. Seen by speech at that time and that time he was on soft bite-size diet. Recommend to alternate solids and liquids and oral hygiene And to follow as outpatient. Fall History of falls Ambulatory dysfunction XRs showed intertrochanteric fracture of right hip and right humerus fracture Reviewed CT head. No fractures Ortho on board Plan for OR this AM Continue NPO RN to insert valenzuela Pain control IVF Check vitamin D levels calcium and vit d supplements added. Chest CTA noted no PE but has cardiomegaly, emphysema, small pleural effusion with dependent consolidation, fluid/debris fill lower lobe airway bilaterally, comminuted right humeral head/neck fracture with surrounding edema/hemorrhage Aspiration pneumonia/pneumonitis SU[employer]ENT [employer] consult Aspiration precautions Continue zosyn for now F/u Pulm eval Hypertension On Coreg Monitor Alcoholism Alcohol withdrawal protocol gabapentin and Ativan as needed Per , drinks beers daily. Per Admitting Provider, he reported 5 and reported 2. Alcohol level was 70 on presentation Got MVI infusion IV thiamine IV folic acid Monitor Tobacco abuse Needs counseling Possible NPH Has some dysarthria, dysphagia, renal incontinence and ambulate dysfunction PT OT post op Follow-up with PCP and neurology Hypomagnesia Mg was 1.6 on admission. Repleted 1.9 today DVT prophylaxis SCDs if possible Consider pharm agent post op once stable Full code I spent a total of 50 minutes coordinating, documenting and providing care for this patient excluding time spent in performance of separately billed services Admission and Anticipated Discharge Date Admission Date: January 12, 2024 Subjective Patient seen and examined in ER He has dysphasia and difficult to understand but able to answer yes or no at bedside He is alert Acknowledges pain in RUE and RLE reports he has cough and usually pools secretions which she attributed to his NPH He also has dysphagia which is not new Per , no fever, chills, nausea, vomiting, diarrhea, constipation While in the room, he wanted to void but having trouble. Valenzuela ordered for RN to place before taking to OR Physical Exam Constitutional: + ill appearing; no acute distress Eyes: PERRL, conjunctivae normal, anicteric sclerae ENMT: On mask Respiratory: On mask with oxygen, transmitted sounds Cardiovascular: S1 S2 Gastrointestinal (Abdomen): normal bowel sounds, soft, nontender, no hepatosplenomegaly Musculoskeletal: Right shoulder is bruised Right leg is shortened and externally rotated. Tenderness over right hip No pedal edema Neurologic: PERRL, Alert, +dysphasia/dysarthria Results & Data Results & Data Vital Signs (Past 12 Hours) Vital Signs Temp Pulse Pulse Resp BP Pulse Ox O2 Del Method 01/13/24 07:08 77 01/13/24 04:19 Non-rebreather 01/13/24 03:48 36.6 C 67 12 147/112 H 99 Non-rebreather 01/13/24 01:20 77 12 150/84 H 97 Non-rebreather 01/12/24 23:59 83 01/12/24 23:59 36.6 C 01/12/24 23:49 79 L 01/12/24 23:43 80 14 150/85 H O2 Flow Rate 01/13/24 07:08 01/13/24 04:19 2 01/13/24 03:48 2 01/13/24 01:20 2 01/12/24 23:59 01/12/24 23:59 01/12/24 23:49 0 01/12/24 23:43 Laboratory Results Abnormal lab results 01/12/24 01/12/24 01/13/24 Range/Units 16:30 17:44 04:06 WBC 10.89 H 12.14 H (4.8-10.8) K/ul RBC 3.91 L (4.70-6.10) M/uL Hgb 12.1 L (14.0-18.0) g/dl Hct 34.8 L (42.0-52.0) % Neut # (Auto) 7.03 H 9.56 H (1.40-6.50) K/uL [place] # (Auto) 0.94 H 1.09 H (0.11-0.59) K/uL Sodium 133 L 132 L (136-145) mmol/L Creatinine 0.55 L (0.6-1.4) mg/dl Glucose 117 H 126 H (70-99(Fasting)) mg/dl Calcium 7.9 L (8.6-10.3) mg/dl Magnesium 1.6 L (1.7-2.4) mg/dl Ethyl Alcohol mg/dL 70.3 H (<10.0) mg/dl
[2024-01-13] MEDS: ceFAZolin 2000MG 2,000 MG/15 ML SYR IV ONE (09:19)
[2024-01-13] MEDS ORDERED: BUPIVACAINE 0.5 % 5 MG/1 ML MPF 30ML VIAL ONE (09:26)
[2024-01-13] MEDS ORDERED: SODIUM CHLORIDE 0.9% PF INJ 10 ML VIAL ONE (09:33)
[2024-01-13] MEDS ORDERED: ceFAZolin 330 MG/ML 1 GM VIAL ONE (09:33)
[2024-01-13] MEDS ORDERED: PHENYLEPHRINE HCL 10 MG/ML VIAL ONE (09:49)
[2024-01-13] MEDS ORDERED: SUGAMMADEX SODIUM 200 MG/2 ML VIAL IV ONE (10:14)
[2024-01-13] MEDS ORDERED: ePHEDrine sulfate 50 MG/5 ML SYR ONE (10:31)
[2024-01-13] MEDS: ceFAZolin 2,000 MG/15 ML IV PUSH IV ONE ×2 (10:52→10:53)
--- NOTE | 2024-01-13 10:58 | Pulmonary Consultation ---
Date of Consultation January 13, 2024 Assessment & Plan (1) COPD with emphysema: (2) Abnormal chest CT: (3) Acute respiratory failure with hypoxia: (4) Current smoker: Plan CT chest 01/13/2024 personally reviewed: Centrilobular emphysema appreciated bilaterally Increased bronchial wall thickening in the right lower lobe with dependent atelectasis bilateral lower lobes Small bilateral pleural effusion No significant mediastinal lymphadenopathy -- Acute hypoxic respiratory failure Multifactorial Small bilateral pleural effusion with elevated BNP Does have COPD which is not being treated Likely episodes of aspiration from heavy alcohol use BNP 404 Procalcitonin 0.04 -- COPD with emphysema Not on any inhalers at home Would recommend to be discharged on Stiolto or Anoro on a daily basis --Current smoker > 15-tjur-oggn smoking history Plan: Follow procalcitonin, BNP as well as 2D echo Continue with antibiotics Follow-up sputum culture. Start Brovana and budesonide nebulizers while in the hospital Patient will benefit from flutter valve as well as hypertonic saline nebulized Case was discussed with primary team Please note the above document was generated using voice recognition software. It may contain grammatical, syntax or spelling errors.Any formal questions or concerns about the content, text or information contained within the body of this dictation should be directly addressed to the provider for clarification. History of Present Illness Attending Physician: Lori Jarrett MD History of Present Illness 78-year-old male coming to the hospital s/p fall Past medical history: Hypertension, alcohol abuse Pulmonary consulted for abnormal chest CT Patient was seen in the PACU just after surgery for his right hip He was saturating 94% on 2 L nasal cannula. He was not in any distress. Heart rate was in the 70s Unfortunately not to history was able to be obtained because he was still under the effects of anesthesia. History was obtained from the previous chart Social history: Greater than 10-uitg-bvwi smoking history, currently smoking a pack a day, drinks 5 beers on a daily basis Allergies Allergy/AdvReac Type Severity Reaction Status Date / Time amlodipine AdvReac Rash Verified 08/12/23 15:08 Home Medications Medication Instructions Recorded Confirmed Type carvedilol 6.25 mg tablet 6.25 mg PO BID 08/12/23 01/12/24 History cyanocobalamin (vitamin B-12) 1,000 mcg PO DAILY 08/12/23 01/12/24 History 1,000 mcg tablet (Vitamin B-12) fluocinonide 0.05 % topical cream 1 applic topical QPM PRN Rash 08/12/23 01/12/24 History multivitamin 1 tab PO DAILY 08/12/23 01/12/24 History Patient History Medical History (Updated 01/13/24 @ 14:23 by Karen Omer MD, [facility]) Closed fracture of right proximal humerus Intertrochanteric fracture of right hip Alcohol use Dysarthria Tobacco use HTN (hypertension) Weakness of left hand Weakness on left side of face Surgical History No pertinent past surgical history Family History Other Cancer Social History (Updated 08/12/23 @ 17:03 by Essie Martinez PA-C) Smoking Status: Current every day smoker Tobacco Type: Cigarettes Cigarettes Per Day: 1 ppd; Second Hand Exposure: Yes; Hx Alcohol Use: Yes Alcohol type: beer Preferred Language: Greek Communication Ability: Impaired Communication Ability Comment: Pt. unable to verbalize due to condition upon arrival Reconstructive Dentist Required: No Beliefs That Will Affect Care: None marital status: Current Living Situation: Spouse Other Information That Helps Us Care for You: No Feels Safe at Home: Yes Safety Concerns: Feels Safe At This Time Assistive Devices: Glasses Review of Systems 2 Review of Systems: All systems reviewed & are unremarkable except as noted in HPI & below Physical Exam 2 Physical Exam: Constitutional: No acute distress HEENT: EOMI, PERRLA Respiratory system: Recent entry bilaterally, no wheeze, mild crackles bilaterally, positive rhonchi CVS: S1-S2 positive, no murmurs or gallops Abdomen: Soft, nontender, nondistended, positive bowel sounds x4 Extremities: +2 pulses bilaterally radialis/ dorsalis pedis, no cyanosis, no edema, right arm in sling Neuro: RASS -1 Psych: Unable to assess G/U: Positive Duff Skin: no rashes, warm and dry Lymphatic: no cervical or axillary lymphadenopathy Results & Data Results & Data Vital Signs (Past 12 Hours) Vital Signs Temp Pulse Pulse Resp BP Pulse Ox O2 Del Method 01/13/24 07:08 77 01/13/24 04:19 Non-rebreather 01/13/24 03:48 36.6 C 67 12 147/112 H 99 Non-rebreather 01/13/24 01:20 77 12 150/84 H 97 Non-rebreather 01/12/24 23:59 83 01/12/24 23:59 36.6 C 01/12/24 23:49 79 L 01/12/24 23:43 80 14 150/85 H O2 Flow Rate 01/13/24 07:08 01/13/24 04:19 2 01/13/24 03:48 2 01/13/24 01:20 2 01/12/24 23:59 01/12/24 23:59 01/12/24 23:49 0 01/12/24 23:43 Laboratory Results 01/13/24 04:06 01/13/24 04:06 PG Care Time/CCT Total # of Minutes Spent Total Time Spent with Patient: Total time spent is greater than 50% in coordination of care (as documented) at patient's floor/unit and/or counseling patient: Coding Level of Care Code 98255 INT INP/OBS CARE 375MIN Diagnoses COPD with emphysema J43.[address] R93.89 Acute respiratory failure with hypoxia J96.01 Current smoker F17.200
[2024-01-13] MEDS: BUPIVACAINE 0.5 % 5 MG/1 ML MPF 30ML VIAL INJ ONE (11:00)
--- NOTE | 2024-01-13 11:10 | Electrocardiogram Report ---
Test Reason : Blood Pressure : / mmHG Vent. Rate : 074 BPM Atrial Rate : 074 BPM P-R Int : 160 ms QRS Dur : 072 ms QT Int : 436 ms P-R-T Axes : 061 033 103 degrees QTc Int : 483 ms Normal sinus rhythm Nonspecific T wave abnormality Abnormal ECG When compared with ECG of 12-AUG-2023 14:07, No significant change was found Confirmed by Marciano Alcaraz ([id number]) on 01/13/2024 11:10:28 AM Referred By: REFERRED SELF Confirmed By:Phong Alcaraz
--- NOTE | 2024-01-13 11:18 | Operative Report ---
Post Operative Report Pre & Post Diagnosis Operation Date: 01/13/24 08:30 Pre-Op Diagnosis: Intertrochanteric fracture of right hip Post-Op Diagnosis: Intertrochanteric fracture of right hip I identified the patient and participated in the time-out.: Yes Procedure Operation Date: 01/13/24 08:30 Actual Procedures p Internal FixationWith Long Troch Nail Right Hip (Right) - Edgar Lawson MD Surgeon Edgar Lawson MD Wall Mirror Department Supervisor Becca Carmichael. No resident or fellow available Estimated Blood Loss 25 Findings Consistent with Post-Op Diagnosis Specimens None Drains None Anesthesia Type General Regional Complications none Disposition Accompanied Patient To Recovery: No Disposition: Recovery Room Indications Talon is 78. He fell yesterday and sustained an intertrochanteric fracture of his right hip. He has a history of prior hip injury and surgery of unknown circumstances 70 years ago. He also has a right proximal humerus fracture which is planned to treat nonoperatively. He is taken to surgery for reduction and stabilization of his right hip fracture. Description of Procedure Informed consent. Patient identified. He identified the operative site as the right hip. I marked with my initials. A preoperative surgical timeout performed. A preop dose of IV antibiotics was given. TXA given. Taken to the OR positioned supine on the fracture table. Previous to this the anesthetic was administered. His right arm was carefully applied into a sling and swath. On the fracture table he was placed into balanced scissors traction with padding on the feet. Padded perineal post. Torso secured to the table with tape and the left arm out to the side. Fluoroscopic guidance was utilized to achieve radiographic visualization and reduction of the fracture which was anatomic. The femoral neck appeared to be short compared to the opposite side which I think is related to previous surgery. No hardware was present. The femoral neck was also brought her in the AP dimension and then is also typical. No arthritis was noted. An abrasion over the right knee area was cleaned and dres sed at the end of the surgical procedure. All bony prominences were inspected and padded. SCD for DVT prophylaxis intraoperatively. Postop early mobility mechanical devices and Eliquis. A routine prep and drape was performed. The right arm was secured over the torso and the sling padded with eggcrate and secured with tape. Fluoroscopic guidance was utilized to identify the surgical incision site. An incision was made just proximal to the greater trochanter and in line with it. 5 to 6 cm in length. The skin was incised and electrocautery was utilized onto this thin fatty layer. The fascia was then divided in line with the incision and the tip of the trochanter was identified. A guidepin was introduced and adjusted x 1 to be in the appropriate location at the tip of the trochanter and in line with the central shaft of the femur. The opening reamer was applied followed by the guidewire confirmed to be intramedullary in multiplanar fluoroscopy. Vince length determined to be 380 mm with the tip of the vince at the superior pole of the patella. A 12.5 mm reamer was passed down the shaft of the femur without significant chatter. The Synthes long troches nail was then introduced to the appropriate level. An accessory lateral incision was made and the guide arm was applied. The sleeves were introduced down to the level of the bone and a guidepin was drilled in and adjusted x 1 to be in the center center position. Length was determined to be 85 mm. The lateral and triple reamer were utilized and finally the spiral blade was advanced until fully seated. The locking mec hanism was advanced fully and then backed off one half turn to allow for compression. Compression was applied across the fracture which remained anatomically aligned with minimal gapping inferiorly. The proximal construct was removed. A distal interlocking screw was inserted through the dynamic hole using the perfect [place] technique in a percutaneous fashion. The incisions were irrigated. The proximal incision was closed with #1 Vicryl for the fascia. Bleeding was controlled. Fatty layer of the proximal 2 incisions closed with interrupted 0 Vicryl's. Skin was closed for all incisions with 2-0 Vicryl's and meena. Soft sterile dressing applied Xeroform 4 x 4's ABD foam tape. Patient awakened from anesthesia without difficulty taken to the recovery room in stable condition. No specimens or complications. Counts correct blood loss 25 cc. At the conclusion the operation I spoke to patient's informed her my findings postop instructions were given. He may weight- bear as tolerated on the right leg however due to his right upper extremity injury and his balance and falling problems he may not be able to ambulate. He would likely benefit from acute care rehab or senior living facility. Components inserted were an 11 mm x 130 degree 300 mm long Synthes troches nail with a 85 mm helical blade and a 42 mm long x 5 mm diameter distal interlocking screw. I attest to the content of the Intraoperative Record and any orders documented therein. Any exceptions are noted below.
--- NOTE | 2024-01-13 11:34 | Operative Report ---
Post Operative Report Pre & Post Diagnosis Operation Date: 01/13/24 08:30 Pre-Op Diagnosis: Intertrochanteric fracture of right hip Post-Op Diagnosis: Intertrochanteric fracture of right hip I identified the patient and participated in the time-out.: Yes Procedure Operation Date: 01/13/24 08:30 Actual Procedures p Internal Fixation Long Troch Nail Right Hip (Right) - Edgar Lawson MD Surgeon Edgar Lawson M.D. Surgical Physician Assistant Becca Carmichael. No resident or fellow available Estimated Blood Loss 25 Findings Consistent with Post-Op Diagnosis Specimens None Anesthesia Type General Description of Procedure Patient was taken to the operating room, placed under general anesthesia. Time out performed, prepped and draped in routine sterile fashion. Given 2gm IV Ancef for antibiotic prophylaxis. Given 1gm IV TXA for preoperatively for surgical bleeding prophylaxis. I was present during the entire case, please see Dr. Lawson's operative report for further detail regarding today's procedure. I assisted with positioning, tissue retraction, implantation of hardware, reduction of fracture, irrigation, closure and dressings. Patient was awakened and taken to the recovery room in stable condition. I attest to the content of the Intraoperative Record and any orders documented therein. Any exceptions are noted below.
[2024-01-13] MEDS ORDERED: DROPERIDOL 5 MG/2 ML VIAL IV PRN (11:36)
[2024-01-13] MEDS ORDERED: ATROPINE SULFATE 0.1 MG/ML 10ML SYR IV PRN (11:36)
[2024-01-13] MEDS ORDERED: ePHEDrine sulfate 50 MG/ML AMP IV PRN (11:36)
[2024-01-13] MEDS: fentaNYL citrate PF 100 MCG/2 ML VIAL IV PRN (11:40)
--- NOTE | 2024-01-13 14:01 | Fluoroscopy Report ---
INTRAOPERATIVE RADIOGRAPHS CLINICAL HISTORY: Open reduction and internal fixation of the right proximal femur. Fluoro time: 146 seconds Ka,r: 22.46 mGy FINDINGS: 7 spot fluoroscopic views of the right femur are obtained. Correlation is made with radiogr aphs dated 01/12/2024. Intertrochanteric and intramedullary nails have been placed transfixing an inter trochanteric fracture of the right proximal femur. Near anatomic alignment is restored. A single margaret ical lag screw transfixes the distal end of the intramedullary nail. The orthopedic hardware appears intact. IMPRESSION: Intraoperative images from open reduction and internal fixation of a right hip fracture a s above. Electronically signed by: Saleem Koo M.D. 01/13/2024 1:59 PM
--- OUTSIDE RECORDS SUMMARY | 2024-01-13 14:43 | External Medical Summary | Summary of Care ---
Author Name Unknown Organization [facility] Address [address] [place] [address] Phone [phone] Care Team Providers Care Programmer Engineering And Scientific Name Role Phone Jaime MAYS MD, Guero Terrell Primary Care Provider [phone] Reason for Visit * Reason Comments Abnormal Gait * Evaluate & Treat - Unlimited Visits (Within 10 days (routine)) - Pending Review Specialty Diagnoses / Procedures Referred By Tori horowitz Referred To Contact Neurological Surgery Diagnoses Normal pressure hydrocephalus (HCC) Thiago Banda MD [address] [place] [address] Referral ID Status Reason Start Date Expiration Date Visits Requested Visits Authorized [id number] Pending Review Specialty Services Required 12/21/[phone] Encounter Details Date Type Department Care Team (Late st Contact Info) Description 12/26/2023 8:15 AM EDT [facility] [address] [place] [address] Dong Acuna MD [address] [place] [address] NPH (normal pressure hydrocephalus) (HCC)* Allergies Active Allergy Reactions Criticality Noted Date Comments Amlodipine Rash 09/01/2021 documented as of this encounter (statuses as of 12/26/2023) Medications Medication Sig Dispensed Refills Start Date End Date Status Cyanocobalamin 1000 MCG Oral Tablet (Cyanocobalamin) Take 1 Tablet by mouth in the morning. 100 Tablet 3 03/09/2023 Active Fluocinonide 0.05 % External CreamIndications:Des matitis Apply to itchy rash on upper body nightly as needed 60 g 2 04/06/2023 Active Carvedilol 6.25 MG Oral Tablet (Coreg) Take 1 Tablet by mouth in the morning and 1 Tablet before bedtime. with food. 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 documented as of this encounter (statuses as of 12/26/2023) Immunizations Name Administration Dates Next Due COVID-19 mRNA, LNP-s, No Pre serve, 2-Dose Series (Moderna) 10/09/2020 COVID-19, mRNA, LNP-s, PF, B ooster, 100mcg/0.5mg (Moderna) 09/11/2020 Pneumococcal Conjugate Vaccine, 20-valent (Prevn ar20) 02/14/2022 Seasonal Influenza, Quadrivalent Hd (Fluzone Hd) 08/24/2023 TDAP (age 10 and older)(Boostrix) 08/13/2023 documented as of this encounter Social History [...] the money to buy more. Never true 12/21/19 24 Within the past 12 months, t he food you bought just didn't last and you didn't have money to get more. Never true 12/21/2023 Sex and Gender Information Value Date Recorded Sex Assigned at Male 06/21/2022 10:09 AM EST Gender Identity Male 06/21/2022 10:09 AM EST Sexual Orientation Straight 06/21/2022 10 :09 AM EST Job Start Date Occupation Industry Not on file Not on file Not on file documented as of this encounter Progress Notes * Dong Acuna MD - 12/26/2023 8:29 AM EDT NEUROSURGERY HISTORY AND PHYSICAL CONSULT NOTE Talon Lion [id number] 12/26/2023 8:29 AM Patient location: HOME. I was in a hospital or clinic location. After connecting through televideo,patient was verified with two unique identifiers. 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 Methods to assure confidentiality were taken. Patient acknowledged consent and understanding of pr ivacy and security of the Telemedicine visit. The patient agreed to participate. CC: NPH and consideration for ATTENDANT CAMPGROUND shunt HPI: Talon Lion is a 78 year old male who returns to neurosurgery clinic on referral from Guero Dubois III and Thiago Banda MD after being evaluated for NPH. He had a trial lumbar puncture performed by Junie Madera and Dr. Banda felt that he had a significant improvement in his gait afterwards. The patient personally felt that his gait only improved minimally for about 5 minutes afterthe trial lumbar puncture. The patient and his do not feel that there was any improvement in his cognition. His urinary incontinence is minimal and it was not possible to evaluate this. They come to Neurosurgery clinic for a discussion of a possible shunt placement ROS: A review of ten systems was discussed and any positive findings are noted in the above HPI. The patient describes: No fevers or chills No nausea or vomiting No headache No blurred vision or double vision No weakness No numbness or tingling in the extremities No difficulty swallowing No chest pain No shortness of breath No constipation or loose stools No pain on urination and no difficulty urinating PMHx: No past medical history on file. PSHx No past surgical history on file. FAMILY HX: Family History Problem Relation Name Age of Onset Cervical Cancer Mother Other (balance) Father Esophageal cancer Brother SOCIAL HX: Social History Socioeconomic History Marital status: Spouse name: Not on file Number of children: Not on file Years of education: Not on file Highest education level: Not on file Occupational History Not on file Tobacco Use Smoking status: Every Day Current packs/day: 0.50 Average packs/day: 0.5 packs/day for 35.0 years (17.5 ttl pk-yrs) Types: Cigarettes Smokeless tobacco: Never Vaping Use Vaping status: Never Used Substance and Sexual Activity Alcohol use: Yes Comment: on occassion Drug use: Never Sexual activity: Not Currently Other Topics Concern Not on file Social History Narrative Not on file Social Determinants of Health Financial Resource Strain: Not on file Food Insecurity: No Food Insecurity (12/21/2023) Hunger Vital Sign Worried About Running Out of Food in the Last Year: Never true Ran Out of Food in the Last Year: Never true Transportation Needs: Not on file Physical Activity: Not on file Stress: Not on file Social Connections: Not on file Intimate Partner Violence: Not on file Housing Stability: Not on file MEDICATIONS Current Outpatient Medications Medication Sig Dispense Refill Cyanocobalamin 1000 MCG Oral Tablet (Cyanocobalamin) Take 1 Tablet by mouth in the morning. 100 Tablet 3 Fluocinonide 0.05 % External Cream Apply to itchy rash on upper body nightly as needed 60 g 2 Carvedilol 6.25 MG Oral Tablet (Coreg) Take 1 Tablet by mouth in the morning and 1 Tablet before bedtime. with food. 180 Tablet 3 No current facility-administered medications for this visit. ALLERGIES: Review of patient's allergies indicates: Allergen Reactions Amlodipine Rash IMAGING: Reviewed - There is an atypically narrow callosal angle, indicative of NPH LABS: Reveiwed PHYSICAL EXAM (this was limited as it was a video visit) There were no vitals taken for this visit. General: Patient is awake and alert and conversant. Slightly dysarthric speech Pulm: Breathing unlabored COUNSELING: I spent a total of 45 minutes on the date of service in preparation, delivery, and documentation of the care provided to the patient, excluding any time spent on the performance of any procedure or separately billable services. ASSESSMENT AND PLAN: Patient Active Problem List Diagnosis ADVANCE DIRECTIVE INFORMATION Personal history of malignant neoplasm of skin Hx of actinic keratosis This patient is a 78-year-old male who returns to Neurosurgery clinic after having a trial lumbar puncture done recently for NPH. He did not feel that there was a significant improvement with the trial lumbar puncture and definitively does not want to pursue placement of a shunt. I nonetheless had a long discussion with the patient and his about what would be involved with shunt placement. She was under the impression that they would be admitted to the hospital for a few days to evaluate it. She had done some research on the Internet and perhaps came across the alternative methodology ofplacing a lumbar drain and admitting the patient while the patient is monitored over the next few days. This course would then involve placement of a permanent ventriculoperitoneal shunt after the lumbar drain had been trialed to prove efficacy. Nonetheless, our methodology here at [facility] is slightly different and I explained this to her. Of the triad of NPH symptoms, the patient does not feelthat he had a significant enough improvement in his walking to warrant placement of a shunt. Although he does have dysarthria, this would obviously not improve with the trial lumbar puncture. His cognition was also no different after the trial lumbar puncture. I respect that he feels the risks do not outweigh the benefits of placement of a permanent shunt and we are available if in the future he changes his mind. -Follow-up in Neurosurgery clinic as-needed [place] [address] 12/26/2023 8:29 AM documented in this encounter Plan of Treatment Upcoming Encounters Date Type Department Care Team (Late st Contact Info) Description 02/23/2024 9:40 AM EDT Office Visit [facility] [place] [address] [facility] [place] [address] Guero Sandoval III, MD [address] [facility] [place] [address] Scheduled Referrals Name Type Priority Associated Diagnoses Orde r Schedule NEUROSURGERY ADULT REFERRAL OP Referral Within 10 days (routine) Normal pressure hydrocephalus (HCC) Ordered: 12/21/2023 Health Maintenance Due Date Last Done Comments Hepatitis C Screening 1963 Zoster Vaccines (1 of 2) 1996 COVID-19 Vaccine (2022-2 4 season) 2023 10/09/2020, 09/11/2020 Depression Screening 06/21/2023 06/21/2022 DTaP,Tdap,and Td Vaccines (2 - Td or Tdap) 08/13/2033 08/13/2023 Pneumococcal Vaccine: 65+ Years Completed 02/14/2022 Influenza Vaccine (FLU shot) Completed 08/24/2023 GARDASIL-HPV IMMUNIZATION SERIES Aged Out No longer [...] as of this encounter Visit Diagnoses Diagnosis NPH (normal pressure hydrocephalus) (HCC)- Primary Idiopathic normal pressure hydrocephalus (INPH) documented in this encounter Care Teams Programmer Engineering And Scientific Relationship Specialty Start Date End Date Guero Sandoval III, MD [address] [place] [address] PCP - General Family Medicine 04/15/22 documented as of this encounter
--- OUTSIDE RECORDS SUMMARY | 2024-01-13 14:43 | External Medical Summary | Summary of Care ---
Author Name Unknown Organization [facility] Address [address] [place] [address] Phone [phone] Care Team Providers Care Integrity Analyst Name Role Phone Jaime MAYS MD, Guero Terrell Primary Care Provider [phone] Reason for Visit * Reason Onset Date Comments Referral 12/21/2023 New patient tria ge Encounter Details Date Type Department Care Team (Late st Contact Info) Description 12/21/2023 New Patient Triage (CARGO SERVICES COORDINATOR USE ONLY) Neurosurgery, [place] [address] [place], [place] [id number] Christy Baker director blood bank (New patient triage) Allergies Active Allergy Reactions Criticality Noted Date Comments Amlodipine Rash 09/01/2021 documented as of this encounter (statuses as of 12/21/2023) Medications Medication Sig Dispensed Refills Start Date [...] as of this encounter (statuses as of 12/21/2023) Active Problems Problem Noted Date Diagnosed Date Hx of actinic keratosis 02/04/2016 Personal history of malignant neoplasm of skin 0 04/20/2011 Overview: 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 documented as of this encounter (statuses as of 12/21/2023) Immunizations Name Administration Dates Next Due COVID-19 [...] as of this encounter Progress Notes * Kamille Red PA-C - 12/21/2023 3:23 PM EDT Patient triage reviewed Patient with NPH - LP completed w/ improvement Agree with functional neurosurgery scheduling Approved Kamille Red PA-C [place] [address] [facility] [place] [address] 12/21/2023 3:24 PM * Christy Baker RN - 12/21/2023 2:16 PM EDT New Patient Triage What is the diagnosis/reason for referral?: Normal pressure Hydrocephalus Enter order ID here: [id number] Specialty specific documentation: Neuroscience: Neurosurgery Does patient need to be seen?: Yes Modality: Office visit Urgency: Within 10 days (routine) Discussed care plan with patient or proxy?: Yes discussed at time of visit Communicated with patient on Date (mm/dd/yyyy): 12/21/20[address] Time ([facility] 0930 Please see new patient triage. LP done in Neurology and referral placed for NPH s/p LP with improved gait after. Scheduled with Dr. Acuna. documented in this encounter Plan of Treatment Upcoming Encounters Date Type Department Care Team (Late st Contact Info) Description 12/26/2023 8:15 AM EDT Telemedicine Neurosurgery, [place] [address] [place] [address] Dong Acuna MD [address] [place] [address] [place] [address] 02/23/2024 9:40 AM EDT Office Visit Family [facility] [place] [address] [facility] [place] [address] Guero Sandoval III, MD [address] [facility] [place] [address] Health Maintenance Due Date Last Done Comments Hepatitis C Screening 1963 Zoster Vaccines (1 of 2) 1996 COVID-19 Vaccine (2022-2 4 season) 2023 10/09/2020, 10/03/2020, 09/11/2020 Depression Screening 06/21/2023 06/21/2022 DTaP,Tdap,and Td [...] filedocumented as of this encounter Care Teams Integrity Analyst Relationship Specialty Start Date End Date Guero Sandoval III, MD [address] [place] [address] PCP - General Family Medicine 04/15/22 documented as of this encounter
--- OUTSIDE RECORDS SUMMARY | 2024-01-13 14:44 | External Medical Summary | Summary of Care ---
Author Name Unknown Organization [facility] Address [address] [place] [address] Phone [phone] Care Team Providers Care Men'S Swim Coach Name Role Phone Jaime MAYS MD, Guero Terrell Primary Care Provider [phone] Reason for Visit * Reason Comments Follow Up Encounter Details Date Type Department Care Team (Late st Contact Info) Description 12/21/2023 8:00 AM EDT Office Visit [facility] [place] [address] [place] [address] Junie Madera PA-C [address] [place], [place] [phone] Hydrocephalus, unspecified type (HCC) [G91.9]* Allergies Active Allergy Reactions Criticality Noted Date [...] Sign Reading Time Taken Comments Blood Pressure 100/70 12/21/2023 8:03 AM EDT Pulse 66 12/21/2023 8:03 AM EDT Temperature - - Respiratory Rate - - Oxygen Saturation - - Inhaled Oxygen Concentration - - Weight - - Height 161.8 cm (5' 3.7") 12/21/2023 8:03 AM EDT Body Mass Index - - documented in this encounter Progress Notes * Junie Madera PA-C - 12/21/2023 9:30 AM EDT PROCEDURE NOTE - Lumbar Puncture - Neurology Service [facility] [address] Name: Talon Lion Location: [place] [address] Date: 12/21/2023 Time: 9:30 AM PRIOR TO PROCEDURE: The patient was evaluated prior to the procedure. The patient was identified as Talon Lion, and the procedure verified as lumbar puncture. A Time Out was held and the following information confirmed. Verify Correct Patient: Yes Verify Correct Site: Yes Verify Procedure Matches Verbalized Consent: Yes Verify Correct Position: Yes Availability of Necessary Equipment: Yes Other Healthcare Professional(s) Verbalize(s) Agreement with Timeout: Yes Anticoagulation / Antiplatelet: No Site Marked: Yes Discussion was held with the patient concerning lumbar puncture. The risks and benefits were explained with possible risks to include local back pain, headache, bleeding, infection, neurological sequelea (herniation and/or paralysis), and tract formation/subarachnoid epidermal cyst. The patient freely signed the consent form. PROCEDURE NOTE: Procedure: Lumbar puncture - spinal tap Indication: NHP testing Brick Pointer/Director Of Retail Merchandising: Junie Madera PA-C Complication/Corrective Action: None Comments/Findings: atraumatic, clear fluid DESCRIPTION OF THE PROCEDURE: Patient was placed in the lateral decubitus position with hips, knees and neck flexed. Landmarks identified. Patient prepped and draped in usual sterile fashion. Skin anesthetized with 1% lidocaine. Lumbar puncture performed using a 3.5 inch 20 gauge needle with stylet. Atraumatic tap was obtained on the 1st attempt. Opening pressure was 9 millimeters H2O. Approximately 18mL of clear fluid was removed in usual manner without any problems. Closing pressure was Closing pressure was 4 mm of water.. Stylet replaced and needle withdrawn. CSF was sent to lab for protein, glucose, cell count with differential, Gram stain , see Epic orders per Dr Banda . Patient tolerated the procedure well. The p atient was provided with written and verbal instructions. I performed the procedure. Junie Madera PA-C 12/21/2023 9:34 AM documented in this encounter Plan of Treatment Upcoming Encounters Date Type Department Care Team (Late st Contact Info) Description 12/21/2023 11:05 AM EDT Office Visit Neurology, [place] [address] [place] [address] Thiago Banda MD [address] [place] [address] Arrived 02/23/2024 9:40 AM EDT Office Visit [facility] [address] [facility] [place] [address] Guero Sandoval III, MD [address] [facility] [place] [address] Health Maintenance Due Date Last Done Comments [...] as of this encounter Visit Diagnoses Diagnosis Hydrocephalus, unspecified type (HCC) [G91.9]- Primary documented in this encounter Care Teams Men'S Swim Coach Relationship Specialty Start Date End Date Guero Sandoval III, MD [address] [place] [address] PCP - General Family Medicine 04/15/22 documented as of this encounter
--- OUTSIDE RECORDS SUMMARY | 2024-01-13 14:44 | External Medical Summary | Summary of Care ---
Author Name Unknown Organization [facility] Address [address] [place] [address] Phone [phone] Care Team Providers Care Health Care Analyst Name Role Phone Jaime MASY MD, Guero Terrell Primary Care Provider [phone] Encounter Details Date Type Department Care Team (Late st Contact Info) Description 08/08/[address] [facility] [address] [place] [address] Guero Sandoval III, MD [address] [place] [address] Allergies Active Allergy Reactions Criticality Noted Date Comments Amlodipine Rash 09/01/2021 documented as of this encounter (statuses as of 11/07/2023) Medications Medication Sig Dispensed Refills Start Date End Date Status Cyanocobalamin 1000 MCG Oral Tablet (Cyanocobalamin) Take 1 Tablet by mouth in the morning. 100 Tablet 3 03/09/2023 Active Fluocinonide 0.05 % External CreamIndications: Dermatitis Apply to itchy rash on upper body nightly as needed 60 g 2 04/06/2023 Active Carvedilol 6.25 MG Oral Tablet (Coreg) Take 1 Tablet by mouth in the morning and 1 Tablet before bedtime. with food. 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 documented as of this encounter (statuses as of 11/07/2023) Immunizations Name Administration Dates Next Due COVID-19 [...] encounter Miscellaneous Notes * Telephone Encounter - Gaviota Schneider LPN - 08/11/2023 9:54 AM EST Demographics and last office visit note sent as requested. Faxed with confirmed receipt. * Telephone Encounter - Malinda Sanchez OSA - 08/08/2023 3:34 PM EST Idalmsi johansen/ [facility] Need clinical notes for Walker that was prescribed for this patient. Patient/Parent called in requesting a copy of medical records.Please fax clinicals to [phone] Any questions or concerns please call [phone] documented in this encounter Plan of Treatment Upcoming Encounters Date Type Department Care Team (Late st Contact Info) Description 11/27/2023 9:20 AM EDT Office Visit Neurology [address] [place] [address] Guero Elizalde MD [address] [place] [address] 02/23/2024 9:40 AM EDT Office Visit Family Practice [facility] [address] [place] [address] Jaime IIIGuero MD [address] [place] [address] Health Maintenance Due Date Last Done Comments Hepatitis C Screening 1963 Zoster Vaccines (1 of 2) 1996 COVID-19 Vaccine (4 - 2022-2 4 season) 2023 10/09/2020, 10/03/2020, 09/11/2020 Depression [...] filedocumented as of this encounter Care Teams Health Care Analyst Relationship Specialty Start Date End Date Jaime MAYS, Guero Terrell MD [address] [place] [address] PCP - General Family Medicine 04/15/22 documented as of this encounter
--- OUTSIDE RECORDS SUMMARY | 2024-01-13 14:44 | External Medical Summary | Summary of Care ---
Author Name Unknown Organization [facility] Address [address] [place] [address] Phone [phone] Care Team Providers Care Clinical Nurse Reviewer Name Role Phone Jaime MAYS MD, Guero Terrell Primary Care Provider [phone] Reason for Visit * Reason Onset Date Comments Advice 08/04/2023 Encounter Details Date Type Department Care Team (Late st Contact Info) Description 08/04/2023 Telephone Family Practice [facility] [address] [place] [address] Guero Sandoval III, MD [address] [place] [address] Advice Allergies Active Allergy Reactions Criticality Noted Date Comments Amlodipine Rash 09/01/2021 documented as of this encounter (statuses as of 11/03/2023) Medications Medication Sig Dispensed Refills Start Date [...] as of this encounter (statuses as of 11/03/2023) Active Problems Problem Noted Date Diagnosed Date Hx of actinic keratosis 02/04/2016 Personal history of malignant neoplasm of skin 0 04/20/2011 Overview: 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 documented as of this encounter (statuses as of 11/03/2023) Immunizations Name Administration Dates Next Due COVID-19 [...] Encounter - Hoa Jimenez, MED ASSIST - 08/08/2023 10:24 AM EST Spoke to Desiree and pt lloyd roth. I updated order. Order faxed to [facility] Patient fax [phone]. * Telephone Encounter - Guero Elizalde MD - 08/08/2023 10:18 AM EST Hoa order is in thanks Guero * Telephone Encounter - Hoa Jimenez MED ASSIST - 08/08/2023 8:[address] Elizalde, I pended an order for walker. Please review * Telephone Encounter - Rhonda Valero OSA - 08/04/2023 3:36 PM EST Desiree is calling and saying that Talon has been going to rehab and they would like for him to have a walker but he needs a prescription for the insurance to cover it. Unsure if it should go to his PCP or neurologist. documented in this encounter Plan of Treatment Upcoming Encounters Date Type Department Care Team (Late st Contact Info) Description 11/27/2023 9:20 AM EDT Office Visit Neurology [facility] [address] [place] [address] Guero Elizalde MD [address] [place] [address] [place] [address] 02/23/2024 9:40 AM EDT Office Visit Family Practice [facility] [place] [address] [place] [address] [address] Guero Sandoval III, MD [address] [place] [address] [address] Health Maintenance Due Date Last Done Comments [...] as of this encounter Visit Diagnoses Diagnosis Balance problems- Primary Other symptoms involving nervous and musculoskeletal systems documented in this encounter Care Teams Clinical Nurse Reviewer Relationship Specialty Start Date End Date Guero Sandoval III, MD [address] [place] [address] PCP - General Family Medicine 04/15/22 documented as of this encounter
--- OUTSIDE RECORDS SUMMARY | 2024-01-13 14:44 | External Medical Summary ---
Author Name Unknown Address Unknown Organization [id number]:LABORATORY [facility] [place] [place] - [address] [address] Laboratory Report Ordering Provider Test Date Status JEANETTE COSTELLO 10/26/2023 15:52:20 Final Observation Date Value Abnormality Reference (Units ) Status Vitamin B12 10/26/2023 15:52:20 138 134-4736 (pg/mL) Final Performing Location LABORATORY [facility] - [address] [address]
--- OUTSIDE RECORDS SUMMARY | 2024-01-13 14:44 | External Medical Summary ---
Author Name Unknown Address Unknown Organization K09:[facility] [place] [address] Laboratory Report Ordering Provider Test Date Status JEANETTE COSTELLO 10/26/2023 15:52:20 Final Observation Date Value Abnormality Reference (Units ) Status WBC, Total 10/26/2023 15:52:20 6.76 4.00-10.8 0 (K/uL) Final RBC 10/26/2023 15:52:20 4.64 4.50-5.25 (M/uL) Final Hemoglobin 10/26/2023 15:52:20 14.4 14.0-16.8 (g/dL) Final HCT 10/26/2023 15:52:20 42.6 40.0-48.4 (%) Final MCV 10/26/2023 15:52:20 91.8 82.0-99.5 (fL) Final MCH 10/26/2023 15:52:20 31.0 27.0-34.0 (pg) Final MCHC 10/26/2023 15:52:20 33.8 32.0-36.0 (g/dL) Final RDW 10/26/2023 15:52:20 13.0 11.5-15.5 (%) Final Platelets 10/26/2023 15:52:20 244 140-400 (K /uL) Final MPV 10/26/2023 15:52:20 10.1 6.6-11.1 ( fL) Final Performing Location [facility] [place] [address]
--- OUTSIDE RECORDS SUMMARY | 2024-01-13 14:44 | External Medical Summary | Summary of Care ---
Author Name Unknown Organization [facility] Address [address] [place] [address] Phone [phone] Care Team Providers Care Pharmacovigilance Specialist Name Role Phone Jaime MAYS MD, Cole Terrell Primary Care Provider [phone] Reason for Visit * Reason Comments eRx-Medication Refill Encounter Details Date Type Department Care Team (Late st Contact Info) Description 10/04/2023 Refill Family Practice [facility] [address] [facility] [address] Cole Alcala III, MD [address] [facility] [address] Allergies Active Allergy Reactions Criticality Noted Date Comments Amlodipine Rash 09/01/2021 documented as of this encounter (statuses as of 10/04/2023) Medications Medication Sig Dispensed Refills Start Date End Date Status Cyanocobalamin 1000 MCG Oral Tablet (Cyanocobalamin) Take 1 Tablet by mouth in the morning. 100 Tablet 3 03/09/2023 Active Fluocinonide 0.05 % External CreamIndications :Dermatitis Apply to itchy rash on upper body nightly as needed 60 g 2 04/06/2023 Active Additional Information Patient not taking.Reported on 08/24/2023 Carvedilol 6.25 MG Oral Tablet (Coreg) Take 1 Tablet by mouth in the morning and 1 Tablet before bedtime. with food. 180 Tablet 3 10/04/2023 Active Carvedilol 6.25 MG Oral Tablet (Coreg) Take 1 Tablet by mouth in the morning and 1 Tablet before bedtime. with food. 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 documented as of this encounter (statuses as of 10/04/2023) Immunizations Name Administration Dates Next Due COVID-19 [...] encounter Miscellaneous Notes * Telephone Encounter - He Allen [facility] - 10/04/2023 5:13 PM EST Signed Prescriptions: Disp Refills Carvedilol 6.25 MG Oral Tablet (Coreg) 180 Ta*3 Sig: Take 1 Tablet by mouth in the morning and 1 Tablet before bedtime. with food.Authorizing Provider: COLE ALCALA III User: HE ALLEN documented in this encounter Plan of Treatment Upcoming Encounters Date Type Department Care Team (Late st Contact Info) Description 10/26/2023 3:00 PM EDT Office Visit Neurology [place] [address] [place] [address] Thiago Banda MD [address] [place] [address] 11/27/2023 9:20 AM EDT Office Visit Neurology [facility] [place] [address] [place] [address] Cole Elizalde MD [facility] [place] [address] 02/23/2024 9:40 AM EDT Office Visit Family Practice [facility] [place] [address] [address] [place] [address] Cole Alcala III, MD [facility] [place] [address] [place] [address] Health Maintenance Due Date Last Done Comments [...] filedocumented as of this encounter Care Teams Pharmacovigilance Specialist Relationship Specialty Start Date End Date Cole Alcala III, MD [address] [facility] [address] PCP - General Family Medicine 04/15/22 documented as of this encounter
--- OUTSIDE RECORDS SUMMARY | 2024-01-13 14:44 | External Medical Summary | Summary of Care ---
Author Name Unknown Organization [facility] Address [address] [place] [address] Phone [phone] Care Team Providers Care Medical Insurance Collector Name Role Phone Jaime MAYS MD, Guero Terrell Primary Care Provider [phone] Reason for Visit * Reason Onset Date Comments Home Health 08/16/2023 Encounter Details Date Type Department Care Team (Late st Contact Info) Description 08/16/2023 Telephone Family Practice [facility] 200 [place] [address] Guero Sandoval III, MD 200 [place] [address] Home Health Allergies Active Allergy Reactions Criticality Noted Date Comments Amlodipine Rash 09/01/2021 documented as of this encounter (statuses as of 08/18/2023) Medications Medication Sig Dispensed Refills Start Date [...] as of this encounter (statuses as of 08/18/2023) Active Problems Problem Noted Date Diagnosed Date Hx of actinic keratosis 02/04/2016 Personal history of malignant neoplasm of skin 0 04/20/2011 Overview: 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 documented as of this encounter (statuses as of 08/18/2023) Immunizations Name Administration Dates Next Due COVID-19 [...] encounter Miscellaneous Notes * Telephone Encounter - April Todd LPN - 08/18/2023 12:48 PM EST Please assist with scheduling. * Telephone Encounter - Tracey Sewell OSA - 08/17/2023 9:20 AM EST Y g sent 08/17 * Telephone Encounter - Guero Sandoval III, MD - 08/16/2023 2:40 PM EST I have not seen him since 02/26 will need appt for hh * Telephone Encounter - Gaviota Schneider LPN - 08/16/2023 1:32 PM EST PT/OT/ST Eval Start of Care/Continuation Aneesh PT, Calling from: [facility] PT Plan of care: 2 times per week for 3 weeks: Focusing on: balance, gait, home exercise program Concerns: no None Symptoms: none Vitals: Not available. Computer and he is driving. All are within normal limits. Narrative: Aneesh calling from [facility]. Physicial Therapy. Asking for orders. Call back aneesh with any advice or orders at [phone] Advised that additional visit orders will be signed by Dr. Sandoval and to fax to the office for signature documented in this encounter Plan of Treatment Upcoming Encounters Date Type Department Care Team (Late st Contact Info) Description 08/22/2023 1:00 PM EST NeuroDiagnostic Study Neurophysiology [facility] [address] [facility] [place], [place] [address] Cherrie Marino MD [address] [place] [address] 08/24/2023 9:40 AM EST Office Visit Family Practice [facility] [place] [address] [facility] [place], [place] [address] Guero Sandoval III, MD [address] [facility] [place], [place] [address] 10/23/2023 8:40 AM EDT Office Visit Neurology [facility] [address] [place] [address] Guero Elizalde MD [address] [place] [address] 10/26/2023 3:00 PM EDT Office Visit Neurology [facility] [place] [address] [place] [address] Thiago Banda MD [address] [place] [address] Health Maintenance Due Date Last Done Comments [...] filedocumented as of this encounter Care Teams Medical Insurance Collector Relationship Specialty Start Date End Date Guero Sandoval III, MD [address] [place] [address] PCP - General Family Medicine 04/15/22 documented as of this encounter
--- OUTSIDE RECORDS SUMMARY | 2024-01-13 14:44 | External Medical Summary ---
Author Name Unknown Address Unknown Organization : Laboratory Report Ordering Provider Test Date Status JEANETTE COSTELLO 10/26/2023 15:52:20 Final Observation Date Value Abnormality Reference (Units ) Status METHYLMALONIC ACID 10/26/2023 15:52:20 124 8 7-318 (nmol/L) Final This test was developed and its analytical performance
characteristics have been determined by [facility] [place], [place]. It has
not been cleared or approved by the U.S. Food and Drug
Administration. This assay has been validated pursuant
to the CLIA regulations and is used for clinical
purposes.

Test Performed at:
[facility]
[address] [facility] [place] [address]
Doc Salmon M.D., Ph.D.,Director of Laboratories Performing Location
--- OUTSIDE RECORDS SUMMARY | 2024-01-13 14:44 | External Medical Summary | Summary of Care ---
Author Name Unknown Organization [facility] Address [address] [place] [address] Phone [phone] Care Team Providers Care Radiographer Name Role Phone Jaime MAYS MD, Cole Terrell Primary Care Provider [phone] Reason for Visit * Reason Comments NEW PATIENT Dysphagia, balance i ssues * Evaluate & Treat - Unlimited Visits (Within 30 days (routine)) - Pending Review Specialty Diagnoses / Procedures Referred By Tori horowitz Referred To Contact Neurology Diagnoses Dysphasia Balance problems Cole Jay MD [address] [place] [address] Thiago Banda MD [address] [place] [address] Referral ID Status Reason Start Date Expiration Date Visits Requested Visits Authorized [id number] Pending Review Specialty Services Required [phone] Encounter Details Date Type Department Care Team (Latest Contact Info) Description 10/26/2023 3:00 PM EDT Office Visit Neurology [facility] [address] [place] [address] Thiago Banda MD [address] [place] [address] Normal pressure hydrocephalus (HCC)*; B12 deficiency; Encounter for preprocedural laboratory examination Allergies Active Allergy Reactions Criticality Noted Date Comments Amlodipine Rash 09/01/2021 documented as of this encounter (statuses as of 11/20/2023) Medications Medication Sig Dispensed Refills Start Date [...] as of this encounter (statuses as of 11/20/2023) Active Problems Problem Noted Date Diagnosed Date Hx of actinic keratosis 02/04/2016 Personal history of malignant neoplasm of skin 0 04/20/2011 Overview: 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 documented as of this encounter (statuses as of 11/20/2023) Immunizations Name Administration Dates Next Due COVID-19 [...] Sign Reading Time Taken Comments Blood Pressure 130/70 10/26/2023 2:49 PM EDT Pulse 72 10/26/2023 2:49 PM EDT Temperature 35.9 C (96.6 F) 10/26/2023 2:49 PM ED T Respiratory Rate - - Oxygen Saturation 98% 10/26/2023 2:49 PM EDT Inhaled Oxygen Concentration - - Weight 52.8 kg (116 lb 4.8 oz) 10/26/2023 2:49 P M EDT Height - - Body Mass Index 20.15 02/17/2023 9:02 AM EDT documented in this encounter Progress Notes * Thiago Banda MD - 10/26/2023 2:58 PM EDT 10/26/2023 3:02 PM Talon Lion 78 year old male Ref: COLE JAY[209] [address] [place] [address] (office) [phone] (fax) Asked by Cole Sandoval III, MD to render opinion regarding ventriculomegaly. 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 MRI was showing atrophy and ventriculomegaly. He has minimal memory issues andurinary issues. I am seeing him for possible normal pressure hydrocephalus. The patient was seen last year by my colleague, Dr. Jay and Ms. Pisano. He had some gait problems for several years but significantly worse over the last year. He is also quite hearing impaired. Has had more falls and became increasingly dependent on his . Has to use a cane now. He still smokes. History of alcohol abuse. MRI shows narrow colossal angle of 50 degrees. (angle between 40 to 90 degrees is typical for NPH),he has rounded ventricles, some transependymal flow, thinned corpus callosum and there appears to be a flow void through the third and second ventricles suggestive of a jet sign. He was found to be B12 deficient in March of last year which was sent supplemented. Levels of B12 or down to 170. He got a B12 shot and oral supplements. He had PT for gait and balance training until last month and has not fallen since. 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 MEDICATIONS: Current Outpatient Medications Medication Sig Dispense Refill [...] patient's allergies indicates: Allergen Reactions Amlodipine Rash Social History Socioeconomic History Marital status: Spouse [...] on file Housing Stability: Not on file FAMILY HISTORY Family History Problem Relation Age of Onset Cervical Cancer Mother Other (balance) Father Esophageal cancer Brother Family Status Relation Status Mo Fa Bro REVIEW OF SYSTEMS: The patient denies new cardiac, lung, kidney, liver, skin, thyroid, bladder, or digestive problems.The patient also denies acute changes in hearing or vision. Otherwise, all other systems are negative or as noted above. BP 130/70 (BP Site: Right Arm, BP Position: Sitting, BP Cuff Size: Regular) | Pulse 72 | Temp 35.9 C (96.6 F) (Tympanic) | Wt 52.8 kg (116 lb 4.8 oz) | SpO2 98% | BMI 20.15 kg/m | BSA 1.54 m The patient is a 78 year old male who is in no apparent distress, NEUROLOGIC EXAMINATION: Patient is dysphoric, he has dysphonia He has some dysphagia for solids He has a slow and wider based gait. Some difficulty with lifting his feet from the ground. MOCA 22/30 *he struggles with visuospatial function, difficulty placing the hands on the clock, only 1 step of serial 7s, reduced verbal fluency, delayed recall 4/5, off by one day on the date. IMPRESSION: The patient has normal pressure hydrocephalus as per diagnostic criteria on neuroimaging. He has mild cognitive impairment and urinary urgency. He also has dyphonia and dysphagia which is a bit unusual. It could be due to B12 deficiency. He has not had any recent level done. RECOMMENDATIONS: I will have him back at [facility] for a large volume lumbar puncture of at least 40cc. He needs to get labs to check on his coags and CBC. Will check a B12 level and MMA level. We will check his gait before and after the procedure with 25 foot timed walking test. Thank-you for letting me participate int he care of this patient. Thiago Banda MD Neurology [address] [facility] [address] Please send copy to requesting physician, Cole Sandoval III, MD documented in this encounter Nursing Notes * Glenys Bangura LPN - 10/26/2023 2:49 PM EDT Chief Complaint Patient presents with NEW PATIENT Dysphagia, balance issues documented in this encounter Plan of Treatment Upcoming Encounters Date Type Department Care Team (Late st Contact Info) Description 11/27/2023 9:20 AM EDT Office Visit Neurology [facility] [address] [facility] [place] [address] Cole Jay MD [address] [facility] [place] [address] 02/23/2024 9:40 AM EDT Office Visit Family Practice [facility] [address] [facility] [place] [address] Cole Sandoval III, MD [address] [facility] [place] [address] Health Maintenance Due Date Last Done Comments [...] filedocumented as of this encounter Results * PT INR (10/26/2023 3:52 PM EDT) Prothrombin Time 13.1 11.6 - 15.2 seconds 10/27/2023 12:00 AM EDT LABORATORY [facility] INR 1.0 0.8 - 1.2 10/27/2023 12:00 AM EDT LABORATORY [facility] Blood Venous blood specimen / Unknown Venipuncture / Unknown 10/26/2023 3:52 PM EDT 10/26/2023 3:52 PM EDT Narrative LABORATORY [facility] - 10/27/2023 12:00 AM EDT Warfarin Therapy INR: 2.0-3.0 conventional anticoagulation INR: 2.5-3.5 high intensity anticoagulation Thiago Banda MD LAB BLOOD ORDERABLES Performing Organization Address City/State/[facility] Co de Phone Number LABORATORY [facility] [address] [place] [address] * CBC (10/26/2023 3:52 PM EDT) Pathologist [facility] WBC 6.76 4.00 - 10.80 K/uL 10/26/2023 4:01 PM EDT LAB[facility]ATORY [place] 56 RBC 4.64 4.50 - 5.25 M/uL 10/26/2023 4:01 PM EDT LAB[facility]ORY [place] 56 HGB 14.4 14.0 - 16.8 g/dL 10/26/2023 4:01 PM EDT [facility] 56 HCT 42.6 40.0 - 48.4 % 10/26/2023 4:01 PM EDT LAB[facility]ATORY [place] 56 MCV 91.8 82.0 - 99.5 fL 10/26/2023 4:01 PM EDT LAB[facility]ATORY [place] 56 MCH 31.0 27.0 - 34.0 pg 10/26/2023 4:01 PM EDT [facility] 56 MCHC 33.8 32.0 - 36.0 g/dL 10/26/2023 4:01 PM EDT [facility] 56- RDW 13.0 11.5 - 15.5 % 10/26/2023 4:01 PM EDT [facility] 56-02 PLT 244 140 - 400 K/uL 10/26/2023 4:01 PM EDT [facility] 56-02 MPV 10.1 6.6 - 11.1 fL 10/26/2023 4:01 PM EDT [facility] 56-02 Blood Venous blood specimen / Unknown Venipuncture / Unknown 10/26/2023 3:52 PM EDT 10/26/2023 3:52 PM EDT Thiago Banda MD LAB BLOOD ORDERABLES [facility] 56-02 [address] [place] [address] * VITAMIN B12 (10/26/2023 3:52 PM EDT) Vitamin B12 543 232 - 1,245 pg/mL 10/26/2023 11:43 PM EDT LABORATORY [facility] Blood Venous blood specimen / Unknown Venipuncture / Unknown 10/26/2023 3:52 PM EDT 10/26/2023 3:52 PM EDT Thiago Banda MD LAB BLOOD ORDERABLES [facility] [address] [place] [address] * METHYLMALONIC ACID, SERUM (10/26/2023 3:52 PM EDT) Methylmalonic Acid 124 87 - 318 nmol/L 10/30/2023 5:41 AM EDT [facility] [place] Comment: This test was developed and its analytical performance characteristics have been determined by [facility] [place], [place]. It has not been cleared or approved by the U.S. Food and Drug Administration. This assay has been validated pursuant to the CLIA regulations and is used for clinical purposes. Test Performed at: [facility] [address] [place], [place] Doc Salmon M.D., Ph.D.,Director of Laboratories Blood Venous blood specimen / Unknown Venipuncture / Unknown 10/26/2023 3:52 PM EDT 10/26/2023 3:52 PM EDT Thiago Banda MD LAB BLOOD ORDERABLES Performing Organization Address City/State/[facility] Co de Phone Number [facility] [place] [address] [place] [address] documented in this encounter Visit Diagnoses Diagnosis Normal pressure hydrocephalus (HCC)- Primary Idiopathic normal pressure hydrocephalus (INPH) B12 deficiency Other B-complex deficiencies Encounter for preprocedural laboratory examination Pre-procedural laboratory examination documented in this encounter Care Teams Radiographer Relationship Specialty Start Date End Date Cole Sandoval III, MD [address] [place] [address], [place] [address] PCP - General Family Medicine 04/15/22 documented as of this encounter"
--- OUTSIDE RECORDS SUMMARY | 2024-01-13 14:44 | External Medical Summary | Summary of Care ---
Author Name Unknown Organization [facility] Address [address] [place] [address] Phone [phone] Care Team Providers Care Track Inspector Name Role Phone Jaime MAYS MD, Guero Terrell Primary Care Provider [phone] Reason for Visit * Reason Onset Date Comments Hospital Follow-Up 08/15/2023 ALEK Encounter Details Date Type Department Care Team (Late st Contact Info) Description 08/15/2023 Telephone Ancillary [facility] [place] [address] [place] [address] Natividad Devine, [facility] Hospital Follow-Up (ALEK) Allergies Active Allergy Reactions Criticality Noted Date [...] of skin 0 04/20/2011 Overview: SCC L noer mynor 05/2017, BCC L forehead 05/2009, R lateral [...] encounter Miscellaneous Notes * Telephone Encounter - Natividad Devine RN - 08/18/2023 11:18 AM EST Transitions of Care Note Reason for Referral:Recent Admission Phone visit for follow up: ALEK # 2 Left message asking patient to call back to discuss recent hospitalization, medications and follow up appointments. Admitted to: [facility], Date: 08/12 Discharged to: Home with services, Date: 08/15 Diagnosis driving hospitalization: Progressive Weakness Ambulatory Dysfunction * Telephone Encounter - Natividad Devine RN - 08/15/2023 11:53 AM EST Transitions of Care Note Reason for Referral:Recent Admission Phone visit for follow up: ALEK # 1. Left message requesting a call back to discuss recent hospitalization, medications and follow up appointments. Let them know that if I did not hear back to day I would attempt tomorrow. 08/16 Admitted to: [facility], Date: 08/12/2023 Discharged to: Home with Services, Date: 08/15/2023 Diagnosis driving hospitalization: Progressive Weakness Ambulatory Dysfunction documented in this encounter Plan of Treatment Upcoming Encounters Date Type Department Care Team (Late st Contact Info) Description 08/22/2023 1:00 PM EST NeuroDiagnostic Study Neurophysiology [facility] [address] [place] [address] Cherrie Marino MD [address] [place] [address] 08/24/2023 9:40 AM EST Office Visit Family Practice [facility] [address] [place] [address] Guero Sandoval III, MD [address] [place] [address] 10/23/2023 8:40 AM EDT Office Visit Neurology [facility] [address] [facility] [place] [address] Guero Elizalde MD [address] [facility] [place] [address] 10/26/2023 3:00 PM EDT Office Visit Neurology [facility] [address] [place] [address] Thiago Banda MD [address] [place] [address] Health Maintenance Due Date Last [...] filedocumented as of this encounter Care Teams Track Inspector Relationship Specialty Start Date End Date Guero Sandoval III, MD [address] [place] [address] PCP - General Family Medicine 04/15/22 documented as of this encounter
--- OUTSIDE RECORDS SUMMARY | 2024-01-13 14:44 | External Medical Summary | Summary of Care ---
Author Name Unknown Organization [facility] Address [address] [place] [address] Phone [phone] Care Team Providers Care Surveillance Sensor Operator Name Role Phone Jaime MAYS MD, Guero Terrell Primary Care Provider [phone] Reason for Visit * Reason Comments EMG * Ancillary Services (Within 10 days (routine)) - Authorized Specialty Diagnoses / Procedures Referred By Contac t Referred To Contact Neurophysiology Diagnoses Unspecified abnormalities of gait and mobility Procedures EMG Guero Elizalde MD [address] [place] [address] Referral ID Status Reason Start Date Expiration Date Visits Requested Visits Authorized [id number] Authorized Ancillary Services Required 3 11/29/[phone] Encounter Details Date Type Department Care Team (Late st Contact Info) Description 09/19/2023 11:20 AM EST NeuroDiagnostic Study Neurophysiology [facility] [address] [place] [address] Cherrie Marino MD [address] [place] [address] Arrived Allergies Active Allergy Reactions Criticality Noted Date Comments Amlodipine Rash 09/01/2021 documented as of this encounter (statuses as of 09/19/2023) Medications Medication Sig Dispensed Refills Start Date End Date Status Carvedilol 6.25 MG Oral Tablet (Coreg) Take 1 Tablet by mouth in the morning and 1 Tablet before bedtime. with food. 90 Tablet 11 08/19/2022 Active Cyanocobalamin 1000 MCG Oral Tablet (Cyanocobalamin) Take 1 Tablet by mouth in the morning. 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 documented as of this encounter (statuses as of 09/19/2023) Immunizations Name Administration Dates Next Due COVID-19 [...] as of this encounter Progress Notes * Cherrie Marino MD - 09/19/2023 2:41 PM EST [facility] Neurophysiology Department [facility] Test Date: 09/19/2023 Patient: Talon Lion : 1945 Physician: Cherrie Marino MD Sex: Male Height: 5' 5" Ref Phys: Guero Elizalde MD ID#: [id number] Weight: 125 lbs. [employer]: David Vargas Patient Complaints: Patient History / Exam: weakness dysarthria clinical question motor neuron disease Impression: This was a technically difficult study. 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 There is some prolongation of the distal sensory latencies in the left hand which may represent hand cooling. There is a chronic but not active left C5 and C7 radiculopathy. There is a suggestion of a chronic left L5 radiculopathy. There is no convincing evidence of a disorder of the motor neurons or their axons. NCV & EMG Findings: This was a technically very difficult study due to patient's clinical condition and ability to cooperate. The left sural and superficial peroneal sensory responses are absent. The left radial sensory response was normal. The left median sensory response from digit 2 to wrist is a prolonged distal latencyand normal amplitude. The left ulnar sensory latency from digit 5 to wrist is prolonged with normalamplitude. This could represent digit cooling. The left median distal motor latency and amplitude are normal conduction velocity is borderline. The left ulnar motor response is normal. The left peroneal amplitude is reduced and conduction velocity is normal. The left posterior tibialmotor response is normal. EMG was technically difficult but was performed in the left upper left lower and right mid thoracicparaspinals. This study can best be characterized by the absence of active denervation in all of the tested muscles. No fibrillation potentials or fasciculations were noted. There is evidence of a mild chronic but not active left C5 and C7 radiculopathy. There is some decreased recruitment in the intrinsic hand muscles on the left which given the normal motor unit potentials otherwise could be upper motor neuron in basis or effort related. In the left lower extremity there was chronic mild denervation in the left tibialis anterior possibly suggesting a mild chronic left L5 radiculopathy Cherrie Marino MD NCS+ Motor Nerve Results Latency Amplitude Segment Distance Velocity Min F-Lat Temperature Site (ms) Norm (mV) Norm cm m/s Norm (ms) Norm (C) Left Fibular (with F) Ankle 3.3 < 6.7 1.10 > 2.0 Ankle-EDB 8.5 NR < 58.0 - Bel Fib Head 9.8 - 1.10 - Bel Fib Head-Ankle 31 48 > 41 - Pop Fossa 11.9 - 1.04 - Pop Fossa-Ankle 41 48 - - Pop Fossa-Bel Fib Head 10 48 - Left Median (with F) Wrist 4.2 < 4.6 4.7 > 4.0 Wrist-APB 7 26.3 < 32.0 - Elbow 9.0 - 4.5 - Elbow-Wrist 22 46 > 49 - Left Tibial (with F) Ankle 4.2 < 6.2 6.4 > 4.0 Ankle-AHB 8 48.3 < 58.0 - Pop Fossa 12.3 - 4.3 - Pop Fossa-Ankle 38 47 > 41 - Left Ulnar (with F) Wrist 3.7 < 3.7 10.5 > 6.0 Wrist-ADM 6.5 27.4 < 32.0 - Bel Elbow 7.1 - 9.5 - Bel Elbow-Wrist 19.5 57 > 52 - Abv Elbow 8.9 - 9.3 - Abv Elbow-Bel Elbow 10 56 - - Abv Elbow-Wrist 29.5 57 - Motor Segments Delta-O Distance CV Segment (ms) (cm) (m/s) Norm Left Fibular (with F) Ankle-EDB 8.5 Bel Fib Head-Ankle 6.5 31 48 > 41 Pop Fossa-Ankle 8.6 41 48 - Pop Fossa-Bel Fib Head 2.1 10 48 - Left Median (with F) Wrist-APB 7 Elbow-Wrist 4.8 22 46 > 49 Left Tibial (with F) Ankle-AHB 8 Pop Fossa-Ankle 8.1 38 47 > 41 Left Ulnar (with F) Wrist-ADM 6.5 Bel Elbow-Wrist 3.4 19.5 57 > 52 Abv Elbow-Bel Elbow 1.80 10 56 - Abv Elbow-Wrist 5.2 29.5 57 - Sensory Nerve Results Latency (Peak) Amplitude ( O-P ) Segment Distance Temperature Site (ms) Norm (V) Norm (cm) (C) Left Median Sensory Wrist-Dig II 4.1 < 3.7 19 > 15 Wrist-Dig II 13 - Left Radial Sensory Forearm-Snuff Box 2.8 < 3.0 28 > 20 Forearm-Snuff Box 10 - Left Superficial Fibular Sensory 14 cm-Ankle NR - NR > 0 14 cm-Ankle 14 - Left Sural Sensory Calf NR < 4.6 NR > 6 Calf-Lat Mall 14 - Left Ulnar Sensory Wrist-Dig V 3.6 < 3.2 18 > 10 Wrist-Dig V 11 - EMG+ Side Muscle Root Ins Act Fibs Fasic Others Poly Dur Amp Recrt Activation Commt Right Thoracic Parasp (Mid) T5-T9 NL 0 0 None Left Vastus Lat L2-L4 NL 0 0 None 0 NL NL NL NL Left Tib Anterior L4-L5 NL 0 0 None 2+ NL 1+ NL NL Left Gastroc LH S1-S2 NL 0 0 None 0 NL NL NL NL Left Biceps Fem LH L5-S2 NL 0 0 None 0 NL NL NL NL Left APB C8-T1 NL 0 0 None 0 NL NL NL Fair Left Deltoid C5-C6 NL 0 0 None 1+ NL NL NL NL Left FDI C8-T1 NL 0 0 None 0 NL NL NL Fair Left FCR C6-C7 NL 0 0 None 0 NL NL NL NL Left Triceps C6-C8 NL 0 0 None 1+ NL NL NL NL documented in this encounter Plan of Treatment Upcoming Encounters Date Type Department Care Team (Late st Contact Info) Description 10/23/2023 8:40 AM EDT Office Visit [facility] [address] [place] [address] Guero Elizalde MD [address] [facility] [place] [address] 10/26/2023 3:00 PM EDT Office Visit Neurology [facility] [place] [address] [facility] [place] [address] Thiago Banda MD [address] [place] [address] 02/23/2024 9:40 AM EDT [facility] [place] [address] [facility] [place] [address] Guero Sandoval III, MD [address] [facility] [place] [address] Health Maintenance Due Date Last Done Comments [...] as of this encounter Visit Diagnoses Diagnosis 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
--- OUTSIDE RECORDS SUMMARY | 2024-01-13 14:44 | External Medical Summary | Summary of Care ---
Author Name Unknown Organization [facility] Address [address] [place] [address] Phone [phone] Care Team Providers Care Handle Maker Name Role Phone Jaime MAYS MD, Guero Terrell Primary Care Provider [phone] Encounter Details Date Type Department Care Team (Late st Contact Info) Description 08/18/2023 Telephone Family Practice [facility] [address] [place] [address] Guero Sandoval III, MD [address] [place] [address] Allergies Active Allergy Reactions Criticality Noted Date Comments Amlodipine Rash 09/01/2021 documented as of this encounter (statuses as of 11/17/2023) Medications Medication Sig Dispensed Refills Start Date [...] as of this encounter (statuses as of 11/17/2023) Active Problems Problem Noted Date Diagnosed Date Hx of actinic keratosis 02/04/2016 Personal history of malignant neoplasm of skin 0 04/20/2011 Overview: 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 documented as of this encounter (statuses as of 11/17/2023) Immunizations Name Administration Dates Next Due COVID-19 mRNA, LNP-s, No Pre serve, 2-Dose Series (Moderna) 10/09/2020 COVID-19, mRNA, LNP-s, PF, B ooster, 100mcg/0.5mg (Moderna) 09/11/2020 Pneumococcal Conjugate Vaccine, 20-valent (Prevn ar20) 02/14/2022 TDAP (age 10 and older)(Boostrix) 08/13/2023 documented [...] encounter Miscellaneous Notes * Telephone Encounter - Lizzie White LPN - 08/19/2023 9:00 AM EST FYI * Telephone Encounter - Tahira Berg OSA - 08/18/2023 2:51 PM EST Santos from speech therapy from [facility] is calling to let pcp know would like to follow up for speech therapy and swallowing and would like a signature an order will be forwarded to pcp documented in this encounter Plan of Treatment Upcoming Encounters Date Type Department Care Team (Late st Contact Info) Description 11/27/2023 9:20 AM EDT Office Visit Neurology [facility] [address] [facility] [place] [address] Guero Elizalde MD [address] [facility] [place] [address] 02/23/2024 9:40 AM EDT Office Visit Family Practice [facility] [address] [facility] [place] [address] Jaime Guero MAYS MD [address] [facility] [place] [address] Health Maintenance Due Date Last Done Comments [...] filedocumented as of this encounter Care Teams Handle Maker Relationship Specialty Start Date End Date Jaime MAYS, Guero Terrell MD [address] [place] [address] PCP - General Family Medicine 04/15/22 documented as of this encounter
--- OUTSIDE RECORDS SUMMARY | 2024-01-13 14:44 | External Medical Summary | Summary of Care ---
Author Name Unknown Organization [facility] Address [address] [place] [address] Phone [phone] Care Team Providers Care Special Forces Medical Sergeant Name Role Phone Jaime MAYS MD, Cole Terrell Primary Care Provider [phone] Reason for Visit * Reason Comments NEW PATIENT Dysphagia, balance i ssues * Evaluate & Treat - Unlimited Visits (Within 30 days (routine)) - Pending Review Specialty Diagnoses / Procedures Referred By Tori horowitz Referred To Contact Neurology Diagnoses Dysphasia Balance problems Cole Jay MD [address] [place] [address] Thiago Banda MD [address] [place] [address] Referral ID Status Reason Start Date Expiration Date Visits Requested Visits Authorized [id number] Pending Review Specialty Services Required 3 [phone] Encounter Details Date Type Department Care Team (Latest Contact Info) Description 10/26/2023 3:00 PM EDT Office Visit Neurology [facility] [address] [place] [address] Thiago Banda MD [address] [place] [address] Normal pressure hydrocephalus (HCC)*; B12 deficiency; Encounter for preprocedural laboratory examination Allergies Active Allergy Reactions Criticality Noted Date Comments Amlodipine Rash 09/01/2021 documented as of this encounter (statuses as of 10/26/2023) Medications Medication Sig Dispensed Refills Start Date [...] as of this encounter (statuses as of 10/26/2023) Active Problems Problem Noted Date Diagnosed Date Hx of actinic keratosis 02/04/2016 Personal history of malignant neoplasm of skin 0 04/20/2011 Overview: 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 documented as of this encounter (statuses as of 10/26/2023) Immunizations Name Administration Dates Next Due COVID-19 [...] Lion 78 year old male Ref: COLE JAY[[id number]] [address] [place] [address] (office) [phone] (fax) Asked by Cole Sandoval III, MD [...] RECOMMENDATIONS: I will have him back at [facility] for a large volume lumbar puncture of at least 40cc. He needs to get labs to check on his coags and CBC. Will check a B12 level and MMA level. We will check his gait before and after the procedure with 25 foot timed walking test. Thank-you for letting me participate int he care of this patient. Thiago Banda MD Neurology [address] [facility] [address] Please send copy to requesting physician, Cole Sandoval III, MD documented in this encounter Nursing Notes * Glenys Bangura LPN - 10/26/2023 2:49 PM EDT Chief Complaint Patient presents with NEW PATIENT Dysphagia, balance issues documented in this encounter Plan of Treatment Upcoming Encounters Date Type Department Care Team (Late st Contact Info) Description 11/27/2023 9:20 AM EDT Office Visit Neurology [facility] [address] [facility] [address] Cole Jay MD [address] [facility] [place] [address] 02/23/2024 9:40 AM EDT Office Visit Family Practice [facility] [address] [facility] [address] Cole Sandoval III, MD [address] [facility] [address] Pending Results Name Type Priority Associated Diagnoses Date /Time METHYLMALONIC ACID, SERUM Lab Routine B12 deficiency 10/26/2023 3:52 PM EDT VITAMIN B12 Lab Routine B12 deficiency 10/26/2023 3:52 PM EDT PT INR Lab Routine Encounter for preprocedural laboratory examination 10/26/2023 3:52 PM EDT Scheduled Orders Name Type Priority Associated Diagnoses Orde r Schedule METHYLMALONIC ACID, SERUM Lab Routine B12 deficiency Expected: 10/26/2023, Expires: 10/25/2024 VITAMIN B12 Lab Routine B12 deficiency Expected: 10/26/2023, Expires: 10/25/2024 PT INR Lab Routine Encounter for preprocedural laboratory examination Expected: 10/26/2023, Expires: 10/25/2024 Health Maintenance Due Date Last Done Comments [...] filedocumented as of this encounter Results * CBC (10/26/2023 3:52 PM EDT) WBC 6.76 4.00 - 10.80 K/uL 10/26/2023 4:01 PM EDT [facility] 56- RBC 4.64 4.50 - 5.25 M/uL 10/26/2023 4:01 PM EDT [facility] 56- HGB 14.4 14.0 - 16.8 g/dL 10/26/2023 4:01 PM EDT [facility] 56- HCT 42.6 40.0 - 48.4 % 10/26/2023 4:01 PM EDT [facility] 56- MCV 91.8 82.0 - 99.5 fL 10/26/2023 4:01 PM EDT [facility] 56- MCH 31.0 27.0 - 34.0 pg 10/26/2023 4:01 PM EDT [facility] 56- MCHC 33.8 32.0 - 36.0 g/dL 10/26/2023 4:01 PM EDT [facility] 56- RDW 13.0 11.5 - 15.5 % 10/26/2023 4:01 PM EDT [facility] 56- PLT 244 140 - 400 K/uL 10/26/2023 4:01 PM EDT [facility] MPV 10.1 6.6 - 11.1 fL 10/26/2023 4:01 PM EDT [facility] Blood Venous blood specimen / Unknown Venipuncture / Unknown 10/26/2023 3:52 PM EDT 10/26/2023 3:52 PM EDT Thiago Banda MD LAB BLOOD ORDERABLES [facility] [address] [place] [id number] documented in this encounter Visit Diagnoses Diagnosis Normal pressure hydrocephalus (HCC)- Primary Idiopathic normal pressure hydrocephalus (INPH) B12 deficiency Other B-complex deficiencies Encounter for preprocedural laboratory examination Pre-procedural laboratory examination documented in this encounter Care Teams Special Forces Medical Sergeant Relationship Specialty Start Date End Date [facility]oval III, [facility] [address] PCP - General Family Medicine 04/15/22 documented as of this encounter"
--- OUTSIDE RECORDS SUMMARY | 2024-01-13 14:44 | External Medical Summary | Summary of Care ---
Author Name Unknown Organization [facility] Address [address] [place] [address] Phone [phone] Care Team Providers Care Booth Supervisor Name Role Phone Jaime MAYS MD, Guero Terrell Primary Care Provider [phone] Reason for Visit * Reason Comments Follow Up Encounter Details Date Type Department Care Team (Latest Contact Info) Description 11/27/2023 9:20 AM EDT Office Visit Neurology [facility] [address] [place] [address] Guero Elizalde MD [address] [place] [address] Normal pressure hydrocephalus (HCC)* Allergies Active Allergy Reactions Criticality Noted Date Comments Amlodipine Rash 09/01/2021 documented as of this encounter (statuses as of 11/27/2023) Medications Medication Sig Dispensed Refills Start Date [...] as of this encounter (statuses as of 11/27/2023) Active Problems Problem Noted Date Diagnosed Date Hx of actinic keratosis 02/04/2016 Personal history of malignant neoplasm of skin 0 04/20/2011 Overview: 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 documented as of this encounter (statuses as of 11/27/2023) Immunizations Name Administration Dates Next Due COVID-19 [...] Sign Reading Time Taken Comments Blood Pressure 126/74 11/27/2023 9:05 AM EDT Pulse 60 11/27/2023 9:05 AM EDT Temperature 36 C (96.8 F) 11/27/2023 9:05 AM EDT Respiratory Rate 20 11/27/2023 9:05 AM EDT Oxygen Saturation - - Inhaled Oxygen Concentration - - Weight 53 kg (116 lb 12.8 oz) 11/27/2023 9:05 AM EDT Height - - Body Mass Index 20.24 02/17/2023 9:02 AM EDT documented in this encounter Progress Notes * Guero Elizalde MD - 11/27/2023 10:38 AM EDT CLINIC NOTES Neurology [facility] [place] [address] [facility] [place] [address] Talon Lion [id number] NEUROLOGY OUTPATIENT NOTE 11/27/2023 HISTORY: Talon is 78 years old and I have seen him now on several occasions after he was initially evaluated by Cherrie Pisano last summer. He has a progressive gait disturbance some urinary urgency low-grade cognitive impairment and a peculiar articulatory disturbance complicated by some sensorineural hearing loss and in the past was a fairly heavy consumer of ethanol. His MRI scan does show evidence for criteria of normal pressure hydrocephalus but his clinical picture is a little atypical particularly in terms of the dysarthria He was admitted to the hospital in August after a series of falls and subsequently we evaluated him for possible motor neuron disease which was negative and did a host of other analyses he has had arecent B12 study all of which are pretty unremarkable He has been seen by speech therapy physical therapy and has also had our movement disorders specialty group specifically Dr. Banda evaluate him he is going up to [place] to be evaluated by the normal pressure hydrocephalus clinic will large volume lumbar puncture and pre and post lumbar puncturephysical therapy evaluations He does have some microvascular changes on MRI may have a minor polyneuropathy all of which are somewhat confounding the presentation but his feels he is done little better with therapy althoughhe is frustrated with his speech issue for which we really have not established a clear upper or lower motor neuron or neuromuscular junctional cause There has been no other significant change in his past medical history in the fact he looks like heis doing better nutrition barreto No past medical history on file. No past surgical history on file. Social History Socioeconomic History Marital status: Spouse [...] systems review was normal. PHYSICAL EXAM: BP 126/74 (BP Site: Right Arm, BP Position: Sitting, BP Cuff Size: Regular) | Pulse 60 | Temp 36 C (96.8 F) (Tympanic) | Resp 20 | Wt 53 kg (116 lb 12.8 oz) | BMI 20.24 kg/m | BSA 1.54 m Awake alert oriented 3 spheres can follow conversations as little hearing loss but has the same explosive speech pattern with articulatory disturbances that really is hard to classify in terms of itscause. Cranial nerves otherwise normal including eye movements facial motility and strength and facial sensation in his gait is actually only slightly broad-based he does pretty well with a cane he ca n initiate gait actually fairly quickly and while there may be some magnetic qualities to it is notthat impressive and in fact looks better than it did when I 1st evaluated him late last summer and in the early fall. Reflexes are little hypoactive toes are down no Carolann signs are seen strength testing is reasonably good there is no atrophy no fasciculations and sensation is perhaps a little off to vibration in lower extremities LABORATORY: I am not going to order additional laboratory studies at this point as he has been fairly thoroughly assessed IMAGING: No imaging studies are needed. The prior studies were interpreted as being consistent withnormal pressure hydrocephalus based on the callosal angle and perhaps some hyper shunting through the aqueduct of Sylvius as per Radiology and 's interpretations ASSESSMENT AND PLAN: Abnormal gait, urinary frequency, dysarthria, mild cognitive impairment and radiographic imaging studies consistent with normal pressure hydrocephalus At this point I am going to withdrawal from his care and follow-up on the results of thehigh volume CSF removal and make appropriate recommendations for shunting or not on its basis I spent a total of 20-29 minutes (exact time 25 mins) on the date of service in preparation, delivery, and documentation of the care provided to Talon Lion excluding any time spent in the performance of separately billed services. Note was generated utilizing voice recognition technology may have spelling errors punctuation errors pronoun usage errors and syntax errors Guero Elizalde MD documented in this encounter Nursing Notes * Isabelle Corona LPN - 11/27/2023 9:04 AM EDT Patient verified identity by spelling of last name and date. Chief Complaint Patient presents with Follow Up documented in this encounter Plan of Treatment Upcoming Encounters Date Type Department Care Team (Late st Contact Info) Description 12/21/2023 8:00 AM EDT Office Visit [address] [address] Junie Madera PA-C [address] [place] [address] 02/23/2024 9:40 AM EDT Office Visit [facility] [place] [address] Guero Sandoval III, MD [address] [facility] [place] [address] Health Maintenance Due Date Last Done Comments [...] as of this encounter Visit Diagnoses Diagnosis Normal pressure hydrocephalus (HCC)- Primary Idiopathic normal pressure hydrocephalus (INPH) documented in this encounter Care Teams Booth Supervisor Relationship Specialty Start Date End Date Guero Sandoval III, MD [facility] [place] [address] PCP - General Family Medicine 04/15/22 documented as of this encounter"
--- OUTSIDE RECORDS SUMMARY | 2024-01-13 14:44 | External Medical Summary | Summary of Care ---
Author Name Unknown Organization [facility] Address [address] [place] [address] Phone [phone] Care Team Providers Care Pressurizer Name Role Phone Jaime MAYS MD, Guero Terrell Primary Care Provider [phone] Reason for Visit * Reason Comments Outpatient Testing Encounter Details Date Type Department Care Team (Late st Contact Info) Description 10/26/2023 2:50 PM EDT Laboratory Laboratory [facility] [address] [place] [id number] [facility] Lab [facility] [address] [place] [address] Gait abnormality; Dysphasia; B12 deficiency; Encounter for preprocedural laboratory examination [...] 11/27/2023 9:20 AM EDT Office Visit Neurology [facility] [address] [facility] [place] [address] Guero Elizalde MD [address] [facility] [place] [address] 02/23/2024 9:40 AM EDT Office Visit Family Practice [facility] [place] [address] [facility] [place] [address] Guero Sandoval III, MD [address] [facility] [place] [address] Pending Results Name Type Priority Associated Diagnoses Date /Time CK Lab Routine Gait abnormality Dysphasia 10/26/2023 3:52 PM EDT METHYLMALONIC ACID, SERUM Lab Routine B12 deficiency 10/26/2023 3:52 PM EDT VITAMIN B12 Lab Routine B12 deficiency 10/26/2023 3:52 PM EDT PT INR Lab Routine Encounter for preprocedural laboratory examination 10/26/2023 3:52 PM EDT Health Maintenance Due Date Last [...] Not on filedocumented as of this encounter Procedures Procedure Name Priority Date/Time Associated Diagnosis Comments CBC Routine 10/26/2023 3:52 PM EDT Encounter for preprocedural laboratory examination documented in this encounter Results * CBC (10/26/2023 3:52 PM EDT) WBC 6.76 4.00 - 10.80 K/uL 10/26/2023 4:01 PM EDT [facility] 56- RBC 4.64 4.50 - 5.25 M/uL 10/26/2023 4:01 PM EDT [facility] 5602 HGB 14.4 14.0 - 16.8 g/dL 10/26/2023 4:01 PM EDT [facility] 56 HCT 42.6 40.0 - 48.4 % 10/26/2023 4:01 PM EDT [facility] 56 MCV 91.8 82.0 - 99.5 fL 10/26/2023 4:01 PM EDT [facility] 56 MCH 31.0 27.0 - 34.0 pg 10/26/2023 4:01 PM EDT [facility] 56 MCHC 33.8 32.0 - 36.0 g/dL 10/26/2023 4:01 PM EDT [facility] 56 RDW 13.0 11.5 - 15.5 % 10/26/2023 4:01 PM EDT [facility] 56-02 PLT 244 140 - 400 K/uL 10/26/2023 4:01 PM EDT [facility] 5602 MPV 10.1 6.6 - 11.1 fL 10/26/2023 4:01 PM EDT [facility] 5602 Blood Venous blood specimen / Unknown Venipuncture / Unknown 10/26/2023 3:52 PM EDT 10/26/2023 3:52 PM EDT Thiago Banda MD LAB BLOOD ORDERABLES [facility] [address] [place] [address] documented in this encounter Visit Diagnoses Diagnosis Gait abnormality Abnormality of gait Dysphasia Other speech disturbance B12 deficiency Other B-complex deficiencies Encounter for preprocedural laboratory examination Pre-procedural laboratory examination documented in this encounter Care Teams Pressurizer Relationship Specialty Start Date End Date Jaime III, Guero E, MD [address] [place] [address] PCP - General Family Medicine 04/15/22 documented as of this encounter
--- OUTSIDE RECORDS SUMMARY | 2024-01-13 14:44 | External Medical Summary | Summary of Care ---
Author Name Unknown Organization [facility] Address [address] [place] [address] Phone [phone] Care Team Providers Care Center Director Lead Teacher Name Role Phone Jaime MAYS MD, Guero Terrell Primary Care Provider [phone] Reason for Visit * Reason Onset Date Comments TRIAGE 08/14/2023 Dr Elizalde Encounter Details Date Type Department Care Team (Late st Contact Info) Description 08/14/2023 Telephone Neurology [facility] [place] [address] [place] [id number] Services, Scheduling [address] [place] [address] TRIAGE (Dr Elizalde) Allergies Active Allergy Reactions Criticality Noted Date [...] Telephone Encounter - Guero Elizalde MD - 08/18/2023 8:14 AM EST Reviewed aspiration risk is high no surprise in light of exam will wait for emkg results and final diagnosis may refer to [facility] if needed Leesa elizalde * Telephone Encounter - Hoa Jimenez, MED ASSIST - 08/15/2023 10:08 AM EST Report is on your desk for review on Monday * Telephone Encounter - Hoa Jimenez MED ASSIST - 08/15/2023 8:28 AM EST Spoke to Alice. Carol is not in until 9:30 am. Alice is going to relay Dr Elizalde's message * Telephone Encounter - Guero Elizalde MD - 08/14/2023 4:39 PM EST I am ouat of the office and will not be back until Monday have her send a report written and I jonathan review [facility] Guero Elizalde * Telephone Encounter - Denise Wang OSA - 08/14/2023 2:43 PM EST Carol from speech therapy at [facility] calling stating pt is in patient and they completed the swallow study ordered by Dr Elizalde so she states the one on could be cxl and she would likea call back to go over the findings please call back at [phone] documented in this encounter Plan of Treatment Upcoming Encounters Date Type Department Care Team (Late st Contact Info) Description 08/22/2023 1:00 PM EST NeuroDiagnostic Study [facility] [address] [place] [address] [address] Cherrie Marino MD [address] [place] [address] [address] 08/24/2023 9:40 AM EST Office Visit [facility] [address] [place] [address] [address] Guero Sandoval III, MD [address] [facility] [place] [address] 10/23/2023 8:40 AM EDT Office Visit Neurology [facility] [address] [facility] [place] [address] Guero Elizalde MD [address] [facility] [place] [address] 10/26/2023 3:00 PM EDT Office Visit Neurology [facility] [address] [facility] [place] [address] Thiago Banda MD [address] [place] [address] Health Maintenance Due Date Last Done Comments [...] filedocumented as of this encounter Care Teams Center Director Lead Teacher Relationship Specialty Start Date End Date Guero Sandoval III, MD [address] [facility] [place] [address] PCP - General Family Medicine 04/15/22 documented as of this encounter
--- OUTSIDE RECORDS SUMMARY | 2024-01-13 14:44 | External Medical Summary | Summary of Care ---
Author Name Unknown Organization [facility] Address [address] [place] [address] Phone [phone] Care Team Providers Care Policy Cancellation Clerk Name Role Phone Jaime MAYS MD, Cole Terrell Primary Care Provider [phone] Reason for Visit * Reason Comments NEW PATIENT Dysphagia, balance i ssues * Evaluate & Treat - Unlimited Visits (Within 30 days (routine)) - Pending Review Specialty Diagnoses / Procedures Referred By Tori horowitz Referred To Contact Neurology Diagnoses Dysphasia Balance problems Cole Jay MD [address] [place] [address] Thiago Banda MD [address] [place] [address] Referral ID Status Reason Start Date Expiration Date Visits Requested Visits Authorized [id number] Pending Review Specialty Services Required [phone] Encounter Details Date Type Department Care Team (Latest Contact Info) Description 10/26/2023 3:00 PM EDT Office Visit Neurology [facility] [address] [place] [address] Thiago Banda MD [address] [place] [address] Normal pressure hydrocephalus (HCC)*; B12 deficiency; Encounter for preprocedural laboratory examination Allergies Active Allergy Reactions Criticality Noted Date Comments Amlodipine Rash 09/01/2021 documented as of this encounter (statuses as of 11/30/2023) Medications Medication Sig Dispensed Refills Start Date [...] as of this encounter (statuses as of 11/30/2023) Active Problems Problem Noted Date Diagnosed Date Hx of actinic keratosis 02/04/2016 Personal history of malignant neoplasm of skin 0 04/20/2011 Overview: 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 documented as of this encounter (statuses as of 11/30/2023) Immunizations Name Administration Dates Next Due COVID-19 [...] Lion 78 year old male Ref: COLE JAY[102] [address] [place] [address] (office) [phone] (fax) Asked by Cole Sandoval III, MD [...] RECOMMENDATIONS: I will have him back at [facility] for a large volume lumbar puncture of at least 40cc. He needs to get labs to check on his coags and CBC. Will check a B12 level and MMA level. We will check his gait before and after the procedure with 25 foot timed walking test. Thank-you for letting me participate int he care of this patient. Thiago Banda MD Neurology [address] [facility] [address] Please send copy to requesting physician, Cole Sandoval III, MD documented in this encounter Nursing Notes * Glenys Bangura LPN - 10/26/2023 2:49 PM EDT Chief Complaint Patient presents with NEW PATIENT Dysphagia, balance issues documented in this encounter Plan of Treatment Upcoming Encounters Date Type Department Care Team (Late st Contact Info) Description 12/21/2023 8:00 AM EDT Office Visit Neurosurgery, [facility] [address] [place] [address] Junie Madera PA-C [address] [place] [address] 02/23/2024 9:40 AM EDT Office Visit Family Practice [facility] [address] [place] [address] Cole Sandoval III, MD [address] [place] [address] Health Maintenance Due Date Last Done Comments [...] 15.2 seconds 10/27/2023 12:00 AM EDT LABORATORY [facility] INR 1.0 0.8 - 1.2 10/27/2023 12:00 AM EDT LABORATORY [facility] Blood Venous blood specimen / Unknown Venipuncture / Unknown 10/26/2023 3:52 PM EDT 10/26/2023 3:52 PM EDT Narrative LABORATORY [facility] - 10/27/2023 12:00 AM EDT Warfarin Therapy INR: 2.0-3.0 conventional anticoagulation INR: 2.5-3.5 high intensity anticoagulation Thiago Banda MD LAB BLOOD ORDERABLES Performing Organization Address City/State/[facility] Co de Phone Number LABORATORY [facility] [address] [place] [address] * CBC (10/26/2023 3:52 PM EDT) WBC 6.76 4.00 - 10.80 K/uL 10/26/2023 4:01 PM EDT [facility] 56 RBC 4.64 4.50 - 5.25 M/uL 10/26/2023 4:01 PM EDT [facility] 56 HGB 14.4 14.0 - 16.8 g/dL 10/26/2023 4:01 PM EDT [facility] 56 HCT 42.6 40.0 - 48.4 % 10/26/2023 4:01 PM EDT [facility] 56- MCV 91.8 82.0 - 99.5 fL 10/26/2023 4:01 PM EDT [facility] 56 MCH 31.0 27.0 - 34.0 pg 10/26/2023 4:01 PM EDT [facility] 56 MCHC 33.8 32.0 - 36.0 g/dL 10/26/2023 4:01 PM EDT [facility] 56- RDW 13.0 11.5 - 15.5 % 10/26/2023 4:01 PM EDT [facility] 56- PLT 244 140 - 400 K/uL 10/26/2023 4:01 PM EDT [facility] 56 MPV 10.1 6.6 - 11.1 fL 10/26/2023 4:01 PM EDT [facility] 56-02 Blood Venous blood specimen / Unknown Venipuncture / Unknown 10/26/2023 3:52 PM EDT 10/26/2023 3:52 PM EDT Thiago Banda MD LAB BLOOD ORDERABLES [facility] 56-02 [address] [place] [address] * VITAMIN B12 (10/26/2023 3:52 PM EDT) Vitamin B12 543 232 - 1,245 pg/mL 10/26/2023 11:43 PM EDT LABORATORY [facility] Blood Venous blood specimen / Unknown Venipuncture / Unknown 10/26/2023 3:52 PM EDT 10/26/2023 3:52 PM EDT Thiago Banda MD LAB BLOOD ORDERABLES LABORATORY [facility] [address] [place] [address] * METHYLMALONIC ACID, SERUM (10/26/2023 3:52 PM EDT) Methylmalonic Acid 124 87 - 318 nmol/L 10/30/2023 5:41 AM EDT [facility] Comment: This test was developed and its analytical performance characteristics have been determined by [facility] [place], [place]. It has not been cleared or approved by the U.S. Food and Drug Administration. This assay has been validated pursuant to the CLIA regulations and is used for clinical purposes. Test Performed at: [facility] [address] [place] [address] Doc Salmon M.D., Ph.D.,Director of Laboratories Blood Venous blood specimen / Unknown Venipuncture / Unknown 10/26/2023 3:52 PM EDT 10/26/2023 3:52 PM EDT Thiago Banda MD LAB BLOOD ORDERABLES Performing Organization Address City/State/[facility] Co de Phone Number [facility] [address] [place] [address] documented in this encounter Visit Diagnoses Diagnosis Normal pressure hydrocephalus (HCC)- Primary Idiopathic normal pressure hydrocephalus (INPH) B12 deficiency Other B-complex deficiencies Encounter for preprocedural laboratory examination Pre-procedural laboratory examination documented in this encounter Care Teams Policy Cancellation Clerk Relationship Specialty Start Date End Date Cole Sandoval III, MD [address] [place] [address] [place] [address] PCP - General Family Medicine 04/15/22 documented as of this encounter"
--- OUTSIDE RECORDS SUMMARY | 2024-01-13 14:44 | External Medical Summary | Summary of Care ---
Author Name Unknown Organization [facility] Address [address] [place] [address] Phone [phone] Care Team Providers Care Decorative Cutting Machine Tender Name Role Phone Jaime MAYS MD, Guero Terrell Primary Care Provider [phone] Reason for Visit * Reason Onset Date Comments Re-Check Medication Administration 08/24/2023 Flu an d/or Pneumo Inj Hospital Follow-Up 08/24/2023 Encounter Details Date Type Department Care Team (Late st Contact Info) Description 08/24/2023 9:40 AM EST Office Visit Family Practice [facility] 200 [facility] [place] [address] Guero Sandoval III, MD 200 [place] [address] Need for prophylactic vaccination and inoculation against influenza*; Hospital discharge follow-up; HTN, goal below 140/90; Falls frequently Allergies Active Allergy Reactions Criticality Noted Date Comments Amlodipine Rash 09/01/2021 documented as of this encounter (statuses as of 08/27/2023) Medications Medication Sig Dispensed Refills Start Date [...] as of this encounter (statuses as of 08/27/2023) Active Problems Problem Noted Date Diagnosed Date Hx of actinic keratosis 02/04/2016 Personal history of malignant neoplasm of skin 0 04/20/2011 Overview: 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 documented as of this encounter (statuses as of 08/27/2023) Immunizations Name Administration Dates Next Due COVID-19 [...] Sign Reading Time Taken Comments Blood Pressure 139/67 08/24/2023 9:54 AM EST Pulse 65 08/24/2023 9:54 AM EST Temperature 36.3 C (97.3 F) 08/24/2023 9:54 AM ES T Respiratory Rate 16 08/24/2023 9:54 AM EST Oxygen Saturation - - Inhaled Oxygen Concentration - - Weight 50.4 kg (111 lb 3.2 oz) 08/24/2023 9:54 A M EST Height - - Body Mass Index 19.27 02/17/2023 9:02 AM EDT documented in this encounter Progress Notes * Guero Sandoval III, MD - 08/24/2023 10:16 AM EST Hospital discharge follow-up weakness recurrent falls patient admitted August 12 discharged August 14 receiving home health physical therapy and occupational therapy there have been no falls since discharge denies chest pain shortness of breath does get a little swelling of his ankles worse on the left than the right history of alcohol and smoking had neurology appointment in the hospital outpatient EMG and follow-up recommended denies bleeding urine or bowels Talon Lion is a 78 year old male. Chief Complaint Patient presents with Re-Check Medication Administration Flu and/or Pneumo Inj Hospital Follow-Up PMH: Patient Active Problem List Diagnosis Code [...] rash on upper body nightly as needed (Patient nottaking: Reported on 08/24/2023) 60 g 2 No current facility-administered medications for this visit. Review of patient's allergies indicates: Allergen Reactions Amlodipine Rash No past medical history on file. No past surgical history on file. Objective: The patient is a 78 year old male BP 139/67 | Pulse 65 | Temp 36.3 C (97.3 F) | Resp 16 | Wt 50.4 kg (111 lb 3.2 oz) | BMI 19.27 kg/m | BSA 1.51 m General: alert, healthy, and no distress Eye Exam: PERRLA, extraocular movements intact, conjunctiva are pink and non- injected, sclera clear Oropharynx: no exudate, no erythema, lips, buccal mucosa, and tongue normal, and mucous membranes are moist Heart: regular rate & rhythm, no murmur, and no gallops Lungs: lungs clear to auscultation Extremities: no clubbing, no cyanosis, trace edema bilaterally worse on the left than the right ASSESSMENT: Z23 Need for prophylactic vaccination and inoculation against influenza (primary encounter diagnosis) Z09 Hospital discharge follow-up I10 HTN, goal below 140/90 R29.6 Falls frequently PLAN: Flu vaccine given RSV vaccine discussed will see if nerve conductions and neurology follow-up can be done any sooner Total time 43 minutes Follow up in 6 month(s). Guero Sandoval III, MD * Radha Lee RN - 08/24/2023 9:54 AM EST Here for check up. documented in this encounter Plan of Treatment Upcoming Encounters Date Type Department Care Team (Late st Contact Info) Description 09/19/2023 11:20 AM EST NeuroDiagnostic Study Neurophysiology [facility] [place] [address] [place] [address] Cherrie Marino MD [address] [place] [address] 10/23/2023 8:40 AM EDT Office Visit Neurology [facility] [place] 200 [facility] [place] [address] Guero Elizalde MD 200 [facility] [place] [id number] 10/26/2023 3:00 PM EDT Office Visit Neurology [facility] [place] [address] [facility] [place] [address] Thiago Banda MD [address] [place] [address] 02/23/2024 9:40 AM EDT Office Visit Family Practice [facility] [place] [address] [facility] [place] [address] Guero Sandoval III, MD [address] [facility] [place] [address] Health Maintenance Due Date Last Done Comments [...] as of this encounter Visit Diagnoses Diagnosis Need for prophylactic vaccination and inoculation against influenza- Primary Hospital discharge follow-up Other follow-up examination HTN, goal below 140/90 Unspecified essential hypertension Falls frequently Personal history of fall documented in this encounter Care Teams Decorative Cutting Machine Tender Relationship Specialty Start Date End Date Guero Sandoval III, MD [address] [facility] [place] [address] PCP - General Family Medicine 04/15/22 documented as of this encounter"
--- OUTSIDE RECORDS SUMMARY | 2024-01-13 14:44 | External Medical Summary ---
Author Name Unknown Address Unknown Organization K01:[facility] - [address] [place] [address] Laboratory Report Ordering Provider Test Date Status PIERRE GALVAN 10/26/2023 15:52:20 Final Observation Date Value Abnormality Reference (Units ) Status GLADYS 10/26/2023 15:52:20 66 [id number] (U/ L) Final Performing Location [facility] - [address] [place] [address]
--- OUTSIDE RECORDS SUMMARY | 2024-01-13 14:44 | External Medical Summary | Summary of Care ---
Author Name Unknown Organization [facility] Address [address] [place] [address] Phone [phone] Care Team Providers Care Litigation Associate Name Role Phone Jaime MAYS MD, Guero Terrell Primary Care Provider [phone] Reason for Visit * Reason Onset Date Comments Home Health 08/16/2023 Encounter Details Date Type Department Care Team (Late st Contact Info) Description 08/16/2023 Telephone Family Practice [facility] 200 [facility] [place] [address] Guero Sandoval III, MD 200 [facility] [place] [address] Home Health Allergies Active Allergy Reactions Criticality Noted Date Comments Amlodipine Rash 09/01/2021 documented as of this encounter (statuses as of 08/21/2023) Medications Medication Sig Dispensed Refills Start Date [...] as of this encounter (statuses as of 08/21/2023) Active Problems Problem Noted Date Diagnosed Date Hx of actinic keratosis 02/04/2016 Personal history of malignant neoplasm of skin 0 04/20/2011 Overview: 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 documented as of this encounter (statuses as of 08/21/2023) Immunizations Name Administration Dates Next Due COVID-19 [...] Telephone Encounter - Tracey Sewell OSA - 08/21/2023 9:09 AM EST Pt has appts already. * Telephone Encounter - April Todd LPN [...] Schneider LPN - 08/16/2023 1:32 PM EST HH PT/OT/ST Eval Start of Care/Continuation Aneesh PT, Calling from: [facility] PT Plan of care: 2 times per week for 3 weeks: Focusing on: balance, gait, home exercise program Concerns: no None Symptoms: none Vitals: Not available. Computer and he is driving. All are within normal limits. Narrative: Aneesh calling from [facility] HH. Physicial Therapy. Asking for orders. Call back aneesh with any advice or orders at [phone] Advised that additional visit orders will be signed by Dr. Sandoval and to fax to the office for signature documented in this encounter Plan of Treatment Upcoming Encounters Date Type Department Care Team (Late st Contact Info) Description 08/22/2023 1:00 PM EST NeuroDiagnostic Study Neurophysiology [facility] [address] [place] [address] Cherrie Marino MD 200 [facility] [place] [address] 08/24/2023 9:40 AM EST Office Visit Family Practice [facility] 200 [facility] [place] [address] Guero Sandoval III, MD 200 [facility] [place] [address] 10/23/2023 8:40 AM EDT Office Visit Neurology [facility] 200 [facility] [place] [address] Guero Elizalde MD 200 [facility] [place] [address] 10/26/2023 3:00 PM EDT Office Visit Neurology [facility] 200 [facility] [place] [address] Thiago Banda MD [address] [place], [place] [id number] Health Maintenance Due Date Last Done Comments [...] filedocumented as of this encounter Care Teams Litigation Associate Relationship Specialty Start Date End Date Guero Sandoval III, MD 200 [facility] [place] [address] PCP - General Family Medicine 04/15/22 documented as of this encounter
--- OUTSIDE RECORDS SUMMARY | 2024-01-13 14:44 | External Medical Summary ---
Author Name Unknown Address Unknown Organization K01:[facility] [place] [facility] - [address] [place] [address] Laboratory Report Ordering Provider Test Date Status JEANETTE COSTELLO 10/26/2023 15:52:20 Final Warfarin Therapy
INR: 2 .0-3.0 conventional anticoagulation
INR: 2.5- 3.5 high intensity anticoagulation Observation Date Value Abnormality Reference (Units ) Status PT 10/26/2023 15:52:20 13.1 11.6-15.2 (seconds) Final INR 10/26/2023 15:52:20 1.0 0.8-1.2 Final Performing Location [facility] [place] - [address] [place] [address]
--- OUTSIDE RECORDS SUMMARY | 2024-01-13 14:44 | External Medical Summary | Summary of Care ---
Author Name Unknown Organization [facility] Address [address] [place] [address] Phone [phone] Care Team Providers Care Mushroom Farmer Name Role Phone Jaime MAYS MD, Cole Terrell Primary Care Provider [phone] Reason for Visit * Reason Comments NEW PATIENT Dysphagia, balance i ssues * Evaluate & Treat - Unlimited Visits (Within 30 days (routine)) - Pending Review Specialty Diagnoses / Procedures Referred By Tori horowitz Referred To Contact Neurology Diagnoses Dysphasia Balance problems Cole Jay MD [address] [place] [address] Thiago Banda MD [address] [place] [address] Referral ID Status Reason Start Date Expiration Date Visits Requested Visits Authorized [id number] Pending Review Specialty Services Required 3 [phone] Encounter Details Date Type Department Care Team (Latest Contact Info) Description 10/26/2023 3:00 PM EDT Office Visit Neurology [facility] [address] [place] [address] Thiago Banda MD [address] [place] [address] Normal pressure hydrocephalus (HCC)*; B12 deficiency; Encounter for preprocedural laboratory examination Allergies Active Allergy Reactions Criticality Noted Date Comments Amlodipine Rash 09/01/2021 documented as of this encounter (statuses as of 12/07/2023) Medications Medication Sig Dispensed Refills Start Date [...] as of this encounter (statuses as of 12/07/2023) Active Problems Problem Noted Date Diagnosed Date Hx of actinic keratosis 02/04/2016 Personal history of malignant neoplasm of skin 0 04/20/2011 Overview: 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 documented as of this encounter (statuses as of 12/07/2023) Immunizations Name Administration Dates Next Due COVID-19 [...] Lion 78 year old male Ref: COLE JAY[[id number]] [address] [place] [address] (office) [phone] (fax) Asked by Cole Sandoval III, MD [...] RECOMMENDATIONS: I will [place] [facility] [place] large volume lumbar puncture of at least 40cc. He needs to get labs to check on his coags and CBC. Will check a B12 level and MMA level. We will check his gait before and after the procedure with 25 foot timed walking test. Thank-you for letting me participate int he care of this patient. Thiago Banda MD Neurology [address] [facility] [address] Please send copy to requesting physician, Cole Sandoval III, MD documented in this encounter Nursing Notes * Glenys Bangura LPN - 10/26/2023 2:49 PM EDT Chief Complaint Patient presents with NEW PATIENT Dysphagia, balance issues documented in this encounter Plan of Treatment Upcoming Encounters Date Type Department Care Team (Late st Contact Info) Description 12/21/2023 8:00 AM EDT Office Visit Neurosurgery, [place] [address] [place] [address] Junie Madera PA-C [address] [place] [address] 12/21/2023 11:05 AM EDT Office Visit Neurology, [place] [address] [place] [address] Thiago Banda MD [address] [place] [address] 02/23/2024 9:40 AM EDT Office Visit Family Practice [address] [address] Cole Sandoval III, MD 200 [place] [address] Health Maintenance Due Date Last Done Comments [...] 15.2 seconds 10/27/2023 12:00 AM EDT LAB[facility] INR 1.0 0.8 - 1.2 10/27/2023 12:00 AM EDT LAB[facility] Blood Venous blood specimen / Unknown Venipuncture / Unknown 10/26/2023 3:52 PM EDT 10/26/2023 3:52 PM EDT Narrative [facility] - 10/27/2023 12:00 AM EDT Warfarin Therapy INR: 2.0-3.0 conventional anticoagulation INR: 2.5-3.5 high intensity anticoagulation Thiago Banda MD LAB BLOOD ORDERABLES [facility] [address] [place] [address] * CBC (10/26/2023 3:52 PM EDT) WBC 6.76 4.00 - 10.80 K/uL 10/26/2023 4:01 PM EDT [facility] 56- RBC 4.64 4.50 - 5.25 M/uL 10/26/2023 4:01 PM EDT [facility] 56-02 HGB 14.4 14.0 - 16.8 g/dL 10/26/2023 4:01 PM EDT [facility] 56-02 HCT 42.6 40.0 - 48.4 % 10/26/2023 4:01 PM EDT [facility] 56- MCV 91.8 82.0 - 99.5 fL 10/26/2023 4:01 PM EDT [facility] 56 MCH 31.0 27.0 - 34.0 pg 10/26/2023 4:01 PM EDT [address] MCHC 33.8 32.0 - 36.0 g/dL 10/26/2023 4:[address] PM EDT [address] RDW 13.0 11.5 - 15.5 % 10/26/2023 4:01 PM EDT [facility] 56 PLT 244 140 - 400 K/uL 10/26/2023 4:01 PM EDT [address] MPV 10.1 6.6 - 11.1 fL 10/26/2023 4:01 PM EDT [facility] 5602 Blood Venous blood specimen / Unknown Venipuncture / Unknown 10/26/2023 3:52 PM EDT 10/26/2023 3:52 PM EDT Thiago Banda MD LAB BLOOD ORDERABLES [facility] 56-02 [address] [place] [address] * VITAMIN B12 (10/26/2023 3:52 PM EDT) [facility] Vitamin B12 543 232 - 1,245 pg/mL 10/26/2023 11:43 PM EDT LAB[facility]ATORY [facility] Blood Venous blood specimen / Unknown Venipuncture / Unknown 10/26/2023 3:52 PM EDT 10/26/2023 3:52 PM EDT Thiago Banda MD LAB BLOOD ORDERABLES [facility] [address] [place] [address] * METHYLMALONIC ACID, SERUM (10/26/2023 3:52 PM EDT) [facility] Methylmalonic Acid 124 87 - 318 nmol/L 10/30/2023 5:41 AM EDT [facility] [place] Comment: This test was developed and its analytical performance characteristics have been determined by [facility] [place], [place]. It has not been cleared or approved by the U.S. Food and Drug Administration. This assay has been validated pursuant to the CLIA regulations and is used for clinical purposes. Test Performed at: [facility] [address] [address] Doc Salmon M.D., Ph.D.,Director of Laboratories Blood Venous blood specimen / Unknown Venipuncture / Unknown 10/26/2023 3:52 PM EDT 10/26/2023 3:52 PM EDT Thiago Banda MD LAB BLOOD ORDERABLES [address] [address] documented in this encounter Visit Diagnoses Diagnosis Normal pressure hydrocephalus (HCC)- Primary Idiopathic normal pressure hydrocephalus (INPH) B12 deficiency Other B-complex deficiencies Encounter for preprocedural laboratory examination Pre-procedural laboratory examination documented in this encounter Care Teams Mushroom Farmer Relationship Specialty Start Date End Date Cole Sandoval III, MD 200 [place] [address] PCP - General Family Medicine 04/15/22 documented as of this encounter"
--- OUTSIDE RECORDS SUMMARY | 2024-01-13 14:44 | External Medical Summary | Summary of Care ---
Author Name Unknown Organization [facility] Address [address] [place] [address] Phone [phone] Care Team Providers Care Marketing Liaison Name Role Phone Jaime MAYS MD, Guero Terrell Primary Care Provider [phone] Reason for Visit * Reason Onset Date Comments Other 08/10/2023 Encounter Details Date Type Department Care Team (Late st Contact Info) Description 08/10/2023 Telephone Neurology [facility] [place] [address] [place] [place] [address] Specified, Zz No Resource [address] [place] [address] Other Allergies Active Allergy Reactions Criticality Noted Date Comments Amlodipine Rash 09/01/2021 documented as of this encounter (statuses as of 11/09/2023) Medications Medication Sig Dispensed Refills Start Date End Date Status Cyanocobalamin 1000 MCG Oral Tablet (Cyanocobalamin) Take 1 Tablet by mouth in the morning. 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 documented as of this encounter (statuses as of 11/09/2023) Immunizations Name Administration Dates Next Due COVID-19 [...] Encounter - Hoa Jimenez MED ASSIST - 08/10/2023 11:28 AM EST Requested info faxed * Telephone Encounter - Becca Allred OSA - 08/10/2023 11:06 AM EST tonie from [facility] was ordered for pt,she needs OV notes from visit on 07/03 and demographics for pt fax# [phone] documented in this encounter Plan of Treatment Upcoming Encounters Date Type Department Care Team (Late st Contact Info) Description 11/27/2023 9:20 AM EDT Office Visit Neurology [facility] 200 [facility] [place] [address] Guero Elizalde MD 200 [facility] [place] [address] 02/23/2024 9:40 AM EDT Office Visit Family Practice [facility] [address] [place] [address] [address] Guero Sandoval III, MD 200 [facility] [place] [address] Health Maintenance Due Date Last Done Comments [...] filedocumented as of this encounter Care Teams Marketing Liaison Relationship Specialty Start Date End Date Guero Sandoval III, MD [address] [place] [address] [address] PCP - General Family Medicine 04/15/22 documented as of this encounter
--- OUTSIDE RECORDS SUMMARY | 2024-01-13 14:44 | External Medical Summary | Summary of Care ---
Author Name Unknown Organization [facility] Address [address] [place] [address] Phone [phone] Care Team Providers Care Sand Cutter Name Role Phone Jaime MAYS MD, Guero Terrell Primary Care Provider [phone] Reason for Referral * Evaluate & Treat - Unlimited Visits (Within 10 days (routine)) - Pending Review Specialty Diagnoses / Procedures Referred By Tori horowitz Referred To Contact Neurological Surgery Diagnoses Normal pressure hydrocephalus (HCC) Thiago Banda MD [address] [place] [address] Referral ID Status Reason Start Date Expiration Date Visits Requested Visits Authorized [id number] Pending Review Specialty Services Required 12/21/[phone] Question Answer Referral Priority Within 10 days (routine) Where should this appointment be scheduled? [facility] What condition is the patient being seen for? Other Has the patient had an MRI or CT with in the past year? Yes Comments Normal pressure hydrocephalus. Patient's gait improved with medium sized volume tap. Is it possible to set up a video appointment for the initial encounter? Patient has [address] [facility]. Encounter Details Date Type Department Care Team (Latest Contact Info) Description 12/21/2023 11:05 AM EDT Office Visit Neurology, [place] [address] [place] [address] Thiago Banda MD [address] [place] [address] Normal pressure hydrocephalus (HCC)* Allergies Active Allergy [...] as of this encounter Progress Notes * Thiago Banda MD - 12/21/2023 11:08 AM EDT Procedure note: Attempted large volume diagnostic lumbar puncture for workup of normal pressure hydrocephalus. The patient is a 78-year-old man with progressive gait disturbance and apraxia with a past couple years. Muscle with mild memory problems and urinary issues. He also has dysphonia and dysphagia. He had a cranial MRI which showed evidence of hydrocephalus with narrow colossal angle, thin corpus callosum and some transependymal flow suggestive of normal pressure hydrocephalus. He also has a historyof B12 deficiency which has been supplemented with a past year. He had physical therapy over last winter which improved his balance. MOCA from October 2023: - he struggles with visuospatial function, difficulty placing the handson the clock, only 1 step of serial 7s, reduced verbal fluency, delayed recall 4/5, off by one day on the date. Preprocedure-25 foot TWT: 2 attempts average- 17 seconds He went on to have a successful lumbar puncture earlier today by Ms. Linette Madera at 9:30AM. 19ml ofclear, colorless CSF were drained. Opening pressure was 9 cm H2O and closing pressure 4 centimeterswater. Postprocedure: No Improvement of bladder urgency and some walking speed improvement Postprocedure (2 hours later) 25 ft TWT: 2 attempts, average 14.5 seconds (with motivation); patient reports to walk easier. He most likely has Normal pressure hydrocephalus and would benefit from a shunt. I spent approximately 30 minutes with this patient greater than half the time was spent reviewing diagnosis, physical exam, and treatment. We will send him to neurosurgery for a shunt placement. If he decides to go through with it I can see him again in 3 months. documented in this encounter Plan of Treatment Upcoming Encounters Date Type Department Care Team (Late st Contact Info) Description 12/26/2023 8:15 AM EDT Telemedicine Neurosurgery, [place] [address] [place] [address] Dong Acuna MD [facility] [place] [facility] [place] [address] 02/23/2024 9:40 AM EDT Office Visit [facility] 200 [facility] [place] [address] Guero Sandoval III, MD 200 [facility] [place] [address] Scheduled Referrals Name Type Priority Associated Diagnoses [...] (INPH) documented in this encounter Care Teams Sand Cutter Relationship Specialty Start Date End Date Guero Sandoval III, MD 200 [facility] [place] [address] PCP - General Family Medicine 04/15/22 documented as of this encounter
--- OUTSIDE RECORDS SUMMARY | 2024-01-13 14:44 | External Medical Summary | Summary of Care ---
Author Name Unknown Organization [facility] Address [address] [place] [address] Phone [phone] Care Team Providers Care Hem Inspector Name Role Phone Jaime MAYS MD, Guero Terrell Primary Care Provider [phone] Reason for Referral * Evaluate & Treat - Unlimited Visits (Within 10 days (routine)) - Pending Review Specialty Diagnoses / Procedures Referred By Tori horowitz Referred To Contact Neurological Surgery Diagnoses Normal pressure hydrocephalus (HCC) Thiago Banda MD [address] [place] [address] Referral ID Status Reason Start Date Expiration Date Visits Requested Visits Authorized [id number] Pending Review Specialty Services Required 12/21/2023 999 [...] Patient has almost [address] [facility]. Encounter Details Date Type Department Care Team (Latest Contact Info) Description 12/21/2023 11:05 AM EDT Office Visit Neurology, [place] [address] [place] [address] Thiago Banda MD [address] [place] [address] Normal pressure hydrocephalus (HCC)* Allergies [...] Description 12/26/2023 8:15 AM EDT Telemedicine Neurosurgery, [place] [address] [place] [address] Dong Acuna MD [facility] [place] [facility] [place] [address] 02/23/2024 9:40 AM EDT Office Visit [facility] [address] [place] [address] Guero Sandoval III, MD [address] [place] [address] Scheduled Referrals Name Type Priority Associated Diagnoses [...] (INPH) documented in this encounter Care Teams Hem Inspector Relationship Specialty Start Date End Date Guero Snadoval III, MD [address] [place] [address] PCP - General Family Medicine 04/15/22 documented as of this encounter
--- OUTSIDE RECORDS SUMMARY | 2024-01-13 14:45 | External Medical Summary | Summary of Care ---
Author Name Unknown Organization [facility] Address [address] [place] [address] Phone [phone] Care Team Providers Care Route Driver Name Role Phone Jaime MAYS MD, Guero Terrell Primary Care Provider [phone] Reason for Visit * Reason Onset Date Comments Home Health 08/16/2023 Encounter Details Date Type Department Care Team (Late st Contact Info) Description 08/16/2023 Telephone Family Practice [facility] [address] [place] [address] Guero Sandoval III, MD [address] 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 documented as of this encounter (statuses as of 08/17/2023) Immunizations Name Administration Dates Next Due COVID-19 [...] Start of Care/Continuation Aneesh PT, Calling from: [facility] PT Plan of care: 2 times per week for 3 weeks: Focusing on: balance, gait, home exercise program Concerns: no None Symptoms: none Vitals: Not available. Computer and he is driving. All are within normal limits. Narrative: Aneesh calling from [facility]. Physicial Therapy. Asking for orders. Call back aneesh with any advice or orders at [phone] Advised that additional visit orders will be signed by Dr. Sandoval and to fax to the office for signature documented in this encounter Plan of Treatment Upcoming Encounters Date Type Department Care Team (Late st Contact Info) Description 08/22/2023 1:00 PM EST NeuroDiagnostic Study [address]phys[place] [address] [place] [address] Cherrie Marino MD [address] [facility] [place], [place] [address] 08/24/2023 9:40 AM EST Office Visit Family Practice [facility] [place] [address] [facility] [place] [address] Guero Sandoval III, MD [address] [facility] [place], [place] [address] 10/23/2023 8:40 AM EDT Office Visit Neurology [facility] [address] [facility] [place] [address] Guero Elizalde MD [address] [facility] [place], [place] [address] 10/26/2023 3:00 PM EDT Office Visit [facility] [address] [facility] [place] [address] Thiago Banda MD [address] [place] [address] Health Maintenance Due Date Last Done Comments [...] filedocumented as of this encounter Care Teams Route Driver Relationship Specialty Start Date End Date Guero Sandoval III, MD [address] [facility] [place] [address] PCP - General Family Medicine 04/15/22 documented as of this encounter
[2024-01-13] MEDS: TRANEXAMIC ACID / 0.7% NACL 1000MG/100ML BAG IV ONE (16:17)
[2024-01-13] MEDS: fentaNYL citrate PF 100 MCG/2 ML VIAL ONE (16:17)
[2024-01-13] MEDS: PIPERACILLIN/TAZOBACTAM 4.5 GM in DEXTROSE 5% MINI-B 100 ML IV SCH (16:33)
[2024-01-13] MEDS: CALCIUM 600MG + VIT D 400 IU TAB PO SCH (16:40)
[2024-01-13] MEDS: CYANOCOBALAMIN (B-12) 500 MCG TABLET PO SCH (16:40)
[2024-01-13] MEDS: MULTIVITAMIN TAB PO SCH (16:41)
[2024-01-13] MEDS: TRANEXAMIC ACID / 0.7% NACL 1,000 MG/100 ML BAG IV SCH (17:40)
[2024-01-13] MEDS: D5W AND NSS 1,000 ML IV SCH (17:52)
[2024-01-13] MEDS: ceFAZolin 1000MG 1,000 MG/7.5 ML SYR IV SCH (19:06)
[2024-01-13] MEDS: BUDESONIDE 0.25 MG/2 ML VIAL (PULMICORT) NEB SCH (19:59)
[2024-01-13] MEDS: FORMOTEROL 20 MCG/2 ML VIAL INH SCH (19:59)
[2024-01-13] MEDS: SODIUM CHLOR 7% 4 ML NEB NEB SCH (20:00)
[2024-01-13] MEDS: FUROSEMIDE INJ 20 MG/2 ML VIAL IV ONE (23:15)
[2024-01-14 08:32] LABS: Basophils # (auto) 0.02 K/uL (0.00-0.20); Basophils % (auto) 0.1 %; Immature Granulocytes # (auto) 0.08 K/uL (0.01-0.20); Immature Granulocytes % (auto) 0.6 %; Lymphocytes # (auto) 1.38 K/uL (1.20-3.40); Lymphocytes % (auto) 9.6 %; Mean Corpuscular Hemoglobin 30.9 pg (25.0-34.0); Mean Corpuscular Hgb Conc 34.6 g/dL (32.0-36.0); Mean Corpuscular Volume 89.3 fL (80.0-100.0); Mean Platelet Volume 10.9 fL (9.4-12.4); Monocytes # (auto) 1.64 K/uL (0.11-0.59); Monocytes % (auto) 11.5 %; Neutrophils % (auto) 78.2 %; Platelet Count 150 K/uL (130-400); RDW Coefficient of Variation 13.2 % (11.5-14.5); Red Blood Count 2.91 M/uL (4.70-6.10); White Blood Count 14.32 K/ul (4.8-10.8)
--- NOTE | 2024-01-14 08:48 | Orthopedic Progress Note ---
Date of Service January 14, 2024 Assessment & Plan (1) Alcohol use: (2) Recurrent falls: (3) Intertrochanteric fracture of right hip: Plan: Stable postop. Neurovascularly intact. White count elevated likely secondary to stress. Hemoglobin 9 hematocrit 26. Treatment plan for the right shoulder is immobile immobilization in sling and swath. No movement or weightbearing. He is not able to use a platform walker. Plan for the right lower extremity is weightbearing as tolerated with assistance of PT. He will likely need acute care rehab at the least.Eliquis for DVT prophylaxis. Check vitamin D level. Replace vitamin D. Likely deficient. (4) Closed fracture of right proximal humerus: Admission and Anticipated Discharge Date Admission Date: January 13, 2024 Subjective No significant problems reported. Right shoulder pain. Discussed results of surgical procedure. Physical Exam Physical Exam: There is no left clavicular tenderness. The right deltoid and upper arm area are bruised and swollen as well as tender to palpation. Gross distal neurovascular function intact. He can flex and extend his fingers and has good emt i/99 strength 1+ radial pulse. DP and PT pulses on the right foot are 1+ palpable with intact sensation and 5 out of 5 ankle and toe plantarflexion dorsiflexion inversion eversion strength. The thigh is soft and the dressing is clean and dry. Results & Data Vital Signs (Past 12 Hours) Vital Signs Temp Pulse Pulse Resp BP Pulse Ox O2 Del Method 01/14/24 07:58 36.4 C L 78 20 90/53 L 91 Nasal Cannula 01/14/24 07:00 71 01/14/24 05:05 36.8 C 74 20 94/56 L 92 Nasal Cannula 01/14/24 04:16 Nasal Cannula 01/14/24 00:04 36.9 C 85 20 96/60 L 92 Nasal Cannula 01/13/24 22:16 88 O2 Flow Rate 01/14/24 07:58 4 01/14/24 07:00 01/14/24 05:05 4 01/14/24 04:16 4 01/14/24 00:04 4 01/13/24 22:16 Laboratory Results 01/14/24 01/13/24 Range/Units 07:56 12:46 WBC 14.32 H (4.8-10.8) K/ul RBC 2.91 L (4.70-6.10) M/uL Hgb 9.0 L D (14.0-18.0) g/dl Hct 26.0 L (42.0-52.0) % MCV 89.3 (80.0-100.0) fL MCH 30.9 (25.0-34.0) pg MCHC 34.6 (32.0-36.0) g/dL RDW Std Deviation 43.0 (36.4-46.3) fL RDW Coeff of Marjan 13.2 (11.5-14.5) % Plt Count 150 (130-400) K/uL MPV 10.9 (9.4-12.4) fL Immature Gran % (Auto) 0.6 % Neut % (Auto) 78.2 % Lymph % (Auto) 9.6 % Sioux % (Auto) 11.5 % Eos % (Auto) 0.0 % Baso % (Auto) 0.1 % Neut # (Auto) 11.20 H (1.40-6.50) K/uL Lymph # (Auto) 1.38 (1.20-3.40) K/uL Sioux # (Auto) 1.64 H (0.11-0.59) K/uL Eos # (Auto) 0.00 (0.00-0.50) K/uL Baso # (Auto) 0.02 (0.00-0.20) K/uL Immature Gran # (Auto) 0.08 (0.01-0.20) K/uL B-Natriuretic Peptide 404 H (0-100) pg/ml Procalcitonin 0.04 (0-0.5) ng/ml
[2024-01-14] MEDS ORDERED: APIXABAN 2.5 MG TAB PO SCH (09:00)
[2024-01-14] MEDS: ENOXAPARIN INJ 40 MG/0.4 ML SYR SQ SCH (09:39)
[2024-01-14] MEDS: CHOLECALCIFEROL 125 MCG (5,000 UNITS) TAB PO SCH (09:58)
[2024-01-14] MEDS: APIXABAN 2.5 MG TAB PO SCH (09:59)
--- NOTE | 2024-01-14 10:49 | Hospitalist Progress Note ---
Date of Service January 14, 2024 Assessment & Plan (1) Intertrochanteric fracture of right hip: Plan: 78-year-old male with past med history significant for hypertension, alcohol use, tobacco use, ongoing dysarthria, dysphagia, imbalance and urinary incontinence with possible NPH diagnosis, recently had lumbar puncture which did not help much of his symptoms and neurosurgery offered PLATE CONDITIONER shunt placement but patient currently declined as lumbar puncture didn't helped and had hx of falls comes to ER because of fall and imaging studies showing right humerus and right femur fracture. Patient has some dysarthria and somewhat difficulty to understand. Patient was in the hospital in August for recurrent falls and ambulatory dysfunction. Seen by speech at that time and that time he was on soft bite-size diet. Recommend to alternate solids and liquids and oral hygiene And to follow as outpatient. Fall History of falls Ambulatory dysfunction XRs showed intertrochanteric fracture of right hip and right humerus fracture Reviewed CT head. No fractures S/p Internal Fixation Long Troch Nail Right Hip on 01/13/24 Pain control Continue Vit D Post op Hb 9. Preop 12. Possible acute blood loss anemia plus dilutional effect of IVF Leukocytosis likely reactive Monitor Eliquis started for DVT ppx per surgeon PT/OT. No weight bearing RUE. WBAT assistive with RLE Chest CTA noted no PE but has cardiomegaly, emphysema, small pleural effusion with dependent consolidation, fluid/debris fill lower lobe airway bilaterally, comminuted right humeral head/neck fracture with surrounding edema/hemorrhage Aspiration pneumonia/pneumonitis Aspiration precautions Continue zosyn for now Pulm eval noted. Per RN, not safe to give diet till COMMUTATOR TESTER evaluation. However, has been taking his pills Awaiting COMMUTATOR TESTER Hold off gentle IVF placed for maintenance in view of volume status Got IV lasix 20mg today Monitor Hypotensive today Hold coreg Get Lactate, procal, BCx PCU Alcoholism Alcohol withdrawal protocol gabapentin and Ativan as needed Per , drinks beers daily. Per Admitting Provider, he reported 5 and reported 2. Alcohol level was 70 on presentation Got MVI infusion in ER IV thiamine IV folic acid Monitor Tobacco abuse Needs counseling Possible NPH Has some dysarthria, dysphagia, renal incontinence and ambulate dysfunction Follow-up with PCP and neurology Hypomagnesia Mg was 1.6 on admission. Repleted DVT prophylaxis Eliquis Full code I spent a total of 50 minutes coordinating, documenting and providing care for this patient excluding time spent in performance of separately billed services Admission and Anticipated Discharge Date Admission Date: January 13, 2024 Subjective Patient seen and examined Oriented to person and place Reports RUE pain. Reports cough. No chest pain/Shortness of breath Physical Exam Constitutional: no acute distress Eyes: PERRL, conjunctivae normal, anicteric sclerae ENMT: external ear and nose normal, oropharynx normal Respiratory: On nasal cannula, decreased breath sounds, +crackles Cardiovascular: Rate/Rhythm: regular rate and regular rhythm Gastrointestinal (Abdomen): normal bowel sounds, soft, nontender, no hepatosplenomegaly Musculoskeletal: RUE in sling Clean dressing over right hip Neurologic: +Dysarthria. Oriented to person and plac e only Genitourinary: Duff in situ Results & Data Results & Data Vital Signs (Past 12 Hours) Vital Signs Temp Pulse Pulse Resp BP Pulse Ox O2 Del Method 01/14/24 09:48 Nasal Cannula 01/14/24 07:58 36.4 C L 78 20 90/53 L 91 Nasal Cannula 01/14/24 07:00 71 01/14/24 05:05 36.8 C 74 20 94/56 L 92 Nasal Cannula 01/14/24 04:16 Nasal Cannula 01/14/24 00:04 36.9 C 85 20 96/60 L 92 Nasal Cannula O2 Flow Rate 01/14/24 09:48 4 01/14/24 07:58 4 01/14/24 07:00 01/14/24 05:05 4 01/14/24 04:16 4 01/14/24 00:04 4 Laboratory Results Abnormal lab results 01/14/24 01/14/24 Range/Units 07:56 11:48 WBC 14.32 H (4.8-10.8) K/ul RBC 2.91 L (4.70-6.10) M/uL Hgb 9.0 L D (14.0-18.0) g/dl Hct 26.0 L (42.0-52.0) % Neut # (Auto) 11.20 H (1.40-6.50) K/uL Hettinger # (Auto) 1.64 H (0.11-0.59) K/uL 25-OH Vitamin D Total 12.8 L (30-100) ng/ml
--- NOTE | 2024-01-14 10:53 | Pulmonology Progress Note ---
Date of Service January 14, 2024 Assessment & Plan (1) COPD with emphysema: (2) Abnormal chest CT: (3) Acute respiratory failure with hypoxia: (4) Current smoker: Plan CT chest 01/13/2024 personally reviewed: Centrilobular emphysema appreciated bilaterally Increased bronchial wall thickening in the right lower lobe with dependent atelectasis bilateral lower lobes Small bilateral pleural effusion No significant mediastinal lymphadenopathy -- Acute hypoxic respiratory failure Multifactorial Small bilateral pleural effusion with elevated BNP Does have COPD which is not being treated Likely episodes of aspiration from heavy alcohol use BNP 404 Procalcitonin 0.04 -- COPD with emphysema Not on any inhalers at home Would recommend to be discharged on Stiolto or Anoro on a daily basis --Current smoker > 34-luel-obqe smoking history Plan: Follow up 2D echo Give 20 mg of Lasix today Continue with Brovana and budesonide nebulizers while in the hospital. Would recommend to be discharged on Stiolto or Anoro on a daily basis Patient will benefit from flutter valve as well as hypertonic saline nebulized Continue with incentive spirometry Case was discussed with RN Please note the above document was generated using voice recognition software. It may contain grammatical, syntax or spelling errors.Any formal questions or concerns about the content, text or information contained within the body of this dictation should be directly addressed to the provider for clarification. Admission and Anticipated Discharge Date Admission Date: January 13, 2024 Subjective Patient seen and examined at bedside. No acute distress, no dressings overnight He did complain of pain on the right side of the shoulder. He was saturating 90% on 4 L nasal cannula. Denies any shortness of breath Occasional cough with clear phlegm. Does complain of difficulty bringing up the phlegm No headache, no blurry vision Review of Systems 2 Review of Systems: All systems reviewed & are unremarkable except as noted in Subjective Physical Exam 2 Physical Exam: Constitutional: No acute distress HEENT: EOMI, PERRLA Respiratory system: Decreased air entry bilaterally, no wheeze, positive crackles bilaterally, positive rhonchi CVS: S1-S2 positive, no murmurs or gallops Abdomen: Soft, nontender, nondistended, positive bowel sounds x4 Extremities: +2 pulses bilaterally radialis/ dorsalis pedis, no cyanosis, no edema, right arm in sling Neuro: Awake alert oriented to self and place Psych: Normal mood and affect G/U: Positive Duff Skin: no rashes, warm and dry (Hematoma appreciated right shoulder as well as the right anterior lateral c) Lymphatic: no cervical or axillary lymphadenopathy Results & Data Results & Data Vital Signs (Past 12 Hours) Vital Signs Temp Pulse Pulse Resp BP Pulse Ox O2 Del Method 01/14/24 09:48 Nasal Cannula 01/14/24 07:58 36.4 C L 78 20 90/53 L 91 Nasal Cannula 01/14/24 07:00 71 01/14/24 05:05 36.8 C 74 20 94/56 L 92 Nasal Cannula 01/14/24 04:16 Nasal Cannula 01/14/24 00:04 36.9 C 85 20 96/60 L 92 Nasal Cannula O2 Flow Rate 01/14/24 09:48 4 01/14/24 07:58 4 01/14/24 07:00 01/14/24 05:05 4 01/14/24 04:16 4 01/14/24 00:04 4 Laboratory Results 01/14/24 07:56 01/13/24 04:06 PG Care Time/CCT Total # of Minutes Spent Total Time Spent with Patient: Total time spent is greater than 50% in coordination of care (as documented) at patient's floor/unit and/or counseling patient: Coding Level of Care Code 89257 SUB INP/OBS CARE 3/50MIN Diagnoses COPD with emphysema J43.[address] R93.89 Acute respiratory failure with hypoxia J96.01 Current smoker F17.200
[2024-01-14] MEDS: FUROSEMIDE INJ 20 MG/2 ML VIAL IV ONE (13:53)
[2024-01-14] MEDS: ACETAMINOPHEN 1,000 MG/100 ML VIAL IV PRN (15:55)
[2024-01-15] MEDS: GABAPENTIN 400 MG CAP PO SCH (00:12)
[2024-01-15] MEDS: LEVALBUTEROL 1.25 MG/3 ML NEB NEB PRN (02:26)
[2024-01-15 03:02] LABS: iSTAT Arterial Blood Gas HCO3 25 meg/L (19-24); iSTAT Arterial Blood Gas pCO2 38 mmHg (35-46); iSTAT Arterial Blood Gas pH 7.42 (7.35-7.45); iSTAT Arterial Blood Gas pO2 70 mmHg (80-95); iSTAT Carbon Dioxide 26 mmol/L (24-31); iSTAT Hematocrit 22 % (42-52); iSTAT Hemoglobin 7.5 g/dl (14.0-18.0); iSTAT Potassium 3.3 mmol/L (3.3-5.0); iSTAT Sodium 137 mmol/L (135-144)
[2024-01-15 03:36] LABS: Hematocrit (blood only) 24.3 % (42.0-52.0); Hemoglobin 8.4 g/dl (14.0-18.0); Mean Corpuscular Hgb Conc 34.6 g/dL (32.0-36.0); Mean Corpuscular Volume 89.7 fL (80.0-100.0); Mean Platelet Volume 10.6 fL (9.4-12.4); Platelet Count 142 K/uL (130-400); RDW Coefficient of Variation 13.4 % (11.5-14.5); RDW Standard Deviation 43.8 fL (36.4-46.3); Red Blood Count 2.71 M/uL (4.70-6.10); White Blood Count 14.66 K/ul (4.8-10.8)
[2024-01-15 04:21] LABS: BUN Creatinine Ratio 13.9 (10-20); Calcium 7.9 mg/dl (8.6-10.3); Creatinine Clr Calc Pharmacy 59.7 ml/min; Est GFR (African American) 104.3 ml/min; Magnesium 1.4 mg/dl (1.7-2.4); Phosphorus 1.8 mg/dl (2.5-4.9); Potassium 3.5 mmol/L (3.5-5.1)
[2024-01-15] MEDS ORDERED: POTASSIUM PHOS 3 MMOL/1 ML INFUSION IV STA (04:31)
[2024-01-15] MEDS: MAGNESIUM SULFATE / D5W 1 GM/100 ML BAG IV SCH (05:18)
[2024-01-15] MEDS: POTASSIUM PHOSPHATE 30 MMOL in SODIUM CHLORIDE 0.9% 500 ML IV ONE (06:20)
[2024-01-15] MEDS: FUROSEMIDE INJ 20 MG/2 ML VIAL IV ONE ×2 (06:23→06:32)
--- NOTE | 2024-01-15 06:33 | XRay Report ---
XR chest 1V portable CLINICAL HISTORY: Shortness of breath. COMPARISON STUDY: Chest radiograph January 12, 2024. Chest CT January 13, 2024. FINDINGS: A mildly displaced right humeral head and neck fracture is again noted. There is no pneumot horax. Small bilateral pleural effusions have developed. Interstitial thickening is noted. There are bibasilar opacities and addition patchy left lung opacities. Cardiomediastinal silhouette is stable. IMPRESSION: 1. Interval development of mild interstitial pulmonary edema with small bilateral pleural effusions. 2. Bilateral airspace opacities which could reflect pneumonia or aspiration pneumonitis. ACT 112: Negative or not required by law. Electronically signed by: Andrés Orozco M.D. 01/15/2024 6:31 AM
[2024-01-15] MEDS: LORazepam 2 MG in SYRINGE 1 ML IV PRN (08:27)
--- NOTE | 2024-01-15 09:17 | Pulmonology Progress Note ---
Date of Service January 15, 2024 Assessment & Plan (1) COPD with emphysema: (2) Abnormal chest CT: (3) Acute respiratory failure with hypoxia: (4) Current smoker: Plan CT chest 01/13/2024 personally reviewed: Centrilobular emphysema appreciated bilaterally Increased bronchial wall thickening in the right lower lobe with dependent atelectasis bilateral lower lobes Small bilateral pleural effusion No significant mediastinal lymphadenopathy. 2D echo 01/14/2024: EF 55-60%, RV not well-visualized -- Acute hypoxic respiratory failure Multifactorial Small bilateral pleural effusion with elevated BNP Does have COPD which is not being treated Likely episodes of aspiration from heavy alcohol use BNP 404 Procalcitonin 0.04 -- COPD with emphysema Not on any inhalers at home Would recommend to be discharged on Stiolto or Anoro on a daily basis --Current smoker > 98-epcp-pfgv smoking history Plan: In/out: -1.4 L, urine output 3050, +3 L since coming to the hospital Give 40 mg of Lasix today Continue with Brovana and budesonide nebulizers while in the hospital. Would recommend to be discharged on Stiolto or Anoro on a daily basis Case was discussed with RN Patient will benefit from incentive spirometry as well as flutter valve the patient's mental status is getting worse, it seems that he is going into alcohol withdrawal Would recommend to keep a close eye on him continue with CIWA protocol, if there is any worsening then transferred to the ICU Please note the above document was generated using voice recognition software. It may contain grammatical, syntax or spelling errors.Any formal questions or concerns about the content, text or information contained within the body of this dictation should be directly addressed to the provider for clarification. Admission and Anticipated Discharge Date Admission Date: January 13, 2024 Subjective Patient seen and examined at bedside. Overnight patient was restless/agitated he was given medications to calm him down. He was also found to be hypoxic and was started on BiPAP At the time of examination he was on nasal cannula 6 L saturating 86-87%. I went up on the oxygen and put him on oxime mask as he was a mouth breather. Has been afebrile. Unfortunately he was still under sedation and not able to answer any questions Review of Systems 2 Review of Systems: Unobtainable due to mental health condition and Unobtainable due to reduced consciousness Physical Exam 2 Physical Exam: Constitutional: No acute distress HEENT: EOMI, PERRLA Respiratory system: Decreased air entry bilaterally, no wheeze, positive crackles bilaterally, positive rhonchi CVS: S1-S2 positive, no murmurs or gallops Abdomen: Soft, nontender, nondistended, positive bowel sounds x4 Extremities: +2 pulses bilaterally radialis/ dorsalis pedis, no cyanosis, no edema, right arm in sling Neuro: RASS -2 Psych: Unable to assess G/U: Positive Duff Skin: no rashes, warm and dry (Hematoma appreciated right shoulder as well as the right anterior lateral c) Lymphatic: no cervical or axillary lymphadenopathy Results & Data Results & Data Vital Signs (Past 12 Hours) Vital Signs Temp Pulse Pulse Resp BP Pulse Ox O2 Del Method 01/15/24 08:06 36.7 C 101 H 22 135/67 97 Nasal Cannula 01/15/24 07:30 106 H 24 94 Nasal Cannula 01/15/24 06:10 100/63 01/15/24 06:06 93 H 17 94 01/15/24 04:06 95 H 20 92 High Flow Nasal Cannula 01/15/24 03:13 36.7 C 84 18 95/50 L 97 Oxymask 01/15/24 02:26 80 19 98 Oxymask 01/15/24 01:37 103/58 L 01/14/24 22:46 36.4 C L 82 18 94/60 L 96 Nasal Cannula 01/14/24 22:11 81 O2 Flow Rate FiO2 01/15/24 08:06 01/15/24 07:30 6 01/15/24 06:10 01/15/24 06:06 50 01/15/24 04:06 30 60 01/15/24 03:13 4 01/15/24 02:26 7 01/15/24 01:37 01/14/24 22:46 4 01/14/24 22:11 Laboratory Results 01/15/24 03:15 01/15/24 03:15 PG Care Time/CCT Total # of Minutes Spent Total Time Spent with Patient: Total time spent is greater than 50% in coordination of care (as documented) at patient's floor/unit and/or counseling patient: Coding Level of Care Code 94471 SUB INP/OBS CARE 3/50MIN Diagnoses COPD with emphysema J43.[address] R93.89 Acute respiratory failure with hypoxia J96.01 Current smoker F17.200
[2024-01-15] MEDS: FUROSEMIDE 40 MG/4 ML VIAL IV ONE (09:49)
--- NOTE | 2024-01-15 10:35 | Orthopedic Progress Note ---
Date of Service January 15, 2024 Assessment & Plan (1) Alcohol use: (2) Recurrent falls: (3) Intertrochanteric fracture of right hip: Plan: Postop day 2-status post ORIF right intertrochanteric hip fracture with Dr. Lawson -Weight-bear as tolerated right lower extremity with the assistance of a walker or at least out of bed to chair due to the right upper extremity fracture. Ice and elevate to right hip as needed for pain and swelling. -Dressings were changed to the right hip today. Reinforce or change as necessary. -Physical therapy and Occupational Therapy as ordered. -Eliquis 2.5 mg p.o. twice daily for DVT prophylaxis. -SCDs while inpatient for DVT prophylaxis. -May do range of motion of the right hip, knee and ankle as tolerated. -Dr. Lawson present for today's visit. -Case management for disposition needs. May benefit from skilled facility her inpatient rehab. -Will continue to follow for now while inpatient. (4) Closed fracture of right proximal humerus: Plan: Continue the sling and swath. Nonweightbearing right upper extremity. May do range of motion of fingers, wrist and forearm and elbow. Ice to right shoulder as needed for pain and swelling. No use of right upper extremity for pushing, pulling or lifting.May be comfortable with head of bed elevated. (5) Vitamin D deficiency: Plan: Will replace with vitamin D. Vitamin D 125 mcg ordered daily. Will continue this for 6 to 8 weeks after surgery. Will need to repeat vitamin D at that time. Will follow this as outpatient. Admission and Anticipated Discharge Date Admission Date: January 12, 2024 Subjective Patient is resting in bed. He is a one-to-one sitting with him. Apparently has been agitated and pulling off all of his cords and did not get much sleep last evening. Currently he is sleeping and unarousable. He does some moaning with certain movements. Does not open his eyes. Physical Exam Musculoskeletal: Exam of his right lower extremity: Postoperative dressings were removed. His distal incision is clean, dry and intact with retained meena. He was cleansed with a sterile saline and a new dressing with 4 x 4 and Tegaderm was applied. His proximal incisions have some mild bloody drainage on the dressings. The incisions are well-approximated with intact meena. There is no underlying hematoma or seroma. There is no active drainage with pressure around the incisions. No surrounding erythema or ecchymosis. Incisions were cleansed with a sterile saline wipe and a new dressing was applied with Xeroform, 4 x 4's and Tegaderm. Exam of his right upper extremity: The sling and swath is in place. It was placed on a little more snugly. There is ecchymosis throughout the right upper extremity. No range of motion was attempted to the shoulder today. He was unable to participate in any type of motor or sensory exam. No edema into the right hand. His arm is draped across his abdomen appropriately. Results & Data Vital Signs (Past 12 Hours) Vital Signs Temp Pulse Pulse Resp BP Pulse Ox O2 Del Method 01/15/24 08:06 36.7 C 101 H 22 135/67 97 Nasal Cannula 01/15/24 07:30 106 H 24 94 Nasal Cannula 01/15/24 06:10 100/63 01/15/24 06:06 93 H 17 94 01/15/24 04:06 95 H 20 92 High Flow Nasal Cannula 01/15/24 03:13 36.7 C 84 18 95/50 L 97 Oxymask 01/15/24 02:26 80 19 98 Oxymask 01/15/24 01:37 103/58 L 01/14/24 22:46 36.4 C L 82 18 94/60 L 96 Nasal Cannula O2 Flow Rate FiO2 01/15/24 08:06 01/15/24 07:30 6 01/15/24 06:10 01/15/24 06:06 50 01/15/24 04:06 30 60 01/15/24 03:13 4 01/15/24 02:26 7 01/15/24 01:37 01/14/24 22:46 4 Laboratory Results 01/15/24 01/15/24 01/14/24 Range/Units 03:15 02:47 16:28 WBC 14.66 H (4.8-10.8) K/ul RBC 2.71 L (4.70-6.10) M/uL Hgb 8.4 L (14.0-18.0) g/dl POC Hgb 7.5 L (14.0-18.0) g/dl Hct 24.3 L (42.0-52.0) % POC Hct 22 L (42-52) % MCV 89.7 (80.0-100.0) fL MCH 31.0 (25.0-34.0) pg MCHC 34.6 (32.0-36.0) g/dL RDW Std Deviation 43.8 (36.4-46.3) fL RDW Coeff of Marjan 13.4 (11.5-14.5) % Plt Count 142 (130-400) K/uL MPV 10.6 (9.4-12.4) fL POC pH 7.42 (7.35-7.45) POC pCO2 38 (35-46) mmHg POC pO2 70 L (80-95) mmHg POC HCO3 25 H (19-24) jeremiah/L POC Total CO2 26 (24-31) mmol/L POC Base Excess 0.0 (-9-1.8) jeremiah/L POC ABG O2 Sat 94.0 (90-95) % POC Sodium 137 (135-144) mmol/L Sodium 137 (136-145) mmol/L POC Potassium 3.3 (3.3-5.0) mmol/L Potassium 3.5 D (3.5-5.1) mmol/L Chloride 104 (98-107) mmol/L Carbon Dioxide 28 (21-32) mmol/L Anion Gap 5 (3-11) BUN 10 (6-23) mg/dl Creatinine 0.72 (0.6-1.4) mg/dl Est Cr Clr Drug Dosing 59.7 ml/min Est GFR ( Amer) 104.3 ml/min Est GFR (Non-Af Amer) 90.0 ml/min BUN/Creatinine Ratio 13.9 (10-20) Glucose 98 (70-99(Fasting)) mg/dl Lactate 1.5 (0.4-2.0) mmol/L Calcium 7.9 L (8.6-10.3) mg/dl Phosphorus 1.8 L D (2.5-4.9) mg/dl Magnesium 1.4 L (1.7-2.4) mg/dl 25-OH Vitamin D Total (30-100) ng/ml Procalcitonin (0-0.5) ng/ml 01/14/24 Range/Units 11:48 WBC (4.8-10.8) K/ul RBC (4.70-6.10) M/uL Hgb (14.0-18.0) g/dl POC Hgb (14.0-18.0) g/dl Hct (42.0-52.0) % POC Hct (42-52) % MCV (80.0-100.0) fL MCH (25.0-34.0) pg MCHC (32.0-36.0) g/dL RDW Std Deviation (36.4-46.3) fL RDW Coeff of Marjan (11.5-14.5) % Plt Count (130-400) K/uL MPV (9.4-12.4) fL POC pH (7.35-7.45) POC pCO2 (35-46) mmHg POC pO2 (80-95) mmHg POC HCO3 (19-24) jeremiah/L POC Total CO2 (24-31) mmol/L POC Base Excess (-9-1.8) jeremiah/L POC ABG O2 Sat (90-95) % POC Sodium (135-144) mmol/L Sodium (136-145) mmol/L POC Potassium (3.3-5.0) mmol/L Potassium (3.5-5.1) mmol/L Chloride (98-107) mmol/L Carbon Dioxide (21-32) mmol/L Anion Gap (3-11) BUN (6-23) mg/dl Creatinine (0.6-1.4) mg/dl Est Cr Clr Drug Dosing ml/min Est GFR ( Amer) ml/min Est GFR (Non-Af Amer) ml/min BUN/Creatinine Ratio (10-20) Glucose (70-99(Fasting)) mg/dl Lactate (0.4-2.0) mmol/L Calcium (8.6-10.3) mg/dl Phosphorus (2.5-4.9) mg/dl Magnesium (1.7-2.4) mg/dl 25-OH Vitamin D Total 12.8 L (30-100) ng/ml Procalcitonin 0.10 (0-0.5) ng/ml
--- NOTE | 2024-01-15 10:50 | Hospitalist Progress Note ---
Date of Service January 15, 2024 Assessment & Plan (1) Intertrochanteric fracture of right hip: Plan: 78-year-old male with past med history significant for hypertension, alcohol use, tobacco use, ongoing dysarthria, dysphagia, imbalance and urinary incontinence with possible NPH diagnosis, recently had lumbar puncture which did not help much of his symptoms and neurosurgery offered WHEAT F[employer]ER shunt placement but patient currently declined as lumbar puncture didn't helped and had hx of falls comes to ER because of fall and imaging studies showing right humerus and right femur fracture. Patient has some dysarthria and somewhat difficulty to understand. Patient was in the hospital in August for recurrent falls and ambulatory dysfunction. Seen by speech at that time and that time he was on soft bite-size diet. Recommend to alternate solids and liquids and oral hygiene And to follow as outpatient. Fall History of falls Ambulatory dysfunction XRs showed intertrochanteric fracture of right hip and right humerus fracture Reviewed CT head. No fractures S/p Internal Fixation Long Troch Nail Right Hip on 01/13/24 Pain control Continue Vit D Hb today is 8.4. Preop 12. Acute blood loss anemia plus dilutional effect of IVF Leukocytosis Monitor Eliquis started for DVT ppx per surgeon PT/OT. No weight bearing RUE. WBAT assistive with RLE Chest CTA noted no PE but has cardiomegaly, emphysema, small pleural effusion with dependent consolidation, fluid/debris fill lower lobe airway bilaterally, comminuted right humeral head/neck fracture with surrounding edema/hemorrhage Aspiration pneumonia/pneumonitis Aspiration precautions Continue zosyn for now Pulm eval noted. Discussed with [employer] Priti. Patient has chronic aspiration across all consistencies and had declined safe swallowing strategies in the past She will reeval when he is more alert Hold off gentle IVF placed for maintenance in view of volume status Got additional IV lasix today Monitor BP improved Continue to hold coreg Procal 0.10 and lactate were normal BCx pending Alcoholism Alcohol withdrawal protocol gabapentin and Ativan as needed Per , drinks beers daily. Per Admitting Provider, he reported 5 and reported 2. Alcohol level was 70 on presentation Got MVI infusion in ER IV thiamine IV folic acid Likely withdrawing Monitor CIWA and manage appropriately Tobacco abuse Needs counseling Possible NPH Has some dysarthria, dysphagia, renal incontinence and ambulate dysfunction Follow-up with PCP and neurology Hypomagnesia Mg 1.4 Phos 1.8 Repleted Monitor DVT prophylaxis Eliquis Full code Palliative consult for GOC I spent a total of 50 minutes coordinating, documenting and providing care for this patient excluding time spent in performance of separately billed services Admission and Anticipated Discharge Date Admission Date: January 12, 2024 Subjective Patient seen and examined Per RN, he was quite agitated earlier and got ativan Was drowsy at time of my exam Physical Exam Constitutional: + ill appearing; no acute distress Eyes: PERRL, conjunctivae normal, anicteric sclerae ENMT: external ear and nose normal, oropharynx normal Respiratory: Decreased breath sounds, +crackles Cardiovascular: Rate/Rhythm: regular rate and regular rhythm Gastrointestinal (Abdomen): normal bowel sounds, soft, nontender, no hepatosplenomegaly Musculoskeletal: RUE in sling Clean dressing over right hip Neurologic: Limited exam. Drowsy Results & Data Results & Data Vital Signs (Past 12 Hours) Vital Signs Temp Pulse Pulse Resp BP Pulse Ox O2 Del Method 01/15/24 10:30 36.9 C 82 17 100/63 93 Nasal Cannula 01/15/24 08:06 36.7 C 101 H 22 135/67 97 Nasal Cannula 01/15/24 07:30 106 H 24 94 Nasal Cannula 01/15/24 06:10 100/63 01/15/24 06:06 93 H 17 94 01/15/24 04:06 95 H 20 92 High Flow Nasal Cannula 01/15/24 03:13 36.7 C 84 18 95/50 L 97 Oxymask 01/15/24 02:26 80 19 98 Oxymask 01/15/24 01:37 103/58 L O2 Flow Rate FiO2 01/15/24 10:30 6 01/15/24 08:06 01/15/24 07:30 6 01/15/24 06:10 01/15/24 06:06 50 01/15/24 04:06 30 60 01/15/24 03:13 4 01/15/24 02:26 7 01/15/24 01:37 Laboratory Results Abnormal lab results 01/15/24 01/15/24 Range/Units 02:47 03:15 WBC 14.66 H (4.8-10.8) K/ul RBC 2.71 L (4.70-6.10) M/uL Hgb 8.4 L (14.0-18.0) g/dl POC Hgb 7.5 L (14.0-18.0) g/dl Hct 24.3 L (42.0-52.0) % POC Hct 22 L (42-52) % POC pO2 70 L (80-95) mmHg POC HCO3 25 H (19-24) jeremiah/L Calcium 7.9 L (8.6-10.3) mg/dl Phosphorus 1.8 L D (2.5-4.9) mg/dl Magnesium 1.4 L (1.7-2.4) mg/dl
[2024-01-15] MEDS: HEPARIN SOD 5,000 UNIT/0.5 ML VIAL SQ STA (21:46)
[2024-01-16 08:33] LABS: Hematocrit (blood only) 23.9 % (42.0-52.0); Hemoglobin 8.2 g/dl (14.0-18.0); Mean Corpuscular Hemoglobin 30.9 pg (25.0-34.0); Mean Corpuscular Hgb Conc 34.3 g/dL (32.0-36.0); Mean Corpuscular Volume 90.2 fL (80.0-100.0); Mean Platelet Volume 10.9 fL (9.4-12.4); Platelet Count 188 K/uL (130-400); RDW Coefficient of Variation 13.8 % (11.5-14.5); Red Blood Count 2.65 M/uL (4.70-6.10); White Blood Count 13.75 K/ul (4.8-10.8)
[2024-01-16 08:55] LABS: BUN Creatinine Ratio 21.6 (10-20); Calcium 8.3 mg/dl (8.6-10.3); Creatinine Clr Calc Pharmacy 98.7 ml/min; Est GFR (African American) 103.1 ml/min; Potassium 3.3 mmol/L (3.5-5.1)
--- NOTE | 2024-01-16 09:20 | Palliative Care Consultation ---
Date of Consultation January 16, 2024 Assessment & Plan (1) Generalized weakness: (2) Recurrent falls: (3) Altered mental status: (4) Agitation: (5) Frailty syndrome in geriatric patient: (6) Palliative care by specialist: (7) Discussion about advance care planning held with family member: Face to face 30min ACP with at bedside She cannot meet his needs at home physically and she states it would be unsafe for them both; they do not have other support or means to obtain private caregivers She has medical issues of her own that limit her ability to assist physically and feels he needs to be IADLs before returning home She feels he did very well after rehab, would like another run at it to see how it might help She does not feel there is a need to discuss any other option but acknowledges he has several advancing medical issues which are not ultimately curable She has not thought about code status but feels since he did well with rehab before she wants to give him 'every chance' to get stronger and feels CPR can help achieve this. We discussed he has been in a general decline for over a year and she shares he has been steadily losing weight, having more trouble eating and drinking and is frail/falls alot which is exacerbated by his etoh abuse. She states he will not like rehab with the no smoking and no alcohol rules She would like to see if his agitation can be better relieved and asks is there medication to take the edge off his irritability and "meanness" We agreed to see how the next few days go, will treat what we can treat in hopes of improving and revisit goals of care at the end of the week. (8) Alcohol withdrawal: Plan As above Thank you for allowing us to participate in the ongoing care of this patient. Please page with any additional concerns. Mauro Lechuga DNP Director, Palliative Medicine History of Present Illness Reason for Consultation: Goals of care. Chronic aspiration. 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 Patient has some dysarthria and somewhat difficulty to understand. He is somnolent at time of my visit and drifts off at bedside, provides hx States he did "quite well after the last rehab ended in August, didn't have any issues until December." She states she cannot meet his physical needs and has her own health issues and cannot physically manage him on her own,"he is a weight" - wants him back at rehab They have a son in [place] They do not have other family/friends in the region who could assist her with caregiver work and cannot afford private in home care Allergies Allergy/AdvReac Type Severity Reaction Status Date / Time amlodipine AdvReac Rash Verified 08/12/23 15:08 Home Medications Medication Instructions Recorded Confirmed Type carvedilol 6.25 mg tablet 6.25 mg PO BID 08/12/23 01/12/24 History cyanocobalamin (vitamin B-12) 1,000 mcg PO DAILY 08/12/23 01/12/24 History 1,000 mcg tablet (Vitamin B-12) fluocinonide 0.05 % topical cream 1 applic topical QPM PRN Rash 08/12/23 01/12/24 History multivitamin 1 tab PO DAILY 08/12/23 01/12/24 History Patient History Medical History (Updated 01/16/24 @ 20:07 by Kaity Lechuga DNP) Closed fracture of right proximal humerus Intertrochanteric fracture of right hip Alcohol use Dysarthria Tobacco use HTN (hypertension) Weakness of left hand Weakness on left side of face Surgical History No pertinent past surgical history Family History Other Cancer Social History (Updated 08/12/23 @ 17:03 by Essie Martinez PA-C) Smoking Status: Current every day smoker Tobacco Type: Cigarettes Cigarettes Per Day: 1 ppd; Second Hand Exposure: Yes; Hx Alcohol Use: Yes Alcohol type: beer Preferred Language: Bengali Communication Ability: Impaired Communication Ability Comment: Pt. unable to verbalize due to condition upon arrival Residence Counselor Required: No Beliefs That Will Affect Care: None marital status: Current Living Situation: Spouse Feels Safe at Home: Yes Assistive Devices: Cane, Stair Lift and Walker Review of Systems Review of Systems: Unobtainable due to cognitive status Physical Exam Constitutional: + ill appearing, + cachectic, + frail ap pearing, + diaphoretic and + lethargic Eyes: PERRL ENMT: Mouth: + muffled voice and + poor dentition Neck: normal visual inspection and trachea midline Respiratory: normal respiratory effort, + cough, + tripod positioning and symmetric chest movement Auscultation: + diminished lung sounds and + rales Cardiovascular: Rate/Rhythm: + irregularly irregular Gastrointestinal (Abdomen): Inspection/Auscultation: + scaphoid Musculoskeletal: RUE immobilized Gen weakness Skin: + pallor Neurologic: opens eyes to name +dysarthria when trying to speak but ove rall lethargic Results & Data Vital Signs (Past 12 Hours) Vital Signs Temp Pulse Pulse Resp BP Pulse Ox O2 Del Method 01/16/24 07:44 94 H 22 112/76 94 BiPAP 01/16/24 07:19 89 30 H 100 01/16/24 07:19 89 30 H 100 BiPAP 01/16/24 02:56 36.4 C L 87 20 107/69 99 BiPAP 01/16/24 02:19 82 21 99 01/16/24 02:15 87 L BiPAP 01/16/24 02:10 86 L Oxymask 01/15/24 23:31 36.8 C 96 H 18 97/51 L 98 BiPAP 01/15/24 23:11 90 18 99 01/15/24 22:32 92 H O2 Flow Rate FiO2 01/16/24 07:44 01/16/24 07:19 40 01/16/24 07:19 40 01/16/24 02:56 40 01/16/24 02:19 40 01/16/24 02:15 40 01/16/24 02:10 10 01/15/24 23:31 40 01/15/24 23:11 50 01/15/24 22:32 Laboratory Results 01/16/24 01/15/24 01/15/24 Range/Units 08:06 03:15 02:47 WBC 13.75 H 14.66 H (4.8-10.8) K/ul RBC 2.65 L 2.71 L (4.70-6.10) M/uL Hgb 8.2 L 8.4 L (14.0-18.0) g/dl POC Hgb 7.5 L (14.0-18.0) g/dl Hct 23.9 L 24.3 L (42.0-52.0) % POC Hct 22 L (42-52) % MCV 90.2 89.7 (80.0-100.0) fL MCH 30.9 31.0 (25.0-34.0) pg MCHC 34.3 34.6 (32.0-36.0) g/dL RDW Std Deviation 45.0 43.8 (36.4-46.3) fL RDW Coeff of Marjan 13.8 13.4 (11.5-14.5) % Plt Count 188 142 (130-400) K/uL MPV 10.9 10.6 (9.4-12.4) fL Immature Gran % (Auto) % Neut % (Auto) % Lymph % (Auto) % [place] % (Auto) % Eos % (Auto) % Baso % (Auto) % Neut # (Auto) (1.40-6.50) K/uL Lymph # (Auto) (1.20-3.40) K/uL [place] # (Auto) (0.11-0.59) K/uL Eos # (Auto) (0.00-0.50) K/uL Baso # (Auto) (0.00-0.20) K/uL Immature Gran # (Auto) (0.01-0.20) K/uL PT (9.0-12.0) Seconds INR (0.9-1.1) POC pH 7.42 (7.35-7.45) POC pCO2 38 (35-46) mmHg POC pO2 70 L (80-95) mmHg POC HCO3 25 H (19-24) jeremiah/L POC Total CO2 26 (24-31) mmol/L POC Base Excess 0.0 (-9-1.8) jeremiah/L POC ABG O2 Sat 94.0 (90-95) % POC Sodium 137 (135-144) mmol/L Sodium 140 137 (136-145) mmol/L POC Potassium 3.3 (3.3-5.0) mmol/L Potassium 3.3 L 3.5 D (3.5-5.1) mmol/L Chloride 102 104 (98-107) mmol/L Carbon Dioxide 30 28 (21-32) mmol/L Anion Gap 8 5 (3-11) BUN 16 10 (6-23) mg/dl Creatinine 0.74 0.72 (0.6-1.4) mg/dl Est Cr Clr Drug Dosing 98.7 59.7 ml/min Est GFR ( Amer) 103.1 104.3 ml/min Est GFR (Non-Af Amer) 89.0 90.0 ml/min BUN/Creatinine Ratio 21.6 H 13.9 (10-20) Glucose 91 98 (70-99(Fasting)) mg/dl Lactate (0.4-2.0) mmol/L Calcium 8.3 L 7.9 L (8.6-10.3) mg/dl Phosphorus 2.3 L 1.8 L D (2.5-4.9) mg/dl Magnesium 1.7 1.4 L (1.7-2.4) mg/dl Total Bilirubin (0.2-1.0) mg/dl AST (13-39) U/L ALT (7-52) U/L Alkaline Phosphatase (34-104) U/L B-Natriuretic Peptide (0-100) pg/ml Total Protein (6.0-8.3) gm/dl Albumin (3.4-5.0) gm/dl Globulin (2.5-4.0) gm/dl Albumin/Globulin Ratio (0.9-2) Vitamin B12 (180-914) pg/ml 25-OH Vitamin D Total (30-100) ng/ml Folate (>5.38) ng/ml Procalcitonin (0-0.5) ng/ml Ethyl Alcohol mg/dL (<10.0) mg/dl Blood Type Antibody Screen 01/14/24 01/14/24 01/14/24 Range/Units 16:28 11:48 07:56 WBC 14.32 H (4.8-10.8) K/ul RBC 2.91 L (4.70-6.10) M/uL Hgb 9.0 L D (14.0-18.0) g/dl POC Hgb (14.0-18.0) g/dl Hct 26.0 L (42.0-52.0) % POC Hct (42-52) % MCV 89.3 (80.0-100.0) fL MCH 30.9 (25.0-34.0) pg MCHC 34.6 (32.0-36.0) g/dL RDW Std Deviation 43.0 (36.4-46.3) fL RDW Coeff of Marjan 13.2 (11.5-14.5) % Plt Count 150 (130-400) K/uL MPV 10.9 (9.4-12.4) fL Immature Gran % (Auto) 0.6 % Neut % (Auto) 78.2 % Lymph % (Auto) 9.6 % [place] % (Auto) 11.5 % Eos % (Auto) 0.0 % Baso % (Auto) 0.1 % Neut # (Auto) 11.20 H (1.40-6.50) K/uL Lymph # (Auto) 1.38 (1.20-3.40) K/uL [place] # (Auto) 1.64 H (0.11-0.59) K/uL Eos # (Auto) 0.00 (0.00-0.50) K/uL Baso # (Auto) 0.02 (0.00-0.20) K/uL Immature Gran # (Auto) 0.08 (0.01-0.20) K/uL PT (9.0-12.0) Seconds INR (0.9-1.1) POC pH (7.35-7.45) POC pCO2 (35-46) mmHg POC pO2 (80-95) mmHg POC HCO3 (19-24) jeremiah/L POC Total CO2 (24-31) mmol/L POC Base Excess (-9-1.8) jeremiah/L POC ABG O2 Sat (90-95) % POC Sodium (135-144) mmol/L Sodium (136-145) mmol/L POC Potassium (3.3-5.0) mmol/L Potassium (3.5-5.1) mmol/L Chloride (98-107) mmol/L Carbon Dioxide (21-32) mmol/L Anion Gap (3-11) BUN (6-23) mg/dl Creatinine (0.6-1.4) mg/dl Est Cr Clr Drug Dosing ml/min Est GFR ( Amer) ml/min Est GFR (Non-Af Amer) ml/min BUN/Creatinine Ratio (10-20) Glucose (70-99(Fasting)) mg/dl Lactate 1.5 (0.4-2.0) mmol/L Calcium (8.6-10.3) mg/dl Phosphorus (2.5-4.9) mg/dl Magnesium (1.7-2.4) mg/dl Total Bilirubin (0.2-1.0) mg/dl AST (13-39) U/L ALT (7-52) U/L Alkaline Phosphatase (34-104) U/L B-Natriuretic Peptide (0-100) pg/ml Total Protein (6.0-8.3) gm/dl Albumin (3.4-5.0) gm/dl Globulin (2.5-4.0) gm/dl Albumin/Globulin Ratio (0.9-2) Vitamin B12 (180-914) pg/ml 25-OH Vitamin D Total 12.8 L (30-100) ng/ml Folate (>5.38) ng/ml Procalcitonin 0.10 (0-0.5) ng/ml Ethyl Alcohol mg/dL (<10.0) mg/dl Blood Type Antibody Screen 01/13/24 01/13/24 01/12/24 Range/Units 12:46 04:06 20:21 WBC 12.14 H (4.8-10.8) K/ul RBC 3.91 L (4.70-6.10) M/uL Hgb 12.1 L (14.0-18.0) g/dl POC Hgb (14.0-18.0) g/dl Hct 34.8 L (42.0-52.0) % POC Hct (42-52) % MCV 89.0 (80.0-100.0) fL MCH 30.9 (25.0-34.0) pg MCHC 34.8 (32.0-36.0) g/dL RDW Std Deviation 43.3 (36.4-46.3) fL RDW Coeff of Marjan 13.3 (11.5-14.5) % Plt Count 192 (130-400) K/uL MPV 10.4 (9.4-12.4) fL Immature Gran % (Auto) 0.3 % Neut % (Auto) 78.8 % Lymph % (Auto) 11.5 % [place] % (Auto) 9.0 % Eos % (Auto) 0.0 % Baso % (Auto) 0.4 % Neut # (Auto) 9.56 H (1.40-6.50) K/uL Lymph # (Auto) 1.40 (1.20-3.40) K/uL [place] # (Auto) 1.09 H (0.11-0.59) K/uL Eos # (Auto) 0.00 (0.00-0.50) K/uL Baso # (Auto) 0.05 (0.00-0.20) K/uL Immature Gran # (Auto) 0.04 (0.01-0.20) K/uL PT 11.4 (9.0-12.0) Seconds INR 1.1 (0.9-1.1) POC pH (7.35-7.45) POC pCO2 (35-46) mmHg POC pO2 (80-95) mmHg POC HCO3 (19-24) jeremiah/L POC Total CO2 (24-31) mmol/L POC Base Excess (-9-1.8) jeremiah/L POC ABG O2 Sat (90-95) % POC Sodium (135-144) mmol/L Sodium 132 L (136-145) mmol/L POC Potassium (3.3-5.0) mmol/L Potassium 4.7 (3.5-5.1) mmol/L Chloride 103 (98-107) mmol/L Carbon Dioxide 24 (21-32) mmol/L Anion Gap 5 (3-11) BUN 9 (6-23) mg/dl Creatinine 0.55 L (0.6-1.4) mg/dl Est Cr Clr Drug Dosing 78.1 ml/min Est GFR ( Amer) 116.5 ml/min Est GFR (Non-Af Amer) 100.5 ml/min BUN/Creatinine Ratio 16.4 (10-20) Glucose 126 H (70-99(Fasting)) mg/dl Lactate (0.4-2.0) mmol/L Calcium 7.9 L (8.6-10.3) mg/dl Phosphorus 3.5 (2.5-4.9) mg/dl Magnesium 1.9 (1.7-2.4) mg/dl Total Bilirubin (0.2-1.0) mg/dl AST (13-39) U/L ALT (7-52) U/L Alkaline Phosphatase (34-104) U/L B-Natriuretic Peptide 404 H (0-100) pg/ml Total Protein (6.0-8.3) gm/dl Albumin (3.4-5.0) gm/dl Globulin (2.5-4.0) gm/dl Albumin/Globulin Ratio (0.9-2) Vitamin B12 677 (180-914) pg/ml 25-OH Vitamin D Total (30-100) ng/ml Folate > 22.30 (>5.38) ng/ml Procalcitonin 0.04 (0-0.5) ng/ml Ethyl Alcohol mg/dL (<10.0) mg/dl Blood Type A Positive Antibody Screen NEGATIVE 01/12/24 01/12/24 Range/Units 17:44 16:30 WBC 10.89 H (4.8-10.8) K/ul RBC 4.79 (4.70-6.10) M/uL Hgb 14.5 (14.0-18.0) g/dl POC Hgb (14.0-18.0) g/dl Hct 42.9 (42.0-52.0) % POC Hct (42-52) % MCV 89.6 (80.0-100.0) fL MCH 30.3 (25.0-34.0) pg MCHC 33.8 (32.0-36.0) g/dL RDW Std Deviation 44.1 (36.4-46.3) fL RDW Coeff of Marjan 13.5 (11.5-14.5) % Plt Count 245 (130-400) K/uL MPV 10.4 (9.4-12.4) fL Immature Gran % (Auto) 0.5 % Neut % (Auto) 64.5 % Lymph % (Auto) 21.7 % [place] % (Auto) 8.6 % Eos % (Auto) 3.8 % Baso % (Auto) 0.9 % Neut # (Auto) 7.03 H (1.40-6.50) K/uL Lymph # (Auto) 2.36 (1.20-3.40) K/uL [place] # (Auto) 0.94 H (0.11-0.59) K/uL Eos # (Auto) 0.41 (0.00-0.50) K/uL Baso # (Auto) 0.10 (0.00-0.20) K/uL Immature Gran # (Auto) 0.05 (0.01-0.20) K/uL PT (9.0-12.0) Seconds INR (0.9-1.1) POC pH (7.35-7.45) POC pCO2 (35-46) mmHg POC pO2 (80-95) mmHg POC HCO3 (19-24) jeremiah/L POC Total CO2 (24-31) mmol/L POC Base Excess (-9-1.8) jeremiah/L POC ABG O2 Sat (90-95) % POC Sodium (135-144) mmol/L Sodium 133 L (136-145) mmol/L POC Potassium (3.3-5.0) mmol/L Potassium 4.2 (3.5-5.1) mmol/L Chloride 101 (98-107) mmol/L Carbon Dioxide 25 (21-32) mmol/L Anion Gap 7 (3-11) BUN 9 (6-23) mg/dl Creatinine 0.68 (0.6-1.4) mg/dl Est Cr Clr Drug Dosing 63.2 ml/min Est GFR ( Amer) 106.8 ml/min Est GFR (Non-Af Amer) 92.1 ml/min BUN/Creatinine Ratio 13.2 (10-20) Glucose 117 H (70-99(Fasting)) mg/dl Lactate (0.4-2.0) mmol/L Calcium 8.8 (8.6-10.3) mg/dl Phosphorus 3.2 (2.5-4.9) mg/dl Magnesium 1.6 L (1.7-2.4) mg/dl Total Bilirubin 0.6 (0.2-1.0) mg/dl AST 15 (13-39) U/L ALT 11 (7-52) U/L Alkaline Phosphatase 68 (34-104) U/L B-Natriuretic Peptide (0-100) pg/ml Total Protein 6.8 (6.0-8.3) gm/dl Albumin 3.9 (3.4-5.0) gm/dl Globulin 2.9 (2.5-4.0) gm/dl Albumin/Globulin Ratio 1.3 (0.9-2) Vitamin B12 (180-914) pg/ml 25-OH Vitamin D Total (30-100) ng/ml Folate (>5.38) ng/ml Procalcitonin (0-0.5) ng/ml Ethyl Alcohol mg/dL 70.3 H (<10.0) mg/dl Blood Type Antibody Screen Diagnostic Findings Femur X-Ray 01/12/24 16:58 XR pelvis 1-2V routine, XR femur RT 2V routine, XR knee RT 3V CLINICAL HISTORY: Hip trauma, fracture suspected, no prior imaging COMPARISON STUDY: None. FINDINGS: There is a mildly displaced intertrochanteric fracture within the proximal right femur. No dislocation of the femoral head. No fractures within the pelvis or left hip. Patchy sclerosis within the left femoral head favors avascular necrosis. No evidence for articular collapse. No fracture or dislocation within the right knee. No significant right knee effusion. Vascular calcifications are noted. IMPRESSION: 1. A mildly displaced right femoral intertrochanteric fracture. 2. No fractures within the pelvis or left hip. 3. 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 4. No fracture or dislocation within the right knee. ACT 112: Negative or not required by law. Electronically signed by: Doc Kent M.D. 01/12/2024 5:43 PM Knee X-Ray 01/12/24 16:58 XR pelvis 1-2V routine, XR femur RT 2V routine, XR knee RT 3V CLINICAL HISTORY: Hip trauma, fracture suspected, no prior imaging COMPARISON STUDY: None. FINDINGS: There is a mildly displaced intertrochanteric fracture within the proximal right femur. No dislocation of the femoral head. No fractures within the pelvis or left hip. Patchy sclerosis within the left femoral head favors avascular necrosis. No evidence for articular collapse. No fracture or dislocation within the right knee. No significant right knee effusion. Vascular calcifications are noted. IMPRESSION: 1. A mildly displaced right femoral intertrochanteric fracture. 2. No fractures within the pelvis or left hip. 3. 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 4. No fracture or dislocation within the right knee. ACT 112: Negative or not required by law. Electronically signed by: Doc Kent M.D. 01/12/2024 5:43 PM Pelvis X-Ray 01/12/24 16:58 XR pelvis 1-2V routine, XR femur RT 2V routine, XR knee RT 3V CLINICAL HISTORY: Hip trauma, fracture suspected, no prior imaging COMPARISON STUDY: None. FINDINGS: There is a mildly displaced intertrochanteric fracture within the proximal right femur. No dislocation of the femoral head. No fractures within the pelvis or left hip. Patchy sclerosis within the left femoral head favors avascular necrosis. No evidence for articular collapse. No fracture or dislocation within the right knee. No significant right knee effusion. Vascular calcifications are noted. IMPRESSION: 1. A mildly displaced right femoral intertrochanteric fracture. 2. No fractures within the pelvis or left hip. 3. 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 4. No fracture or dislocation within the right knee. ACT 112: Negative or not required by law. Electronically signed by: Doc Kent M.D. 01/12/2024 5:43 PM Shoulder X-Ray 01/12/24 16:58 XR shoulder RT min 2V routine CLINICAL HISTORY: Shoulder trauma, no prior imaging COMPARISON STUDY: None. FINDINGS: There is a slightly distracted fracture within the right humeral neck/head. No dislocation. The right clavicle is intact. Soft tissue swelling within the right shoulder. IMPRESSION: Acute right humeral head/neck fracture. No dislocation. ACT 112: Negative or not required by law. Electronically signed by: Doc Kent M.D. 01/12/2024 5:[address] 01/12/24 17:[address] DOSE: 625.8 mGy.cm HISTORY: fall, [facility] TECHNIQUE: Multiaxial CT images of the head were performed without the use of intravenous contrast. Automated exposure control was utilized for this study. A dose lowering technique was utilized adhering to the principles of ALARA. Comparison: Head CT 08/12/2023. Findings: Small retention cyst within the left maxillary sinus. The mastoid air cells are clear. The calvarium and skull base are intact. There is no mass, hematoma, midline shift, or acute infarct. Stable ventricular enlargement. Mild microvascular ischemic changes again noted. Impression: No significant change compared to the prior study. No acute intracranial abnormality. ACT 112: Negative or not required by law. Electronically signed by: Doc Kent M.D. 01/12/2024 6:10 PM Chest X-Ray 01/12/24 17:32 XR chest 1V portable HISTORY: fall COMPARISON: Chest 08/12/2023. FINDINGS: No pneumothorax. No pleural effusions. Mild interstitial thickening, unchanged. This is likely chronic. No focal lung consolidations to suggest a pneumonia. No evidence for pulmonary edema. The cardiac silhouette is normal in size. There is a right humeral neck/head fracture. IMPRESSION: 1. A right humeral neck/head fracture. 2. Otherwise, no acute process within the chest ACT 112: Negative or not required by law. Electronically signed by: Doc Kent M.D. 01/12/2024 5:44 PM Hip X-Ray 01/13/24 00:00 INTRAOPERATIVE RADIOGRAPHS CLINICAL HISTORY: Open reduction and internal fixation of the right proximal femur. Fluoro time: 146 seconds Ka,r: 22.46 mGy FINDINGS: 7 spot fluoroscopic views of the right femur are obtained. Correlation is made with radiographs dated 01/12/2024. Intertrochanteric and intramedullary na ils have been placed transfixing an intertrochanteric fracture of the right proximal femur. Near anatomic alignment is restored. A single cortical lag screw transfixes the distal end of the intramedullary nail. The orthopedic hardware appears intact. IMPRESSION: Intraoperative images from open reduction and internal fixation of a right hip fracture as above. Electronically signed by: Saleem Koo M.D. 01/13/2024 1:59 PM Chest CTA 01/13/24 06:19 CT ANGIOGRAM OF THE CHEST CLINICAL HISTORY: Falls. Dyspnea. COMPARISON STUDY: Chest x-ray dated 01/12/2024. TECHNIQUE: Following the IV administration of 118 cc of Optiray 320, CT angiogram of the chest was performed from the upper abdomen to the thoracic inlet utilizing the pulmonary embolus protocol. Images are reviewed in the axial, sagittal, and coronal planes. 3-D MIPS images are created and assessed. IV contrast was administered without complication. A dose lowering technique was utilized adhering to the principles of ALARA. The examination is degraded by motion artifact, as well as by streak artifact from the arms which could not be elevated above the chest. CT DOSE: 482.42 mGy.cm FINDINGS: Thyroid: Imaged portions of the thyroid gland are normal in size and attenuation. Thoracic aorta: There is atherosclerotic calcification of the thoracic aorta, which is normal in caliber and demonstrates bovine variant arch anatomy. No dissection is seen. Pulmonary vasculature: The pulmonary trunk is normal in caliber. There are no filling defects identified in main, lobar, or segmental pulmonary branches to suggest pulmonary embolus. Heart: The heart is mildly enlarged and without pericardial effusion. There are coronary artery calcifications. Lungs and pleural spaces: Evaluation of the lung parenchyma is degraded by motion artifact. Emphysematous changes observed. The trachea is clear. Fluid/debris is seen within the lower lobe airways bilaterally. There are small pleural effusions with dependent consolidation. Mediastinum: Subcentimeter mediastinal lymph nodes are not pathologically enlarged by size criteria. Natalie: Clear. Axillae: There is no axillary lymphadenopathy. Upper abdomen: There is trace perisplenic ascites. Partially visualized upper abdominal viscera is otherwise within normal limits. Skeletal structures: The skeletal structures are osteopenic. Degenerative change and hyperkyphosis is noted in the thoracic spine. There is a moderate age- indeterminate superior endplate compression deformity of T2. No lytic or blastic bony lesions are seen. There is a comminuted fracture of the right humeral head and neck with significant surrounding soft tissue edema/hemorrhage in the right shoulder/anterior chest wall. IMPRESSION: 1. There is no evidence of pulmonary embolus in the main, lobar, or segmental pulmonary arteries. 2. Cardiomegaly and emphysema. 3. There are small pleural effusions with dependent consolidation. This could represent atelectasis versus pneumonia/aspiration pneumonitis and clinical correlation will be required. 4. Fluid/debris fills the lower lobe airways bilaterally. Correlate clinically for evidence of aspiration. 5. Comminuted fracture of the right humeral head/neck with surrounding edema/hemorrhage. 6. Additional findings as above. ACT 112: Negative or not required by law. Electronically signed by: Saleem Koo M.D. 01/13/2024 7:08 AM Chest X-Ray 01/15/24 05:51 XR chest 1V portable CLINICAL HISTORY: Shortness of breath. COMPARISON STUDY: Chest radiograph January 12, 2024. Chest CT January 13, 2024. FINDINGS: A mildly displaced right humeral head and neck fracture is again noted. There is no pneumothorax. Small bilateral pleural effusions have deve loped. Interstitial thickening is noted. There are bibasilar opacities and addition patchy left lung opacities. Cardiomediastinal silhouette is stable. IMPRESSION: 1. Interval development of mild interstitial pulmonary edema with small bilateral pleural effusions. 2. Bilateral airspace opacities which could reflect pneumonia or aspiration pneumonitis. ACT 112: Negative or not required by law. Electronically signed by: Andrés Orozco M.D. 01/15/2024 6:31 AM Videofluoroscopic Swallow 01/16/24 13:30 FL video swallow CLINICAL HISTORY: 78 years-old Male with r/o aspiration. Dysphagia with history of aspiration TECHNIQUE: Video fluoroscopic evaluation of swallowing was performed in the AP and lateral projections by the speech pathology staff. The patient is fed multiple consistencies of barium. FLUOROSCOPY TIME: 1.03 minutes..1767 images. 5.0 mGy COMPARISON STUDY: 08/14/2023. FINDINGS: Silent aspiration noted with thin liquid barium administered via the straw. Additional silent aspiration with pudding consistency. No additional aspiration identified. IMPRESSION: 1. Multiple consistency aspiration as above. 2. Please see the speech pathologist report for detailed findings and recommendations. ACT 112: Negative or not required by law. Electronically signed by: Octavio Sterling M.D. 01/16/2024 2:33 PM PG Care Time/CCT Total # of Minutes Spent Total Time Spent with Patient: Total time spent is greater than 50% in coordination of care (as documented) at patient's floor/unit and/or counseling patient: I spent 95 minutes overall addressing this case: 15 min in medical data review/discussion with referring provider(s) and/or preparation for the visit 20min in direct interaction with the patient/exam 30 min in Advance Care Planning/Goals of Care discussions as detailed above in note (must be >16min) 15 min in subsequent review and synthesis of assessment and plan 15 min communicating with other providers regarding the patient's case: Advanced Care Planning 15050 Advanced Care Planning 30 [place] [address] IN/OBS CONSULT LVL 4,60M Patient Type New History Comprehensive Exam Comprehensive Medical Decision Making High Complexity Diagnoses Generalized weakness R53.1 Recurrent falls R29.6 Altered mental status R41.82 Agitation R45.1 Frailty syndrome in geriatric patient R54 Palliative care by specialist Z51.5 Discussion about advance care planning held with family member Z71.0 Alcohol withdrawal F10.239 Additional Codes Advanced Care Planning - 96588 Advanced Care Planning 30 Min: 80656 Advanced Care Planning 30 Min ([id number])
[2024-01-16] MEDS: ENOXAPARIN INJ 40 MG/0.4 ML SYR SQ SCH (09:24)
[2024-01-16 09:36] LABS: Magnesium 1.7 mg/dl (1.7-2.4); Phosphorus 2.3 mg/dl (2.5-4.9)
--- NOTE | 2024-01-16 10:58 | Pulmonology Progress Note ---
Date of Service January 16, 2024 Assessment & Plan (1) COPD with emphysema: (2) Abnormal chest CT: (3) Acute respiratory failure with hypoxia: (4) Current smoker: Plan CT chest 01/13/2024 personally reviewed: Centrilobular emphysema appreciated bilaterally Increased bronchial wall thickening in the right lower lobe with dependent atelectasis bilateral lower lobes Small bilateral pleural effusion No significant mediastinal lymphadenopathy. 2D echo 01/14/2024: EF 55-60%, RV not well-visualized -- Acute hypoxic respiratory failure Multifactorial Small bilateral pleural effusion with elevated BNP Does have COPD which is not being treated Likely episodes of aspiration from heavy alcohol use BNP 404 Procalcitonin 0.04 -- COPD with emphysema Not on any inhalers at home Would recommend to be discharged on Stiolto or Anoro on a daily basis --Current smoker > 50-rpsb-hsel smoking history Plan: In/out: - 95 mL, urine output 1000 mL, +2.7 L since coming to the hospital 40 mg of Lasix to be given to the patient today Repeat chest x-ray in the morning 20 mg of potassium to be given IV. If she passes swallow eval then he can be given elixir p.o. Continue with Brovana and budesonide nebulizers while in the hospital. Would recommend to be discharged on Stiolto or Anoro on a daily basis Case was discussed with RN Patient will benefit from incentive spirometry as well as flutter valve the patient's mental status is getting worse, it seems that he is going into alcohol withdrawal Case was discussed with RN at bedside Please note the above document was generated using voice recognition software. It may contain grammatical, syntax or spelling errors.Any formal questions or concerns about the content, text or information contained within the body of this dictation should be directly addressed to the provider for clarification. Admission and Anticipated Discharge Date Admission Date: January 12, 2024 Subjective Patient seen and examined at bedside. No acute distress Patient has bouts of restlessness for which she has one-to-one sitter. He was on BiPAP at the time of examination. He was somnolent but easily arousable Has been complaining of right shoulder pain He is still n.p.o., for swallow eval later today Review of Systems 2 Review of Systems: All systems reviewed & are unremarkable except as noted in Subjective Physical Exam 2 Physical Exam: Constitutional: No acute distress HEENT: EOMI, PERRLA Respiratory system: Decreased air entry bilaterally, no wheeze, positive crackles bilaterally, positive rhonchi CVS: S1-S2 positive, no murmurs or gallops Abdomen: Soft, nontender, nondistended, positive bowel sounds x4 Extremities: +2 pulses bilaterally radialis/ dorsalis pedis, no cyanosis, no edema, right arm in sling Neuro: Somnolent, easily arousable, oriented to self Psych: Flat mood and affect G/U: Positive Duff Skin: no rashes, warm and dry (Hematoma appreciated right shoulder as well as the right anterior lateral c) Lymphatic: no cervical or axillary lymphadenopathy Results & Data Results & Data Vital Signs (Past 12 Hours) Vital Signs Temp Pulse Pulse Resp BP Pulse Ox O2 Del Method 01/16/24 07:45 97 H 01/16/24 07:45 BiPAP 01/16/24 07:44 36.4 C L 94 H 22 112/76 94 BiPAP 01/16/24 07:19 89 30 H 100 01/16/24 07:19 89 30 H 100 BiPAP 01/16/24 02:56 36.4 C L 87 20 107/69 99 BiPAP 01/16/24 02:19 82 21 99 01/16/24 02:15 87 L BiPAP 01/16/24 02:10 86 L Oxymask 01/15/24 23:31 36.8 C 96 H 18 97/51 L 98 BiPAP 01/15/24 23:11 90 18 99 O2 Flow Rate FiO2 01/16/24 07:45 01/16/24 07:45 01/16/24 07:44 01/16/24 07:19 40 01/16/24 07:19 40 01/16/24 02:56 40 01/16/24 02:19 40 01/16/24 02:15 40 01/16/24 02:10 10 01/15/24 23:31 40 01/15/24 23:11 50 Laboratory Results 01/16/24 08:06 01/16/24 08:06 PG Care Time/CCT Total # of Minutes Spent Total Time Spent with Patient: Total time spent is greater than 50% in coordination of care (as documented) at patient's floor/unit and/or counseling patient: Coding Level of Care Code 13805 SUB INP/OBS CARE 50MIN Diagnoses COPD with emphysema J43.[address] R93.89 Acute respiratory failure with hypoxia J96.01 Current smoker F17.200
[2024-01-16] MEDS: POTASSIUM CHLORIDE / WTR 10 MEQ/100 ML PLCT IV SCH (11:31)
[2024-01-16] MEDS: FUROSEMIDE 40 MG/4 ML VIAL IV ONE (11:31)
--- NOTE | 2024-01-16 11:59 | Hospitalist Progress Note ---
Date of Service January 16, 2024 Assessment & Plan (1) Intertrochanteric fracture of right hip: Plan: 78-year-old male with past med history significant for hypertension, alcohol use, tobacco use, ongoing dysarthria, dysphagia, imbalance and urinary incontinence with possible NPH diagnosis, recently had lumbar puncture which did not help much of his symptoms and neurosurgery offered WEBSITE ADMIN shunt placement but patient currently declined as lumbar puncture didn't helped and had hx of falls comes to ER because of fall and imaging studies showing right humerus and right femur fracture. Patient has some dysarthria and somewhat difficulty to understand. Patient was in the hospital in August for recurrent falls and ambulatory dysfunction. Seen by speech at that time and that time he was on soft bite-size diet. Recommend to alternate solids and liquids and oral hygiene And to follow as outpatient. Fall History of falls Ambulatory dysfunction XRs showed intertrochanteric fracture of right hip and right humerus fracture Reviewed CT head. No fractures S/p Internal Fixation Long Troch Nail Right Hip on 01/13/24 Pain control Continue Vit D Hb today is 8.2. Preop 12. Acute blood loss anemia plus dilutional effect of IVF Leukocytosis Monitor Eliquis was started for DVT ppx per surgeon. However, due to not tolerating po at this time, eliquis is on hold and lovenox sq started today PT/OT. No weight bearing RUE. WBAT assistive with RLE Chest CTA noted no PE but has cardiomegaly, emphysema, small pleural effusion with dependent consolidation, fluid/debris fill lower lobe airway bilaterally, comminuted right humeral head/neck fracture with surrounding edema/hemorrhage Aspiration pneumonia/pneumonitis Aspiration precautions Continue zosyn for now Pulm eval noted. 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 Per Admitting Provider, he reported 5 and reported 2. Alcohol level was 70 on presentation Got MVI infusion in ER IV thiamine IV folic acid Alcohol withdrawal Monitor CIWA and manage appropriately Counseled regarding alcohol use Tobacco abuse Counseled regarding this Possible NPH Has some dysarthria, dysphagia, renal incontinence and ambulate dysfunction Follow-up with PCP and neurology Hypomagnesia Hypophosphatemia Hypokalemia Replete and monitor DVT prophylaxis Lovenox for now. Once able to take po, will resume eliquis Full code Palliative consult for GOC Updated at bedside I spent a total of 50 minutes coordinating, documenting and providing care for this patient excluding time spent in performance of separately billed services Admission and Anticipated Discharge Date Admission Date: January 12, 2024 Subjective Patient seen and examined He is awake and alert Oriented to person ROS is difficult due to dysarthria Answered some simple questions with yes or no Denied any pains at this time Physical Exam Constitutional: no acute distress Eyes: PERRL, conjunctivae normal, anicteric sclerae ENMT: external ear and nose normal, oropharynx normal Respiratory: Diminished breath sounds, +crackles Cardiovascular: Rate/Rhythm: regular rate and regular rhythm Gastrointestinal (Abdomen): normal bowel sounds, soft, nontender, no hepatosplenomegaly Musculoskeletal: RUE in sling Clean dressing over Right hip No pedal edema Neurologic: PERRL EOMI Dysarthria Followed simple commands Results & Data Results & Data Vital Signs (Past 12 Hours) Vital Signs Temp Pulse Pulse Resp BP Pulse Ox O2 Del Method 01/16/24 11:34 36.4 C L 93 H 20 96/58 L 98 Oxymask 01/16/24 07:45 97 H 01/16/24 07:45 BiPAP 01/16/24 07:44 36.4 C L 94 H 22 112/76 94 BiPAP 01/16/24 07:19 89 30 H 100 01/16/24 07:19 89 30 H 100 BiPAP 01/16/24 02:56 36.4 C L 87 20 107/69 99 BiPAP 01/16/24 02:19 82 21 99 01/16/24 02:15 87 L BiPAP 01/16/24 02:10 86 L Oxymask O2 Flow Rate FiO2 01/16/24 11:34 7 01/16/24 07:45 01/16/24 07:45 01/16/24 07:44 01/16/24 07:19 40 01/16/24 07:19 40 01/16/24 02:56 40 01/16/24 02:19 40 01/16/24 02:15 40 01/16/24 02:10 10 Laboratory Results Abnormal lab results 06/11/24 Range/Units 08:06 WBC 13.75 H (4.8-10.8) K/ul RBC 2.65 L (4.70-6.10) M/uL Hgb 8.2 L (14.0-18.0) g/dl Hct 23.9 L (42.0-52.0) % Potassium 3.3 L (3.5-5.1) mmol/L BUN/Creatinine Ratio 21.6 H (10-20) Calcium 8.3 L (8.6-10.3) mg/dl Phosphorus 2.3 L (2.5-4.9) mg/dl
[2024-01-16] MEDS ORDERED: POTASSIUM PHOS 3 MMOL/1 ML INFUSION IV STA (13:55)
[2024-01-16] MEDS: POTASSIUM PHOSPHATE 9 MMOL in SODIUM CHLORIDE 0.9% 250 ML IV ONE (14:22)
[2024-01-16] MEDS: PIPERACILLIN/TAZOBACTAM 4.5 GM in DEXTROSE 5% MINI-B 100 ML IV SCH (14:26)
--- NOTE | 2024-01-16 14:34 | Fluoroscopy Report ---
FL video swallow CLINICAL HISTORY: 78 years-old Male with r/o aspiration. Dysphagia with history of aspiration TECHNIQUE: Video fluoroscopic evaluation of swallowing was performed in the AP and lateral projection s by the speech pathology staff. The patient is fed multiple consistencies of barium. FLUOROSCOPY TIME: 1.03 minutes..1767 images. 5.0 mGy COMPARISON STUDY: 08/14/2023. FINDINGS: Silent aspiration noted with thin liquid barium administered via the straw. Additional sile nt aspiration with pudding consistency. No additional aspiration identified. IMPRESSION: 1. Multiple consistency aspiration as above. 2. Please see the speech pathologist report for detailed findings and recommendations. ACT 112: Negative or not required by law. Electronically signed by: Octavio Sterling M.D. 01/16/2024 2:33 PM
[2024-01-16] MEDS: GABAPENTIN 400 MG CAP PO SCH (16:21)
--- NOTE | 2024-01-17 07:42 | Pulmonology Progress Note ---
Date of Service January 17, 2024 Assessment & Plan (1) COPD with emphysema: (2) Abnormal chest CT: (3) Acute respiratory failure with hypoxia: (4) Current smoker: Plan CT chest 01/13/2024 personally reviewed: Centrilobular emphysema appreciated bilaterally Increased bronchial wall thickening in the right lower lobe with dependent atelectasis bilateral lower lobes Small bilateral pleural effusion No significant mediastinal lymphadenopathy. 2D echo 01/14/2024: EF 55-60%, RV not well-visualized -- Acute hypoxic respiratory failure Multifactorial Small bilateral pleural effusion with elevated BNP Does have COPD which is not being treated Likely episodes of aspiration from heavy alcohol use BNP 404 Procalcitonin 0.04 -- COPD with emphysema Not on any inhalers at home Would recommend to be discharged on Stiolto or Anoro on a daily basis --Current smoker > 57-ksrv-ypus smoking history Plan: In/out: - 95 mL, urine output 1000 mL, +2.7 L since coming to the hospital Chest x-ray from today shows improvement compared to 01/15/2024, mild patchy left lower lobe opacity persists, improvement in pleural effusion Potassium is being replaced, I will give more magnesium 20 mg of Lasix to be given as well. Recommend to continue keeping the patient negative balance Continue with Brovana and budesonide nebulizers while in the hospital. Would recommend to be discharged on Stiolto or Anoro on a daily basis Case was discussed with RN at bedside No further recommendation from pulmonary perspective, will sign off Please call directly with any questions Please note the above document was generated using voice recognition software. It may contain grammatical, syntax or spelling errors.Any formal questions or concerns about the content, text or information contained within the body of this dictation should be directly addressed to the provider for clarification. Admission and Anticipated Discharge Date Admission Date: January 12, 2024 Subjective Patient seen and examined at bedside. No acute distress, notable since overnight Patient was saturating 96-97% on 5 L, I went down to 2 L and he was still saturating 93% Denied any chest pain, no headache, no nausea or vomiting Patient was oriented to only self. Denied any abdominal pain Review of Systems 2 Review of Systems: All systems reviewed & are unremarkable except as noted in Subjective Physical Exam 2 Physical Exam: Constitutional: No acute distress HEENT: EOMI, PERRLA Respiratory system: Decreased air entry bilaterally, no wheeze, positive crackles bilaterally, positive rhonchi CVS: S1-S2 positive, no murmurs or gallops Abdomen: Soft, nontender, nondistended, positive bowel sounds x4 Extremities: +2 pulses bilaterally radialis/ dorsalis pedis, no cyanosis, no edema, right arm in sling Neuro: Awake, alert oriented to self Psych: Flat mood and affect G/U: Positive Duff Skin: no rashes, warm and dry (Hematoma appreciated right shoulder as well as the right anterior lateral c) Lymphatic: no cervical or axillary lymphadenopathy Results & Data Results & Data Vital Signs (Past 12 Hours) Vital Signs Temp Pulse Pulse Resp BP Pulse Ox O2 Del Method 01/17/24 07:20 99 H 18 95 01/17/24 07:20 99 H 18 98 BiPAP 01/17/24 07:01 35.8 C L 87 20 113/70 98 BiPAP 01/17/24 04:16 98 H 01/17/24 03:41 36.7 C 99 H 18 107/62 95 BiPAP 01/17/24 03:06 90 22 98 01/16/24 23:13 36.2 C L 86 20 131/73 92 BiPAP 01/16/24 22:37 88 24 99 01/16/24 22:04 87 01/16/24 20:00 Oxymask 01/16/24 19:49 110 H 22 95 O2 Flow Rate FiO2 01/17/24 07:20 40 01/17/24 07:20 40 01/17/24 07:01 01/17/24 04:16 01/17/24 03:41 30 01/17/24 03:06 35 01/16/24 23:13 01/16/24 22:37 40 01/16/24 22:04 01/16/24 20:00 4 01/16/24 19:49 40 Laboratory Results 01/16/24 08:06 01/16/24 08:06 PG Care Time/CCT Total # of Minutes Spent Total Time Spent with Patient: Total time spent is greater than 50% in coordination of care (as documented) at patient's floor/unit and/or counseling patient: Coding Level of Care Code 27074 SUB INP/OBS CARE 3/50MIN Diagnoses COPD with emphysema J43.[address] R93.89 Acute respiratory failure with hypoxia J96.01 Current smoker F17.200
[2024-01-17 08:15] LABS: Hematocrit (blood only) 20.2 % (42.0-52.0); Hemoglobin 6.9 g/dl (14.0-18.0); Mean Corpuscular Hemoglobin 31.1 pg (25.0-34.0); Mean Corpuscular Hgb Conc 34.2 g/dL (32.0-36.0); Mean Platelet Volume 10.6 fL (9.4-12.4); Platelet Count 190 K/uL (130-400); RDW Coefficient of Variation 13.7 % (11.5-14.5); RDW Standard Deviation 45.4 fL (36.4-46.3); Red Blood Count 2.22 M/uL (4.70-6.10); White Blood Count 8.65 K/ul (4.8-10.8)
--- NOTE | 2024-01-17 08:26 | XRay Report ---
XR chest 1V portable CLINICAL HISTORY: f/u COMPARISON STUDY: Chest CT January 13, 2024. Chest radiograph January 15, 2024. FINDINGS: A proximal humeral fracture is again noted. There is no pneumothorax or pleural effusion. C ardiomediastinal silhouette is unremarkable. Interstitial thickening persists. Patchy airspace opacit ies within the lungs are again noted. Right midlung opacity has developed. IMPRESSION: Patchy bilateral airspace opacities with interval development of right midlung opacity. The findings favor pneumonia or aspiration pneumonitis. ACT 112: Negative or not required by law. Electronically signed by: Andrés Orozco M.D. 01/17/2024 8:25 AM
[2024-01-17 08:28] LABS: BUN Creatinine Ratio 38.9 (10-20); Calcium 8.1 mg/dl (8.6-10.3); Creatinine Clr Calc Pharmacy 88.5 ml/min; Est GFR (African American) 117.4 ml/min; Est GFR (Non-African American) 101.3 ml/min; Magnesium 1.7 mg/dl (1.7-2.4); Phosphorus 2.3 mg/dl (2.5-4.9); Potassium 3.1 mmol/L (3.5-5.1)
[2024-01-17] MEDS: THIAMINE HCL 100 MG in SYRINGE 9 ML IV SCH (08:35)
[2024-01-17] MEDS ORDERED: SODIUM CHLORIDE 0.9% 250 ML IV PRN (08:51)
[2024-01-17] MEDS: ACETAMINOPHEN 1,000 MG/100 ML VIAL IV STA (09:22)
[2024-01-17] MEDS: POTASSIUM CHLORIDE / WTR 10 MEQ/100 ML PLCT IV SCH (09:22)
--- NOTE | 2024-01-17 10:53 | Orthopedic Progress Note ---
Date of Service January 17, 2024 Assessment & Plan (1) Alcohol use: (2) Recurrent falls: (3) Intertrochanteric fracture of right hip: Plan: Postop day 4-status post ORIF right intertrochanteric hip fracture with Dr. Lawson -Weight-bear as tolerated right lower extremity with the assistance of a walker or at least out of bed to chair due to the right upper extremity fracture. -Ice and elevate to right hip as needed for pain and swelling. -Keep incisions covered. -Physical therapy and Occupational Therapy as ordered. -He was switched to Lovenox 40mg SQ BID for DVT prophylaxis. Has been held due to Low hemoglobin. Plans for 1 unit of packed red blood cells transfusion today. No evidence of active bleeding in right upper extremity and right lower extremity. -SCDs while inpatient for DVT prophylaxis. -May do range of motion of the right hip, knee and ankle as tolerated. -Dr. Lawson present for today's visit. -Case management for disposition needs. May benefit from skilled facility her inpatient rehab. - Okay from ortho standpoint when medically stable - Follow up as outpatient as scheduled. (4) Closed fracture of right proximal humerus: Plan: Continue the sling and swath. Nonweightbearing right upper extremity. May do range of motion of fingers, wrist and forearm and elbow. Ice to right shoulder as needed for pain and swelling. No use of right upper extremity for pushing, pulling or lifting.May be comfortable with head of bed elevated. (5) Vitamin D deficiency: Plan: Will replace with vitamin D. Vitamin D 125 mcg ordered daily. Will continue this for 6 to 8 weeks after surgery. Will need to repeat vitamin D at that time. Will follow this as outpatient. Admission and Anticipated Discharge Date Admission Date: January 12, 2024 Subjective Patient seen and examined by Dr. Lawson. Patient is awake and alert. He follows commands. He is not oriented to place. He states he does not know where he is or why he is here. Nurse at bedside. Physical Exam Musculoskeletal: Exam of his right lower extremity: No distal edema. Tolerates active range of motion of the ankle. He can bend his knee to about 80 degrees and lift his left leg. Postoperative dressings were changed a few days ago and current dressings are clean, dry and intact. An abrasion on the anterior aspect of his right knee is healing with some mild serosanguineous drainage. Nursing will clean later today and reapply an Optifoam dressing. SCDs in place. Thigh has edema but compartments are soft, no evidence of hematoma or seroma. Exam of his right upper extremity: He has no distal edema in the right upper extremity. He has full range of motion of his fingers and wrist. Sling with belly band is in place. Ecchymosis throughout the right upper arm and shoulder, but is improving. mild edema right upper arm. Compartments are soft, no evidence of hematoma or seroma. Skin is healthy and intact. No range of motion attempted. He has full range of motion of his left upper extremity and left lower extremity. Results & Data Vital Signs (Past 12 Hours) Vital Signs Temp Pulse Pulse Resp BP BP Pulse Ox 01/17/24 10:38 36.6 C 89 18 169/72 H 100 01/17/24 09:25 36.6 C 01/17/24 07:20 99 H 18 95 01/17/24 07:20 99 H 18 98 01/17/24 07:01 35.8 C L 87 20 113/70 98 01/17/24 04:16 98 H 01/17/24 03:41 36.7 C 99 H 18 107/62 95 01/17/24 03:06 90 22 98 01/16/24 23:13 36.2 C L 86 20 131/73 92 O2 Del Method O2 Flow Rate FiO2 01/17/24 10:38 2 01/17/24 09:25 01/17/24 07:20 40 01/17/24 07:20 BiPAP 40 01/17/24 07:01 BiPAP 01/17/24 04:16 01/17/24 03:41 BiPAP 30 01/17/24 03:06 35 01/16/24 23:13 BiPAP Laboratory Results 01/17/24 01/17/24 Range/Units 09:04 07:39 WBC 8.65 (4.8-10.8) K/ul RBC 2.22 L (4.70-6.10) M/uL Hgb 6.9 L* (14.0-18.0) g/dl Hct 20.2 L* (42.0-52.0) % MCV 91.0 (80.0-100.0) fL MCH 31.1 (25.0-34.0) pg MCHC 34.2 (32.0-36.0) g/dL RDW Std Deviation 45.4 (36.4-46.3) fL RDW Coeff of Marjan 13.7 (11.5-14.5) % Plt Count 190 (130-400) K/uL MPV 10.6 (9.4-12.4) fL Sodium 143 (136-145) mmol/L Potassium 3.1 L (3.5-5.1) mmol/L Chloride 105 (98-107) mmol/L Carbon Dioxide 30 (21-32) mmol/L Anion Gap 8 (3-11) BUN 21 (6-23) mg/dl Creatinine 0.54 L (0.6-1.4) mg/dl Est Cr Clr Drug Dosing 88.5 ml/min Est GFR ( Amer) 117.4 ml/min Est GFR (Non-Af Amer) 101.3 ml/min BUN/Creatinine Ratio 38.9 H (10-20) Glucose 100 H (70-99(Fasting)) mg/dl Calcium 8.1 L (8.6-10.3) mg/dl Phosphorus 2.3 L (2.5-4.9) mg/dl Magnesium 1.7 (1.7-2.4) mg/dl Blood Type A Positive Antibody Screen NEGATIVE Crossmatch See Detail
[2024-01-17] MEDS: FUROSEMIDE INJ 20 MG/2 ML VIAL IV ONE (15:04)
[2024-01-17] MEDS: MAGNESIUM SULFATE / D5W 1 GM/100 ML BAG IV SCH (15:04)
[2024-01-17 15:54] LABS: Hematocrit (blood only) 26.7 % (42.0-52.0); Hemoglobin 9.2 g/dl (14.0-18.0)
--- NOTE | 2024-01-17 18:05 | Hospitalist Progress Note ---
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 Patient has some dysarthria and somewhat difficulty to understand. Patient was in the hospital in August for recurrent falls and ambulatory dysfunction. Seen by speech at that time and that time he was on soft bite-size diet. Recommend to alternate solids and liquids and oral hygiene And to follow as outpatient. Fall History of falls Ambulatory dysfunction XRs showed intertrochanteric fracture of right hip and right humerus fracture Reviewed CT head. No fractures S/p Internal Fixation Long Troch Nail Right Hip on 01/13/24 Pain control Continue Vit D Hb today is 8.2. Preop 12. Acute blood loss anemia plus dilutional effect of IVF Leukocytosis Monitor Eliquis was started for DVT ppx per surgeon. However, due to not tolerating po at this time, eliquis is on hold and lovenox sq started today PT/OT. No weight bearing RUE. WBAT assistive with RLE Chest CTA noted no PE but has cardiomegaly, emphysema, small pleural effusion with dependent consolidation, fluid/debris fill lower lobe airway bilaterally, comminuted right humeral head/neck fracture with surrounding edema/hemorrhage 01/16 Continue wound care Acute blood loss anemia Likely secondary to recent surgery Hemoglobin 6.9 1 unit packed RBC ordered Hemoglobin improved to 9 Monitor closely Aspiration pneumonia/pneumonitis Aspiration precautions Continue zosyn for now Pulm eval noted. 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 Will have speech therapy reevaluate patient tomorrow, as confusion seems to be g etting less Continue IV Zosyn Alcoholism Alcohol withdrawal protocol gabapentin and Ativan as needed Per , drinks beers daily. Per Admitting Provider, he reported 5 and reported 2. Alcohol level was 70 on presentation Got MVI infusion in ER IV thiamine IV folic acid Alcohol withdrawal Monitor CIWA and manage appropriately Counseled regarding alcohol use 01/16 Last drink 5 days ago Alcohol withdrawal should be improving soon Continue as needed Ativan, monitor close Tobacco abuse Counseled regarding this Possible NPH Has some dysarthria, dysphagia, renal incontinence and ambulate dysfunction Follow-up with PCP and neurology Hypomagnesia Hypophosphatemia Hypokalemia Replete and monitor DVT prophylaxis Hemoglobin decreasing, Lovenox held Monitor Full code Palliative consult for GOC Updated at bedside Admission and Anticipated Discharge Date Admission Date: January 12, 2024 Subjective Follow-up for hip fracture, status post fall, status post surgery, etc. Seen with patient's Desiree at the bedside Patient is awake and alert, oriented x 2, still having episodes of confusion, poor recall of earlier events Not aware that he had suffered a fall and hip fracture States he feels okay Expressing desire to go home Explained medical conditions to patient Denies shortness of breath, chest pain Denies any other pain No other new symptom Review of Systems Review of Systems: all noted and negative except for above Physical Exam Physical Exam: General- oriented x 2, not in distress, speaks in sentences with no effort or accessory muscle use Eyes- anicteric Neck- no JVD Lungs- Positive crackles left mid to lower lung stevenson Clear on the right Heart- normal rate, regular rhythm; no murmurs Abdomen- normal bowel sounds, nondistended, soft, nontender Extremities- no pretibial edema, no calf tenderness Right hip: Dressing in place, no surrounding erythema, hematoma Neuro- alert, oriented x 2; Positive dysarthria,no new gross focal neurologic deficits Skin- warm & dry Results & Data Results & Data Vital Signs (Past 12 Hours) Vital Signs Temp Pulse Pulse Resp BP BP Pulse Ox 01/17/24 15:27 36.7 C 86 23 144/78 H 91 01/17/24 13:17 84 22 142/73 H 94 01/17/24 13:17 84 22 142/73 H 94 01/17/24 12:45 36.8 C 83 23 155/80 H 91 01/17/24 11:45 90 20 158/86 H 99 01/17/24 11:15 36.7 C 91 H 22 148/84 H 01/17/24 11:00 36.6 C 87 18 137/79 96 01/17/24 10:38 36.6 C 89 18 169/72 H 100 01/17/24 09:25 36.6 C 01/17/24 08:00 01/17/24 07:20 99 H 18 95 01/17/24 07:20 99 H 18 98 01/17/24 07:01 35.8 C L 87 20 113/70 98 O2 Del Method O2 Flow Rate FiO2 01/17/24 15:27 Nasal Cannula 2 01/17/24 13:17 2 01/17/24 13:17 2 01/17/24 12:45 4 01/17/24 11:45 2 01/17/24 11:15 01/17/24 11:00 2 01/17/24 10:38 2 01/17/24 09:25 01/17/24 08:00 Oxymask 4 01/17/24 07:20 40 01/17/24 07:20 BiPAP 40 01/17/24 07:01 BiPAP all noted and reviewed including below
[2024-01-17] MEDS: MoRPHine SULFATE 4 MG/ML 1 ML CARP\\VIAL IV PRN (20:10)
[2024-01-18] MEDS: LORazepam 1 MG in SYRINGE 0.5 ML IV PRN (00:09)
--- NOTE | 2024-01-18 07:48 | Pulmonology Progress Note ---
Date of Service January 18, 2024 Assessment & Plan (1) COPD with emphysema: (2) Abnormal chest CT: (3) Acute respiratory failure with hypoxia: (4) Current smoker: Plan CT chest 01/13/2024 personally reviewed: Centrilobular emphysema appreciated bilaterally Increased bronchial wall thickening in the right lower lobe with dependent atelectasis bilateral lower lobes Small bilateral pleural effusion No significant mediastinal lymphadenopathy. 2D echo 01/14/2024: EF 55-60%, RV not well-visualized -- Acute hypoxic respiratory failure Multifactorial Small bilateral pleural effusion with elevated BNP Does have COPD which is not being treated Likely episodes of aspiration from heavy alcohol use BNP 404 Procalcitonin 0.04 -- COPD with emphysema Not on any inhalers at home Would recommend to be discharged on Stiolto or Anoro on a daily basis --Current smoker > [id number] smoking history Plan: In/out: -256 mL, urine output 1650 mL, +2.7 L since coming to the hospital Recommend giving another dose of Lasix after looking at the electrolytes Continue keeping the patient negative balance Continue with Brovana and budesonide nebulizers while in the hospital. Would recommend to be discharged on Stiolto or Anoro on a daily basis Case was discussed with RN at bedside No further recommendation from pulmonary perspective, will sign off Please call directly with any questions Please note the above document was generated using voice recognition software. It may contain grammatical, syntax or spelling errors.Any formal questions or concerns about the content, text or information contained within the body of this dictation should be directly addressed to the provider for clarification. Admission and Anticipated Discharge Date Admission Date: January 12, 2024 Subjective Patient seen and examined at bedside. No acute distress, no adverse events overnight Denies any headache, no nausea vomiting He seems to be more alert. Answering all the questions appropriately Denied any chest pain, no shortness of breath Pain in the right arm is also subsided He was saturating 97-98% on 8 L nasal cannula, I went down to 4 L. At the end of examination he was still saturating 96%. Review of Systems 2 Review of Systems: All systems reviewed & are unremarkable except as noted in Subjective Physical Exam 2 Physical Exam: Constitutional: No acute distress HEENT: EOMI, PERRLA Respiratory system: Decreased air entry bilaterally, no wheeze, positive crackles bilaterally, positive rhonchi CVS: S1-S2 positive, no murmurs or gallops Abdomen: Soft, nontender, nondistended, positive bowel sounds x4 Extremities: +2 pulses bilaterally radialis/ dorsalis pedis, no cyanosis, no edema, right arm in sling Neuro: Awake, alert oriented to self Psych: Flat mood and affect G/U: Positive Duff Skin: no rashes, warm and dry (Hematoma appreciated right shoulder as well as the right anterior lateral c) Lymphatic: no cervical or axillary lymphadenopathy Results & Data Results & Data Vital Signs (Past 12 Hours) Vital Signs Temp Pulse Pulse Resp BP Pulse Ox Pulse Ox 01/18/24 07:18 80 24 89 L 01/18/24 06:57 36.6 C 97 H 18 136/80 96 01/18/24 05:23 36.7 C 89 20 121/68 95 01/17/24 22:11 36.6 C 99 H 19 128/66 92 01/17/24 22:00 110 H 01/17/24 21:05 89 L 01/17/24 20:39 97 H 25 H 96 01/17/24 20:38 97 H 28 H 96 01/17/24 20:06 O2 Del Method O2 Del Method O2 Flow Rate O2 Flow Rate FiO2 01/18/24 07:18 Oxymask 10 01/18/24 06:57 Oxymask 8 01/18/24 05:23 Oxymask 8.0 01/17/24 22:11 Oxymask 8 01/17/24 22:00 01/17/24 21:05 Oxymask 6 01/17/24 20:39 40 01/17/24 20:38 BiPAP 40 01/17/24 20:06 Oxymask 8 Laboratory Results 01/17/24 15:19 01/17/24 07:39 PG Care Time/CCT Total # of Minutes Spent Total Time Spent with Patient: Total time spent is greater than 50% in coordination of care (as documented) at patient's floor/unit and/or counseling patient: Coding Level of Care Code 58010 SUB INP/OBS CARE 2/35MIN Diagnoses COPD with emphysema J43.[address] R93.89 Acute respiratory failure with hypoxia J96.01 Current smoker F17.200
[2024-01-18] MEDS: ACETAMINOPHEN 1,000 MG/100 ML VIAL IV PRN (10:11)
[2024-01-18] MEDS: FOLIC ACID 1 MG in SYRINGE 9.8 ML IV SCH (10:13)
[2024-01-18] MEDS: NICOTINE 7 MG/24 HR TDSY TD SCH (14:49)
[2024-01-18 14:52] LABS: Basophils # (auto) 0.03 K/uL (0.00-0.20); Basophils % (auto) 0.4 %; Eosinophils # (auto) 0.12 K/uL (0.00-0.50); Eosinophils % (auto) 1.4 %; Hematocrit (blood only) 26.7 % (42.0-52.0); Hemoglobin 9.2 g/dl (14.0-18.0); Immature Granulocytes # (auto) 0.04 K/uL (0.01-0.20); Immature Granulocytes % (auto) 0.5 %; Lymphocytes # (auto) 1.06 K/uL (1.20-3.40); Lymphocytes % (auto) 12.7 %; Mean Corpuscular Hemoglobin 30.7 pg (25.0-34.0); Mean Corpuscular Hgb Conc 34.5 g/dL (32.0-36.0); Monocytes % (auto) 10.8 %; Neutrophils # (auto) 6.22 K/uL (1.40-6.50); Neutrophils % (auto) 74.2 %; Platelet Count 217 K/uL (130-400); RDW Standard Deviation 45.3 fL (36.4-46.3); White Blood Count 8.37 K/ul (4.8-10.8)
[2024-01-18 15:09] LABS: BUN Creatinine Ratio 44.7 (10-20); Calcium 8.3 mg/dl (8.6-10.3); Creatinine Clr Calc Pharmacy 101.5 ml/min; Est GFR (African American) 124.3 ml/min; Est GFR (Non-African American) 107.2 ml/min; Potassium 3.3 mmol/L (3.5-5.1)
--- NOTE | 2024-01-18 16:40 | Hospitalist Progress Note ---
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 Patient has some dysarthria and somewhat difficulty to understand. Patient was in the hospital in August for recurrent falls and ambulatory dysfunction. Seen by speech at that time and that time he was on soft bite-size diet. Recommend to alternate solids and liquids and oral hygiene And to follow as outpatient. Fall History of falls Ambulatory dysfunction XRs showed intertrochanteric fracture of right hip and right humerus fracture Reviewed CT head. No fractures S/p Internal Fixation Long Troch Nail Right Hip on 01/13/24 Pain control Continue Vit D Hb today is 8.2. Preop 12. Acute blood loss anemia plus dilutional effect of IVF Leukocytosis Monitor Eliquis was started for DVT ppx per surgeon. However, due to not tolerating po at this time, eliquis is on hold and lovenox sq started today PT/OT. No weight bearing RUE. 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 Will have speech therapy reevaluate patient tomorrow, as confusion seems to be getting less Continue IV Zosyn 01/17 Alcoholism Alcohol withdrawal protocol gabapentin and Ativan as needed Per , drinks beers daily. Per Admitting Provider, he reported 5 and reported 2. Alcohol level was 70 on presentation Got MVI infusion in ER IV thiamine IV folic acid Alcohol withdrawal Monitor CIWA and manage appropriately Counseled regarding alcohol use 01/16 Last drink 5 days ago Alcohol withdrawal should be improving soon Continue as needed Ativan, monitor close 01/17 No overt signs of alcohol withdrawal at this point Tobacco abuse Nicotine patch ordered per discussion with Possible NPH Has some dysarthria, dysphagia, renal incontinence and ambulate dysfunction Follow-up with PCP and neurology Hypomagnesia Hypophosphatemia Hypokalemia Replete and monitor DVT prophylaxis resume Lovenox Full code Palliative consult for C plan of care discussed with patient and his in detail and at length all questions answered they are understanding, agreeable, comfortable with the plan of care Admission and Anticipated Discharge Date Admission Date: January 12, 2024 Subjective Follow-up for right hip fracture, status post fall, etc. Seen resting in bed physical therapy in progress Patient's Desiree at the bedside Lengthy discussion held with patient and also at the bedside After physical therapy, patient seen resting in bed, sitting up He states he feels okay overall Patient appears to be more alert, calm, conversant today Denies shortness of breath, chest pain or any other pain He is irritable, he is upset that he "has not eaten for 4 f--ng days" He would like to have something to drink and eat today Discussed recent video swallow examination which showed progression of his dysphagia Since he would like to proceed with eating/drinking, he was made aware that his aspiration risk is very high and that it can lead to sudden episode of choking, shortness of breath, and even Patient verbalized understanding and agreement Lengthy discussion held also with patient's at the bedside She reports that the patient's quality of life has been declining in the recent weeks She is agreeable and comfortable with the plan of care today Review of Systems Review of Systems: all noted and negative except for above Physical Exam Physical Exam: General- oriented x 3, not in distress, speaks in sentences with no effort or accessory muscle use Eyes- anicteric Neck- no JVD Lungs- mild rales on The left base, improved compared to yesterday Good air entry bilaterally Heart- normal rate, regular rhythm; no murmurs Abdomen- normal bowel sounds, nondistended, soft, nontender Extremities- no pretibial edema, no calf tenderness Neuro- alert, oriented x 3; no new gross focal neurologic deficits Skin- warm & dry Results & Data Results & Data Vital Signs (Past 12 Hours) Vital Signs Temp Pulse Pulse Resp BP Pulse Ox O2 Del Method 01/18/24 15:53 81 01/18/24 14:51 36.5 C 82 18 135/76 98 Nasal Cannula 01/18/24 14:22 01/18/24 10:52 36.7 C 82 17 142/78 H 96 Nasal Cannula 01/18/24 07:18 80 24 89 L Oxymask 01/18/24 07:00 97 H 01/18/24 06:57 36.6 C 97 H 18 136/80 96 Oxymask 01/18/24 05:23 36.7 C 89 20 121/68 95 Oxymask O2 Flow Rate 01/18/24 15:53 01/18/24 14:51 4 01/18/24 14:22 4 01/18/24 10:52 4 01/18/24 07:18 10 01/18/24 07:00 01/18/24 06:57 8 01/18/24 05:23 8.0 all noted and reviewed including below
[2024-01-18] MEDS: ACETAMINOPHEN 325 MG TAB PO PRN (18:20)
[2024-01-18] MEDS: POTASSIUM CHLORIDE / WTR 10 MEQ/100 ML PLCT IV SCH (18:25)
[2024-01-19] MEDS: ENOXAPARIN INJ 40 MG/0.4 ML SYR SQ SCH (09:51)
--- NOTE | 2024-01-19 10:38 | XRay Report ---
RIGHT SHOULDER 3 VIEWS CLINICAL HISTORY: Fracture. FINDINGS: 3 views of the right humerus are compared to study dated 01/12/2024. The skeletal structures are osteopenic. Again seen is an impacted and comminuted fracture of the right humeral head and neck. Alignment has significant change from 01/12/2024. The humeral head is now located inferiorly, with the humeral neck positioned superiorly. There is significant overlying soft tissue edema. There is also fracture along the inferior aspect of the glenoid. Productive degenerative change is noted at the acr omioclavicular joint. The imaged right lung parenchyma appears clear. IMPRESSION: 1. Again seen is an impacted and comminuted fracture of the right humeral head and neck. 2. Alignment is significant changed, with inversion of the humeral head head/neck (the humeral head i s located inferiorly, with the humeral neck located superiorly). 3. There is also fracture of the inferior glenoid. Electronically signed by: Saleem Koo M.D. 01/19/2024 10:36 AM
[2024-01-19 12:56] LABS: Basophils # (auto) 0.04 K/uL (0.00-0.20); Basophils % (auto) 0.5 %; Eosinophils # (auto) 0.25 K/uL (0.00-0.50); Eosinophils % (auto) 2.9 %; Hematocrit (blood only) 30.7 % (42.0-52.0); Hemoglobin 10.3 g/dl (14.0-18.0); Immature Granulocytes # (auto) 0.05 K/uL (0.01-0.20); Immature Granulocytes % (auto) 0.6 %; Lymphocytes % (auto) 13.7 %; Mean Corpuscular Hemoglobin 30.1 pg (25.0-34.0); Mean Corpuscular Hgb Conc 33.6 g/dL (32.0-36.0); Mean Corpuscular Volume 89.8 fL (80.0-100.0); Mean Platelet Volume 10.1 fL (9.4-12.4); Monocytes # (auto) 0.85 K/uL (0.11-0.59); Monocytes % (auto) 9.7 %; Neutrophils # (auto) 6.37 K/uL (1.40-6.50); Neutrophils % (auto) 72.6 %; Platelet Count 310 K/uL (130-400); RDW Standard Deviation 46.2 fL (36.4-46.3); Red Blood Count 3.42 M/uL (4.70-6.10); White Blood Count 8.76 K/ul (4.8-10.8)
[2024-01-19 13:15] LABS: Magnesium 1.7 mg/dl (1.7-2.4)
--- NOTE | 2024-01-19 14:15 | Palliative Care Progress Note ---
Date of Service January 19, 2024 Assessment & Plan (1) Discussion about advance care planning held with family member: Plan: A 45-minute [id number] advance care planning meeting was held at the bedside with and Mrs. Lion. Complications through this admission as well as the findings of the swallow study were reviewed. We discussed the options of treating the swallowing impairment with a feeding tube versus following the option of permissive aspiration with a focus on comfort and quality of life. Patient's advanced directives were also reviewed and he is very emphatic he does not wish to have tube feed. He reaffirms this today with me and his is in agreement. We agreed on a discharge plan for snf for trial rehab and allow permissive aspiration. Move to comfort if declining. He does not wish to return to the hospital. He does not want any nutritional calorie counting or other close observations. He wants to eat and drink as he wants, when he wants for his comfort and for his pleasure. CODE STATUS discussed and he reaffirms DNR/DNI. CODE STATUS order changed. 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 Please page with any additional concerns. Mauro Lechuga DNP Director, Palliative Medicine Admission and Anticipated Discharge Date Admission Date: January 12, 2024 Results & Data Vital Signs (Past 12 Hours) Vital Signs Temp Pulse Pulse Resp BP Pulse Ox O2 Del Method 01/19/24 07:30 Nasal Cannula 01/19/24 07:20 77 01/19/24 07:12 82 24 95 Nasal Cannula 01/19/24 06:55 36.3 C L 78 20 145/73 H 98 Nasal Cannula O2 Flow Rate 01/19/24 07:30 4 01/19/24 07:20 01/19/24 07:12 4 01/19/24 06:55 4 PG Care Time/CCT Total # of Minutes Spent Total Time Spent: 80 Total Time Spent with Patient: Total time spent is greater than 50% in coordination of care (as documented) at patient's floor/unit and/or counseling patient: Advanced Care Planning 47351 Advanced Care Planning 30 Min 52355 Advanced Care Planning Additional 30 Min C[place] [address] SUB INP/OBS CARE 350MIN Patient Type Established History Comprehensive Exam Comprehensive Medical Decision Making High Complexity Diagnoses Discussion about advance care planning held with family member Z71.0 Palliative care by specialist Z51.5 Agitation R45.1 Altered mental status R41.82 Frailty syndrome in geriatric patient R54 Closed fracture of head of right humerus S42.291A Encounter type: initial encounter Additional Codes Advanced Care Planning - 68649 Advanced Care Planning 30 Min: 33949 Advanced Care Planning 30 Min ([id number]) Advanced Care Planning - 37587 Advanced Care Planning Additional 30 Min: 46893 Advanced Care Planning Additional 30 Min ([id number]) (6) Closed fracture of head of right humerus Encounter type: initial encounter Qualified Code(s): S42.291A - Other displaced fracture of upper end of right humerus, initial encounter for closed fracture
--- NOTE | 2024-01-19 15:03 | Orthopedic Progress Note ---
Date of Service January 19, 2024 Assessment & Plan (1) Alcohol use: (2) Recurrent falls: (3) Intertrochanteric fracture of right hip: (4) Closed fracture of right proximal humerus: (5) Vitamin D deficiency: Admission and Anticipated Discharge Date Admission Date: January 12, 2024 Orthopedic Progress Note Patient seen and evaluated. Awake and alert. is with him. He is status post a blood transfusion. He has been seen by palliative care. Difficulty swallowing with high risk of aspiration. reports that he has stood at the side of the bed but not ambulated. Patient is not complaining of any sig nificant static pain. He is able to lift his right leg and bend his knee about 90 degrees. Dressing is clean and dry and will be changed by nursing. Examination of the right arm reveals diminished swelling on the right shoulder but significant ecchymosis down into the elbow. He can open and close his hand. His sling is readjusted. Radiographs of the right shoulder have been obtained and reviewed. There are some projectional limitations but it appears that the humeral head has rotated inferiorly so that the articular surface is at least partially against the fractured surface of the shaft. There does not appear and to be any obvious dislocation. The report is noted. He may continue to bear weight as tolerated on the right lower extremity. PT and OT.Receiving Lovenox for DVT prophylaxis.Hemoglobin 10 hematocrit 31 today. I discussed with the patient and his the situation with his shoulder. Left as is there is a possibility of impaired healing and diminished function. I would hope not to need to intervene with surgery. We could get a CAT scan for further information. After discussion with the patient he does not want to get a CAT scan and he does not want to have shoulder surgery on his right shoulder.
--- NOTE | 2024-01-19 16:43 | Hospitalist Progress Note ---
Date of Service January 19, 2024 Assessment & Plan (1) Intertrochanteric fracture of right hip: Plan: per previous hospitalist notes with addendum: 78-year-old male with past med history significant for hypertension, alcohol use, tobacco use, ongoing dysarthria, dysphagia, imbalance and urinary incontinence with possible NPH diagnosis, recently had lumbar puncture which did not help much of his symptoms and neurosurgery offered SMELLER shunt placement but patient currently declined as lumbar puncture didn't helped and had hx of falls comes to ER because of fall and imaging studies showing right humerus and right femur fracture. Patient has some dysarthria and somewhat difficulty to understand. Patient was in the hospital in August for recurrent falls and ambulatory dysfunction. Seen by speech at that time and that time he was on soft bite-size diet. Recommend to alternate solids and liquids and oral hygiene And to follow as outpatient. Fall History of falls Ambulatory dysfunction XRs showed intertrochanteric fracture of right hip and right humerus fracture Reviewed CT head. No fractures S/p Internal Fixation Long Troch Nail Right Hip on 01/13/24 Pain control Continue Vit D Hb today is 8.2. Preop 12. Acute blood loss anemia plus dilutional effect of IVF Leukocytosis Monitor Eliquis was started for DVT ppx per surgeon. However, due to not tolerating po at this time, eliquis is on hold and lovenox sq started today PT/OT. No weight bearing RUE. WBAT assistive with RLE Chest CTA noted no PE but has cardiomegaly, emphysema, small pleural effusion with dependent consolidation, fluid/debris fill lower lobe airway bilaterally, comminuted right humeral head/neck fracture with surrounding edema/hemorrhage 01/18 Continue wound care Shoulder x-ray showing commuted fracture Ortho SVC discussed with patient and his , They do not want to proceed with any surgical intervention at this point Continue supportive care Acute blood loss anemia Likely secondary to recent surgery Hemoglobin 6.9 1 unit packed RBC ordered Hemoglobin improved to 9--> remains at 9.2--> 10 Monitor closely Aspiration pneumonia/pneumonitis Aspiration precautions Continue zosyn for now Pulm singh noted. CASE MANAGERS will reevaluate with video swallow today prior to resuming diet Hold off gentle IVF placed for maintenance in view of volume status Aspiration precautions Continue to hold coreg Procal 0.10 and lactate were normal BCx pending 01/18 Diet advanced Discussed with patient and his at length and in detail Aware of permissive aspiration Continue with strict aspiration precautions, assistance with all meals, Continue IV Zosyn Alcoholism Alcohol withdrawal protocol gabapentin and Ativan as needed Per , drinks beers daily. Per Admitting Provider, he reported 5 and reported 2. Alcohol level was 70 on presentation Got MVI infusion in ER IV thiamine IV folic acid Alcohol withdrawal Monitor CIWA and manage appropriately Counseled regarding alcohol use 01/16 Last drink 5 days ago Alcohol withdrawal should be improving soon Continue as needed Ativan, monitor close 01/17 No overt signs of alcohol withdrawal at this point 01/18 No signs of alcohol withdrawal Tobacco abuse Nicotine patch ordered per discussion with Possible NPH Has some dysarthria, dysphagia, renal incontinence and ambulate dysfunction Follow-up with PCP and neurology Hypomagnesia Hypophosphatemia Hypokalemia Replete and monitor DVT prophylaxis resume Lovenox Full code Palliative consult for GOC Disposition Acute rehab versus detention facility Admission and Anticipated Discharge Date Admission Date: January 12, 2024 Subjective Follow-up for right hip fracture, status post surgery, severe dysphagia, etc. Seen sitting up in bedside chair, comfortable, not in distress Waving as I entered the room, awake and alert, oriented x 2 Answering most questions appropriately Upset because his breakfast was served late, denies problems with swallowing during breakfast Observed to have had some coughing with liquids but no overt aspiration or choking States he feels okay overall Denies shortness of breath, chest pain Denies any other pain Review of Systems Review of Systems: all noted and negative except for above Physical Exam Physical Exam: General- oriented x 2, not in distress, speaks in sentences with no effort or accessory muscle use Eyes- anicteric Neck- no JVD Lungs- Mild rales left base, clear on the right Heart- normal rate, regular rhythm; no murmurs Abdomen- normal bowel sounds, nondistended, soft, nontender Extremities- no pretibial edema, no calf tenderness Neuro- alert, oriented x 2; no new focal neurologic deficits Skin- warm & dry Results & Data Results & Data Vital Signs (Past 12 Hours) Vital Signs Temp Pulse Pulse Resp BP Pulse Ox O2 Del Method 01/19/24 15:28 90 20 147/75 H 90 Nasal Cannula 01/19/24 07:30 Nasal Cannula 01/19/24 07:20 77 01/19/24 07:12 82 24 95 Nasal Cannula 01/19/24 06:55 36.3 C L 78 20 145/73 H 98 Nasal Cannula O2 Flow Rate 01/19/24 15:28 3 01/19/24 07:30 4 01/19/24 07:20 01/19/24 07:12 4 01/19/24 06:55 4
[2024-01-19 17:40] LABS: BUN Creatinine Ratio 40.7 (10-20); Calcium 8.8 mg/dl (8.6-10.3); Creatinine Clr Calc Pharmacy 88.5 ml/min; Est GFR (African American) 117.4 ml/min; Est GFR (Non-African American) 101.3 ml/min; Potassium 3.5 mmol/L (3.5-5.1)
[2024-01-20 06:50] LABS: Basophils # (auto) 0.05 K/uL (0.00-0.20); Basophils % (auto) 0.6 %; Eosinophils # (auto) 0.47 K/uL (0.00-0.50); Eosinophils % (auto) 5.5 %; Hematocrit (blood only) 27.8 % (42.0-52.0); Hemoglobin 9.4 g/dl (14.0-18.0); Immature Granulocytes # (auto) 0.05 K/uL (0.01-0.20); Immature Granulocytes % (auto) 0.6 %; Lymphocytes # (auto) 1.35 K/uL (1.20-3.40); Lymphocytes % (auto) 15.7 %; Mean Corpuscular Hemoglobin 30.2 pg (25.0-34.0); Mean Corpuscular Hgb Conc 33.8 g/dL (32.0-36.0); Mean Corpuscular Volume 89.4 fL (80.0-100.0); Monocytes % (auto) 10.5 %; Neutrophils # (auto) 5.78 K/uL (1.40-6.50); Neutrophils % (auto) 67.1 %; Platelet Count 307 K/uL (130-400); RDW Coefficient of Variation 13.5 % (11.5-14.5); RDW Standard Deviation 44.1 fL (36.4-46.3); Red Blood Count 3.11 M/uL (4.70-6.10)
[2024-01-20 07:28] LABS: BUN Creatinine Ratio 36.7 (10-20); Calcium 8.5 mg/dl (8.6-10.3); Creatinine Clr Calc Pharmacy 92.6 ml/min; Est GFR (African American) 122.2 ml/min; Est GFR (Non-African American) 105.4 ml/min; Magnesium 1.6 mg/dl (1.7-2.4); Potassium 3.6 mmol/L (3.5-5.1)
[2024-01-20] MEDS: MAGNESIUM SULFATE / D5W 1 GM/100 ML BAG IV ONE (09:07)
[2024-01-20] MEDS: ACETAMINOPHEN 1,000 MG/100 ML VIAL IV PRN (12:47)
--- NOTE | 2024-01-20 14:22 | Hospitalist Progress Note ---
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 Patient has some dysarthria and somewhat difficulty to understand. Patient was in the hospital in August for recurrent falls and ambulatory dysfunction. Seen by speech at that time and that time he was on soft bite-size diet. Recommend to alternate solids and liquids and oral hygiene And to follow as outpatient. Fall History of falls Ambulatory dysfunction XRs showed intertrochanteric fracture of right hip and right humerus fracture Reviewed CT head. No fractures S/p Internal Fixation Long Troch Nail Right Hip on 01/13/24 Pain control Continue Vit D Hb today is 8.2. Preop 12. Acute blood loss anemia plus dilutional effect of IVF Leukocytosis Monitor Eliquis was started for DVT ppx per surgeon. However, due to not tolerating po at this time, eliquis is on hold and lovenox sq started today PT/OT. No weight bearing RUE. WBAT assistive with RLE Chest CTA noted no PE but has cardiomegaly, emphysema, small pleural effusion with dependent consolidation, fluid/debris fill lower lobe airway bilaterally, comminuted right humeral head/neck fracture with surrounding edema/hemorrhage 01/18 Continue wound care Shoulder x-ray showing commuted fracture Ortho SVC discussed with patient and his , They do not want to proceed with any surgical intervention at this point Continue supportive care 01/19 Stable overall Continue with supportive care, pain control Acute blood loss anemia Likely secondary to recent surgery Hemoglobin 6.9 1 unit packed RBC ordered Hemoglobin improved to 9--> remains at 9.2--> 10 Monitor closely Hemoglobin 9.4 Aspiration pneumonia/pneumonitis Aspiration precautions Continue zosyn for now Pulm eval noted. 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 Per Admitting Provider, he reported 5 and reported 2. Alcohol level was 70 on presentation Got MVI infusion in ER IV thiamine IV folic acid Alcohol withdrawal Monitor CIWA and manage appropriately Counseled regarding alcohol use 01/16 Last drink 5 days ago Alcohol withdrawal should be improving soon Continue as needed Ativan, monitor close 01/17 No overt signs of alcohol withdrawal at this point 01/19 No signs of alcohol withdrawal Tobacco abuse Nicotine patch ordered per discussion with Possible NPH Has some dysarthria, dysphagia, renal incontinence and ambulate dysfunction Follow-up with PCP and neurology Hypomagnesia Hypophosphatemia Hypokalemia Replete and monitor DVT prophylaxis Lovenox SC Full code Disposition Transition to Acute rehab versus senior living facility when medically stable Admission and Anticipated Discharge Date Admission Date: January 12, 2024 Subjective Follow-up for right hip fracture, status post surgery, etc. Seen resting in bed, comfortable, not in distress Sitting up, on 2 L of O2 States he feels fine overall No shortness of breath, cough Denies significant pain Tolerating diet, no overt signs of aspiration or choking No other new symptoms Review of Systems Review of Systems: all noted and negative except for above Physical Exam Physical Exam: General- oriented x 2, not in distress, speaks in sentences with no effort or accessory muscle use Eyes- anicteric Neck- no JVD Lungs- clear breath sounds bilaterally, no rales/wheezes Heart- normal rate, regular rhythm; no murmurs Abdomen- normal bowel sounds, nondistended, soft, nontender Extremities- no pretibial edema, no calf tenderness Right arm sling in place Neuro- alert, oriented x 2; no gross focal neurologic deficits Skin- warm & dry Results & Data Results & Data Vital Signs (Past 12 Hours) Vital Signs Temp Pulse Resp BP Pulse Ox O2 Del Method O2 Flow Rate 01/20/24 11:04 36.8 C 77 20 149/79 H 95 Nasal Cannula 3 01/20/24 07:09 78 18 95 Nasal Cannula 4 01/20/24 07:02 69 20 146/70 H 95 Nasal Cannula 3 01/20/24 03:15 36.6 C 81 20 131/72 95 Nasal Cannula 3 all noted and reviewed including below
[2024-01-21 07:39] LABS: BUN Creatinine Ratio 28.3 (10-20); Calcium 8.4 mg/dl (8.6-10.3); Creatinine Clr Calc Pharmacy 86.7 ml/min; Est GFR (African American) 118.3 ml/min; Est GFR (Non-African American) 102.1 ml/min; Potassium 3.6 mmol/L (3.5-5.1)
[2024-01-21 08:27] LABS: Magnesium 1.7 mg/dl (1.7-2.4)
--- NOTE | 2024-01-21 16:20 | Hospitalist Progress Note ---
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 Patient has some dysarthria and somewhat difficulty to understand. Patient was in the hospital in August for recurrent falls and ambulatory dysfunction. Seen by speech at that time and that time he was on soft bite-size diet. Recommend to alternate solids and liquids and oral hygiene And to follow as outpatient. Fall History of falls Ambulatory dysfunction XRs showed intertrochanteric fracture of right hip and right humerus fracture Reviewed CT head. No fractures S/p Internal Fixation Long Troch Nail Right Hip on 01/13/24 Pain control Continue Vit D Hb today is 8.2. Preop 12. Acute blood loss anemia plus dilutional effect of IVF Leukocytosis Monitor Eliquis was started for DVT ppx per surgeon. However, due to not tolerating po at this time, eliquis is on hold and lovenox sq started today PT/OT. No weight bearing RUE. WBAT assistive with RLE Chest CTA noted no PE but has cardiomegaly, emphysema, small pleural effusion with dependent consolidation, fluid/debris fill lower lobe airway bilaterally, comminuted right humeral head/neck fracture with surrounding edema/hemorrhage 01/18 Continue wound care Shoulder x-ray showing commuted fracture Ortho SVC discussed with patient and his , They do not want to proceed with any surgical intervention at this point Continue supportive care 01/20 Stable overall Continue with supportive care, pain control Acute blood loss anemia Likely secondary to recent surgery Hemoglobin 6.9 1 unit packed RBC ordered Hemoglobin improved to 9--> remains at 9.2--> 10 Monitor closely Hemoglobin 9.4 Aspiration pneumonia/pneumonitis Aspiration precautions Continue zosyn for now Pulm eval noted. 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 Per Admitting Provider, he reported 5 and reported 2. Alcohol level was 70 on presentation Got MVI infusion in ER IV thiamine IV folic acid Alcohol withdrawal Monitor CIWA and manage appropriately Counseled regarding alcohol use 01/16 Last drink 5 days ago Alcohol withdrawal should be improving soon Continue as needed Ativan, monitor close 01/17 No overt signs of alcohol withdrawal at this point 01/20 No signs of alcohol withdrawal Tobacco abuse Nicotine patch ordered per discussion with Possible NPH Has some dysarthria, dysphagia, renal incontinence and ambulate dysfunction Follow-up with PCP and neurology Hypomagnesia Hypophosphatemia Hypokalemia Replete and monitor DVT prophylaxis Lovenox SC Full code Disposition Transition to retirement facility when medically stable Admission and Anticipated Discharge Date Admission Date: January 12, 2024 Subjective ff up for Right hip fracture, status post surgery, etc. Seen with patient's Desiree at the bedside visiting Patient is sitting up in bed, watching TV, comfortable, not in distress States he feels fine overall Upset because he does not like the food Explained we are to continue with pured diet for now to prevent aspiration Denies shortness of breath, chest pain, dizziness Denies pain No other new symptoms Review of Systems Review of Systems: all noted and negative except for above Physical Exam Physical Exam: General- oriented x 2, not in distress, speaks in sentences with no effort or accessory muscle use Eyes- anicteric Neck- no JVD Lungs- clear breath sounds bilaterally, no rales/wheezes Heart- normal rate, regular rhythm; no murmurs Abdomen- normal bowel sounds, nondistended, soft, nontender Extremities- no pretibial edema, no calf tenderness Right arm: Sling in place Neuro- alert, oriented x 2; no new gross focal neurologic deficits Skin- warm & dry Results & Data Results & Data Vital Signs (Past 12 Hours) Vital Signs Temp Pulse Resp BP Pulse Ox O2 Del Method O2 Flow Rate 01/21/24 16:04 36.3 C L 79 18 129/75 96 Nasal Cannula 3.5 01/21/24 11:52 36.6 C 79 19 125/74 98 Nasal Cannula 3.5 01/21/24 10:00 Nasal Cannula 01/21/24 07:51 36.8 C 81 16 136/73 92 Nasal Cannula 3.5 all noted and reviewed including below
[2024-01-21] MEDS ORDERED: BENZONATATE 100 MG CAPSULE PO PRN (20:37)
[2024-01-21] MEDS: BENZONATATE 100 MG CAPSULE PO ONE (21:09)
--- NOTE | 2024-01-22 01:36 | Communication Note ---
Date of Service: January 22, 2024
[2024-01-22] MEDS: METOPROLOL TARTRATE 25 MG TAB PO STA (02:08)
[2024-01-22] MEDS: NSS + 20MEQ KCL 20 MEQ/1,000 ML BAG IV ONE (02:10)
[2024-01-22] MEDS: MAGNESIUM SULFATE / D5W 1 GM/100 ML BAG IV SCH (02:31)
[2024-01-22] MEDS: POTASSIUM CHLORIDE PWD 20 MEQ PACK PO STA (02:32)
[2024-01-22] MEDS ORDERED: Nursing to Pharmacy Communication SCH (05:00)
--- NOTE | 2024-01-22 06:51 | Communication Note ---
Date of Service: January 22, 2024 Patient transferred to [facility] floor from PCU. Upon arrival at [facility], patient heart rate noted to be 150s as per RN. SBP 110. Patient comfortable as per RN. EKG as per my interpretation: Rate 140, sinus tachycardia, normal axis, ST depression anterolateral leads AP Asymptomatic sinus tachycardia IVF Initiate metoprolol (for better rate control) in place of patient's home Coreg held few days ago due to hypotension
[2024-01-22 10:49] LABS: Calcium 8.4 mg/dl (8.6-10.3)
[2024-01-22 10:55] LABS: BUN Creatinine Ratio 22.4 (10-20); Creatinine Clr Calc Pharmacy 91.6 ml/min; Est GFR (African American) 122.2 ml/min; Est GFR (Non-African American) 105.4 ml/min
[2024-01-22] MEDS ORDERED: BUDESONIDE 0.25 MG/2 ML VIAL (PULMICORT) NEB PRN (12:42)
[2024-01-22] MEDS ORDERED: FORMOTEROL 20 MCG/2 ML VIAL INH PRN (12:43)
[2024-01-22] MEDS ORDERED: SODIUM CHLOR 7% 4 ML NEB NEB PRN (12:44)
--- NOTE | 2024-01-22 15:37 | Hospitalist Progress Note ---
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 Patient has some dysarthria and somewhat difficulty to understand. Patient was in the hospital in August for recurrent falls and ambulatory dysfunction. Seen by speech at that time and that time he was on soft bite-size diet. Recommend to alternate solids and liquids and oral hygiene And to follow as outpatient. Fall History of falls Ambulatory dysfunction XRs showed intertrochanteric fracture of right hip and right humerus fracture Reviewed CT head. No fractures S/p Internal Fixation Long Troch Nail Right Hip on 01/13/24 Pain control Continue Vit D Hb today is 8.2. Preop 12. Acute blood loss anemia plus dilutional effect of IVF Eliquis was started for DVT ppx per surgeon. However, due to not tolerating po at this time, eliquis is on hold and lovenox sq started today PT/OT. No weight bearing RUE. WBAT assistive with RLE Chest CTA noted no PE but has cardiomegaly, emphysema, small pleural effusion with dependent consolidation, fluid/debris fill lower lobe airway bilaterally, comminuted right humeral head/neck fracture with surrounding edema/hemorrhage Right humeral head and neck impacted and comminuted fracture Seen and evaluated by orthopedics Offered CT scan with possible surgical intervention Patient declined Continue nonweightbearing, sling in place at all time He will need follow-up with orthopedics at discharge Acute blood loss anemia Likely secondary to recent surgery Hemoglobin 6.9 1 unit packed RBC ordered Hemoglobin improved to 9--> remains at 9.2--> 10 Monitor closely Hemoglobin 9.4 Aspiration pneumonia/pneumonitis Aspiration precautions Continue zosyn for now Pulm eval noted. 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 Per Admitting Provider, he reported 5 and reported 2. Alcohol level was 70 on presentation Got MVI infusion in ER IV thiamine IV folic acid Alcohol withdrawal Monitor CIWA and manage appropriately Counseled regarding alcohol use Tobacco abuse Nicotine patch ordered per discussion with Possible NPH Has some dysarthria, dysphagia, urine incontinence and ambulate dysfunction Follow-up with PCP and neurology Hypomagnesia Hypophosphatemia Hypokalemia Replete and monitor DVT prophylaxis Lovenox SC Full code Disposition Transition to alf facility when medically stable Pt was seen and examined in collaboration with Dr. Lee A total of 46 minutes was spent coordinating, documenting, and providing care for this patient excluding time spent in the performance of separately billed services. This included personally viewing all current laboratories and imaging studies, medication reconciliation, outpatient chart review, and discussion with specialists. Admission and Anticipated Discharge Date Admission Date: January 12, 2024 Subjective Pt was seen in room 384-1. F/U RUE and RLE fx. He is upset and wants out of bed. Nursing at bedside said he was refusing meds. Denies f/c/s, chest pain, sob, n/v/d. Review of Systems Review of Systems: All systems reviewed & are unremarkable except as noted in HPI & below Physical Exam Physical Exam: Gen: thin, elderly, M, visibly upset, NAD, A&O x3 basics HEENT: Normocephalic, atraumatic, conjunctivae moist, sclerae anicteric, mucous membranes moist. Lung: Clear to Auscultation bilaterally, no wheezes/rales/rhonchi Heart: Regular rate, regular rhythm, no murmurs, rubs, or gallops Abdomen: Soft, NT, ND +BS x 4 Extremities: RUE sling, RUE ecchymosis, RLE Skin: Warm, no rash, negative turgor. Results & Data Results & Data Vital Signs (Past 12 Hours) Vital Signs Temp Pulse Resp BP Pulse Ox O2 Del Method O2 Flow Rate 01/22/24 14:40 36.5 C 85 16 144/75 H 95 Nasal Cannula 3 01/22/24 08:17 36.5 C 83 16 148/74 H 97 Room Air 01/22/24 07:25 Nasal Cannula 3 01/22/24 04:04 36.9 C 93 H 16 117/74 93 Nasal Cannula 3
--- NOTE | 2024-01-22 17:14 | Electrocardiogram Report ---
Test Reason : Blood Pressure : / mmHG Vent. Rate : 145 BPM Atrial Rate : 145 BPM P-R Int : 280 ms QRS Dur : 084 ms QT Int : 336 ms P-R-T Axes : 000 073 043 degrees QTc Int : 521 ms Sinus tachycardia with 1st degree A-V block Nonspecific ST abnormality Abnormal ECG When compared with ECG of 13-JAN-2024 06:33, MT interval has increased Vent. rate has increased BY [address] now depressed in Inferior leads ST now depressed in Anterior leads Nonspecific T wave abnormality now evident in Inferior leads Confirmed by Rafa Chery ([id number]) on 01/22/2024 5:14:11 PM Referred By: REFERRED SELF Confirmed By:Rafa Chery
[2024-01-23 06:51] LABS: Basophils # (auto) 0.06 K/uL (0.00-0.20); Basophils % (auto) 0.6 %; Eosinophils # (auto) 0.61 K/uL (0.00-0.50); Eosinophils % (auto) 5.7 %; Hematocrit (blood only) 28.6 % (42.0-52.0); Hemoglobin 9.6 g/dl (14.0-18.0); Immature Granulocytes # (auto) 0.05 K/uL (0.01-0.20); Immature Granulocytes % (auto) 0.5 %; Lymphocytes # (auto) 1.62 K/uL (1.20-3.40); Lymphocytes % (auto) 15.2 %; Mean Corpuscular Hgb Conc 33.6 g/dL (32.0-36.0); Mean Corpuscular Volume 89.4 fL (80.0-100.0); Mean Platelet Volume 10.2 fL (9.4-12.4); Monocytes # (auto) 0.77 K/uL (0.11-0.59); Monocytes % (auto) 7.2 %; Neutrophils # (auto) 7.58 K/uL (1.40-6.50); Neutrophils % (auto) 70.8 %; Platelet Count 437 K/uL (130-400); RDW Coefficient of Variation 13.7 % (11.5-14.5); RDW Standard Deviation 44.9 fL (36.4-46.3); White Blood Count 10.69 K/ul (4.8-10.8)
[2024-01-23 07:08] LABS: BUN Creatinine Ratio 20.4 (10-20); Calcium 8.3 mg/dl (8.6-10.3); Creatinine Clr Calc Pharmacy 97.5 ml/min; Est GFR (African American) 122.2 ml/min; Est GFR (Non-African American) 105.4 ml/min; Magnesium 1.7 mg/dl (1.7-2.4); Potassium 3.6 mmol/L (3.5-5.1)
--- NOTE | 2024-01-23 14:47 | Hospitalist Progress Note ---
Date of Service January 23, 2024 Assessment & Plan (1) Intertrochanteric fracture of right hip: Plan: per previous hospitalist notes with addendum: 78-year-old male with past med history significant for hypertension, alcohol use, tobacco use, ongoing dysarthria, dysphagia, imbalance and urinary incontinence with possible NPH diagnosis, recently had lumbar puncture which did not help much of his symptoms and neurosurgery offered INTERVENTIONAL PHYSICIAN shunt placement but patient currently declined as lumbar puncture didn't helped and had hx of falls comes to ER because of fall and imaging studies showing right humerus and right femur fracture. Patient has some dysarthria and somewhat difficulty to understand. Patient was in the hospital in August for recurrent falls and ambulatory dysfunction. Seen by speech at that time and that time he was on soft bite-size diet. Recommend to alternate solids and liquids and oral hygiene And to follow as outpatient. Fall History of falls Ambulatory dysfunction XRs showed intertrochanteric fracture of right hip and right humerus fracture Reviewed CT head. No fractures S/p Internal Fixation Long Troch Nail Right Hip on 01/13/24 Pain control Continue Vit D Hb today is 8.2. Preop 12. Acute blood loss anemia plus dilutional effect of IVF Eliquis was started for DVT ppx per surgeon. However, due to not tolerating po at this time, eliquis is on hold and lovenox sq started today PT/OT. No weight bearing RUE. WBAT assistive with RLE Chest CTA noted no PE but has cardiomegaly, emphysema, small pleural effusion with dependent consolidation, fluid/debris fill lower lobe airway bilaterally, comminuted right humeral head/neck fracture with surrounding edema/hemorrhage Right humeral head and neck impacted and comminuted fracture Seen and evaluated by orthopedics Offered CT scan with possible surgical intervention Patient declined Continue nonweightbearing, sling in place at all time He will need follow-up with orthopedics at discharge Acute blood loss anemia Likely secondary to recent surgery required 1 unit PRBC Hemoglobin improved to 9--> remains at 9.2--> 10 Monitor closely Hemoglobin 9.6 today Aspiration pneumonia/pneumonitis Aspiration precautions Continue zosyn for now Pulm eval noted. [employer]URE VESSELS Evaluated Aspiration precautions Continue to hold coreg Procal 0.10 and lactate were normal Blood culture NGTD Continue with strict aspiration precautions, assistance with all meals, allowing for permissive aspiration per discussion with previous provider and family Zosyn to complete on 01/22 Alcoholism Alcohol withdrawal protocol gabapentin and Ativan as needed Per , drinks beers daily. Per Admitting Provider, he reported 5 and reported 2. Alcohol level was 70 on presentation Got MVI infusion in ER IV thiamine IV folic acid Alcohol withdrawal Monitor CIWA and manage appropriately Counseled regarding alcohol use Tobacco abuse Nicotine patch ordered per discussion with Possible NPH Has some dysarthria, dysphagia, urine incontinence and ambulate dysfunction Follow-up with PCP and neurology Hypomagnesia Hypophosphatemia Hypokalemia Replete and monitor DVT prophylaxis Lovenox SC Full code Disposition Transition to nursing home facility when medically stable Pt was seen and examined in collaboration with Dr. Lee A total of 40 minutes was spent coordinating, documenting, and providing care for this patient excluding time spent in the performance of separately billed services. This included personally viewing all current laboratories and imaging studies, medication reconciliation, outpatient chart review, and discussion with specialists. Admission and Anticipated Discharge Date Admission Date: January 12, 2024 Subjective Pt was seen in room 384-1. F/U RUE and RLE fx. He does not like the food. He wants to get out of bed. He denies f/c/s, chest pain, sob, n/v/d. No nursing complaints. Review of Systems Review of Systems: All systems reviewed & are unremarkable except as noted in HPI & below Physical Exam Physical Exam: Gen: thin, elderly, M, NAD, A&O x3 basics HEENT: Normocephalic, atraumatic, conjunctivae moist, sclerae anicteric, mucous membranes moist. Lung: Clear to Auscultation bilaterally, no wheezes/rales/rhonchi Heart: Regular rate, regular rhythm, no murmurs, rubs, or gallops Abdomen: Soft, NT, ND +BS x 4 Extremities: RUE sling, RUE ecchymosis, RLE Skin: Warm, no rash, negative turgor. Results & Data Results & Data Vital Signs (Past 12 Hours) Vital Signs Temp Pulse Resp BP Pulse Ox O2 Del Method 01/23/24 09:47 36.5 C 84 16 149/78 H 93 Room Air 01/23/24 07:25 Room Air Laboratory Results Short CBC 01/23/24 Range/Units 05:56 WBC 10.69 (4.8-10.8) K/ul Hgb 9.6 L (14.0-18.0) g/dl Hct 28.6 L (42.0-52.0) % Plt Count 437 H (130-400) K/uL BMP 01/23/24 05:56 Sodium 138 Potassium 3.6 Chloride 108 H Carbon Dioxide 25 BUN 10 Creatinine 0.49 L Glucose 94 Calcium 8.3 L I have independently reviewed and interpreted patient's CBC, BMP, Mag. Medications Administered Current Inpatient Medications Acetaminophen (Acetaminophen 325 Mg Tab) 650 mg PO Q4H PRN PRN Reason: Pain or Fever Stop: 02/11/24 21:04 Last Admin: 01/21/24 07:50 Dose: 650 mg Apixaban (Apixaban 2.5 Mg Tab) 2.5 mg PO BID [facility] Stop: 02/13/24 09:59 Last Admin: 01/15/24 21:20 Dose: Not Given Benzonatate (Benzonatate 100 Mg Capsule) 100 mg PO TID PRN PRN Reason: Cough Stop: 02/20/24 20:36 Betamethasone Dipropion Augmented (Betamethasone Dip Aug (Diprolene) 0.05% Cr 15 Gm Tube) 1 appln EXT QPM PRN PRN Reason: Rash Stop: 02/11/24 21:18 Budesonide (Budesonide 0.25 Mg/2 Ml Vial (Pulmicort)) 0.25 mg NEB BIDR PRN PRN Reason: PRN if needed Stop: 02/12/24 18:59 Calcium/Vitamin D (Calcium 600mg + Vit D 400 Iu Tab) 1 tab PO BID [facility] Stop: 02/12/24 08:59 Last Admin: 01/23/24 09:37 Dose: 1 tab Carvedilol (Carvedilol 6.25 Mg Tab) 6.25 mg PO BID [facility] Stop: 02/11/24 21:04 Last Admin: 01/23/24 10:49 Dose: 6.25 mg Cyanocobalamin (Cyanocobalamin (B-12) 500 Mcg Tablet) 1,000 mcg PO DAILY [facility] Stop: 02/12/24 08:59 Last Admin: 01/23/24 09:37 Dose: 1,000 mcg Enoxaparin Sodium (Enoxaparin Inj 40 Mg/0.4 Ml Syr) 40 mg SQ DAILY [facility] Stop: 02/18/24 08:59 Last Admin: 01/23/24 09:44 Dose: Not Given Formoterol Fumarate (Formoterol 20 Mcg/2 Ml Vial) 20 mcg INH BIDR PRN PRN Reason: PRN if needed Stop: 02/12/24 18:59 Hydromorphone HCl (Hydromorphone Inj 0.5 Mg/0.5 Ml Syr) 0.5 mg IV Q4H PRN PRN Reason: Severe Pain (Scale 7, 8, 9,10) Stop: 01/26/24 21:04 Last Admin: 01/21/24 08:46 Dose: 0.5 mg Lorazepam 1 mg/ Syringe 1 mls @ 2 mls/min IV UD PRN; Protocol PRN Reason: EtOH Withdrawal AWSS Score 6,7 Stop: 02/11/24 21:04 Last Admin: 01/18/24 00:09 Dose: 2 mls/min Lorazepam 2 mg/ Syringe 2 mls @ 2 mls/min IV UD PRN; Protocol PRN Reason: EtOH Withdrawal AWSS Score 8,9 Stop: 02/11/24 21:04 Last Admin: 01/16/24 19:35 Dose: 2 mls/min Lorazepam 3 mg/ Syringe 3 mls @ 2 mls/min IV ONCE PRN; Protocol PRN Reason: EtOH Withdrawal AWSS Score 10+ Thiamine HCl 100 mg/ Syringe 10 mls @ 2 mls/min IV QAM [facility] Stop: 02/16/24 08:59 Last Admin: 01/23/24 09:38 Dose: 2 mls/min Folic Acid 1 mg/ Syringe 10 mls @ 5 mls/min IV QAM [facility] Stop: 02/17/24 09:29 Last Admin: 01/23/24 09:38 Dose: 5 mls/min Levalbuterol HCl (Levalbuterol 1.25 Mg/3 Ml Neb) 1.25 mg NEB Q4H PRN PRN Reason: Shortness Of Breath Or Wheezing Stop: 02/14/24 01:55 Last Admin: 01/15/24 02:26 Dose: 1.25 mg Miscellaneous (Remove Nicoderm Patch) 1 each N/A DAILY@0859 [facility] Stop: 02/18/24 08:58 Last Admin: 01/23/24 09:36 Dose: 1 each Morphine Sulfate (Morphine Sulfate 4 Mg/Ml 1 Ml Carp\Vial) 3 mg IV Q6H PRN PRN Reason: mild-moderate pain Stop: 01/31/24 19:33 Last Admin: 01/17/24 20:10 Dose: 3 mg Multivitamins (Multivitamin Tab) 1 tab PO DAILY [facility] Stop: 02/12/24 08:59 Last Admin: 01/23/24 09:36 Dose: 1 tab Nicotine (Nicotine 7 Mg/24 Hr Tdsy) 1 patch TD QAM [facility] Stop: 02/17/24 13:59 Last Admin: 01/23/24 09:39 Dose: 1 patch Nitroglycerin (Nitroglycerin Sl 0.4 Mg/Tab Tab) 0.4 mg SL Q5M PRN PRN Reason: Chest Pain Stop: 02/11/24 21:04 Polyethylene Glycol (Polyethylene (Miralax) 17 Gm Pack) 17 gm PO DAILY PRN PRN Reason: Constipation Stop: 02/11/24 21:04 Sodium Chloride (Sodium Chlor 7% 4 Ml Neb) 4 ml NEB BIDR PRN PRN Reason: Sputum induction if needed Stop: 02/12/24 18:59 Vitamin D (Cholecalciferol 125 Mcg (5,000 Units) Tab) 125 mcg PO QAM [facility] Stop: 02/13/24 08:59 Last Admin: 01/23/24 09:37 Dose: 125 mcg
[2024-01-24 07:00] LABS: BUN Creatinine Ratio 19.6 (10-20); Calcium 8.7 mg/dl (8.6-10.3); Creatinine Clr Calc Pharmacy 93.7 ml/min; Est GFR (African American) 120.2 ml/min; Est GFR (Non-African American) 103.7 ml/min; Magnesium 1.6 mg/dl (1.7-2.4); Potassium 3.6 mmol/L (3.5-5.1)
--- NOTE | 2024-01-24 09:46 | Orthopedic Progress Note ---
Date of Service January 24, 2024 Assessment & Plan (1) Alcohol use: (2) Recurrent falls: (3) Intertrochanteric fracture of right hip: Plan: Postop day 11-status post ORIF right intertrochanteric hip fracture with Dr. Lawson -Weight-bear as tolerated right lower extremity with the assistance of a walker or at least out of bed to chair due to the right upper extremity fracture. -Ice and elevate to right hip as needed for pain and swelling. -Keep incisions covered. -Physical therapy and Occupational Therapy as ordered. -DVT prophylaxis per primary service. -SCDs while inpatient for DVT prophylaxis. -May do range of motion of the right hip, knee and ankle as tolerated. -Dr. Lawson present for today's visit. -Case management for disposition needs. May benefit from skilled facility her inpatient rehab. - Okay from ortho standpoint when medically stable - Follow up as outpatient as scheduled. (4) Closed fracture of right proximal humerus: Plan: Continue the sling and swath. Nonweightbearing right upper extremity. May do range of motion of fingers, wrist and forearm and elbow. Ice to right shoulder as needed for pain and swelling. No use of right upper extremity for pushing, pulling or lifting.May be comfortable with head of bed elevated. (5) Vitamin D deficiency: Plan: Will replace with vitamin D. Vitamin D 125 mcg ordered daily. Will continue this for 6 to 8 weeks after surgery. Will need to repeat vitamin D at that time. Will follow this as outpatient. Admission and Anticipated Discharge Date Admission Date: January 12, 2024 Subjective Patient states that he's not doing well because "he's here". Only thing that would help is to go home. Denies pain in right leg. Pain in shoulder with movement. Physical Exam Musculoskeletal: Right Lower extremity Exam: Clean, dry and intact incisions. No drainage. [place] retained. Mild induration at proximal incisions with ecchymosis. No underlying seroma or hematoma. Able to actively move right hip, bend knee and move ankle. Able to independently SLR. Dorsalis pedis pulse 1+. Sensation intact. Exam of right upper extremity: full active ROM right hand, fingers wrist and elbow. Sling readjusted. Ecchymosis and edema right elbow. Mild tenderness with palpation of right shoulder. Distal pulses intact. Sensation normal right upper extremity Results & Data Vital Signs (Past 12 Hours) Vital Signs Temp Pulse Resp BP Pulse Ox O2 Del Method O2 Del Method 01/24/24 07:26 36.5 C 87 16 144/81 H 92 Room Air 01/24/24 00:00 Nasal Cannula 01/23/24 23:33 36.6 C 86 16 133/71 92 Room Air 01/23/24 21:51 Nasal Cannula O2 Flow Rate O2 Flow Rate 01/24/24 07:26 01/24/24 00:00 3 01/23/24 23:33 01/23/24 21:51 3
--- NOTE | 2024-01-24 13:08 | Hospitalist Progress Note ---
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 Patient has some dysarthria and somewhat difficulty to understand. Patient was in the hospital in August for recurrent falls and ambulatory dysfunction. Seen by speech at that time and that time he was on soft bite-size diet. Recommend to alternate solids and liquids and oral hygiene and to follow as outpatient. Fall History of falls Ambulatory dysfunction XRs showed intertrochanteric fracture of right hip and right humerus fracture --> S/p ORIF right intertrochanteric hip fracture on 01/13/[address] Lawson Reviewed head CT, no fractures Pain control Continue Vit D Hgb yesterday 9.6, pre-op Hgb 12 Acute blood loss anemia plus dilutional effect of IVF Patient previously didn't tolerate po Eliquis, was switched to SQ Lovenox on 01/18 Going to restart Eliquis tomorrow AM (01/24), stopping Lovenox SQ Weight-bear as tolerated RLE w/ assistance of walker, at least OOB to chair per ortho Ice and elevate R hip as needed for pain, swelling Keep R hip incision covered; Pt OK for d/c planning per ortho's standpoint when medically stable Would benefit from fdc facility placement for inpatient rehabilitation upon d/c He will need follow-up with orthopedics at discharge Chest CTA noted no PE but has cardiomegaly, emphysema, small pleural effusion with dependent consolidation, fluid/debris fill lower lobe airway bilaterally, comminuted right humeral head/neck fracture with surrounding edema/hemorrhage Right humeral head and neck impacted and comminuted fracture Seen and evaluated by orthopedics Offered CT scan with possible surgical intervention Patient declined Continuing non-weightbearing RUE, continue sling and swath No use of RUE for pushing, pulling or lifting He will need follow-up with orthopedics at discharge Acute blood loss anemia Likely secondary to recent surgery Required 1 unit of PRBCs on 01/17/24 Hemoglobin improved from 6.9 --> 9.2 s/p transfusion Monitor closely Hemoglobin 9.6 yesterday Aspiration pneumonia/pneumonitis Hx of COPD w/ emphysema Aspiration precautions Completed course of IV Zosyn yesterday (01/22) Pulm eval noted --> Recommend pt be d/c on daily Stiolto or Anoro Continue with Brovana and budesonide nebulizers while admitted [employer]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 Continue Coreg w/ hold parameters Procalcitonin 0.10 and lactate were normal Blood culture NGTD Continue with strict aspiration precautions, assistance with all meals, Allowing for permissive aspiration per discussion with previous provider and soraya turcios Alcoholism Alcohol withdrawal protocol gabapentin and Ativan as needed Per , drinks beers daily Per admitting provider, he reported 5 and reported 2 Alcohol level was 70 on presentation Got MVI infusion in ER IV thiamine, IV folic acid Alcohol withdrawal Monitor CIWA and manage appropriately Counseled regarding alcohol use Tobacco abuse Nicotine patch ordered per discussion with Possible NPH Has some dysarthria, dysphagia, urine incontinence and ambulate dysfunction Duff catheter removed, condom cath placed Bladder scan Q8H, measure PVR Monitor I&O's Follow-up with PCP and neurology Hypomagnesia Hypophosphatemia Hypokalemia Monitor and replete as needed DVT Prophylaxis: Switching to Eliquis from SQ Lovenox FULL CODE Disposition: Plan to transition to fdc facility (SNF) when medically stable. Patient was seen and examined in collaboration with Dr. Lopez. A total of 45 minutes was spent coordinating, documenting, and providing care for this patient excluding time spent in the performance of separately billed services. This included personally viewing all current laboratories and imaging studies, medication reconciliation, outpatient chart review, and discussion with specialists. This chart was completed in part utilizing Speech Voice Recognition Software. Grammatical errors, random word insertions, pronoun errors, and incomplete sentences are an occasional consequence of this system due to software limitations, ambient noise, and hardware issues. Any formal questions or concerns about the content, text, or information contained within the body of this dictation should be directly addressed to the provider for clarification. Admission and Anticipated Discharge Date Admission Date: January 12, 2024 Supervising Physician Co-Signing Physician Notes Patient seen and examined at bedside. Discussed with above provider. He is comfortably lying in the bed; not in distress. Pain is well-controlled on current medication. Duff in place draining clear urine. Continue PT OT Remove Duff; trial of void Awaiting placement. I have reviewed the advanced practitioner's documentation, and I agree with, and take responsibility for the plan of care I spent a total of 25 minutes coordinating, documenting, and providing care for this patient excluding time spent in the performance of separately billed services. All of the aforementioned completed while collaborating with the assigned advanced practitioner for a full treatment plan Subjective Patient seen at bedside in room N384-1. He is now post-op day 11 s/p ORIF for R intertrochanteric hip fx w/ Dr. Lawson. Drowsy upon entering his room, but slowly starts to participate in conversation. Patient states "I just want to go home" and "just please get me home." Denies any pain in his R hip, just wants to get out of the hospital as soon as possible. He endorses some pain w/ movement of his R shoulder. Otherwise, he denies any other concerns/complaints at this time. Denies any SOB, chest pain, abdominal pain or changes in bowel/bladder habits. No nursing complaints at this time. Patient wants to go back to sleep. Review of Systems Review of Systems: At least ten systems reviewed and negative, except as noted in the HPI. Physical Exam Physical Exam: General: Thin, elderly in appearance. Vitals as above, NAD. Drowsy, but conversing appropriately. A+Ox3, somewhat grumpy this morning. HEENT: Normocephalic, atraumatic. Normal inspection, PERRL, conjunctivae normal, anicteric sclerae. External ear and nose normal, oropharynx normal. Respiratory: Normal respiratory effort, lungs clear to auscultation, no wheeze, rales, rhonchi. No accessory muscle use. Cardiovascular: Regular rate, rhythm, no murmur, peripheral pulses intact, no BLE edema. Vessels: No JVD. Abdomen/GI: Normal bowel sounds, soft, nontender, no hepatosplenomegaly. Extremities/Musculoskeletal: R arm positioned in an [id number] sling. R hip w/ ecchymosis. Neurologic: PERRL, EOMI, accommodation nl, no face palsy. Dysarthria at baseline, somewhat difficult to understand. Skin: No rashes, normal color, warm/dry. Results & Data Results & Data Vital Signs (Past 12 Hours) Vital Signs Temp Pulse Resp BP Pulse Ox O2 Del Method 01/24/24 10:30 Room Air 01/24/24 07:26 36.5 C 87 16 144/81 H 92 Room Air Laboratory Results [facility] 01/24/24 05:55 Sodium 139 Potassium 3.6 Chloride 106 Carbon Dioxide 26 BUN 10 Creatinine 0.51 L Glucose 90 Calcium 8.7 Diagnostic Findings Femur X-Ray 01/12/24 16:58 XR pelvis 1-2V routine, XR femur RT 2V routine, XR knee RT 3V CLINICAL HISTORY: Hip trauma, fracture suspected, no prior imaging COMPARISON STUDY: None. FINDINGS: There is a mildly displaced intertrochanteric fracture within the proximal right femur. No dislocation of the femoral head. No fractures within the pelvis or left hip. Patchy sclerosis within the left femoral head favors avascular necrosis. No evidence for articular collapse. No fracture or dislocation within the right knee. No significant right knee effusion. Vascular calcifications are noted. IMPRESSION: 1. A mildly displaced right femoral intertrochanteric fracture. 2. No fractures within the pelvis or left hip. 3. 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 4. No fracture or dislocation within the right knee. ACT 112: Negative or not required by law. Electronically signed by: Doc Kent M.D. 01/12/2024 5:43 PM Knee X-Ray 01/12/24 16:58 XR pelvis 1-2V routine, XR femur RT 2V routine, XR knee RT 3V CLINICAL HISTORY: Hip trauma, fracture suspected, no prior imaging COMPARISON STUDY: None. FINDINGS: There is a mildly displaced intertrochanteric fracture within the proximal right femur. No dislocation of the femoral head. No fractures within the pelvis or left hip. Patchy sclerosis within the left femoral head favors avascular necrosis. No evidence for articular collapse. No fracture or dislocation within the right knee. No significant right knee effusion. Vascular calcifications are noted. IMPRESSION: 1. A mildly displaced right femoral intertrochanteric fracture. 2. No fractures within the pelvis or left hip. 3. 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 4. No fracture or dislocation within the right knee. ACT 112: Negative or not required by law. Electronically signed by: Doc Kent M.D. 01/12/2024 5:43 PM Pelvis X-Ray 01/12/24 16:58 XR pelvis 1-2V routine, XR femur RT 2V routine, XR knee RT 3V CLINICAL HISTORY: Hip trauma, fracture suspected, no prior imaging COMPARISON STUDY: None. FINDINGS: There is a mildly displaced intertrochanteric fracture within the proximal right femur. No dislocation of the femoral head. No fractures within the pelvis or left hip. Patchy sclerosis within the left femoral head favors avascular necrosis. No evidence for articular collapse. No fracture or dislocation within the right knee. No significant right knee effusion. Vascular calcifications are noted. IMPRESSION: 1. A mildly displaced right femoral intertrochanteric fracture. 2. No fractures within the pelvis or left hip. 3. 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 4. No fracture or dislocation within the right knee. ACT 112: Negative or not required by law. Electronically signed by: Doc Kent M.D. 01/12/2024 5:43 PM Shoulder X-Ray 01/12/24 16:58 XR shoulder RT min 2V routine CLINICAL HISTORY: Shoulder trauma, no prior imaging COMPARISON STUDY: None. FINDINGS: There is a slightly distracted fracture within the right humeral neck/head. No dislocation. The right clavicle is intact. Soft tissue swelling within the right shoulder. IMPRESSION: Acute right humeral head/neck fracture. No dislocation. ACT 112: Negative or not required by law. Electronically signed by: Doc Kent M.D. 01/12/2024 5:[address] 01/12/24 17:[address] DOSE: 625.8 mGy.cm HISTORY: fall, [facility] TECHNIQUE: Multiaxial CT images of the head were performed without the use of intravenous contrast. Automated exposure control was utilized for this study. A dose lowering technique was utilized adhering to the principles of ALARA. Comparison: Head CT 08/12/2023. Findings: Small retention cyst within the left maxillary sinus. The mastoid air cells are clear. The calvarium and skull base are intact. There is no mass, hematoma, midline shift, or acute infarct. Stable ventricular enlargement. Mild microvascular ischemic changes again noted. Impression: No significant change compared to the prior study. No acute intracranial abnor mality. ACT 112: Negative or not required by law. Electronically signed by: Doc Kent M.D. 01/12/2024 6:10 PM Chest X-Ray 01/12/24 17:32 XR chest 1V portable HISTORY: fall COMPARISON: Chest 08/12/2023. FINDINGS: No pneumothorax. No pleural effusions. Mild interstitial thickening, unchanged. This is likely chronic. No focal lung consolidations to suggest a pneumonia. No evidence for pulmonary edema. The cardiac silhouette is normal in size. There is a right humeral neck/head fracture. IMPRESSION: 1. A right humeral neck/head fracture. 2. Otherwise, no acute process within the chest ACT 112: Negative or not required by law. Electronically signed by: Doc Kent M.D. 01/12/2024 5:44 PM Hip X-Ray 01/13/24 00:00 INTRAOPERATIVE RADIOGRAPHS CLINICAL HISTORY: Open reduction and internal fixation of the right proximal femur. Fluoro time: 146 seconds Ka,r: 22.46 mGy FINDINGS: 7 spot fluoroscopic views of the right femur are obtained. Correlation is made with radiographs dated 01/12/2024. Intertrochanteric and intramedullary nails have been placed transfixing an intertrochanteric fracture of the right proximal femur. Near anatomic alignment is restored. A single cortical lag screw transfixes the distal end of the intramedullary nail. The orthopedic hardware appears intact. IMPRESSION: Intraoperative images from open reduction and internal fixation of a right hip fracture as above. Electronically signed by: Saleem Koo M.D. 01/13/2024 1:59 PM Chest CTA 01/13/24 06:19 CT ANGIOGRAM OF THE CHEST CLINICAL HISTORY: Falls. Dyspnea. COMPARISON STUDY: Chest x-ray dated 01/12/2024. TECHNIQUE: Following the IV administration of 118 cc of Optiray 320, CT angiogram of the chest was performed from the upper abdomen to the thoracic inlet utilizing the pulmonary embolus protocol. Images are reviewed in the axial, sagittal, and coronal planes. 3-D MIPS images are created and assessed. IV contrast was administered without complication. A dose lowering technique was utilized adhering to the principles of ALARA. The examination is degraded by motion artifact, as well as by streak artifact from the arms which could not be elevated above the chest. CT DOSE: 482.42 mGy.cm FINDINGS: Thyroid: Imaged portions of the thyroid gland are normal in size and attenuation. Thoracic aorta: There is atherosclerotic calcification of the thoracic aorta, which is normal in caliber and demonstrates bovine variant arch anatomy. No dissection is seen. Pulmonary vasculature: The pulmonary trunk is normal in caliber. There are no filling defects identified in main, lobar, or segmental pulmonary branches to suggest pulmonary embolus. Heart: The heart is mildly enlarged and without pericardial effusion. There are coronary artery calcifications. Lungs and pleural spaces: Evaluation of the lung parenchyma is degraded by motion artifact. Emphysematous changes observed. The trachea is clear. Fluid/debris is seen within the lower lobe airways bilaterally. There are small pleural effusions with dependent consolidation. Mediastinum: Subcentimeter mediastinal lymph nodes are not pathologically enlarged by size criteria. Natalie: Clear. Axillae: There is no axillary lymphadenopathy. Upper abdomen: There is trace perisplenic ascites. Partially visualized upper abdominal viscera is otherwise within normal limits. Skeletal structures: The skeletal structures are osteopenic. Degenerative change and hyperkyphosis is noted in the thoracic spine. There is a moderate age- indeterminate superior endplate compression deformity of T2. No lytic or blastic bony lesions are seen. There is a comminuted fracture of the right humeral head and neck with significant surrounding soft tissue edema/hemorrhage in the right shoulder/anterior chest wall. IMPRESSION: 1. There is no evidence of pulmonary embolus in the main, lobar, or segmental pulmonary arteries. 2. Cardiomegaly and emphysema. 3. There are small pleural effusions with dependent consolidation. This could represent atelectasis versus pneumonia/aspiration pneumonitis and clinical correlation will be required. 4. Fluid/debris fills the lower lobe airways bilaterally. Correlate clinically for evidence of aspiration. 5. Comminuted fracture of the right humeral head/neck with surrounding edema/hemorrhage. 6. Additional findings as above. ACT 112: Negative or not required by law. Electronically signed by: Saleem Koo M.D. 01/13/2024 7:08 AM Chest X-Ray 01/15/24 05:51 XR chest 1V portable CLINICAL HISTORY: Shortness of breath. COMPARISON STUDY: Chest radiograph January 12, 2024. Chest CT January 13, 2024. FINDINGS: A mildly displaced right humeral head and neck fracture is again noted. There is no pneumothorax. Small bilateral pleural effusions have developed. Interstitial thickening is noted. There are bibasilar opacities and addition patchy left lung opacities. Cardiomediastinal silhouette is stable. IMPRESSION: 1. Interval development of mild interstitial pulmonary edema with small bilateral pleural effusions. 2. Bilateral airspace opacities which could reflect pneumonia or aspiration pneumonitis. ACT 112: Negative or not required by law. Electronically signed by: Andrés Oorzco M.D. 01/15/2024 6:31 AM Videofluoroscopic Swallow 01/16/24 13:30 FL video swallow CLINICAL HISTORY: 78 years-old Male with r/o aspiration. Dysphagia with history of aspiration TECHNIQUE: Video fluoroscopic evaluation of swallowing was performed in the AP and lateral projections by the speech pathology staff. The patient is fed multiple consistencies of barium. FLUOROSCOPY TIME: 1.03 minutes..1767 images. 5.0 mGy COMPARISON STUDY: 08/14/2023. FINDINGS: Silent aspiration noted with thin liquid barium administered via the straw. Additional silent aspiration with pudding consistency. No additional aspiration identified. IMPRESSION: 1. Multiple consistency aspiration as above. 2. Please see the speech pathologist report for detailed findings and rec ommendations. ACT 112: Negative or not required by law. Electronically signed by: Octavio Sterling M.D. 01/16/2024 2:33 PM Chest X-Ray 01/17/24 07:00 XR chest 1V portable CLINICAL HISTORY: f/u COMPARISON STUDY: Chest CT January 13, 2024. Chest radiograph January 15, 2024. FINDINGS: A proximal humeral fracture is again noted. There is no pneumothorax or pleural effusion. Cardiomediastinal silhouette is unremarkable. Interstitial thickening persists. Patchy airspace opacities within the lungs are again noted. Right midlung opacity has developed. IMPRESSION: Patchy bilateral airspace opacities with interval development of right midlung opacity. The findings favor pneumonia or aspiration pneumonitis. ACT 112: Negative or not required by law. Electronically signed by: Andrés Orozco M.D. 01/17/2024 8:25 AM Shoulder X-Ray 01/19/24 07:28 RIGHT SHOULDER 3 VIEWS CLINICAL HISTORY: Fracture. FINDINGS: 3 views of the right humerus are compared to study dated 01/12/2024. The skeletal structures are osteopenic. Again seen is an impacted and comminuted fracture of the right humeral head and neck. Alignment has significant change from 01/12/2024. The humeral head is now located inferiorly, with the humeral neck positioned superiorly. There is significant overlying soft tissue edema. There is also fracture along the inferior aspect of the glenoid. Productive degenerative change is noted at the acromioclavicular joint. The imaged right lung parenchyma appears clear. IMPRESSION: 1. Again seen is an impacted and comminuted fracture of the right humeral head and neck. 2. Alignment is significant changed, with inversion of the humeral head head/neck (the humeral head is located inferiorly, with the humeral neck located superiorly). 3. There is also fracture of the inferior glenoid. Electronically signed by: Saleem Koo M.D. 01/19/2024 10:36 AM Medications Administered Acetaminophen (Acetaminophen 325 Mg Tab) 650 mg PO Q4H PRN PRN Reason: Pain or Fever Stop: 02/11/24 21:04 Last Admin: 01/21/24 07:50 Dose: 650 mg Documented By: Admin: 01/19/24 03:30 Dose: 650 mg Documented By: Admin: 01/18/24 18:20 Dose: 650 mg Documented By: Apixaban (Apixaban 2.5 Mg Tab) 2.5 mg PO BID [facility] Stop: 02/13/24 09:59 Last Admin: 01/15/24 21:20 Dose: Not Given Documented By: Admin: 01/15/24 08:26 Dose: 2.5 mg Documented By: Admin: 01/14/24 21:09 Dose: 2.5 mg Documented By: [facility] Admin: 01/14/24 09:59 Dose: 2.5 mg Documented By: MORALES Calcium/Vitamin D (Calcium 600mg + Vit D 400 Iu Tab) 1 tab PO BID [facility] Stop: 02/12/24 08:59 Last Admin: 01/24/24 09:00 Dose: 1 tab Documented By: [id number] Admin: 01/23/24 20:20 Dose: 1 tab Documented By: Admin: 01/23/24 09:37 Dose: 1 tab Documented By: Admin: 01/22/24 23:02 Dose: Not Given Documented By: ADJing Admin: 01/22/24 09:09 Dose: 1 tab Documented By: Admin: 01/21/24 21:09 Dose: 1 tab Documented By: Admin: 01/21/24 07:45 Dose: 1 tab Documented By: Admin: 01/20/24 20:43 Dose: 1 tab Documented By: Admin: 01/20/24 09:09 Dose: 1 tab Documented By: Admin: 01/19/24 21:17 Dose: 1 tab Documented By: Admin: 01/19/24 09:20 Dose: 1 tab Documented By: Admin: 01/18/24 21:09 Dose: Not Given Documented By: Admin: 01/18/24 09:14 Dose: Not Given Documented By: Admin: 01/17/24 20:06 Dose: Not Given Documented By: Admin: 01/17/24 08:44 Dose: Not Given Documented By: Admin: 01/16/24 19:00 Dose: Not Given Documented By: Admin: 01/16/24 13:07 Dose: Not Given Documented By: Admin: 01/15/24 19:46 Dose: Not Given Documented By: Admin: 01/15/24 08:29 Dose: Not Given Documented By: Admin: 01/14/24 21:09 Dose: 1 tab Documented By: [email or web address] Admin: 01/14/24 09:58 Dose: 1 tab Documented By: Admin: 01/13/24 22:15 Dose: 1 tab Documented By: Admin: 01/13/24 16:40 Dose: Not Given Documented By: MORALES Carvedilol (Carvedilol 6.25 Mg Tab) 6.25 mg PO BID [facility] Stop: 02/11/24 21:04 Last Admin: 01/24/24 09:01 Dose: 6.25 mg Documented By: [id number] Admin: 01/23/24 20:20 Dose: Not Given Documented By: Admin: 01/23/24 10:49 Dose: 6.25 mg Documented By: AABryce Admin: 01/22/24 23:02 Dose: Not Given Documented By: Admin: 01/14/24 08:08 Dose: Not Given Documented By: Admin: 01/13/24 22:15 Dose: 6.25 mg Documented By: Admin: 01/13/24 16:40 Dose: Not Given Documented By: Admin: 01/12/24 21:48 Dose: 6.25 mg Documented By: RADHA Cyanocobalamin (Cyanocobalamin (B-12) 500 Mcg Tablet) 1,000 mcg PO DAILY [facility] Stop: 02/12/24 08:59 Last Admin: 01/24/24 09:01 Dose: 1,000 mcg Documented By: [id number] Admin: 01/23/24 09:37 Dose: 1,000 mcg Documented By: AABryce Admin: 01/22/24 09:10 Dose: 1,000 mcg Documented By: AABryce Admin: 01/21/24 07:45 Dose: 1,000 mcg Documented By: Admin: 01/20/24 09:09 Dose: 1,000 mcg Documented By: Admin: 01/19/24 09:18 Dose: 1,000 mcg Documented By: Admin: 01/18/24 09:15 Dose: Not Given Documented By: Admin: 01/17/24 08:44 Dose: Not Given Documented By: Admin: 01/16/24 13:07 Dose: Not Given Documented By: Admin: 01/15/24 08:29 Dose: Not Given Documented By: Admin: 01/14/24 08:09 Dose: 1,000 mcg Documented By: Admin: 01/13/24 16:40 Dose: Not Given Documented By: MORALES Enoxaparin Sodium (Enoxaparin Inj 40 Mg/0.4 Ml Syr) 40 mg SQ DAILY [facility] Stop: 02/18/24 08:59 Last Admin: 01/24/24 09:02 Dose: Not Given Documented By: [id number] Admin: 01/23/24 09:44 Dose: Not Given Documented By: Admin: 01/22/24 10:05 Dose: Not Given Documented By: Admin: 01/21/24 07:46 Dose: 40 mg Documented By: Admin: 01/20/24 09:09 Dose: 40 mg Documented By: Admin: 01/19/24 09:51 Dose: 40 mg Documented By: Hydromorphone HCl (Hydromorphone Inj 0.5 Mg/0.5 Ml Syr) 0.5 mg IV Q4H PRN PRN Reason: Severe Pain (Scale 7, 8, 9,10) Stop: 01/26/24 21:04 Last Admin: 01/21/24 08:46 Dose: 0.5 mg Documented By: Admin: 01/19/24 10:54 Dose: 0.5 mg Documented By: Admin: 01/17/24 21:13 Dose: 0.5 mg Documented By: Admin: 01/17/24 03:47 Dose: 0.5 mg Documented By: Admin: 01/16/24 16:22 Dose: 0.5 mg Documented By: Admin: 01/16/24 09:05 Dose: 0.5 mg Documented By: Admin: 01/15/24 01:38 Dose: 0.5 mg Documented By: Admin: 01/13/24 03:56 Dose: 0.5 mg Documented By: Admin: 01/12/24 21:24 Dose: 0.5 mg Documented By: RADHA Lorazepam 1 mg/ Syringe 1 mls @ 2 mls/min IV UD PRN; Protocol PRN Reason: EtOH Withdrawal AWSS Score 6,7 Stop: 02/11/24 21:04 Last Admin: 01/18/24 00:09 Dose: 2 mls/min Documented By: ALICJA Lorazepam 2 mg/ Syringe 2 mls @ 2 mls/min IV UD PRN; Protocol PRN Reason: EtOH Withdrawal AWSS Score 8,9 Stop: 02/11/24 21:04 Last Admin: 01/16/24 19:35 Dose: 2 mls/min Documented By: Admin: 01/15/24 08:27 Dose: 2 mls/min Documented By: ANGELINE Thiamine HCl 100 mg/ Syringe 10 mls @ 2 mls/min IV QAM [facility] Stop: 02/16/24 08:59 Last Admin: 01/24/24 08:59 Dose: 2 mls/min Documented By: [id number] Admin: 01/23/24 09:38 Dose: 2 mls/min Documented By: Admin: 01/22/24 10:22 Dose: 2 mls/min Documented By: Admin: 01/21/24 12:40 Dose: 2 mls/min Documented By: Admin: 01/20/24 09:10 Dose: 2 mls/min Documented By: Admin: 01/19/24 07:35 Dose: 2 mls/min Documented By: Admin: 01/18/24 09:20 Dose: 2 mls/min Documented By: Admin: 01/17/24 08:35 Dose: 2 mls/min Documented By: MONICO Folic Acid 1 mg/ Syringe 10 mls @ 5 mls/min IV QAM [facility] Stop: 02/17/24 09:29 Last Admin: 01/24/24 09:00 Dose: 5 mls/min Documented By: [id number] Admin: 01/23/24 09:38 Dose: 5 mls/min Documented By: Admin: 01/22/24 10:22 Dose: 5 mls/min Documented By: Admin: 01/21/24 12:41 Dose: 5 mls/min Documented By: Admin: 01/20/24 09:10 Dose: 5 mls/min Documented By: Admin: 01/19/24 07:35 Dose: 5 mls/min Documented By: Admin: 01/18/24 10:13 Dose: 5 mls/min Documented By: Levalbuterol HCl (Levalbuterol 1.25 Mg/3 Ml Neb) 1.25 mg NEB Q4H PRN PRN Reason: Shortness Of Breath Or Wheezing Stop: 02/14/24 01:55 Last Admin: 01/15/24 02:26 Dose: 1.25 mg Documented By: DAINNE Miscellaneous (Remove Nicoderm Patch) 1 each N/A DAILY@0859 [facility] Stop: 02/18/24 08:58 Last Admin: 01/24/24 08:59 Dose: 1 each Documented By: [id number] Admin: 01/23/24 09:36 Dose: 1 each Documented By: Admin: 01/22/24 09:10 Dose: 1 each Documented By: Admin: 01/21/24 07:45 Dose: 1 each Documented By: Admin: 01/20/24 09:09 Dose: 1 each Documented By: Admin: 01/19/24 07:34 Dose: 1 each Documented By: Morphine Sulfate (Morphine Sulfate 4 Mg/Ml 1 Ml Carp\\Vial) 3 mg IV Q6H PRN PRN Reason: mild-moderate pain Stop: 01/31/24 19:33 Last Admin: 01/17/24 20:10 Dose: 3 mg Documented By: ALICJA Multivitamins (Multivitamin Tab) 1 tab PO DAILY [facility] Stop: 02/12/24 08:59 Last Admin: 01/24/24 09:01 Dose: 1 tab Documented By: [id number] Admin: 01/23/24 09:36 Dose: 1 tab Documented By: Admin: 01/22/24 09:09 Dose: 1 tab Documented By: Admin: 01/21/24 07:45 Dose: 1 tab Documented By: Admin: 01/20/24 09:09 Dose: 1 tab Documented By: Admin: 01/19/24 09:23 Dose: 1 tab Documented By: Admin: 01/18/24 09:15 Dose: Not Given Documented By: Admin: 01/17/24 08:44 Dose: Not Given Documented By: Admin: 01/16/24 13:07 Dose: Not Given Documented By: Admin: 01/15/24 08:29 Dose: Not Given Documented By: Admin: 01/14/24 08:08 Dose: 1 tab Documented By: Admin: 01/13/24 16:41 Dose: Not Given Documented By: MORALES Nicotine (Nicotine 7 Mg/24 Hr Tdsy) [facility] Stop: 02/17/24 13:59 Last Admin: 01/24/24 09:01 Dose: 1 patch Documented By: [id number] Admin: 01/23/24 09:39 Dose: 1 patch Documented By: Admin: 01/22/24 09:10 Dose: 1 patch Documented By: Admin: 01/21/24 07:45 Dose: 1 patch Documented By: Admin: 01/20/24 09:10 Dose: 1 patch Documented By: Admin: 01/19/24 09:18 Dose: 1 patch Documented By: Admin: 01/18/24 14:49 Dose: 1 patch Documented By: Vitamin D (Cholecalciferol 125 Mcg (5,000 Units) Tab) 125 mcg PO QAM [facility] Stop: 02/13/24 08:59 Last Admin: 01/24/24 09:01 Dose: 125 mcg Documented By: [id number] Admin: 01/23/24 09:37 Dose: 125 mcg Documented By: Admin: 01/22/24 09:09 Dose: 125 mcg Documented By: Admin: 01/21/24 07:45 Dose: 125 mcg Documented By: Admin: 01/20/24 09:09 Dose: 125 mcg Documented By: Admin: 01/19/24 09:22 Dose: 125 mcg Documented By: Admin: 01/18/24 09:15 Dose: Not Given Documented By: Admin: 01/17/24 08:44 Dose: Not Given Documented By: Admin: 01/16/24 13:07 Dose: Not Given Documented By: Admin: 01/15/24 08:29 Dose: Not Given Documented By: Admin: 01/14/24 09:58 Dose: 125 mcg Documented By: MORALES Discontinued Medications Benzonatate (Benzonatate 100 Mg Capsule) 100 mg PO NOW ONE Stop: 01/21/24 20:38 Last Admin: 01/21/24 21:09 Dose: 100 mg Documented By: KJRhonda Budesonide (Budesonide 0.25 Mg/2 Ml Vial (Pulmicort)) 0.25 mg NEB BIDR [facility] Stop: 02/12/24 18:59 Last Admin: 01/22/24 08:05 Dose: Not Given Documented By: [id number] Admin: 01/21/24 19:43 Dose: Not Given Documented By: Admin: 01/21/24 14:00 Dose: Not Given Documented By: Admin: 01/20/24 19:37 Dose: Not Given Documented By: Admin: 01/20/24 07:09 Dose: 0.25 mg Documented By: Admin: 01/19/24 20:59 Dose: Not Given Documented By: Admin: 01/19/24 07:11 Dose: 0.25 mg Documented By: Admin: 01/18/24 19:30 Dose: 0.25 mg Documented By: EMRhonda Admin: 01/18/24 07:18 Dose: 0.25 mg Documented By: Admin: 01/17/24 20:37 Dose: 0.25 mg Documented By: Admin: 01/17/24 07:20 Dose: Not Given Documented By: Admin: 01/16/24 19:34 Dose: 0.25 mg Documented By: Admin: 01/16/24 07:18 Dose: 0.25 mg Documented By: Admin: 01/15/24 19:32 Dose: 0.25 mg Documented By: Admin: 01/15/24 07:28 Dose: 0.25 mg Documented By: TATA(2) Admin: 01/14/24 20:02 Dose: 0.25 mg Documented By: Admin: 01/14/24 07:15 Dose: Not Given Documented By: Admin: 01/13/24 19:59 Dose: 0.25 mg Documented By: NIKKI Bupivacaine HCl (Bupivacaine 0.5 % 5 Mg/1 Ml Mpf 30ml Vial) 30 ml INJ ONCE ONE Stop: 01/13/24 11:17 Last Admin: 01/13/24 11:00 Dose: 30 ml Documented By: BEAN Cefazolin Sodium (Cefazolin 2,000 Mg/15 Ml Iv Push) Confirm Administered Dose 2,000 mg IV .STK-MED ONE Stop: 01/13/24 08:59 Last Admin: 01/13/24 10:53 Dose: Not Given Documented By: ELLA Cefazolin Sodium (Cefazolin 2,000 Mg/15 Ml Iv Push) Confirm Administered Dose 2,000 mg IV .STK-MED ONE Stop: 01/13/24 09:00 Last Admin: 01/13/24 10:52 Dose: Not Given Documented By: ELLA Enoxaparin Sodium (Enoxaparin Inj 40 Mg/0.4 Ml Syr) 40 mg SQ QAM [facility] Stop: 02/13/24 08:59 Last Admin: 01/14/24 09:39 Dose: Not Given Documented By: MORALES Enoxaparin Sodium (Enoxaparin Inj 40 Mg/0.4 Ml Syr) 40 mg SQ Q12H [facility] Stop: 02/15/24 08:59 Last Admin: 01/16/24 21:47 Dose: 40 mg Documented By: Admin: 01/16/24 09:24 Dose: 40 mg Documented By: ASHLEIGH Fentanyl Citrate (Fentanyl Citrate Pf 100 Mcg/2 Ml Vial) 25 mcg IV Q5M PRN PRN Reason: PACU Use Only-Pain Stop: 01/13/24 19:36 Last Admin: 01/13/24 12:05 Dose: 25 mcg Documented By: Admin: 01/13/24 12:00 Dose: 25 mcg Documented By: Admin: 01/13/24 11:45 Dose: 25 mcg Documented By: Admin: 01/13/24 11:40 Dose: 25 mcg Documented By: SHAQUILLE Fentanyl Citrate (Fentanyl Citrate Pf 100 Mcg/2 Ml Vial) Confirm Administered Dose 100 mcg .ROUTE .STK-MED ONE Stop: 01/13/24 11:38 Last Admin: 01/13/24 16:17 Dose: Not Given Documented By: MORALES Formoterol Fumarate (Formoterol 20 Mcg/2 Ml Vial) 20 mcg INH BIDR [facility] Stop: 02/12/24 18:59 Last Admin: 01/22/24 08:05 Dose: Not Given Documented By: [id number] Admin: 01/21/24 19:43 Dose: Not Given Documented By: Admin: 01/21/24 14:00 Dose: Not Given Documented By: Admin: 01/20/24 19:37 Dose: Not Given Documented By: Admin: 01/20/24 07:09 Dose: 20 mcg Documented By: Admin: 01/19/24 20:58 Dose: Not Given Documented By: Admin: 01/19/24 07:11 Dose: 20 mcg Documented By: Admin: 01/18/24 19:30 Dose: 20 mcg Documented By: Admin: 01/18/24 07:18 Dose: 20 mcg Documented By: Admin: 01/17/24 20:36 Dose: 20 mcg Documented By: Admin: 01/17/24 07:20 Dose: Not Given Documented By: Admin: 01/16/24 19:34 Dose: 20 mcg Documented By: Admin: 01/16/24 07:18 Dose: 20 mcg Documented By: Admin: 01/15/24 19:29 Dose: 20 mcg Documented By: Admin: 01/15/24 07:28 Dose: 20 mcg Documented By: EML(2) Admin: 01/14/24 20:02 Dose: 20 mcg Documented By: Admin: 01/14/24 07:15 Dose: Not Given Documented By: Admin: 01/13/24 19:59 Dose: 20 mcg Documented By: NIKKI Furosemide (Furosemide Inj 20 Mg/2 Ml Vial) 20 mg IV ONE ONE Stop: 01/13/24 22:46 Last Admin: 01/13/24 23:15 Dose: 20 mg Documented By: NKECHI Furosemide (Furosemide Inj 20 Mg/2 Ml Vial) 20 mg IV ONE ONE Stop: 01/14/24 13:24 Last Admin: 01/14/24 13:53 Dose: 20 mg Documented By: MORALES Furosemide (Furosemide Inj 20 Mg/2 Ml Vial) 20 mg IV ONE ONE Stop: 01/15/24 06:12 Last Admin: 01/15/24 06:32 Dose: Not Given Documented By: MACKENZIE Furosemide (Furosemide Inj 20 Mg/2 Ml Vial) 20 mg IV ONE ONE Stop: 01/15/24 06:15 Last Admin: 01/15/24 06:23 Dose: 20 mg Documented By: MACKENZIE Furosemide (Furosemide 40 Mg/4 Ml Vial) 40 mg IV ONE ONE Stop: 01/15/24 09:17 Last Admin: 01/15/24 09:49 Dose: 40 mg Documented By: LANYES Furosemide (Furosemide 40 Mg/4 Ml Vial) 40 mg IV ONE ONE Stop: 01/16/24 10:56 Last Admin: 01/16/24 11:31 Dose: 20 mg Documented By: ASHLEIGH Furosemide (Furosemide Inj 20 Mg/2 Ml Vial) 20 mg IV ONE ONE Stop: 01/17/24 14:21 Last Admin: 01/17/24 15:04 Dose: 20 mg Documented By: SUSANNE Gabapentin (Gabapentin 400 Mg Cap) 800 mg PO NOW ONE Stop: 01/12/24 21:06 Last Admin: 01/12/24 21:50 Dose: 800 mg Documented By: RADHA Gabapentin (Gabapentin 400 Mg Cap) 400 mg PO Q6H [facility] Stop: 01/13/24 12:01 Last Admin: 01/13/24 16:41 Dose: Not Given Documented By: Admin: 01/13/24 06:23 Dose: 400 mg Documented By: TIMOTEO Gabapentin (Gabapentin 400 Mg Cap) 400 mg PO Q8H [facility] Stop: 01/14/24 14:01 Last Admin: 01/14/24 14:33 Dose: 400 mg Documented By: Admin: 01/14/24 05:23 Dose: 400 mg Documented By: Admin: 01/13/24 22:14 Dose: 400 mg Documented By: NKECHI Gabapentin (Gabapentin 400 Mg Cap) 400 mg PO Q12H [facility] Stop: 01/15/24 12:01 Last Admin: 01/15/24 12:10 Dose: Not Given Documented By: Admin: 01/15/24 00:12 Dose: Not Given Documented By: MACKENZIE Gabapentin (Gabapentin 400 Mg Cap) 400 mg PO Q24H [facility] Stop: 01/16/24 12:01 Last Admin: 01/16/24 16:21 Dose: Not Given Documented By: ASHLEIGH Heparin Sodium (Porcine) (Heparin Sod 5,000 Unit/0.5 Ml Vial) 5,000 units SQ NOW STA Stop: 01/15/24 21:17 Last Admin: 01/15/24 21:46 Dose: 5,000 units Documented By: MACKENZIE Hydromorphone HCl (Hydromorphone Inj 0.5 Mg/0.5 Ml Syr) 0.5 mg IV NOW STA Stop: 01/13/24 00:55 Last Admin: 01/13/24 01:16 Dose: 0.5 mg Documented By: TIMOTEO Acetaminophen (Ofirmev) 1,000 mg in 100 mls @ 400 mls/hr IV NOW STA Stop: 01/12/24 18:55 Last Infusion: 01/12/24 19:54 Dose: Infused Documented By: Admin: 01/12/24 19:12 Dose: 400 mls/hr Documented By: DEVI Sodium Chloride (Nss) 1,000 mls @ 125 mls/hr IV .Q8H [facility] Stop: 02/11/24 18:44 Last Infusion: 01/12/24 21:58 Dose: Infused Documented By: Admin: 01/12/24 19:07 Dose: 125 mls/hr Documented By: DEVI Sodium Chloride (Nss) 1,000 mls @ 100 mls/hr IV .Q10H [facility] Stop: 02/11/24 21:04 Last Infusion: 01/13/24 17:42 Dose: Infused Documented By: Admin: 01/13/24 16:18 Dose: 100 mls/hr Documented By: Infusion: 01/13/24 16:18 Dose: Infused Documented By: Admin: 01/13/24 06:23 Dose: 100 mls/hr Documented By: Infusion: 01/13/24 06:23 Dose: Infused Documented By: Admin: 01/12/24 21:59 Dose: 100 mls/hr Documented By: RADHA Acetaminophen (Ofirmev) 1,000 mg in 100 mls @ 400 mls/hr IV Q8H PRN PRN Reason: Pain or Fever Stop: 01/15/24 21:04 Last Infusion: 01/15/24 20:05 Dose: Infused Documented By: Admin: 01/15/24 19:50 Dose: 400 mls/hr Documented By: Infusion: 01/14/24 21:27 Dose: Infused Documented By: Admin: 01/14/24 21:12 Dose: 400 mls/hr Documented By: Infusion: 01/14/24 16:18 Dose: Infused Documented By: Admin: 01/14/24 15:55 Dose: 400 mls/hr Documented By: MORALES Multivitamins 10 ml/ Thiamine HCl 100 mg/ Folic Acid 1 mg/Sodium Chloride 1,011.2 mls @ 500 mls/hr IV .Q2H2M ONE Stop: 01/12/24 23:06 Last Infusion: 01/13/24 00:00 Dose: Infused Documented By: Admin: 01/12/24 21:50 Dose: 500 mls/hr Documented By: RADHA Thiamine HCl 100 mg/ Syringe 10 mls @ 2 mls/min IV QAM [facility] Stop: 02/12/24 08:59 Last Admin: 01/16/24 09:05 Dose: 2 mls/min Documented By: Admin: 01/15/24 09:04 Dose: 2 mls/min Documented By: Admin: 01/14/24 08:08 Dose: 2 mls/min Documented By: Admin: 01/13/24 08:21 Dose: 2 mls/min Documented By: DON Folic Acid 1 mg/ Syringe 10 mls @ 5 mls/min IV QAM [facility] Stop: 02/12/24 08:59 Last Admin: 01/18/24 20:47 Dose: Not Given Documented By: Admin: 01/17/24 08:36 Dose: 5 mls/min Documented By: Admin: 01/16/24 09:05 Dose: 5 mls/min Documented By: Admin: 01/15/24 09:04 Dose: 5 mls/min Documented By: Admin: 01/14/24 08:08 Dose: 5 mls/min Documented By: Admin: 01/13/24 08:21 Dose: 5 mls/min Documented By: DON Magnesium Sulfate/Dextrose (Magnesium Sulfate / D5w) 1 gm in 100 mls @ 50 mls/hr IV Q2H [facility] Stop: 01/13/24 01:04 Last Infusion: 01/13/24 02:25 Dose: Infused Documented By: Admin: 01/13/24 00:05 Dose: 50 mls/hr Documented By: Infusion: 01/12/24 23:52 Dose: Infused Documented By: Admin: 01/12/24 21:50 Dose: 50 mls/hr Documented By: RADHA Piperacillin Sod/Tazobactam (Sod 4.5 gm/ Dextrose) 100 mls @ 25 mls/hr IV Q8H [facility]; Protocol Stop: 01/20/24 07:44 Last Infusion: 01/16/24 10:03 Dose: Infused Documented By: Admin: 01/16/24 05:56 Dose: 25 mls/hr Documented By: Infusion: 01/16/24 01:46 Dose: Infused Documented By: Admin: 01/15/24 21:46 Dose: 25 mls/hr Documented By: Infusion: 01/15/24 20:21 Dose: Infused Documented By: Admin: 01/15/24 16:21 Dose: 25 mls/hr Documented By: Infusion: 01/15/24 10:25 Dose: Infused Documented By: Admin: 01/15/24 06:20 Dose: 25 mls/hr Documented By: Infusion: 01/15/24 03:12 Dose: Infused Documented By: Admin: 01/14/24 23:12 Dose: 25 mls/hr Documented By: Infusion: 01/14/24 17:57 Dose: Infused Documented By: Admin: 01/14/24 13:52 Dose: 25 mls/hr Documented By: Infusion: 01/14/24 09:37 Dose: Infused Documented By: Admin: 01/14/24 05:30 Dose: 25 mls/hr Documented By: Infusion: 01/14/24 03:13 Dose: Infused Documented By: Admin: 01/13/24 22:59 Dose: 25 mls/hr Documented By: Infusion: 01/13/24 21:30 Dose: Infused Documented By: Infusion: 01/13/24 18:30 Dose: 25 mls/hr Documented By: Infusion: 01/13/24 17:40 Dose: 0 mls/hr Documented By: Admin: 01/13/24 16:33 Dose: 25 mls/hr Documented By: MORALES Piperacillin Sod/Tazobactam Sod (Zosyn) 4.5 gm in 100 mls @ 200 mls/hr IV NOW STA Stop: 01/13/24 08:35 Last Infusion: 01/13/24 16:05 Dose: Infused Documented By: Admin: 01/13/24 08:30 Dose: 200 mls/hr Documented By: DNO Cefazolin Sodium (Ancef 2000mg) 2,000 mg in 15 mls @ 3.75 mls/min IV ONCE ONE; Protocol Stop: 01/13/24 10:57 Last Admin: 01/13/24 09:19 Dose: 3.75 mls/min Documented By: CATERINA Tranexamic Acid (Tranexamic Acid / 0.7% Nacl) 1,000 mg in 100 mls @ 600 mls/hr IV Q6H [facility] Stop: 01/13/24 17:39 Last Infusion: 01/13/24 17:58 Dose: Infused Documented By: Admin: 01/13/24 17:40 Dose: 600 mls/hr Documented By: MORALES Cefazolin Sodium (Ancef 1000mg) 1,000 mg in 7.5 mls @ 2.5 mls/min IV Q8H [facility]; Protocol Stop: 01/14/24 01:32 Last Admin: 01/14/24 01:48 Dose: 2.5 mls/min Documented By: Admin: 01/13/24 19:06 Dose: 2.5 mls/min Documented By: MORALES Dextrose/Sodium Chloride (D5w And Nss) 1,000 mls @ 50 mls/hr IV .Q20H [facility] Stop: 02/12/24 17:29 Last Infusion: 01/14/24 15:07 Dose: Infused Documented By: Infusion: 01/14/24 08:08 Dose: 50 mls/hr Documented By: Admin: 01/14/24 05:20 Dose: 75 mls/hr Documented By: Infusion: 01/14/24 05:20 Dose: Infused Documented By: Infusion: 01/13/24 22:51 Dose: 75 mls/hr Documented By: Admin: 01/13/24 17:52 Dose: 100 mls/hr Documented By: MORALES Magnesium Sulfate/Dextrose (Magnesium Sulfate / D5w) 1 gm in 100 mls @ 50 mls/hr IV Q2H [facility] Stop: 01/15/24 08:44 Last Infusion: 01/15/24 09:44 Dose: Infused Documented By: Admin: 01/15/24 07:26 Dose: 50 mls/hr Documented By: KTAzar Infusion: 01/15/24 07:21 Dose: Infused Documented By: Admin: 01/15/24 05:18 Dose: 50 mls/hr Documented By: MACKENZIE Potassium Phosphate 30 mmol/ (Sodium Chloride) 510 mls @ 100 mls/hr IV ONE ONE Stop: 01/15/24 10:05 Last Infusion: 01/15/24 11:33 Dose: Infused Documented By: Admin: 01/15/24 06:20 Dose: 100 mls/hr Documented By: MACKENZIE Piperacillin Sod/Tazobactam (Sod 4.5 gm/ Dextrose) 100 mls @ 25 mls/hr IV Q8H [facility]; Protocol Stop: 01/23/24 13:59 Last Infusion: 01/23/24 10:16 Dose: Infused Documented By: Admin: 01/23/24 05:48 Dose: 25 mls/hr Documented By: Infusion: 01/23/24 01:45 Dose: Infused Documented By: Admin: 01/22/24 21:45 Dose: 25 mls/hr Documented By: Infusion: 01/22/24 18:32 Dose: Infused Documented By: Admin: 01/22/24 14:27 Dose: 25 mls/hr Documented By: AABryce Infusion: 01/22/24 12:29 Dose: Infused Documented By: Admin: 01/22/24 07:51 Dose: 25 mls/hr Documented By: Infusion: 01/22/24 04:30 Dose: Infused Documented By: Infusion: 01/22/24 02:51 Dose: 25 mls/hr Documented By: Infusion: 01/22/24 01:17 Dose: 0 mls/hr Documented By: Admin: 01/21/24 22:02 Dose: 25 mls/hr Documented By: Infusion: 01/21/24 20:37 Dose: Infused Documented By: Admin: 01/21/24 15:39 Dose: 25 mls/hr Documented By: Infusion: 01/21/24 10:28 Dose: Infused Documented By: Admin: 01/21/24 05:44 Dose: 25 mls/hr Documented By: Infusion: 01/21/24 02:08 Dose: Infused Documented By: Admin: 01/20/24 22:05 Dose: 25 mls/hr Documented By: Infusion: 01/20/24 18:39 Dose: Infused Documented By: Admin: 01/20/24 14:37 Dose: 25 mls/hr Documented By: Infusion: 01/20/24 10:14 Dose: Infused Documented By: Admin: 01/20/24 05:50 Dose: 25 mls/hr Documented By: Infusion: 01/20/24 03:04 Dose: Infused Documented By: Admin: 01/19/24 22:35 Dose: 25 mls/hr Documented By: Infusion: 01/19/24 18:30 Dose: Infused Documented By: Admin: 01/19/24 14:28 Dose: 25 mls/hr Documented By: Infusion: 01/19/24 10:12 Dose: Infused Documented By: Admin: 01/19/24 05:36 Dose: 25 mls/hr Documented By: Infusion: 01/19/24 01:53 Dose: Infused Documented By: Admin: 01/18/24 21:53 Dose: 25 mls/hr Documented By: Infusion: 01/18/24 18:34 Dose: Infused Documented By: Admin: 01/18/24 14:40 Dose: 25 mls/hr Documented By: Infusion: 01/18/24 10:08 Dose: Infused Documented By: Admin: 01/18/24 05:38 Dose: 25 mls/hr Documented By: Infusion: 01/18/24 02:30 Dose: Infused Documented By: Admin: 01/17/24 22:01 Dose: 25 mls/hr Documented By: Infusion: 01/17/24 18:24 Dose: Infused Documented By: Admin: 01/17/24 14:24 Dose: 25 mls/hr Documented By: Infusion: 01/17/24 09:32 Dose: Infused Documented By: Admin: 01/17/24 05:11 Dose: 25 mls/hr Documented By: Infusion: 01/17/24 01:47 Dose: Infused Documented By: Admin: 01/16/24 21:47 Dose: 25 mls/hr Documented By: Infusion: 01/16/24 18:30 Dose: Infused Documented By: Admin: 01/16/24 14:26 Dose: 25 mls/hr Documented By: ASHLEIGH Potassium Chloride (K Shemar / Wtr) 10 meq in 100 mls @ 100 mls/hr IV Q1H [facility] Stop: 01/16/24 12:59 Last Infusion: 01/16/24 14:13 Dose: Infused Documented By: Admin: 01/16/24 12:34 Dose: 100 mls/hr Documented By: Infusion: 01/16/24 12:31 Dose: Infused Documented By: Admin: 01/16/24 11:31 Dose: 100 mls/hr Documented By: ASHLEIGH Potassium Phosphate 9 mmol/ (Sodium Chloride) 253 mls @ 88 mls/hr IV ONE ONE Stop: 01/16/24 16:52 Last Infusion: 01/16/24 17:44 Dose: Infused Documented By: Admin: 01/16/24 14:22 Dose: 88 mls/hr Documented By: ASHLEIGH Acetaminophen (Ofirmev) 1,000 mg in 100 mls @ 400 mls/hr IV Q8H PRN PRN Reason: Pain or Fever Stop: 01/19/24 19:24 Last Infusion: 01/18/24 10:28 Dose: Infused Documented By: Admin: 01/18/24 10:11 Dose: 400 mls/hr Documented By: Acetaminophen (Ofirmev) 1,000 mg in 100 mls @ 400 mls/hr IV NOW STA Stop: 01/17/24 09:05 Last Infusion: 01/17/24 09:45 Dose: Infused Documented By: Admin: 01/17/24 09:22 Dose: 400 mls/hr Documented By: OO Potassium Chloride (K Shemar / Wtr) 10 meq in 100 mls @ 100 mls/hr IV Q1H [facility] Stop: 01/17/24 14:59 Last Infusion: 01/17/24 18:25 Dose: Infused Documented By: Admin: 01/17/24 15:55 Dose: 100 mls/hr Documented By: Infusion: 01/17/24 15:24 Dose: Infused Documented By: Admin: 01/17/24 14:24 Dose: 100 mls/hr Documented By: Infusion: 01/17/24 14:21 Dose: Infused Documented By: Admin: 01/17/24 13:21 Dose: 100 mls/hr Documented By: Infusion: 01/17/24 13:00 Dose: Infused Documented By: Admin: 01/17/24 12:00 Dose: 100 mls/hr Documented By: Infusion: 01/17/24 11:34 Dose: Infused Documented By: Admin: 01/17/24 10:34 Dose: 100 mls/hr Documented By: Infusion: 01/17/24 10:22 Dose: Infused Documented By: Admin: 01/17/24 09:22 Dose: 100 mls/hr Documented By: OO Magnesium Sulfate/Dextrose (Magnesium Sulfate / D5w) 1 gm in 100 mls @ 50 mls/hr IV Q2H [facility] Stop: 01/17/24 18:29 Last Infusion: 01/17/24 20:16 Dose: Infused Documented By: Admin: 01/17/24 16:44 Dose: 50 mls/hr Documented By: Infusion: 01/17/24 16:44 Dose: Infused Documented By: Admin: 01/17/24 15:04 Dose: 50 mls/hr Documented By: OO Acetaminophen (Ofirmev) 1,000 mg in 100 mls @ 400 mls/hr IV Q8H PRN PRN Reason: pain/fever Stop: 01/20/24 18:20 Last Infusion: 01/20/24 13:33 Dose: Infused Documented By: Admin: 01/20/24 12:47 Dose: 400 mls/hr Documented By: RLB Potassium Chloride (K Shemar / Wtr) 10 meq in 100 mls @ 100 mls/hr IV Q1H NORTH Stop: 01/18/24 21:59 Last Infusion: 01/19/24 01:57 Dose: Infused Documented By: Admin: 01/18/24 23:57 Dose: 50 mls/hr Documented By: Infusion: 01/18/24 23:53 Dose: Infused Documented By: Admin: 01/18/24 21:53 Dose: 50 mls/hr Documented By: Infusion: 01/18/24 21:53 Dose: Infused Documented By: Admin: 01/18/24 20:00 Dose: 50 mls/hr Documented By: MMSherita Infusion: 01/18/24 19:45 Dose: Infused Documented By: Admin: 01/18/24 18:25 Dose: 75 mls/hr Documented By: Magnesium Sulfate/Dextrose (Magnesium Sulfate / D5w) 1 gm in 100 mls @ 50 mls/hr IV ONE ONE Stop: 01/20/24 10:44 Last Infusion: 01/20/24 11:21 Dose: Infused Documented By: Admin: 01/20/24 09:07 Dose: 50 mls/hr Documented By: MORENITA Potassium Chloride/Sodium Chloride (Normal Saline W/20 Meq Kcl) 20 meq in 1,000 mls @ 100 mls/hr IV .Q10H ONE; Protocol Stop: 01/22/24 11:33 Last Infusion: 01/22/24 13:33 Dose: Infused Documented By: Infusion: 01/22/24 02:28 Dose: 100 mls/hr Documented By: Infusion: 01/22/24 02:22 Dose: 0 mls/hr Documented By: Admin: 01/22/24 02:10 Dose: 100 mls/hr Documented By: CORIN Magnesium Sulfate/Dextrose (Magnesium Sulfate / D5w) 1 gm in 100 mls @ 50 mls/hr IV Q2H [place]TH Stop: 01/22/24 05:44 Last Infusion: 01/22/24 07:14 Dose: Infused Documented By: Admin: 01/22/24 05:07 Dose: 50 mls/hr Documented By: Infusion: 01/22/24 04:31 Dose: Infused Documented By: Admin: 01/22/24 02:31 Dose: 50 mls/hr Documented By: CORIN Ioversol (Optiray 320 125ml) 118 ml IV ONCE ONE Stop: 01/13/24 06:50 Last Admin: 01/13/24 06:50 Dose: 118 ml Documented By: ABBEY Metoprolol Tartrate (Metoprolol Tartrate 25 Mg Tab) 25 mg PO NOW STA Stop: 01/22/24 01:34 Last Admin: 01/22/24 02:08 Dose: 25 mg Documented By: CORIN Morphine Sulfate (Morphine Sulfate 4 Mg/Ml 1 Ml Carp\\Vial) 4 mg IV NOW STA Stop: 01/12/24 17:03 Last Admin: 01/12/24 17:16 Dose: Not Given Documented By: RADHA Morphine Sulfate (Morphine Sulfate 2 Mg/Ml Carp) 2 mg IV NOW STA Stop: 01/12/24 17:09 Last Admin: 01/12/24 17:10 Dose: 2 mg Documented By: RADHA Morphine Sulfate (Morphine Sulfate 2 Mg/Ml Carp) 2 mg IV Q1H PRN PRN Reason: Pain Stop: 01/26/24 18:40 Last Admin: 01/12/24 19:12 Dose: 2 mg Documented By: DEVI Ondansetron HCl (Ondansetron Inj 2 Mg/Ml 2 Ml Vial) 4 mg IV NOW STA Stop: 01/12/24 17:06 Last Admin: 01/12/24 19:12 Dose: 4 mg Documented By: DEVI Potassium Chloride (Potassium Chloride Pwd 20 Meq Pack) 40 meq PO NOW STA Stop: 01/22/24 01:35 Last Admin: 01/22/24 02:32 Dose: 40 meq Documented By: CORIN Sodium Chloride (Sodium Chlor 7% 4 Ml Neb) 4 ml NEB BIDR NORTH Stop: 02/12/24 18:59 Last Admin: 01/22/24 08:05 Dose: Not Given Documented By: [id number] Admin: 01/21/24 19:43 Dose: Not Given Documented By: Admin: 01/21/24 14:00 Dose: Not Given Documented By: Admin: 01/20/24 19:37 Dose: Not Given Documented By: Admin: 01/20/24 07:09 Dose: 4 ml Documented By: Admin: 01/19/24 20:59 Dose: Not Given Documented By: Admin: 01/19/24 07:12 Dose: 4 ml Documented By: Admin: 01/18/24 19:30 Dose: 4 ml Documented By: Admin: 01/18/24 07:18 Dose: 4 ml Documented By: Admin: 01/17/24 20:37 Dose: 4 ml Documented By: Admin: 01/17/24 07:20 Dose: Not Given Documented By: Admin: 01/16/24 19:34 Dose: 4 ml Documented By: Admin: 01/16/24 07:18 Dose: 4 ml Documented By: Admin: 01/15/24 19:29 Dose: 4 ml Documented By: Admin: 01/15/24 07:28 Dose: 4 ml Documented By: TATA(2) Admin: 01/14/24 20:02 Dose: 4 ml Documented By: Admin: 01/14/24 07:15 Dose: Not Given Documented By: Admin: 01/13/24 20:00 Dose: 4 ml Documented By: NIKKI Tranexamic Acid (Tranexamic Acid / 0.7% Nacl 1000mg/100ml Bag) Confirm Administered Dose 1,000 mg IV .STK-MED ONE Stop: 01/13/24 09:02 Last Admin: 01/13/24 16:17 Dose: Not Given Documented By: MORALES
[2024-01-25] MEDS ORDERED: MoRPHine SULFATE 4 MG/ML 1 ML CARP\\VIAL IV PRN (08:14)
--- NOTE | 2024-01-25 15:47 | Discharge Summary ---
Date of Service January 25, 2024 Admission HPI Per Admitting Provider 78-year-old male with past med history significant for hypertension, alcohol use, tobacco use, ongoing dysarthria, dysphagia, imbalance and urinary incontinence with possible NPH diagnosis, recently had lumbar puncture which did not help much of his symptoms and neurosurgery offered DROSS PULLER shunt placement but patient currently declined as lumbar puncture didn't helped and had hx of falls comes today because of fall and imaging studies showing right humerus and right femur fracture. Patient has some dysarthria and somewhat difficulty to understand. is also very hard of hearing and somewhat difficult to get history. Patient states he was getting out of his building and door hit him and he lost his balance and fell down. And the ambulance came in and and he could not put weight on his right leg and was brought in here. Denies any dizziness or chest pain prior to fall. Did not hit his head. No loss of consciousness as per patient. He has some runny nose and some congestion and cough. He denies any fevers. He is on soft diet as per his . He some difficulty swallowing. Ambulates with a cane. States vision is okay. No earache. Has some runny nose. And some sore throat. Denies fevers. No chest pain. No shortness of breath. No nausea. No abdominal pain. States currently his bowels and bladder moving okay. States he is drinks 5 beers daily but his states he drinks 2 beers daily. His alcohol was 70 in ER. Patient was in the hospital in August for recurrent falls and ambulatory dysfunction. Seen by speech at that time and that time he was on soft bite-size diet. Recommend to alternate solids and liquids and oral hygiene And to follow as outpatient. past medical history. As mentioned above Past surgical history. No surgical history on file. Family history. Cancer in the family social history. Smokes 1 pack cigarettes daily. Drinks 5 beers daily. . Admission Exam Per Admitting Provider General- Not in acute distress Head- atraumatic Eyes- PERRL. ENT- oropharynx clear Neck- supple, no JVD. Lungs- clear to auscultation no wheezing or crackles. Heart- regular rhythm; no murmur, no gallop. Abdomen- normal bowel sounds, soft, nontender, no distension. Extremities- no pretibial edema, no erythema seen. bruise seen on right shoulder region. Right lower extremity is shortened and externally rotated. Neuro- alert, oriented ; PERRL, no facial palsy; dysarthria present; obeys simple commands Principal Diagnosis Intertrochanteric fracture of right hip Fracture of right humerus Aspiration pneumonia/pneumonitis Discharge Exam General: Thin, elderly in appearance. Vitals as above, NAD. Drowsy, but conversing appropriately. A+Ox3, somewhat grumpy this morning. HEENT: Normocephalic, atraumatic. Normal inspection, PERRL, conjunctivae normal, anicteric sclerae. External ear and nose normal, oropharynx normal. Respiratory: Normal respiratory effort, lungs clear to auscultation, no wheeze, rales, rhonchi. No accessory muscle use. Cardiovascular: Regular rate, rhythm, no murmur, peripheral pulses intact, no BLE edema. Vessels: No JVD. Abdomen/GI: Normal bowel sounds, soft, nontender, no hepatosplenomegaly. Extremities/Musculoskeletal: R arm positioned in an [id number]-bqdkoohg sling. R hip w/ ecchymosis. Neurologic: PERRL, EOMI, accommodation nl, no face palsy. Dysarthria at baseline, somewhat difficult to understand. Skin: No rashes, normal color, warm/dry. Discharge Data Allergies Allergy/AdvReac Type Severity Reaction Status Date / Time amlodipine AdvReac Rash Verified 08/12/23 15:08 Consultations 01/12/24 21:25 ED Decision to Admit Stat 01/13/24 07:44 Consult Pulmonology Routine 01/13/24 08:00 Consult Orthopedic Surgery Routine 01/15/24 10:50 Consult Palliative Care Routine Procedures Performed Operation Date: 01/13/24 08:30 Actual Procedures p Internal Fixation Long Troch Nail Right Hip (Right) - Edgar Lawson MD Ordered Studies 01/12/24 17:03 CT head/brain wo con Stat 01/13/24 FL hip RT 2-3V Routine 01/13/24 06:19 CT angio chest PE protocol Stat 01/16/24 13:30 Fluoro video [FL video swallow] Routine Hospital Course (1) Intertrochanteric fracture of right hip: Talon Lion is a 78-year-old M with PMHx significant for hypertension, a lcohol use, tobacco use, ongoing dysarthria, dysphagia, imbalance and urinary incontinence with possible NPH diagnosis, recently had lumbar puncture which did not help much of his symptoms and neurosurgery offered DROSS PULLER shunt placement but patient currently declined as lumbar puncture didn't helped and had hx of falls who presented to the ED s/p fall and imaging studies showed right humerus and right femur fractures. Patient has some dysarthria at baseline and is somewhat difficult to understand. Patient was in the hospital back in August for recurrent falls and ambulatory dysfunction. Right Hip and Right Humerus Fractures s/p Fall History of Falls Ambulatory Dysfunction Patient presented to the ED s/p fall and was found to have two separate fractures on XR imaging. He ended up having a mildly displaced right femoral intertrochanteric fracture and a right humeral head/neck fracture w/ no dislocation. Patient ultimately elected not to have his right humerus fracture surgically repaired. He did undergo ORIF of the right intertrochanteric hip fracture with Dr. Lawson on 01/12. Patient's right arm was ultimately placed in a sling with the ultimate goal of conservative healing measures. He was evaluated by PT/OT throughout his hospitalization. The determination was made that the patient would benefit more from a inpatient rehabilitation center rather than a SNF. Patient is WBAT on his RLE with the assistance of a walker and is non-weightbearing on his RUE at time of discharge. Patient is ultimately being discharged to [facility] for inpatient rehabilitation therapy. He is scheduled to follow-up with Dr. Lawson in the outpatient setting on Monday, 01/30. Acute Blood Loss Anemia Patient's pre-operative Hgb was 12. His Hgb slowly dropped to 6.9 on post- operative day 4. Therefore, he required one unit of PRBCs on 01/16. His Hgb improved to 9.6 at the time of discharge. Will need to follow-up with his PCP sometime after discharge to closely monitor his Hgb level. Aspiration Pneumonia/Pneumonitis Hx of COPD w/ Emphysema Admitting chest CTA revealed some fluid/debris in both lower lobe airways and small bilateral pleural effusions with dependent consolidation, which suggested aspiration pneumonia/pneumonitis. Procalcitonin and lactate were normal. Blood culture showed NGTD. Patient ultimately completed a course of IV Zosyn on 01/22. Pulmonology saw the patient while he was admitted as well. They recommended that he be started on either daily Stiolto or Anoro upon discharge. Patient is being started on Anoro Ellipta at the time of discharge. BICYCLE RACER also evaluated the patient while he was admitted for chronic aspiration issues. Palliative care was consulted as well and determination was made to allow for permissive aspiration throughout his admission per the lengthy discussion had with the patient's family and previous providers. Patient will ultimately need assistance with all meals at [facility] with aspiration precautions. Alcoholism: Patient's alcohol level was 70 on admission. He did receive an MVI infusion in the ED. Alcohol withdrawal protocol w/ as needed gabapentin and lorazepam was in place throughout his hospitalization. Patient ultimately did not require the use of any medications from the alcohol withdrawal protocol. Patient was counseled throughout his hospital stay regarding alcohol use. Tobacco Abuse: Patient had a nicotine patch in place while he was admitted. Smoking cessation education was encouraged throughout his stay. Possible NPH: Patient had some dysarthria, dysphagia, urine incontinence and ambulate dysfunction during his admission. Had to end up having a Duff catheter placed, which was ultimately removed yesterday (01/23) without issue. Had a condom catheter in place afterwards. He can follow-up with his PCP upon discharge to discuss further recommendations regarding possible NPH diagnosis; could also see neurology in the outpatient setting following discharge for further input. Neurology appointment is NOT scheduled at time of discharge as this can be managed by his PCP on a non-emergent basis. Hypomagnesia: Mag level 1.6 at time of discharge; no need to replete with oral magnesium supplementation upon discharge. Hypophosphatemia: Phos level most recently 2.3 on 01/16, OK to continue to monitor his phosphate level. Can continue vit D, calcium supplementation upon discharge. Hypokalemia: Potassium level improved from 3.3 --> 3.6 at time of discharge. Can continue to monitor his potassium level on an outpatient basis with PCP. DVT Prophylaxis: Patient previously didn't tolerate po Eliquis and was switched to SQ Lovenox on 01/18. His Eliquis was ultimately restarted today, and he will be going to [facility] on Eliquis 2.5mg BID dosing. PCP: Dr. Guero Sandoval Disposition: Patient is being discharged today (01/24) to [facility] for inpatient acute rehabilitation therapy. Patient seen in collaboration with Dr. Lopez. Please see addendum. A total of 55 minutes was spent coordinating, documenting, and providing care for this patient excluding time spent in the performance of separately billed services. This included personally viewing all current laboratories and imaging studies, medication reconciliation, outpatient chart review, and discussion with specialists. This chart was completed in part utilizing Speech Voice Recognition Software. Grammatical errors, random word insertions, pronoun errors, and incomplete sentences are an occasional consequence of this system due to software limitations, ambient noise, and hardware issues. Any formal questions or concerns about the content, text, or information contained within the body of this dictation should be directly addressed to the provider for clarification. Home Health Attestation I certify that this patient is under my care and that I, or a physicians spa assistant manager working with me, had a face to-face encounter that meets the home health ikcb-co-wuak encounter requirements with this patient. The encounter with the patient was in whole, or in part, for the following medical condition, which is the primary reason for home health care (list medical condition): I certify that, based on my findings, the following services are medically necessary home health services: My clinical findings support the need for the above services because: Further, I certify that my clinical findings support that this patient is homebound (i.e. absences from home require considerable and taxing effort and are for medical reasons or amish services or infrequently or of short duration when for other reasons) because: Certification for Home Health Services: Based on the above findings, I certify that this patient is confined to the home and needs intermittent correction care, physical therapy and/or speech therapy or continues to need occupational therapy. The patient is under my care, and I have initiated the establishment of the plan of care. This patient will be followed by a physician who will periodically review the plan of care. Total Time Total Time Spent Total Time Spent (In Minutes): 55 Discharge Plan Discharge Items Patient Disposition: Transfer Inpatient Rehab Fac Reason For Visit: FALL, RIGHT HUMERUS AND FEMUR FRACTURE, ALCOHOLISM Discharge Diagnosis: S/p Fall Right proximal humerus fracture Right femur fracture - s/p ORIF right hip Alcoholism Activity: Per Instructions section Weightbearing: Right non-weightbearing and Right weightbearing Weightbearing Comment: upper extremity; may WBAT right lower extremity Non-emergency contact: Primary Care Provider and Surgeon Call non-emergency contact if: you have any medication questions, your pain is not controlled, your temperature is above 101, your wound has increased redness and your wound has increased drainage Follow-up/Referrals: Becca Carmichael PA-C [Physician [employer] Machine Set Up Mechanic] - 01/31/24 11:30 am Guero Sandoval MD [Primary Care Provider] - Diet: Regular Addtl Attending Provider Instructions: You were admitted to the hospital for a right hip fracture and a right arm fracture. You did NOT undergo surgery to repair your right arm fracture. Your right arm was placed in a sling to help the fracture heal without surgical intervention. Please follow the orthopedic instructions outlined below for how to care for your right arm fracture. You underwent surgery with Dr. Lawson (Orthopedic Surgeon) to repair your right hip fracture on January 12. Please follow the orthopedic instructions outlined below for how to care for your surgically repaired right hip fracture. Please attend your routine follow-up appointment with Dr. Lawson on JANUARY 30 at 11:30AM. Please continue with taking your Eliquis (blood thinning medication) as prescribed. You had to receive a blood transfusion while you were admitted as a result of anemia (AKA low blood cell count). Your hemoglobin level significantly improved to 9.6 upon discharge. You were treated with a course of IV antibiotics for aspiration pneumonia while admitted as well. You will continue to receive scheduled nebulizer breathing treatments upon discharge. You are being prescribed a new daily maintenance inhaler called Anoro Ellipta for your COPD. Please perform one inhalation on this medication on a daily basis. You will be going to [facility] upon being discharged from the hospital. This is an acute rehabilitation facility where you will be receiving physical and occupational therapy treatment for both of your fractures. You will eventually be contacted to scheduled a hospital discharge follow-up appointment with your primary care provider (PCP), Dr. Sandoval. Please attend your routine PCP follow-up appointment with Dr. Sandoval as instructed once the appointment is determined. It was a pleasure taking care of you. Addtl Yeast Stacker Provider Instructions: Orthopedic Instructions: - May weight-bear as tolerated right lower extremity with the assistance of a walker -Do not put any weight on your right upper extremity. Due to this may be unable to use a walker for ambulation. -Due to right proximal humerus fracture may only be able to do transfers from bed to chair for the time being. -Sling and belly band on right upper extremity at all times. -Ice to right hip and right shoulder as needed for pain and swelling. -Allowed for range of motion of the right hand, fingers, forearm and elbow as tolerated. -May use right hand for light daily activities but no heavy pushing, pulling or lifting with the right arm. -May do full range of motion of the right hip, knee and ankle as tolerated. -LAVERN stockings on bilateral lower extremities for DVT prophylaxis. - ELiquis 2.5 mg po twice daily for DVT prophylaxis - Vitamin D 125 mcg daily x 6 weeks -May shower or bathe as tolerated. May get the right hip incision wet. Pat incision dry. Do not soak or scrub. Reapply a light dressing to the right hip. Keep right hip incision covered at all times. - Call [phone] with any increased pain, swelling, drainage from incision, fevers, chills, questions or concerns, need to reschedule or confirm appointment. -Follow-up with Dr. Lawson as scheduled. Pending Studies at Discharge: No Stand-Alone Forms: My [facility] Skilled Items Patient informed of condition?: Yes DNR: Yes Discharge Level of Care: Acute rehab Communicable Disease: No Discharge Prognosis: Stable Lines: None Urinary Catheter: No Medications and DC Order Prescriptions: New acetaminophen 325 mg Tablet 650 mg PO Q4H PRN (Reason: pain) Qty: 30 0RF Eliquis 2.5 mg Tablet 2.5 mg PO BID 23 Days Qty: 46 0RF sodium chloride 7 % Solution For Nebulization 4 ml NEB BIDR 5 Days Qty: 120 0RF Caltrate 600-D Plus Minerals 600 mg calcium- 800 unit-50 mg Tablet 1 tab PO BID Qty: 60 0RF polyethylene glycol 3350 [Miralax] 17 gram Powder In Packet 17 g PO DAILY PRN (Reason: constipation) Qty: 30 0RF ipratropium-albuterol 0.5 mg-3 mg(2.5 mg base)/3 mL solution for nebulization 3 ml inhalation BID Qty: 90 0RF Anoro Ellipta 62.5-25 mcg/actuation blister with device 1 inh inhalation DAILY Qty: 60 0RF cholecalciferol (vitamin D3) 125 mcg (5,000 unit) Tablet 125 mcg PO QAM Qty: 30 0RF Continued carvedilol 6.25 mg tablet 6.25 mg PO BID Rx Instructions: last filled oct 04, 2023 for 90 day supply multivitamin Tablet 1 tab PO DAILY Rx Instructions: otc unable to verify cyanocobalamin (vitamin B-12) [Vitamin B-12] 1,000 mcg Tablet 1,000 mcg PO DAILY Rx Instructions: otc unable to verify fluocinonide 0.05 % cream 1 applic TOPICAL QPM PRN (Reason: Rash) Rx Instructions: last filled march 2023 Discharge Orders: Discharge Order (Routine); Ordered 01/25/24 Ordered By: Dhara Torres/Other Patient Handouts: COPD: Wheezing and Chest Tightness, What Is COPD, COPD: Using Inhalers, Using a Nebulizer (Adult) Admission Data Admit Date/Time: 01/12/24 20:10 Attending Provider: Lai Lopez Admit Provider: Edgar Lawson Primary Care Provider: Guero Sandoval Other Providers: [facility]; Ana Wright [facility] [place]; Lori Jarrett I.; Dipak Rob; Karen Omer; Edgar Lawson; Kaity Lechuga; [place],[facility], [place] Other Interventions: Discharge Summary Assessment (RN) Last Done: 01/25/24 14:57 Supervising Physician Co-Signing Physician Notes Patient seen and examined independently. Discussed with over provider. Peer to peer done; patient accepted for acute rehab. Discharge to acute rehab; follow-up with orthopedic. Continue airway clearance therapy at rehab. I have reviewed the advanced practitioner's documentation, and I agree with, and take responsibility for the plan of care I spent a total of 35 minutes coordinating, documenting, and providing care for this patient excluding time spent in the performance of separately billed services. All of the aforementioned completed while collaborating with the assigned advanced practitioner for a full treatment plan
== END 2024-01-25 17:40 | DRG 480 ==
LOC: ED 16:13 → EDINP 20:10 → SUATTDRO 20:10 → EDINP 01-13 08:49 → OR 01-13 08:49 → PACUINP 01-13 11:24 → SUATTDRO 01-13 11:24 → 2W 01-13 16:04 → 2S 01-14 18:22 → 3N 01-21 23:29
DX: Z88.8 Allergy status to other drugs, medicaments and biological substances; R94.8 Abnormal results of function studies of other organs and systems; E87.6 Hypokalemia; I10 Essential (primary) hypertension; S72.141A Displaced intertrochanteric fracture of right femur, initial encounter for closed fracture; R13.10 Dysphagia, unspecified; F10.239 Alcohol dependence with withdrawal, unspecified; J96.01 Acute respiratory failure with hypoxia; R26.89 Other abnormalities of gait and mobility; D62 Acute posthemorrhagic anemia; G91.2 (Idiopathic) normal pressure hydrocephalus; E83.42 Hypomagnesemia; Y92.014 Private driveway to single-family (private) house as the place of occurrence of the external cause; S42.291A Other displaced fracture of upper end of right humerus, initial encounter for closed fracture; E83.39 Other disorders of phosphorus metabolism; R29.6 Repeated falls; W18.39XA Other fall on same level, initial encounter; R00.0 Tachycardia, unspecified; E83.51 Hypocalcemia; J69.0 Pneumonitis due to inhalation of food and vomit; J43.2 Centrilobular emphysema; Y93.01 Activity, walking, marching and hiking; R32 Unspecified urinary incontinence; R47.1 Dysarthria and anarthria; F17.210 Nicotine dependence, cigarettes, uncomplicated